=== PATIENT | female | born 1940 | race Caucasian/White ===

== ENCOUNTER 2017-09-28 17:32 | Inpatient (IN) | payer MEDICARE, OTHER ==
[2017-09-29 04:03] LABS: AADO2 Arterial 47.3 mmHg (7.0-24.0); Allen Test ACCEPTAB; Arterial Base Excess 4.8 mmol/L (-3.0-3); Arterial Blood Gas Oxygen Sat 91.7 mmHG (95.0-100.0); Arterial Fraction of Oxyhgb 90.6 % (93.0-99.0); Arterial HCO3 27.4 mmol/L (22.0-26.0); Arterial MetHb 0.2 % (0.0-1.5); Arterial Total Hemglobin 13.5 g/dl (12.0-18.0); Arterial pCO2 34.1 mmhg (35-45); MODE ROOM AIR; Site Right Radial
[2017-09-29 06:18] LABS: ADD MAN DIFF? NO
[2017-09-29 06:30] LABS: WHITE BLOOD COUNT 22.3 10^3/ul (4.8-10.8)
[2017-09-29 06:30] LABS: BASOPHILS % 0.2 % (0.0-2.0); HEMATOCRIT 37.1 % (37.0-47.0); HEMOGLOBIN 12.3 g/dl (12.0-16.0); LYMPHOCYTES # 2.2 10^3/ul (0.8-2.9); LYMPHOCYTES % 9.6 % (15.0-51.0); MEAN CORPUSCULAR HEMOGLOBIN 29.4 pg (29.0-33.0); MEAN CORPUSCULAR HGB CONC 33.2 g/dl (32.0-37.0); MEAN CORPUSCULAR VOLUME 88.5 fl (82.0-101.0); MEAN PLATELET VOLUME 10.5 fl (7.4-10.4); MONOCYTE # 1.3 10^3/ul (0.3-0.9); MONOCYTES % 5.9 % (0.0-11.0); NEUTROPHIL # 18.5 10^3/ul (1.6-7.5); NEUTROPHILS % 83.1 % (39.0-77.0); PLATELET COUNT 310 10^3/UL (140-415); RED BLOOD COUNT 4.19 10^6/ul (4.20-5.40); RED CELL DISTRIBUTION WIDTH 14.8 % (11.5-14.5)
[2017-09-29 06:52] LABS: PROTIME 16.4 Sec (11.9-14.9); PT RATIO 1.3
[2017-09-29 06:53] LABS: PARTIAL THROMBOPLASTIN TIME 37.8 Sec (25.0-35.0)
[2017-09-29 06:56] LABS: ALANINE AMINOTRANSFERASE 27 IU/L (13-69); ALBUMIN 2.9 g/dl (3.3-4.9); ALBUMIN/GLOBULIN RATIO 0.87; ALKALINE PHOSPHATASE 354 IU/L (42-121); ANION GAP 15 (8-16); ASPARTATE AMINO TRANSFERASE 26 IU/L (15-46); BILIRUBIN,INDIRECT 0.9 mg/dl (0-1.1); BILIRUBIN,TOTAL 0.9 mg/dl (0.2-1.3); BLOOD UREA NITROGEN 34 mg/dl (7-20); CALCIUM 8.7 mg/dl (8.4-10.2); CARBON DIOXIDE 28 mmol/L (21-31); CHLORIDE 88 mmol/L (97-110); CREATININE 0.82 mg/dl (0.44-1.00); GLUCOSE 399 mg/dl (70-220); POTASSIUM 4.9 mmol/L (3.5-5.1); SODIUM 126 mmol/L (135-144); TOTAL PROTEIN 6.2 g/dl (6.1-8.1)
[2017-09-29 07:03] LABS: B-TYPE NATRIURETIC PEPTIDE 13900 PG/ML (0-450)
[2017-09-29 07:05] LABS: LACTIC ACID 2.6 mmol/L (0.5-2.0)
[2017-09-29 07:06] LABS: TROPONIN-I 0.058 ng/ml (0.00-0.12)
[2017-09-29] MEDS: PIPER-TAZO 3.375 GM IV (PMX) 100 ML IVPB (07:10)
[2017-09-29] MEDS: SODIUM CHLORIDE 0.9% 1L BAG IV* (07:11)
[2017-09-29] MEDS: INSULIN REGULAR, HUMAN 100 UNIT/1 ML 3ML VIAL SC (08:45)
[2017-09-29 08:57] LABS: LACTIC ACID 2.9 mmol/L (0.5-2.0)
[2017-09-29] MEDS: VANCOMYCIN 1 GM (PMX) 250 ML IVPB (09:34)
[2017-09-29 11:00] LABS: LACTIC ACID 4.7 mmol/L (0.5-2.0)
[2017-09-29] MEDS ORDERED: ACETAMINOPHEN 325 MG TAB PO (12:00)
[2017-09-29] MEDS ORDERED: ONDANSETRON 4 MG INJ IV ×2 (12:00→16:00)
[2017-09-29] MEDS ORDERED: VANCOMYCIN IV PER PHARMACY XX (16:00)
[2017-09-29] MEDS ORDERED: GLUCAGON 1 MG INJ IM (16:30)
[2017-09-29] MEDS ORDERED: DEXTROSE 50% 50 ML SYRINGE IV ×2 (16:30)
[2017-09-29] MEDS ORDERED: GLUCOSE GEL 15 GRAM TUBE BUCCAL (16:30)
[2017-09-29] MEDS ORDERED: GLUCOSE GEL 15 GRAM TUBE PO (16:30)
[2017-09-29 17:20] LABS: ADD UMIC YES; UR ASCORBIC ACID NEGATIVE (NEGATIVE); UR BILIRUBIN (Dip) NEGATIVE (NEGATIVE); UR BLOOD (Dip) 2+ mg/dL (NEGATIVE); UR CLARITY SLIGHTLY CLOUDY (CLEAR); UR COLOR YELLOW (YELLOW); UR GLUCOSE (Dip) 3+ mg/dL (NEGATIVE); UR KETONES (Dip) NEGATIVE (NEGATIVE); UR LEUKOCYTE ESTERASE (Dip) NEGATIVE Leu/ul (NEGATIVE); UR NITRITE (Dip) NEGATIVE (NEGATIVE); UR RBC 9 /HPF (0-5); UR SPECIFIC GRAVITY (Dip) 1.018 (1.003-1.030); UR SQUAMOUS EPITHELIAL CELL FEW /HPF (FEW); UR TOTAL PROTEIN (Dip) NEGATIVE (NEGATIVE); UR UROBILINOGEN (Dip) NEGATIVE (NEGATIVE); UR WBC 2 /HPF (0-5)
[2017-09-29] MEDS: CLOPIDOGREL 75 MG TAB PO (17:32)
[2017-09-29] MEDS: LEVOFLOXACIN 500MG/D5W (PMX) 100 ML IVPB (17:32)
[2017-09-29] MEDS: INSULIN ASPART [NOVOLOG] 3 ML PEN SC ×3 (17:54→20:28)
[2017-09-29] MEDS: ISOSORBIDE MONONITRATE(SR)60 MG TAB PO (17:59)
[2017-09-29] MEDS: FUROSEMIDE 40 MG TAB PO (18:00)
[2017-09-29] MEDS: SOD CHLORIDE 0.9% 1,000 ML IV (18:36)
[2017-09-29] MEDS: VANCOMYCIN 1.25 GM in SOD CHLORIDE 0.9% 250 ML IVPB (18:37)
[2017-09-29] MEDS: DOCUSATE SODIUM 100 MG CAP PO (20:21)
[2017-09-29] MEDS: POTASSIUM CHLORIDE (SR) 20 MEQ TAB PO (20:22)
[2017-09-29] MEDS: GABAPENTIN 100 MG CAP PO (20:22)
[2017-09-29] MEDS: ATORVASTATIN 10 MG TAB PO (20:22)
[2017-09-29] MEDS: FAMOTIDINE 20 MG TAB PO (20:22)
[2017-09-29] MEDS: ASPIRIN 81 MG TAB PO (20:30)
[2017-09-29] MEDS ORDERED: INSULIN DEGLUDEC 32 UNIT SQ (21:00)
[2017-09-30] MEDS: ACCU-CHEK XX ×2 (02:00→23:31)
[2017-09-30] MEDS: FUROSEMIDE 40 MG TAB PO ×2 (06:20→18:00)
[2017-09-30] MEDS: VANCOMYCIN 1 GM in 250 ML IVPB (06:21)
[2017-09-30 07:31] LABS: ADD MAN DIFF? NO
[2017-09-30 07:36] LABS: BASOPHIL # 0.1 10^3/ul (0.0-0.1); BASOPHILS % 0.4 % (0.0-2.0); EOSINOPHILS # 0.2 10^3/ul (0.0-0.5); EOSINOPHILS % 1.7 % (0.0-7.0); HEMATOCRIT 34.8 % (37.0-47.0); LYMPHOCYTES # 2.4 10^3/ul (0.8-2.9); LYMPHOCYTES % 16.8 % (15.0-51.0); MEAN CORPUSCULAR HEMOGLOBIN 28.8 pg (29.0-33.0); MEAN CORPUSCULAR HGB CONC 31.6 g/dl (32.0-37.0); MEAN CORPUSCULAR VOLUME 91.1 fl (82.0-101.0); MEAN PLATELET VOLUME 10.5 fl (7.4-10.4); MONOCYTE # 0.8 10^3/ul (0.3-0.9); MONOCYTES % 5.7 % (0.0-11.0); NEUTROPHIL # 10.4 10^3/ul (1.6-7.5); PLATELET COUNT 271 10^3/UL (140-415); RED BLOOD COUNT 3.82 10^6/ul (4.20-5.40); RED CELL DISTRIBUTION WIDTH 15.1 % (11.5-14.5)
[2017-09-30] MEDS: INSULIN ASPART [NOVOLOG] 3 ML PEN SC ×7 (07:53→20:20)
[2017-09-30 08:08] LABS: ANION GAP 10 (8-16); BLOOD UREA NITROGEN 29 mg/dl (7-20); CALCIUM 8.4 mg/dl (8.4-10.2); CARBON DIOXIDE 30 mmol/L (21-31); CHLORIDE 94 mmol/L (97-110); CREATININE 0.88 mg/dl (0.44-1.00); GLUCOSE 262 mg/dl (70-220); PHOSPHORUS 2.9 mg/dl (2.5-4.9); POTASSIUM 4.5 mmol/L (3.5-5.1); SODIUM 129 mmol/L (135-144)
[2017-09-30] MEDS: DOCUSATE SODIUM 100 MG CAP PO ×2 (09:17→20:19)
[2017-09-30] MEDS: CLOPIDOGREL 75 MG TAB PO (09:17)
[2017-09-30] MEDS: GABAPENTIN 100 MG CAP PO ×3 (09:18→20:19)
[2017-09-30] MEDS: ISOSORBIDE MONONITRATE(SR)60 MG TAB PO (09:18)
[2017-09-30] MEDS: FAMOTIDINE 20 MG TAB PO ×2 (09:18→20:19)
[2017-09-30] MEDS: POTASSIUM CHLORIDE (SR) 20 MEQ TAB PO ×2 (09:19→20:19)
[2017-09-30] MEDS: FLUCONAZOLE 200 MG TAB PO (14:44)
[2017-09-30] MEDS: LEVOFLOXACIN 500MG/D5W (PMX) 100 ML IVPB (15:29)
[2017-09-30] MEDS: INSULIN GLARGINE [LANtus] 3 ML PEN SC (15:30)
[2017-09-30] MEDS ORDERED: VANCOMYCIN 1.25 GM in SOD CHLORIDE 0.45% 250 ML IVPB (18:00)
[2017-09-30] MEDS: ASPIRIN 81 MG TAB PO (20:19)
[2017-09-30] MEDS: ATORVASTATIN 10 MG TAB PO (20:19)
[2017-10-01] MEDS: FUROSEMIDE 40 MG TAB PO ×2 (05:53→06:00)
[2017-10-01] MEDS: VANCOMYCIN 1 GM in 250 ML IVPB (05:53)
[2017-10-01] MEDS: INSULIN ASPART [NOVOLOG] 3 ML PEN SC ×7 (07:30→20:55)
[2017-10-01 08:38] LABS: ADD MAN DIFF? NO
[2017-10-01 08:54] LABS: WHITE BLOOD COUNT 17.7 10^3/ul (4.8-10.8)
[2017-10-01 08:54] LABS: BASOPHIL # 0.1 10^3/ul (0.0-0.1); BASOPHILS % 0.6 % (0.0-2.0); EOSINOPHILS # 0.2 10^3/ul (0.0-0.5); EOSINOPHILS % 1.4 % (0.0-7.0); HEMATOCRIT 38.6 % (37.0-47.0); HEMOGLOBIN 12.3 g/dl (12.0-16.0); LYMPHOCYTES # 4.3 10^3/ul (0.8-2.9); LYMPHOCYTES % 24.1 % (15.0-51.0); MEAN CORPUSCULAR HEMOGLOBIN 28.8 pg (29.0-33.0); MEAN CORPUSCULAR HGB CONC 31.9 g/dl (32.0-37.0); MEAN CORPUSCULAR VOLUME 90.4 fl (82.0-101.0); MEAN PLATELET VOLUME 10.5 fl (7.4-10.4); MONOCYTE # 0.8 10^3/ul (0.3-0.9); MONOCYTES % 4.6 % (0.0-11.0); NEUTROPHIL # 11.8 10^3/ul (1.6-7.5); NEUTROPHILS % 66.4 % (39.0-77.0); PLATELET COUNT 479 10^3/UL (140-415); RED BLOOD COUNT 4.27 10^6/ul (4.20-5.40); RED CELL DISTRIBUTION WIDTH 14.9 % (11.5-14.5)
[2017-10-01] MEDS: FAMOTIDINE 20 MG TAB PO ×2 (09:23→20:46)
[2017-10-01] MEDS: DOCUSATE SODIUM 100 MG CAP PO ×2 (09:23→20:46)
[2017-10-01] MEDS: GABAPENTIN 100 MG CAP PO ×3 (09:23→20:46)
[2017-10-01] MEDS: POTASSIUM CHLORIDE (SR) 20 MEQ TAB PO (09:23)
[2017-10-01] MEDS: FLUCONAZOLE 200 MG TAB PO (09:23)
[2017-10-01] MEDS: CLOPIDOGREL 75 MG TAB PO (09:24)
[2017-10-01 09:27] LABS: ANION GAP 15 (8-16); BLOOD UREA NITROGEN 38 mg/dl (7-20); CALCIUM 8.7 mg/dl (8.4-10.2); CARBON DIOXIDE 27 mmol/L (21-31); CHLORIDE 95 mmol/L (97-110); CREATININE 0.94 mg/dl (0.44-1.00); GLUCOSE 76 mg/dl (70-220); POTASSIUM 5.6 mmol/L (3.5-5.1); SODIUM 131 mmol/L (135-144)
[2017-10-01 09:28] LABS: MAGNESIUM 1.9 mg/dl (1.7-2.5)
[2017-10-01] MEDS: INSULIN GLARGINE [LANtus] 3 ML PEN SC (09:30)
[2017-10-01] MEDS: ISOSORBIDE MONONITRATE(SR)60 MG TAB PO (09:33)
[2017-10-01] MEDS: ALBUMIN HUMAN 25% 100 ML IV ×2 (12:14→21:00)
[2017-10-01] MEDS: HEPARIN 5,000 UNIT/0.5 ML VIAL SC ×2 (12:40→20:55)
[2017-10-01 12:46] LABS: POTASSIUM 5.7 mmol/L (3.5-5.1)
[2017-10-01] MEDS: LEVOFLOXACIN 500MG/D5W (PMX) 100 ML IVPB (16:04)
[2017-10-01] MEDS: HYDROCODONE/APAP (5/325) TAB PO (16:18)
[2017-10-01] MEDS: FUROSEMIDE 40 MG INJ IV (18:00)
[2017-10-01] MEDS: ASPIRIN 81 MG TAB PO (20:46)
[2017-10-01] MEDS: ATORVASTATIN 10 MG TAB PO (20:46)
[2017-10-02] MEDS: ACCU-CHEK XX (02:00)
[2017-10-02 04:37] LABS: ADD MAN DIFF? NO
[2017-10-02 04:39] LABS: WHITE BLOOD COUNT 13.9 10^3/ul (4.8-10.8)
[2017-10-02 04:39] LABS: BASOPHIL # 0.1 10^3/ul (0.0-0.1); BASOPHILS % 0.6 % (0.0-2.0); EOSINOPHILS # 0.1 10^3/ul (0.0-0.5); EOSINOPHILS % 0.6 % (0.0-7.0); HEMATOCRIT 37.3 % (37.0-47.0); HEMOGLOBIN 12.2 g/dl (12.0-16.0); LYMPHOCYTES # 2.1 10^3/ul (0.8-2.9); LYMPHOCYTES % 15.1 % (15.0-51.0); MEAN CORPUSCULAR HEMOGLOBIN 29.3 pg (29.0-33.0); MEAN CORPUSCULAR HGB CONC 32.7 g/dl (32.0-37.0); MEAN CORPUSCULAR VOLUME 89.4 fl (82.0-101.0); MEAN PLATELET VOLUME 10.3 fl (7.4-10.4); MONOCYTE # 0.8 10^3/ul (0.3-0.9); MONOCYTES % 5.5 % (0.0-11.0); NEUTROPHIL # 10.6 10^3/ul (1.6-7.5); NEUTROPHILS % 76.4 % (39.0-77.0); PLATELET COUNT 389 10^3/UL (140-415); RED BLOOD COUNT 4.17 10^6/ul (4.20-5.40); RED CELL DISTRIBUTION WIDTH 15.1 % (11.5-14.5)
[2017-10-02 05:04] LABS: ALBUMIN 3.2 g/dl (3.3-4.9); ANION GAP 10 (8-16); BLOOD UREA NITROGEN 40 mg/dl (7-20); CALCIUM 8.7 mg/dl (8.4-10.2); CARBON DIOXIDE 33 mmol/L (21-31); CHLORIDE 97 mmol/L (97-110); CREATININE 1.07 mg/dl (0.44-1.00); GLUCOSE 73 mg/dl (70-220); MAGNESIUM 1.8 mg/dl (1.7-2.5); PHOSPHORUS 4.3 mg/dl (2.5-4.9); POTASSIUM 5.3 mmol/L (3.5-5.1); SODIUM 135 mmol/L (135-144)
[2017-10-02 05:07] LABS: VANCOMYCIN,TROUGH 13.5 ug/ml (10.0-20.0)
[2017-10-02] MEDS: ALBUMIN HUMAN 25% 100 ML IV (06:10)
[2017-10-02] MEDS: VANCOMYCIN 1 GM in 250 ML IVPB (06:11)
[2017-10-02] MEDS: FUROSEMIDE 40 MG INJ IV (06:14)
[2017-10-02] MEDS: INSULIN ASPART [NOVOLOG] 3 ML PEN SC ×7 (08:00→20:08)
[2017-10-02] MEDS: FAMOTIDINE 20 MG TAB PO ×2 (08:27→20:08)
[2017-10-02] MEDS: DOCUSATE SODIUM 100 MG CAP PO ×2 (08:27→20:13)
[2017-10-02] MEDS: CLOPIDOGREL 75 MG TAB PO (08:28)
[2017-10-02] MEDS: FLUCONAZOLE 200 MG TAB PO (08:28)
[2017-10-02] MEDS: ISOSORBIDE MONONITRATE(SR)60 MG TAB PO (08:28)
[2017-10-02] MEDS: HEPARIN 5,000 UNIT/0.5 ML VIAL SC ×2 (08:29→20:11)
[2017-10-02] MEDS: INSULIN GLARGINE [LANtus] 3 ML PEN SC (08:30)
[2017-10-02] MEDS: GABAPENTIN 100 MG CAP PO ×3 (08:46→20:08)
[2017-10-02] MEDS: LEVOFLOXACIN 500MG/D5W (PMX) 100 ML IVPB (15:36)
[2017-10-02] MEDS: FUROSEMIDE 20 MG INJ IV (18:03)
[2017-10-02] MEDS: ATORVASTATIN 10 MG TAB PO (20:08)
[2017-10-02] MEDS: ASPIRIN 81 MG TAB PO (20:08)
[2017-10-03] MEDS: ACCU-CHEK XX (02:00)
[2017-10-03] MEDS: VANCOMYCIN 1 GM in 250 ML IVPB (04:52)
[2017-10-03] MEDS: FUROSEMIDE 20 MG INJ IV ×2 (05:42→17:24)
[2017-10-03 07:45] LABS: ADD MAN DIFF? NO
[2017-10-03 07:48] LABS: WHITE BLOOD COUNT 12.7 10^3/ul (4.8-10.8)
[2017-10-03 07:48] LABS: BASOPHIL # 0.1 10^3/ul (0.0-0.1); BASOPHILS % 0.4 % (0.0-2.0); EOSINOPHILS # 0.2 10^3/ul (0.0-0.5); EOSINOPHILS % 1.3 % (0.0-7.0); HEMATOCRIT 34.5 % (37.0-47.0); LYMPHOCYTES # 2.3 10^3/ul (0.8-2.9); LYMPHOCYTES % 18.1 % (15.0-51.0); MEAN CORPUSCULAR HEMOGLOBIN 28.7 pg (29.0-33.0); MEAN CORPUSCULAR HGB CONC 31.9 g/dl (32.0-37.0); MEAN CORPUSCULAR VOLUME 90.1 fl (82.0-101.0); MEAN PLATELET VOLUME 10.2 fl (7.4-10.4); MONOCYTE # 0.9 10^3/ul (0.3-0.9); MONOCYTES % 7.1 % (0.0-11.0); NEUTROPHIL # 9.2 10^3/ul (1.6-7.5); NEUTROPHILS % 71.8 % (39.0-77.0); PLATELET COUNT 310 10^3/UL (140-415); RED BLOOD COUNT 3.83 10^6/ul (4.20-5.40); RED CELL DISTRIBUTION WIDTH 15.3 % (11.5-14.5)
[2017-10-03] MEDS: INSULIN ASPART [NOVOLOG] 3 ML PEN SC ×7 (08:00→20:12)
[2017-10-03 08:15] LABS: ANION GAP 13 (8-16); BLOOD UREA NITROGEN 34 mg/dl (7-20); CALCIUM 8.4 mg/dl (8.4-10.2); CARBON DIOXIDE 30 mmol/L (21-31); CHLORIDE 97 mmol/L (97-110); GLUCOSE 97 mg/dl (70-220); POTASSIUM 3.8 mmol/L (3.5-5.1); SODIUM 136 mmol/L (135-144)
[2017-10-03] MEDS: DOCUSATE SODIUM 100 MG CAP PO ×2 (08:59→20:04)
[2017-10-03] MEDS: ISOSORBIDE MONONITRATE(SR)60 MG TAB PO (08:59)
[2017-10-03] MEDS: GABAPENTIN 100 MG CAP PO ×3 (08:59→20:04)
[2017-10-03] MEDS: CLOPIDOGREL 75 MG TAB PO (09:00)
[2017-10-03] MEDS: FAMOTIDINE 20 MG TAB PO ×2 (09:00→20:04)
[2017-10-03] MEDS: FLUCONAZOLE 200 MG TAB PO (09:00)
[2017-10-03] MEDS: INSULIN GLARGINE [LANtus] 3 ML PEN SC (09:05)
[2017-10-03] MEDS: HEPARIN 5,000 UNIT/0.5 ML VIAL SC ×2 (09:05→20:11)
[2017-10-03] MEDS: LEVOFLOXACIN 500MG/D5W (PMX) 100 ML IVPB (16:18)
[2017-10-03] MEDS: ASPIRIN 81 MG TAB PO (20:04)
[2017-10-03] MEDS: HYDROCODONE/APAP (5/325) TAB PO (20:04)
[2017-10-03] MEDS: ATORVASTATIN 10 MG TAB PO (20:05)
[2017-10-04] MEDS: ACCU-CHEK XX (02:00)
[2017-10-04] MEDS: VANCOMYCIN 1 GM in 250 ML IVPB (05:31)
[2017-10-04] MEDS: FUROSEMIDE 20 MG INJ IV ×3 (05:38→20:27)
[2017-10-04 07:51] LABS: ADD MAN DIFF? NO
[2017-10-04 07:57] LABS: WHITE BLOOD COUNT 12.3 10^3/ul (4.8-10.8)
[2017-10-04 07:57] LABS: BASOPHIL # 0.1 10^3/ul (0.0-0.1); BASOPHILS % 0.4 % (0.0-2.0); EOSINOPHILS # 0.2 10^3/ul (0.0-0.5); EOSINOPHILS % 1.5 % (0.0-7.0); HEMATOCRIT 36.8 % (37.0-47.0); HEMOGLOBIN 11.7 g/dl (12.0-16.0); LYMPHOCYTES % 16.3 % (15.0-51.0); MEAN CORPUSCULAR HGB CONC 31.8 g/dl (32.0-37.0); MEAN CORPUSCULAR VOLUME 91.3 fl (82.0-101.0); MEAN PLATELET VOLUME 10.2 fl (7.4-10.4); MONOCYTE # 0.9 10^3/ul (0.3-0.9); MONOCYTES % 7.6 % (0.0-11.0); NEUTROPHIL # 8.9 10^3/ul (1.6-7.5); NEUTROPHILS % 72.1 % (39.0-77.0); PLATELET COUNT 328 10^3/UL (140-415); RED BLOOD COUNT 4.03 10^6/ul (4.20-5.40); RED CELL DISTRIBUTION WIDTH 15.3 % (11.5-14.5)
[2017-10-04 08:20] LABS: ANION GAP 14 (8-16); BLOOD UREA NITROGEN 33 mg/dl (7-20); CALCIUM 8.4 mg/dl (8.4-10.2); CARBON DIOXIDE 34 mmol/L (21-31); CHLORIDE 94 mmol/L (97-110); CREATININE 0.99 mg/dl (0.44-1.00); GLUCOSE 178 mg/dl (70-220); POTASSIUM 4.3 mmol/L (3.5-5.1); SODIUM 138 mmol/L (135-144)
[2017-10-04] MEDS: CLOPIDOGREL 75 MG TAB PO (08:55)
[2017-10-04] MEDS: FAMOTIDINE 20 MG TAB PO ×2 (08:55→20:26)
[2017-10-04] MEDS: GABAPENTIN 100 MG CAP PO ×3 (08:55→20:25)
[2017-10-04] MEDS: FLUCONAZOLE 200 MG TAB PO (08:55)
[2017-10-04] MEDS: DOCUSATE SODIUM 100 MG CAP PO ×2 (08:55→20:26)
[2017-10-04] MEDS: ISOSORBIDE MONONITRATE(SR)60 MG TAB PO (08:56)
[2017-10-04] MEDS: INSULIN ASPART [NOVOLOG] 3 ML PEN SC ×7 (08:59→20:28)
[2017-10-04] MEDS: INSULIN GLARGINE [LANtus] 3 ML PEN SC (09:00)
[2017-10-04] MEDS: HEPARIN 5,000 UNIT/0.5 ML VIAL SC ×2 (09:01→20:44)
[2017-10-04] MEDS: ACETAMINOPHEN 325 MG TAB PO (13:38)
[2017-10-04] MEDS: LEVOFLOXACIN 500MG/D5W (PMX) 100 ML IVPB (16:02)
[2017-10-04] MEDS: ATORVASTATIN 10 MG TAB PO (20:25)
[2017-10-04] MEDS: ASPIRIN 81 MG TAB PO (20:25)
[2017-10-05] MEDS: ACCU-CHEK XX (02:00)
[2017-10-05] MEDS: VANCOMYCIN 1 GM in 250 ML IVPB (05:17)
[2017-10-05] MEDS: FUROSEMIDE 20 MG INJ IV ×2 (05:17→17:53)
[2017-10-05] MEDS: ACETAMINOPHEN 325 MG TAB PO ×2 (06:58→21:26)
[2017-10-05] MEDS: FLUCONAZOLE 200 MG TAB PO (08:50)
[2017-10-05] MEDS: DOCUSATE SODIUM 100 MG CAP PO ×2 (08:50→21:26)
[2017-10-05] MEDS: GABAPENTIN 100 MG CAP PO ×3 (08:51→21:25)
[2017-10-05] MEDS: ISOSORBIDE MONONITRATE(SR)60 MG TAB PO (08:51)
[2017-10-05] MEDS: FAMOTIDINE 20 MG TAB PO ×2 (08:51→21:25)
[2017-10-05] MEDS: CLOPIDOGREL 75 MG TAB PO (08:51)
[2017-10-05] MEDS: HEPARIN 5,000 UNIT/0.5 ML VIAL SC ×2 (09:04→21:28)
[2017-10-05] MEDS: INSULIN ASPART [NOVOLOG] 3 ML PEN SC ×7 (09:04→21:00)
[2017-10-05] MEDS: INSULIN GLARGINE [LANtus] 3 ML PEN SC (09:04)
[2017-10-05 11:07] LABS: ADD MAN DIFF? NO
[2017-10-05 11:14] LABS: WHITE BLOOD COUNT 13.4 10^3/ul (4.8-10.8)
[2017-10-05 11:14] LABS: BASOPHIL # 0.1 10^3/ul (0.0-0.1); BASOPHILS % 0.7 % (0.0-2.0); EOSINOPHILS # 0.1 10^3/ul (0.0-0.5); EOSINOPHILS % 0.8 % (0.0-7.0); HEMOGLOBIN 11.9 g/dl (12.0-16.0); LYMPHOCYTES # 2.7 10^3/ul (0.8-2.9); MEAN CORPUSCULAR HEMOGLOBIN 28.4 pg (29.0-33.0); MEAN CORPUSCULAR HGB CONC 31.3 g/dl (32.0-37.0); MEAN CORPUSCULAR VOLUME 90.7 fl (82.0-101.0); MEAN PLATELET VOLUME 10.4 fl (7.4-10.4); MONOCYTE # 0.9 10^3/ul (0.3-0.9); MONOCYTES % 6.5 % (0.0-11.0); NEUTROPHIL # 9.3 10^3/ul (1.6-7.5); NEUTROPHILS % 69.6 % (39.0-77.0); PLATELET COUNT 387 10^3/UL (140-415); RED BLOOD COUNT 4.19 10^6/ul (4.20-5.40); RED CELL DISTRIBUTION WIDTH 15.4 % (11.5-14.5)
[2017-10-05 11:32] LABS: ANION GAP 14 (8-16); BLOOD UREA NITROGEN 29 mg/dl (7-20); CALCIUM 8.5 mg/dl (8.4-10.2); CARBON DIOXIDE 29 mmol/L (21-31); CHLORIDE 91 mmol/L (97-110); CREATININE 1.08 mg/dl (0.44-1.00); GLUCOSE 161 mg/dl (70-220); POTASSIUM 4.9 mmol/L (3.5-5.1); SODIUM 129 mmol/L (135-144)
[2017-10-05] MEDS: DOXYCYCLINE 100 MG TAB PO (21:25)
[2017-10-05] MEDS: ATORVASTATIN 10 MG TAB PO (21:25)
[2017-10-05] MEDS: ASPIRIN 81 MG TAB PO (21:26)
[2017-10-06] MEDS: ACCU-CHEK XX (01:00)
[2017-10-06] MEDS: FUROSEMIDE 20 MG INJ IV ×2 (06:35→17:17)
[2017-10-06] MEDS: DOXYCYCLINE 100 MG TAB PO ×2 (08:08→21:29)
[2017-10-06] MEDS: GABAPENTIN 100 MG CAP PO ×3 (08:08→21:27)
[2017-10-06] MEDS: CLOPIDOGREL 75 MG TAB PO (08:09)
[2017-10-06] MEDS: DOCUSATE SODIUM 100 MG CAP PO ×2 (08:09→21:28)
[2017-10-06] MEDS: FAMOTIDINE 20 MG TAB PO ×2 (08:09→21:28)
[2017-10-06] MEDS: ISOSORBIDE MONONITRATE(SR)60 MG TAB PO (08:09)
[2017-10-06] MEDS: INSULIN ASPART [NOVOLOG] 3 ML PEN SC ×7 (08:15→21:00)
[2017-10-06] MEDS: INSULIN GLARGINE [LANtus] 3 ML PEN SC (08:19)
[2017-10-06] MEDS: HEPARIN 5,000 UNIT/0.5 ML VIAL SC ×2 (08:20→21:32)
[2017-10-06] MEDS: ACETAMINOPHEN 325 MG TAB PO (18:49)
[2017-10-06] MEDS: ASPIRIN 81 MG TAB PO (21:28)
[2017-10-06] MEDS: ATORVASTATIN 10 MG TAB PO (21:29)
[2017-10-06] MEDS: GLUCOSE GEL 15 GRAM TUBE PO (21:39)
== END 2017-10-06 22:55 | DRG 872 ==
LOC: MS2 10-05 06:45 → E/R 17:32 → MS4 09-29 11:41
PROVIDERS: Internal Medicine
DX: A41.9 Sepsis, unspecified organism (principal); E11.40 Type 2 diabetes mellitus with diabetic neuropathy, unspecified; I50.22 Chronic systolic (congestive) heart failure; E87.1 Hypo-osmolality and hyponatremia; I11.0 Hypertensive heart disease with heart failure; B37.49 Other urogenital candidiasis; L03.115 Cellulitis of right lower limb; L03.116 Cellulitis of left lower limb; I10 Essential (primary) hypertension; M81.0 Age-related osteoporosis without current pathological fracture; E78.5 Hyperlipidemia, unspecified; E11.51 Type 2 diabetes mellitus with diabetic peripheral angiopathy without gangrene; I25.10 Atherosclerotic heart disease of native coronary artery without angina pectoris; Z95.5 Presence of coronary angioplasty implant and graft; I25.5 Ischemic cardiomyopathy
CPT/HCPCS: 36600; 71045; 80048; 80053; 80069; 80202; 81001; 82803; 82962; 83036; 83605; 83735; 83880; 84100; 84132; 84134; 84484; 85025; 85610; 85730; 87040; 87086; 87400; 93005; 93971; 96361; 96365; 96366; 96367; 96372; 96375; 96376; 97116; 97163; 97530; 99291-25; J1940

== ENCOUNTER 2017-10-06 23:08 | Inpatient (IN) | payer MEDICARE, OTHER ==
[2017-10-07] MEDS ORDERED: GLUCOSE GEL 15 GRAM TUBE PO (01:00)
[2017-10-07] MEDS ORDERED: GLUCOSE GEL 15 GRAM TUBE BUCCAL (01:00)
[2017-10-07] MEDS ORDERED: ONDANSETRON 4 MG INJ IV (01:00)
[2017-10-07] MEDS ORDERED: DEXTROSE 50% 50 ML SYRINGE IV (01:00)
[2017-10-07] MEDS ORDERED: GLUCAGON 1 MG INJ IM (01:00)
[2017-10-07] MEDS ORDERED: BISACODYL 10 MG SUPP PR (01:30)
[2017-10-07] MEDS ORDERED: LACTULOSE 30ML CUP PO (01:30)
[2017-10-07] MEDS ORDERED: PENDING SANTYL ORDER FOR WOUND CARE XX (01:30)
[2017-10-07] MEDS: ACETAMINOPHEN 325 MG TAB PO ×2 (01:37→12:41)
[2017-10-07] MEDS: ACCUCHECK AT 2AM (Patients on SS coverage) XX (02:00)
[2017-10-07] MEDS: FUROSEMIDE 20 MG INJ IV (06:38)
[2017-10-07] MEDS: Insulin NOVOLOG SS MILD Algorithm (SS with meals and bedtime) SC ×4 (07:05→20:33)
[2017-10-07] MEDS: INSULIN ASPART [NOVOLOG] 3 ML PEN SC ×3 (08:23→17:42)
[2017-10-07] MEDS: INSULIN GLARGINE [LANtus] 3 ML PEN SC (08:24)
[2017-10-07 08:29] LABS: ADD MAN DIFF? NO
[2017-10-07 08:40] LABS: WHITE BLOOD COUNT 13.2 10^3/ul (4.8-10.8)
[2017-10-07 08:40] LABS: BASOPHIL # 0.1 10^3/ul (0.0-0.1); BASOPHILS % 0.6 % (0.0-2.0); EOSINOPHILS # 0.3 10^3/ul (0.0-0.5); EOSINOPHILS % 2.4 % (0.0-7.0); HEMATOCRIT 36.4 % (37.0-47.0); HEMOGLOBIN 11.6 g/dl (12.0-16.0); LYMPHOCYTES # 3.1 10^3/ul (0.8-2.9); LYMPHOCYTES % 23.3 % (15.0-51.0); MEAN CORPUSCULAR HEMOGLOBIN 29.1 pg (29.0-33.0); MEAN CORPUSCULAR HGB CONC 31.9 g/dl (32.0-37.0); MEAN CORPUSCULAR VOLUME 91.2 fl (82.0-101.0); MEAN PLATELET VOLUME 10.3 fl (7.4-10.4); MONOCYTE # 1.1 10^3/ul (0.3-0.9); MONOCYTES % 8.6 % (0.0-11.0); NEUTROPHIL # 8.2 10^3/ul (1.6-7.5); NEUTROPHILS % 62.3 % (39.0-77.0); PLATELET COUNT 332 10^3/UL (140-415); RED BLOOD COUNT 3.99 10^6/ul (4.20-5.40); RED CELL DISTRIBUTION WIDTH 15.5 % (11.5-14.5)
[2017-10-07 09:00] LABS: ALANINE AMINOTRANSFERASE 37 IU/L (13-69); ALBUMIN 2.9 g/dl (3.3-4.9); ALBUMIN/GLOBULIN RATIO 0.93; ALKALINE PHOSPHATASE 411 IU/L (42-121); ANION GAP 11 (8-16); ASPARTATE AMINO TRANSFERASE 47 IU/L (15-46); BLOOD UREA NITROGEN 37 mg/dl (7-20); CALCIUM 8.6 mg/dl (8.4-10.2); CARBON DIOXIDE 33 mmol/L (21-31); CHLORIDE 93 mmol/L (97-110); CREATININE 1.09 mg/dl (0.44-1.00); GLUCOSE 121 mg/dl (70-220); POTASSIUM 5.2 mmol/L (3.5-5.1); SODIUM 132 mmol/L (135-144)
[2017-10-07] MEDS: ISOSORBIDE MONONITRATE(SR)60 MG TAB PO (09:00)
[2017-10-07] MEDS: CLOPIDOGREL 75 MG TAB PO (09:13)
[2017-10-07] MEDS: FAMOTIDINE 20 MG TAB PO ×2 (09:13→20:23)
[2017-10-07] MEDS: GABAPENTIN 100 MG CAP PO ×4 (09:13→20:23)
[2017-10-07] MEDS: DOXYCYCLINE 100 MG TAB PO ×2 (09:13→20:23)
[2017-10-07] MEDS: DOCUSATE SODIUM 100 MG CAP PO ×2 (09:13→20:23)
[2017-10-07] MEDS: HEPARIN 5,000 UNIT/0.5 ML VIAL SC ×2 (09:15→20:32)
[2017-10-07] MEDS: FUROSEMIDE 20 MG TAB PO (17:41)
[2017-10-07] MEDS: SENNA TAB PO (20:23)
[2017-10-07] MEDS: ATORVASTATIN 10 MG TAB PO (20:23)
[2017-10-07] MEDS: ASPIRIN 81 MG TAB PO (20:24)
[2017-10-08] MEDS: ACCUCHECK AT 2AM (Patients on SS coverage) XX (02:30)
[2017-10-08] MEDS: FUROSEMIDE 20 MG TAB PO ×2 (06:21→17:15)
[2017-10-08] MEDS: Insulin NOVOLOG SS MILD Algorithm (SS with meals and bedtime) SC ×4 (07:05→21:00)
[2017-10-08] MEDS: ISOSORBIDE MONONITRATE(SR)60 MG TAB PO (09:00)
[2017-10-08] MEDS: FAMOTIDINE 20 MG TAB PO ×2 (09:13→21:33)
[2017-10-08] MEDS: DOXYCYCLINE 100 MG TAB PO ×2 (09:13→21:33)
[2017-10-08] MEDS: CLOPIDOGREL 75 MG TAB PO (09:13)
[2017-10-08] MEDS: GABAPENTIN 100 MG CAP PO ×4 (09:15→21:35)
[2017-10-08] MEDS: DOCUSATE SODIUM 100 MG CAP PO ×2 (09:15→21:34)
[2017-10-08] MEDS: HEPARIN 5,000 UNIT/0.5 ML VIAL SC ×2 (09:22→21:34)
[2017-10-08] MEDS: INSULIN ASPART [NOVOLOG] 3 ML PEN SC ×3 (09:23→17:54)
[2017-10-08] MEDS: INSULIN GLARGINE [LANtus] 3 ML PEN SC (09:24)
[2017-10-08] MEDS: NA POLYST SULFON 15 GM/60 ML BTL PO (12:44)
[2017-10-08] MEDS: NYSTATIN 30 GM POWDER BTL TOP ×2 (12:44→21:33)
[2017-10-08] MEDS ORDERED: VANCOMYCIN IV PER PHARMACY XX (17:00)
[2017-10-08] MEDS ORDERED: VANCOMYCIN 1.75 GM in D5W 500 ML IVPB (18:00)
[2017-10-08] MEDS: ASPIRIN 81 MG TAB PO (21:33)
[2017-10-08] MEDS: SENNA TAB PO (21:35)
[2017-10-08] MEDS: ATORVASTATIN 10 MG TAB PO (21:35)
[2017-10-09] MEDS: ACCUCHECK AT 2AM (Patients on SS coverage) XX (02:06)
[2017-10-09] MEDS: FUROSEMIDE 20 MG TAB PO ×2 (06:53→17:42)
[2017-10-09 07:11] LABS: ADD MAN DIFF? NO
[2017-10-09 07:20] LABS: BASOPHIL # 0.1 10^3/ul (0.0-0.1); BASOPHILS % 0.6 % (0.0-2.0); EOSINOPHILS # 0.3 10^3/ul (0.0-0.5); EOSINOPHILS % 2.1 % (0.0-7.0); HEMATOCRIT 35.6 % (37.0-47.0); HEMOGLOBIN 11.4 g/dl (12.0-16.0); LYMPHOCYTES # 2.9 10^3/ul (0.8-2.9); LYMPHOCYTES % 23.1 % (15.0-51.0); MEAN CORPUSCULAR HEMOGLOBIN 29.1 pg (29.0-33.0); MEAN CORPUSCULAR VOLUME 90.8 fl (82.0-101.0); MEAN PLATELET VOLUME 9.8 fl (7.4-10.4); MONOCYTES % 7.6 % (0.0-11.0); NEUTROPHIL # 8.2 10^3/ul (1.6-7.5); NEUTROPHILS % 64.8 % (39.0-77.0); PLATELET COUNT 281 10^3/UL (140-415); RED BLOOD COUNT 3.92 10^6/ul (4.20-5.40); RED CELL DISTRIBUTION WIDTH 15.8 % (11.5-14.5)
[2017-10-09 07:20] LABS: WHITE BLOOD COUNT 12.7 10^3/ul (4.8-10.8)
[2017-10-09 07:34] LABS: ANION GAP 11 (8-16); BLOOD UREA NITROGEN 35 mg/dl (7-20); CALCIUM 8.2 mg/dl (8.4-10.2); CARBON DIOXIDE 36 mmol/L (21-31); CHLORIDE 94 mmol/L (97-110); CREATININE 0.92 mg/dl (0.44-1.00); GLUCOSE 77 mg/dl (70-220); POTASSIUM 3.9 mmol/L (3.5-5.1); SODIUM 137 mmol/L (135-144)
[2017-10-09] MEDS: INSULIN ASPART [NOVOLOG] 3 ML PEN SC ×3 (08:22→17:47)
[2017-10-09] MEDS: INSULIN GLARGINE [LANtus] 3 ML PEN SC (08:23)
[2017-10-09] MEDS: Insulin NOVOLOG SS MILD Algorithm (SS with meals and bedtime) SC ×4 (08:25→21:00)
[2017-10-09] MEDS: FAMOTIDINE 20 MG TAB PO ×2 (08:45→20:36)
[2017-10-09] MEDS: DOCUSATE SODIUM 100 MG CAP PO ×2 (08:45→20:36)
[2017-10-09] MEDS: DOXYCYCLINE 100 MG TAB PO ×2 (08:46→20:36)
[2017-10-09] MEDS: CLOPIDOGREL 75 MG TAB PO (08:46)
[2017-10-09] MEDS: HYDROCODONE/APAP (5/325) TAB PO ×2 (08:46→17:40)
[2017-10-09] MEDS: ISOSORBIDE MONONITRATE(SR)60 MG TAB PO (08:47)
[2017-10-09] MEDS: HEPARIN 5,000 UNIT/0.5 ML VIAL SC ×2 (08:50→22:01)
[2017-10-09] MEDS: GABAPENTIN 100 MG CAP PO ×4 (08:50→20:36)
[2017-10-09] MEDS: NYSTATIN 30 GM POWDER BTL TOP ×2 (08:52→22:04)
[2017-10-09] MEDS ORDERED: VANCOMYCIN 1 GM (PMX) 250 ML IVPB (18:00)
[2017-10-09] MEDS: ASPIRIN 81 MG TAB PO (20:36)
[2017-10-09] MEDS: ATORVASTATIN 10 MG TAB PO (20:36)
[2017-10-09] MEDS: SENNA TAB PO (21:00)
[2017-10-10] MEDS: ACCUCHECK AT 2AM (Patients on SS coverage) XX (02:00)
[2017-10-10] MEDS: FUROSEMIDE 20 MG TAB PO ×2 (06:50→17:16)
[2017-10-10] MEDS: Insulin NOVOLOG SS MILD Algorithm (SS with meals and bedtime) SC ×4 (07:05→20:42)
[2017-10-10] MEDS: INSULIN ASPART [NOVOLOG] 3 ML PEN SC ×3 (07:47→17:20)
[2017-10-10] MEDS: DOXYCYCLINE 100 MG TAB PO ×2 (08:12→20:40)
[2017-10-10] MEDS: FAMOTIDINE 20 MG TAB PO ×2 (08:13→20:41)
[2017-10-10] MEDS: CLOPIDOGREL 75 MG TAB PO (08:13)
[2017-10-10] MEDS: HYDROCODONE/APAP (5/325) TAB PO ×2 (08:13→14:06)
[2017-10-10] MEDS: DOCUSATE SODIUM 100 MG CAP PO ×2 (08:13→20:39)
[2017-10-10] MEDS: INSULIN GLARGINE [LANtus] 3 ML PEN SC (08:23)
[2017-10-10] MEDS: HEPARIN 5,000 UNIT/0.5 ML VIAL SC ×2 (08:33→20:41)
[2017-10-10] MEDS: GABAPENTIN 100 MG CAP PO ×4 (08:33→20:40)
[2017-10-10] MEDS: ISOSORBIDE MONONITRATE(SR)60 MG TAB PO (09:00)
[2017-10-10] MEDS: NYSTATIN 30 GM POWDER BTL TOP ×2 (09:43→20:42)
[2017-10-10] MEDS: ATORVASTATIN 10 MG TAB PO (20:39)
[2017-10-10] MEDS: ASPIRIN 81 MG TAB PO (20:39)
[2017-10-10] MEDS: SENNA TAB PO (20:39)
[2017-10-11] MEDS: ACCUCHECK AT 2AM (Patients on SS coverage) XX (01:24)
[2017-10-11] MEDS: FUROSEMIDE 20 MG TAB PO ×2 (06:17→17:58)
[2017-10-11] MEDS: ACETAMINOPHEN 325 MG TAB PO ×2 (06:17→18:00)
[2017-10-11] MEDS: Insulin NOVOLOG SS MILD Algorithm (SS with meals and bedtime) SC ×4 (07:05→20:32)
[2017-10-11] MEDS: ISOSORBIDE MONONITRATE(SR)60 MG TAB PO (08:47)
[2017-10-11] MEDS: FAMOTIDINE 20 MG TAB PO ×2 (08:47→20:22)
[2017-10-11] MEDS: DOCUSATE SODIUM 100 MG CAP PO ×2 (08:47→20:24)
[2017-10-11] MEDS: DOXYCYCLINE 100 MG TAB PO ×2 (08:47→20:22)
[2017-10-11] MEDS: CLOPIDOGREL 75 MG TAB PO (08:47)
[2017-10-11] MEDS: NYSTATIN 30 GM POWDER BTL TOP ×2 (08:48→20:33)
[2017-10-11] MEDS: HEPARIN 5,000 UNIT/0.5 ML VIAL SC ×2 (08:50→20:32)
[2017-10-11] MEDS: INSULIN ASPART [NOVOLOG] 3 ML PEN SC ×3 (08:51→17:30)
[2017-10-11] MEDS: INSULIN GLARGINE [LANtus] 3 ML PEN SC (08:51)
[2017-10-11] MEDS: GABAPENTIN 100 MG CAP PO ×4 (08:59→20:22)
[2017-10-11] MEDS: ASPIRIN 81 MG TAB PO (20:22)
[2017-10-11] MEDS: ATORVASTATIN 10 MG TAB PO (20:22)
[2017-10-11] MEDS: SENNA TAB PO (20:24)
[2017-10-12] MEDS: ACCUCHECK AT 2AM (Patients on SS coverage) XX (02:35)
[2017-10-12] MEDS: FUROSEMIDE 20 MG TAB PO ×2 (06:16→17:42)
[2017-10-12] MEDS: Insulin NOVOLOG SS MILD Algorithm (SS with meals and bedtime) SC ×4 (07:54→20:53)
[2017-10-12] MEDS: INSULIN ASPART [NOVOLOG] 3 ML PEN SC ×3 (07:57→17:43)
[2017-10-12] MEDS: INSULIN GLARGINE [LANtus] 3 ML PEN SC (07:59)
[2017-10-12] MEDS: DOXYCYCLINE 100 MG TAB PO (09:36)
[2017-10-12] MEDS: DOCUSATE SODIUM 100 MG CAP PO ×2 (09:37→20:53)
[2017-10-12] MEDS: CLOPIDOGREL 75 MG TAB PO (09:38)
[2017-10-12] MEDS: FAMOTIDINE 20 MG TAB PO ×2 (09:38→20:52)
[2017-10-12] MEDS: GABAPENTIN 100 MG CAP PO ×4 (09:40→20:51)
[2017-10-12] MEDS: ISOSORBIDE MONONITRATE(SR)60 MG TAB PO (09:41)
[2017-10-12] MEDS: NYSTATIN 30 GM POWDER BTL TOP ×2 (12:27→20:53)
[2017-10-12] MEDS: HEPARIN 5,000 UNIT/0.5 ML VIAL SC ×2 (12:27→21:01)
[2017-10-12] MEDS: ASPIRIN 81 MG TAB PO (20:51)
[2017-10-12] MEDS: ACETAMINOPHEN 325 MG TAB PO (20:51)
[2017-10-12] MEDS: ATORVASTATIN 10 MG TAB PO (20:52)
[2017-10-12] MEDS: SENNA TAB PO (20:52)
[2017-10-13] MEDS: ACCUCHECK AT 2AM (Patients on SS coverage) XX (02:00)
[2017-10-13] MEDS: FUROSEMIDE 20 MG TAB PO ×2 (06:25→17:42)
[2017-10-13] MEDS: Insulin NOVOLOG SS MILD Algorithm (SS with meals and bedtime) SC ×4 (07:05→20:49)
[2017-10-13] MEDS: INSULIN ASPART [NOVOLOG] 3 ML PEN SC ×3 (08:37→17:30)
[2017-10-13] MEDS: INSULIN GLARGINE [LANtus] 3 ML PEN SC (08:38)
[2017-10-13] MEDS: DOCUSATE SODIUM 100 MG CAP PO ×2 (09:00→20:50)
[2017-10-13] MEDS: FAMOTIDINE 20 MG TAB PO ×2 (09:11→20:51)
[2017-10-13] MEDS: ISOSORBIDE MONONITRATE(SR)60 MG TAB PO (09:15)
[2017-10-13] MEDS: HEPARIN 5,000 UNIT/0.5 ML VIAL SC (09:16)
[2017-10-13] MEDS: CLOPIDOGREL 75 MG TAB PO (09:16)
[2017-10-13] MEDS: GABAPENTIN 100 MG CAP PO ×4 (09:19→20:50)
[2017-10-13] MEDS: NYSTATIN 30 GM POWDER BTL TOP ×2 (09:20→20:52)
[2017-10-13] MEDS: FUROSEMIDE 20 MG INJ IV ×2 (17:41→22:17)
[2017-10-13] MEDS: GLUCOSE GEL 15 GRAM TUBE PO (17:53)
[2017-10-13] MEDS: DEXTROSE 50% 50 ML SYRINGE IV (18:08)
[2017-10-13] MEDS: LEVOFLOXACIN 500MG/D5W (PMX) 100 ML IVPB (18:25)
[2017-10-13 19:46] LABS: GLUCOSE 97 mg/dl (70-220)
[2017-10-13] MEDS: SENNA TAB PO (20:50)
[2017-10-13] MEDS: ASPIRIN 81 MG TAB PO (20:50)
[2017-10-13] MEDS: ATORVASTATIN 10 MG TAB PO (20:50)
[2017-10-13] MEDS: ALBUTEROL/IPRATROPIUM (NEB) 3 ML AMP HHN (22:04)
[2017-10-13] MEDS: POTASSIUM CHLORIDE (SR) 20 MEQ TAB PO (22:15)
[2017-10-14] MEDS: ALBUTEROL/IPRATROPIUM (NEB) 3 ML AMP HHN ×4 (01:36→20:12)
[2017-10-14] MEDS: ACCUCHECK AT 2AM (Patients on SS coverage) XX (02:00)
[2017-10-14] MEDS: FUROSEMIDE 20 MG TAB PO ×2 (05:42→17:43)
[2017-10-14] MEDS: ACETAMINOPHEN 325 MG TAB PO (06:32)
[2017-10-14] MEDS: Insulin NOVOLOG SS MILD Algorithm (SS with meals and bedtime) SC ×4 (07:05→20:55)
[2017-10-14 08:14] LABS: ANION GAP 10 (8-16); BLOOD UREA NITROGEN 28 mg/dl (7-20); CALCIUM 7.9 mg/dl (8.4-10.2); CARBON DIOXIDE 35 mmol/L (21-31); CHLORIDE 91 mmol/L (97-110); CREATININE 0.76 mg/dl (0.44-1.00); GLUCOSE 114 mg/dl (70-220); MAGNESIUM 1.6 mg/dl (1.7-2.5); POTASSIUM 4.1 mmol/L (3.5-5.1); SODIUM 132 mmol/L (135-144)
[2017-10-14] MEDS: INSULIN ASPART [NOVOLOG] 3 ML PEN SC ×3 (08:21→17:47)
[2017-10-14] MEDS: INSULIN GLARGINE [LANtus] 3 ML PEN SC (08:22)
[2017-10-14] MEDS: NYSTATIN 30 GM POWDER BTL TOP ×2 (08:54→21:11)
[2017-10-14] MEDS: DOCUSATE SODIUM 100 MG CAP PO ×2 (08:55→20:50)
[2017-10-14] MEDS: CLOPIDOGREL 75 MG TAB PO (08:55)
[2017-10-14] MEDS: FAMOTIDINE 20 MG TAB PO ×2 (08:55→20:51)
[2017-10-14] MEDS: GABAPENTIN 100 MG CAP PO ×4 (08:55→20:51)
[2017-10-14] MEDS: ISOSORBIDE MONONITRATE(SR)60 MG TAB PO (08:57)
[2017-10-14] MEDS: LEVOFLOXACIN 500MG/D5W (PMX) 100 ML IVPB (15:20)
[2017-10-14] MEDS: GUAIFENESIN/DM 5ML CUP PO (17:40)
[2017-10-14] MEDS: MAGNESIUM SULFATE 2 GM/50 ML 50 ML IVPB (19:55)
[2017-10-14] MEDS: ASPIRIN 81 MG TAB PO (20:50)
[2017-10-14] MEDS: CALCIUM/VITAMIN D (500/200) TAB NGT (20:50)
[2017-10-14] MEDS: ATORVASTATIN 10 MG TAB PO (20:51)
[2017-10-14] MEDS: SENNA TAB PO (20:51)
[2017-10-14] MEDS: DOXYCYCLINE 100 MG TAB PO (21:59)
[2017-10-15] MEDS: ALBUTEROL/IPRATROPIUM (NEB) 3 ML AMP HHN ×4 (01:41→19:58)
[2017-10-15] MEDS: ACCUCHECK AT 2AM (Patients on SS coverage) XX (02:00)
[2017-10-15] MEDS: FUROSEMIDE 20 MG TAB PO ×2 (06:09→17:45)
[2017-10-15] MEDS: Insulin NOVOLOG SS MILD Algorithm (SS with meals and bedtime) SC ×4 (08:19→20:50)
[2017-10-15] MEDS: INSULIN ASPART [NOVOLOG] 3 ML PEN SC ×3 (08:21→17:39)
[2017-10-15] MEDS: CLOPIDOGREL 75 MG TAB PO (08:47)
[2017-10-15] MEDS: INSULIN GLARGINE [LANtus] 3 ML PEN SC (08:54)
[2017-10-15] MEDS: FAMOTIDINE 20 MG TAB PO ×2 (08:56→20:43)
[2017-10-15] MEDS: DOXYCYCLINE 100 MG TAB PO (08:57)
[2017-10-15] MEDS: DOCUSATE SODIUM 100 MG CAP PO ×3 (08:57→21:00)
[2017-10-15] MEDS: CALCIUM/VITAMIN D (500/200) TAB NGT ×3 (08:58→20:43)
[2017-10-15] MEDS: ISOSORBIDE MONONITRATE(SR)60 MG TAB PO (09:02)
[2017-10-15] MEDS: GABAPENTIN 100 MG CAP PO ×4 (10:15→20:42)
[2017-10-15] MEDS: NYSTATIN 30 GM POWDER BTL TOP ×2 (10:18→21:19)
[2017-10-15] MEDS ORDERED: ZYVOX 600 MG TAB PO (15:00)
[2017-10-15] MEDS: LEVOFLOXACIN 500MG/D5W (PMX) 100 ML IVPB (16:20)
[2017-10-15] MEDS: ZYVOX 600 MG TAB PO ×2 (17:43→22:24)
[2017-10-15] MEDS: ASPIRIN 81 MG TAB PO (20:43)
[2017-10-15] MEDS: ATORVASTATIN 10 MG TAB PO (20:49)
[2017-10-15] MEDS: SENNA TAB PO (20:50)
[2017-10-15] MEDS: GLUCOSE GEL 15 GRAM TUBE PO (21:18)
[2017-10-16] MEDS: ALBUTEROL/IPRATROPIUM (NEB) 3 ML AMP HHN ×5 (02:23→19:36)
[2017-10-16] MEDS: ACCUCHECK AT 2AM (Patients on SS coverage) XX (02:37)
[2017-10-16] MEDS: FUROSEMIDE 20 MG TAB PO ×2 (06:38→17:51)
[2017-10-16] MEDS: INSULIN ASPART [NOVOLOG] 3 ML PEN SC ×3 (07:30→17:58)
[2017-10-16] MEDS: Insulin NOVOLOG SS MILD Algorithm (SS with meals and bedtime) SC ×4 (08:46→21:00)
[2017-10-16] MEDS: INSULIN GLARGINE [LANtus] 3 ML PEN SC (08:50)
[2017-10-16] MEDS: FAMOTIDINE 20 MG TAB PO ×2 (08:58→20:59)
[2017-10-16] MEDS: DOCUSATE SODIUM 100 MG CAP PO ×2 (08:58→21:00)
[2017-10-16] MEDS: CALCIUM/VITAMIN D (500/200) TAB NGT ×3 (09:00→21:05)
[2017-10-16] MEDS: ZYVOX 600 MG TAB PO ×2 (09:01→21:05)
[2017-10-16] MEDS: CLOPIDOGREL 75 MG TAB PO (09:02)
[2017-10-16] MEDS: NYSTATIN 30 GM POWDER BTL TOP ×2 (09:02→21:06)
[2017-10-16] MEDS: GABAPENTIN 100 MG CAP PO ×4 (09:34→20:59)
[2017-10-16] MEDS: ISOSORBIDE MONONITRATE(SR)60 MG TAB PO (12:16)
[2017-10-16] MEDS: GUAIFENESIN/DM 5ML CUP PO (12:20)
[2017-10-16] MEDS: LEVOFLOXACIN 500 MG TAB PO (16:03)
[2017-10-16] MEDS: ASPIRIN 81 MG TAB PO (20:59)
[2017-10-16] MEDS: ATORVASTATIN 10 MG TAB PO (20:59)
[2017-10-16] MEDS: SENNA TAB PO (21:00)
[2017-10-17] MEDS: ALBUTEROL/IPRATROPIUM (NEB) 3 ML AMP HHN ×4 (01:46→19:43)
[2017-10-17] MEDS: ACCUCHECK AT 2AM (Patients on SS coverage) XX (02:00)
[2017-10-17] MEDS: FUROSEMIDE 20 MG TAB PO ×2 (06:53→18:00)
[2017-10-17] MEDS: LEVOFLOXACIN 500 MG TAB PO (06:53)
[2017-10-17] MEDS: ISOSORBIDE MONONITRATE(SR)60 MG TAB PO (09:00)
[2017-10-17] MEDS: INSULIN GLARGINE [LANtus] 3 ML PEN SC (09:07)
[2017-10-17] MEDS: INSULIN ASPART [NOVOLOG] 3 ML PEN SC ×3 (09:19→17:53)
[2017-10-17] MEDS: Insulin NOVOLOG SS MILD Algorithm (SS with meals and bedtime) SC ×4 (09:20→20:28)
[2017-10-17] MEDS: NYSTATIN 30 GM POWDER BTL TOP ×2 (09:46→20:20)
[2017-10-17] MEDS: ZYVOX 600 MG TAB PO ×2 (09:48→20:16)
[2017-10-17] MEDS: FAMOTIDINE 20 MG TAB PO ×2 (09:49→20:17)
[2017-10-17] MEDS: DOCUSATE SODIUM 100 MG CAP PO ×2 (09:49→20:28)
[2017-10-17] MEDS: CLOPIDOGREL 75 MG TAB PO (09:49)
[2017-10-17] MEDS: CALCIUM/VITAMIN D (500/200) TAB NGT ×3 (09:50→20:16)
[2017-10-17] MEDS: GABAPENTIN 100 MG CAP PO ×4 (10:08→20:16)
[2017-10-17] MEDS: ATORVASTATIN 10 MG TAB PO (20:16)
[2017-10-17] MEDS: ASPIRIN 81 MG TAB PO (20:16)
[2017-10-17] MEDS: SENNA TAB PO (20:28)
[2017-10-18] MEDS: ACCUCHECK AT 2AM (Patients on SS coverage) XX (02:00)
[2017-10-18] MEDS: ALBUTEROL/IPRATROPIUM (NEB) 3 ML AMP HHN ×4 (02:02→20:02)
[2017-10-18] MEDS: GUAIFENESIN/DM 5ML CUP PO ×2 (05:58→20:44)
[2017-10-18] MEDS: LEVOFLOXACIN 500 MG TAB PO (05:58)
[2017-10-18] MEDS: FUROSEMIDE 20 MG TAB PO ×2 (05:59→17:59)
[2017-10-18] MEDS: Insulin NOVOLOG SS MILD Algorithm (SS with meals and bedtime) SC ×4 (07:05→20:40)
[2017-10-18] MEDS: INSULIN ASPART [NOVOLOG] 3 ML PEN SC ×3 (08:10→17:30)
[2017-10-18] MEDS: INSULIN GLARGINE [LANtus] 3 ML PEN SC (08:11)
[2017-10-18] MEDS: FAMOTIDINE 20 MG TAB PO ×2 (08:15→20:40)
[2017-10-18] MEDS: CLOPIDOGREL 75 MG TAB PO (08:15)
[2017-10-18] MEDS: CALCIUM/VITAMIN D (500/200) TAB NGT ×3 (08:15→20:39)
[2017-10-18] MEDS: DOCUSATE SODIUM 100 MG CAP PO ×2 (08:16→20:39)
[2017-10-18] MEDS: ZYVOX 600 MG TAB PO ×2 (08:16→20:39)
[2017-10-18] MEDS: GABAPENTIN 100 MG CAP PO ×4 (08:25→20:40)
[2017-10-18] MEDS: ISOSORBIDE MONONITRATE(SR)60 MG TAB PO (08:26)
[2017-10-18] MEDS: NYSTATIN 30 GM POWDER BTL TOP ×2 (08:32→20:40)
[2017-10-18 19:03] LABS: GLUCOSE 65 mg/dl (70-220)
[2017-10-18] MEDS: SENNA TAB PO (20:39)
[2017-10-18] MEDS: ATORVASTATIN 10 MG TAB PO (20:39)
[2017-10-18] MEDS: ASPIRIN 81 MG TAB PO (20:39)
[2017-10-19] MEDS: ALBUTEROL/IPRATROPIUM (NEB) 3 ML AMP HHN ×4 (01:23→21:06)
[2017-10-19] MEDS: ACCUCHECK AT 2AM (Patients on SS coverage) XX (02:00)
[2017-10-19] MEDS: LEVOFLOXACIN 500 MG TAB PO (05:54)
[2017-10-19] MEDS: FUROSEMIDE 20 MG TAB PO ×2 (05:55→18:00)
[2017-10-19 08:13] LABS: BLOOD UREA NITROGEN 30 mg/dl (7-20); CALCIUM 9.2 mg/dl (8.4-10.2); CHLORIDE 86 mmol/L (97-110); CREATININE 0.72 mg/dl (0.44-1.00); GLUCOSE 94 mg/dl (70-220); POTASSIUM 3.9 mmol/L (3.5-5.1); SODIUM 138 mmol/L (135-144)
[2017-10-19] MEDS: Insulin NOVOLOG SS MILD Algorithm (SS with meals and bedtime) SC ×4 (08:20→20:39)
[2017-10-19] MEDS: INSULIN ASPART [NOVOLOG] 3 ML PEN SC ×3 (08:21→17:56)
[2017-10-19] MEDS: INSULIN GLARGINE [LANtus] 3 ML PEN SC (08:22)
[2017-10-19 08:31] LABS: ANION GAP 13 (8-16)
[2017-10-19 08:38] LABS: CARBON DIOXIDE 43 mmol/L (21-31)
[2017-10-19] MEDS: DOCUSATE SODIUM 100 MG CAP PO ×2 (09:00→20:36)
[2017-10-19] MEDS: CALCIUM/VITAMIN D (500/200) TAB NGT ×3 (09:16→20:37)
[2017-10-19] MEDS: FAMOTIDINE 20 MG TAB PO ×2 (09:17→20:39)
[2017-10-19] MEDS: ZYVOX 600 MG TAB PO ×2 (09:17→20:37)
[2017-10-19] MEDS: ISOSORBIDE MONONITRATE(SR)60 MG TAB PO (09:18)
[2017-10-19] MEDS: CLOPIDOGREL 75 MG TAB PO (09:18)
[2017-10-19] MEDS: NYSTATIN 30 GM POWDER BTL TOP ×2 (09:19→20:39)
[2017-10-19] MEDS: GABAPENTIN 100 MG CAP PO ×4 (09:24→20:36)
[2017-10-19] MEDS: SENNA TAB PO (20:37)
[2017-10-19] MEDS: ASPIRIN 81 MG TAB PO (20:37)
[2017-10-19] MEDS: ATORVASTATIN 10 MG TAB PO (20:37)
[2017-10-20] MEDS: ALBUTEROL/IPRATROPIUM (NEB) 3 ML AMP HHN ×4 (01:42→20:35)
[2017-10-20] MEDS: ACCUCHECK AT 2AM (Patients on SS coverage) XX (01:57)
[2017-10-20] MEDS: GUAIFENESIN/DM 5ML CUP PO ×2 (06:23→09:06)
[2017-10-20] MEDS: FUROSEMIDE 20 MG TAB PO ×2 (06:25→17:52)
[2017-10-20] MEDS: Insulin NOVOLOG SS MILD Algorithm (SS with meals and bedtime) SC ×4 (07:05→21:00)
[2017-10-20] MEDS: INSULIN ASPART [NOVOLOG] 3 ML PEN SC ×3 (08:02→17:46)
[2017-10-20] MEDS: INSULIN GLARGINE [LANtus] 3 ML PEN SC (08:03)
[2017-10-20 08:48] LABS: ADD MAN DIFF? NO
[2017-10-20 08:56] LABS: WHITE BLOOD COUNT 8.2 10^3/ul (4.8-10.8)
[2017-10-20 08:56] LABS: BASOPHILS % 0.4 % (0.0-2.0); EOSINOPHILS # 0.2 10^3/ul (0.0-0.5); EOSINOPHILS % 2.7 % (0.0-7.0); HEMATOCRIT 38.9 % (37.0-47.0); HEMOGLOBIN 11.9 g/dl (12.0-16.0); LYMPHOCYTES # 1.8 10^3/ul (0.8-2.9); LYMPHOCYTES % 22.2 % (15.0-51.0); MEAN CORPUSCULAR HEMOGLOBIN 28.2 pg (29.0-33.0); MEAN CORPUSCULAR HGB CONC 30.6 g/dl (32.0-37.0); MEAN CORPUSCULAR VOLUME 92.2 fl (82.0-101.0); MEAN PLATELET VOLUME 9.9 fl (7.4-10.4); MONOCYTE # 0.4 10^3/ul (0.3-0.9); MONOCYTES % 4.8 % (0.0-11.0); NEUTROPHIL # 5.7 10^3/ul (1.6-7.5); NEUTROPHILS % 68.9 % (39.0-77.0); PLATELET COUNT 243 10^3/UL (140-415); RED BLOOD COUNT 4.22 10^6/ul (4.20-5.40); RED CELL DISTRIBUTION WIDTH 16.1 % (11.5-14.5)
[2017-10-20] MEDS: GABAPENTIN 100 MG CAP PO ×4 (09:06→20:38)
[2017-10-20] MEDS: ISOSORBIDE MONONITRATE(SR)60 MG TAB PO (09:07)
[2017-10-20] MEDS: ZYVOX 600 MG TAB PO ×2 (09:07→20:38)
[2017-10-20] MEDS: CALCIUM/VITAMIN D (500/200) TAB NGT ×3 (09:07→20:38)
[2017-10-20] MEDS: FAMOTIDINE 20 MG TAB PO ×2 (09:07→20:39)
[2017-10-20] MEDS: CLOPIDOGREL 75 MG TAB PO (09:07)
[2017-10-20] MEDS: DOCUSATE SODIUM 100 MG CAP PO ×2 (09:07→21:00)
[2017-10-20] MEDS: NYSTATIN 30 GM POWDER BTL TOP ×2 (09:08→20:40)
[2017-10-20] MEDS: ATORVASTATIN 10 MG TAB PO (20:38)
[2017-10-20] MEDS: ASPIRIN 81 MG TAB PO (20:39)
[2017-10-20] MEDS: SENNA TAB PO (21:00)
[2017-10-21] MEDS: ACCUCHECK AT 2AM (Patients on SS coverage) XX (02:00)
[2017-10-21] MEDS: ALBUTEROL/IPRATROPIUM (NEB) 3 ML AMP HHN ×3 (02:00→13:06)
[2017-10-21] MEDS: FUROSEMIDE 20 MG TAB PO (06:31)
[2017-10-21] MEDS: Insulin NOVOLOG SS MILD Algorithm (SS with meals and bedtime) SC ×2 (08:14→12:11)
[2017-10-21] MEDS: INSULIN ASPART [NOVOLOG] 3 ML PEN SC ×2 (08:15→12:10)
[2017-10-21] MEDS: INSULIN GLARGINE [LANtus] 3 ML PEN SC (08:16)
[2017-10-21] MEDS: CALCIUM/VITAMIN D (500/200) TAB NGT ×2 (09:24→12:12)
[2017-10-21] MEDS: DOCUSATE SODIUM 100 MG CAP PO (09:24)
[2017-10-21] MEDS: CLOPIDOGREL 75 MG TAB PO (09:24)
[2017-10-21] MEDS: FAMOTIDINE 20 MG TAB PO (09:24)
[2017-10-21] MEDS: GABAPENTIN 100 MG CAP PO ×2 (09:24→12:12)
[2017-10-21] MEDS: ZYVOX 600 MG TAB PO (09:24)
[2017-10-21] MEDS: NYSTATIN 30 GM POWDER BTL TOP (09:25)
[2017-10-21] MEDS: ISOSORBIDE MONONITRATE(SR)60 MG TAB PO (09:25)
[2017-10-21] MEDS: GUAIFENESIN/DM 5ML CUP PO ×2 (09:25→15:38)
== END 2017-10-21 16:53 | disposition home health service (06) | DRG 871 ==
LOC: VRC 23:08
PROC: F08Z1ZZ Dressing Techniques Treatment (ICD-10-PCS; principal; 2017-10-08)
PROC: F08Z0ZZ Bathing/Showering Techniques Treatment (ICD-10-PCS; 2017-10-08)
PROC: F08Z2ZZ Grooming/Personal Hygiene Treatment (ICD-10-PCS; 2017-10-08)
PROC: F07Z5ZZ Bed Mobility Treatment (ICD-10-PCS; 2017-10-08)
PROC: F07Z8ZZ Transfer Training Treatment (ICD-10-PCS; 2017-10-08)
PROC: F07Z9ZZ Gait Training/Functional Ambulation Treatment (ICD-10-PCS; 2017-10-08)
DX: A41.9 Sepsis, unspecified organism (principal); I50.23 Acute on chronic systolic (congestive) heart failure; N17.9 Acute kidney failure, unspecified; L03.115 Cellulitis of right lower limb; L03.116 Cellulitis of left lower limb; E11.40 Type 2 diabetes mellitus with diabetic neuropathy, unspecified; I11.0 Hypertensive heart disease with heart failure; G72.9 Myopathy, unspecified; E78.5 Hyperlipidemia, unspecified; M81.0 Age-related osteoporosis without current pathological fracture; I25.10 Atherosclerotic heart disease of native coronary artery without angina pectoris; Z95.5 Presence of coronary angioplasty implant and graft; Z95.1 Presence of aortocoronary bypass graft; E11.51 Type 2 diabetes mellitus with diabetic peripheral angiopathy without gangrene; M19.90 Unspecified osteoarthritis, unspecified site; E87.5 Hyperkalemia; I87.8 Other specified disorders of veins; I25.5 Ischemic cardiomyopathy
CPT/HCPCS: 71045; 80048; 80053; 82947; 82962; 83735; 85025; 87040; 87081; 87086; 93970; 94640; 94664; 97110; 97112; 97116; 97150; 97163; 97167; 97530; 97535; 97542; J1940

== ENCOUNTER 2017-10-30 15:47 | Inpatient (IN) | payer MEDICARE, OTHER ==
[2017-10-30 18:45] LABS: WHITE BLOOD COUNT 29.1 10^3/ul (4.8-10.8)
[2017-10-30 18:45] LABS: ABNORMAL IP MESSAGE 1; HEMATOCRIT 29.2 % (37.0-47.0); HEMOGLOBIN 9.3 g/dl (12.0-16.0); MEAN CORPUSCULAR HEMOGLOBIN 27.9 pg (29.0-33.0); MEAN CORPUSCULAR HGB CONC 31.8 g/dl (32.0-37.0); MEAN CORPUSCULAR VOLUME 87.7 fl (82.0-101.0); MEAN PLATELET VOLUME 10.2 fl (7.4-10.4); NUCLEATED RED BLOOD CELLS% 0.6 /100WBC (0.0-0.0); PLATELET COUNT 212 10^3/UL (140-415); RED BLOOD COUNT 3.33 10^6/ul (4.20-5.40); RED CELL DISTRIBUTION WIDTH 16.6 % (11.5-14.5)
[2017-10-30 18:51] LABS: ADD MAN DIFF? YES; POSITIVE DIFF @See below
[2017-10-30 19:10] LABS: ALANINE AMINOTRANSFERASE 28 IU/L (13-69); ALBUMIN 3.1 g/dl (3.3-4.9); ALBUMIN/GLOBULIN RATIO 0.91; ALKALINE PHOSPHATASE 181 IU/L (42-121); ANION GAP 16 (8-16); ASPARTATE AMINO TRANSFERASE 29 IU/L (15-46); BILIRUBIN,INDIRECT 0.4 mg/dl (0-1.1); BILIRUBIN,TOTAL 0.4 mg/dl (0.2-1.3); BLOOD UREA NITROGEN 42 mg/dl (7-20); CALCIUM 8.3 mg/dl (8.4-10.2); CARBON DIOXIDE 33 mmol/L (21-31); CHLORIDE 89 mmol/L (97-110); CREATININE 1.26 mg/dl (0.44-1.00); GLUCOSE 118 mg/dl (70-220); LIPASE 50 U/L (23-300); POTASSIUM 4.4 mmol/L (3.5-5.1); SODIUM 134 mmol/L (135-144); TOTAL PROTEIN 6.5 g/dl (6.1-8.1)
[2017-10-30 19:16] LABS: ANISOCYTOSIS 1+ (0-0); BAND NEUTROPHILS #M 0.5 10^3/ul (0.0-0.6); BAND NEUTROPHILS % (M) 2 % (0-4); EOSINOPHILS % (M) 2 % (0-7); ERYTHROBLAST% (NRBC) (M) 1 % (0-0); LYMPHOCYTES #M 6.4 10^3/ul (0.8-2.9); LYMPHOCYTES % (M) 22 % (15-51); MONOCYTE #M 0.8 10^3/ul (0.3-0.9); MONOCYTES % (M) 3 % (0-11); MYELOCYTES #M 0.8 10^3/ul (0.0-0.0); MYELOCYTES % (M) 3 % (0-0); PLATELET ESTIMATE NORMAL; POLYCHROMASIA 3+ (0-0); PROMYELOCYTES #M 0.2 10^3/ul (0-0); PROMYELOCYTES % (M) 1 % (0-0); REACTIVE LYMPHOCYTES #M 1.1 10^3/ul (0.0-0.0); REACTIVE LYMPHOCYTES% (M) 4 % (0-0); SEG NEUT #M 18.5 10^3/ul (1.6-7.5); SEGMENTED NEUTROPHILS (M) % 63 % (39-77); SMUDGE%M 12 % (0-0)
[2017-10-30 22:37] LABS: ADD UMIC YES; UR ASCORBIC ACID NEGATIVE (NEGATIVE); UR BACTERIA MANY /HPF (NONE SEEN); UR BILIRUBIN (Dip) NEGATIVE (NEGATIVE); UR BLOOD (Dip) 2+ mg/dL (NEGATIVE); UR CLARITY CLOUDY (CLEAR); UR COLOR YELLOW (YELLOW); UR GLUCOSE (Dip) NEGATIVE (NEGATIVE); UR KETONES (Dip) NEGATIVE (NEGATIVE); UR LEUKOCYTE ESTERASE (Dip) 3+ Leu/ul (NEGATIVE); UR MUCUS FEW /HPF (NONE SEEN); UR NITRITE (Dip) NEGATIVE (NEGATIVE); UR RBC 3 /HPF (0-5); UR SPECIFIC GRAVITY (Dip) 1.012 (1.003-1.030); UR SQUAMOUS EPITHELIAL CELL MODERATE /HPF (FEW); UR TOTAL PROTEIN (Dip) NEGATIVE (NEGATIVE); UR UROBILINOGEN (Dip) NEGATIVE (NEGATIVE); UR WBC 10 /HPF (0-5)
[2017-10-30] MEDS ORDERED: ONDANSETRON 4 MG INJ IV (23:30)
[2017-10-30] MEDS ORDERED: ACETAMINOPHEN 325 MG TAB PO (23:30)
[2017-10-31] MEDS: SOD CHLORIDE 0.9% 1,000 ML IV (00:27)
[2017-10-31] MEDS: CEFTRIAXONE 1 GM/50 ML (PMX) 50 ML IVPB (00:27)
[2017-10-31] MEDS ORDERED: HYDROCODONE/APAP (5/325) TAB PO (03:00)
[2017-10-31] MEDS ORDERED: VANCOMYCIN IV PER PHARMACY XX (03:00)
[2017-10-31] MEDS: VANCOMYCIN 1.5 GM in SOD CHLORIDE 0.9% 250 ML IVPB (04:38)
[2017-10-31 06:06] LABS: ADD MAN DIFF? NO
[2017-10-31 06:11] LABS: WHITE BLOOD COUNT 21.4 10^3/ul (4.8-10.8)
[2017-10-31 06:11] LABS: ABNORMAL IP MESSAGE 1; BASOPHIL # 0.1 10^3/ul (0.0-0.1); BASOPHILS % 0.3 % (0.0-2.0); EOSINOPHILS # 0.1 10^3/ul (0.0-0.5); EOSINOPHILS % 0.5 % (0.0-7.0); HEMATOCRIT 25.7 % (37.0-47.0); HEMOGLOBIN 8.3 g/dl (12.0-16.0); LYMPHOCYTES % 18.8 % (15.0-51.0); MEAN CORPUSCULAR HEMOGLOBIN 27.9 pg (29.0-33.0); MEAN CORPUSCULAR HGB CONC 32.3 g/dl (32.0-37.0); MEAN CORPUSCULAR VOLUME 86.2 fl (82.0-101.0); MEAN PLATELET VOLUME 10.1 fl (7.4-10.4); MONOCYTE # 1.6 10^3/ul (0.3-0.9); MONOCYTES % 7.3 % (0.0-11.0); NEUTROPHIL # 14.8 10^3/ul (1.6-7.5); NEUTROPHILS % 69.3 % (39.0-77.0); NUCLEATED RED BLOOD CELLS # 0.1 10^3/ul (0.0-0.0); NUCLEATED RED BLOOD CELLS% 0.2 /100WBC (0.0-0.0); PLATELET COUNT 178 10^3/UL (140-415); RED BLOOD COUNT 2.98 10^6/ul (4.20-5.40); RED CELL DISTRIBUTION WIDTH 16.4 % (11.5-14.5)
[2017-10-31 06:23] LABS: POSITIVE DIFF @See below
[2017-10-31 06:38] LABS: ANION GAP 11 (8-16); BLOOD UREA NITROGEN 37 mg/dl (7-20); CARBON DIOXIDE 37 mmol/L (21-31); CHLORIDE 92 mmol/L (97-110); CREATININE 0.99 mg/dl (0.44-1.00); GLUCOSE 71 mg/dl (70-220); POTASSIUM 3.8 mmol/L (3.5-5.1); SODIUM 136 mmol/L (135-144)
[2017-10-31] MEDS: INSULIN ASPART [NOVOLOG] 3 ML PEN SC ×7 (08:15→20:33)
[2017-10-31] MEDS: CEFEPIME 1GM/50 ML (PMX) 50 ML IVPB ×2 (08:38→20:21)
[2017-10-31] MEDS: CYANOCOBALAMIN 500 MCG TAB PO ×2 (08:39→21:00)
[2017-10-31] MEDS: CLOPIDOGREL 75 MG TAB PO (08:40)
[2017-10-31] MEDS: FERROUS SULFATE (EC) 325 MG TAB PO ×2 (08:40→20:20)
[2017-10-31] MEDS: ISOSORBIDE MONONITRATE(SR)60 MG TAB PO (08:40)
[2017-10-31] MEDS: ASPIRIN (EC) 81 MG TAB PO (08:40)
[2017-10-31] MEDS: FOLIC ACID 1 MG TAB PO ×2 (08:40→20:21)
[2017-10-31] MEDS: THIAMINE 100 MG TAB PO ×2 (08:40→20:21)
[2017-10-31] MEDS: FUROSEMIDE 40 MG INJ IV (08:41)
[2017-10-31] MEDS: LOSARTAN 25 MG TAB PO (08:41)
[2017-10-31] MEDS: SPIRONOLACTONE 25 MG TAB PO ×2 (08:41→21:59)
[2017-10-31] MEDS: ACETAMINOPHEN 325 MG TAB PO ×3 (08:56→20:20)
[2017-10-31] MEDS: INSULIN GLARGINE [LANtus] 3 ML PEN SC (09:15)
[2017-10-31] MEDS: ATORVASTATIN 10 MG TAB PO (20:20)
[2017-10-31] MEDS: GABAPENTIN 100 MG CAP PO (20:21)
[2017-11-01] MEDS: VANCOMYCIN 1 GM 250 ML IVPB (04:30)
[2017-11-01 05:37] LABS: ADD MAN DIFF? NO
[2017-11-01 05:40] LABS: WHITE BLOOD COUNT 17.4 10^3/ul (4.8-10.8)
[2017-11-01 05:40] LABS: BASOPHIL # 0.1 10^3/ul (0.0-0.1); BASOPHILS % 0.3 % (0.0-2.0); EOSINOPHILS # 0.3 10^3/ul (0.0-0.5); EOSINOPHILS % 1.7 % (0.0-7.0); HEMATOCRIT 28.3 % (37.0-47.0); LYMPHOCYTES # 3.4 10^3/ul (0.8-2.9); LYMPHOCYTES % 19.8 % (15.0-51.0); MEAN CORPUSCULAR HGB CONC 31.8 g/dl (32.0-37.0); MEAN CORPUSCULAR VOLUME 87.9 fl (82.0-101.0); MEAN PLATELET VOLUME 10.3 fl (7.4-10.4); MONOCYTE # 1.3 10^3/ul (0.3-0.9); MONOCYTES % 7.5 % (0.0-11.0); NEUTROPHILS % 68.6 % (39.0-77.0); NUCLEATED RED BLOOD CELLS% 0.2 /100WBC (0.0-0.0); PLATELET COUNT 205 10^3/UL (140-415); RED BLOOD COUNT 3.22 10^6/ul (4.20-5.40); RED CELL DISTRIBUTION WIDTH 16.3 % (11.5-14.5)
[2017-11-01 05:51] LABS: HEMOGLOBIN A1C 8.2 % (0-5.9)
[2017-11-01 06:03] LABS: ANION GAP 13 (8-16); BLOOD UREA NITROGEN 41 mg/dl (7-20); CALCIUM 8.6 mg/dl (8.4-10.2); CARBON DIOXIDE 37 mmol/L (21-31); CHLORIDE 90 mmol/L (97-110); CREATININE 1.07 mg/dl (0.44-1.00); GLUCOSE 88 mg/dl (70-220); POTASSIUM 4.7 mmol/L (3.5-5.1); SODIUM 135 mmol/L (135-144)
[2017-11-01] MEDS: ALENDRONATE 70 MG TAB PO (06:58)
[2017-11-01] MEDS: INSULIN ASPART [NOVOLOG] 3 ML PEN SC ×7 (07:57→20:33)
[2017-11-01] MEDS: LOSARTAN 25 MG TAB PO (08:20)
[2017-11-01] MEDS: CYANOCOBALAMIN 500 MCG TAB PO ×2 (08:24→20:31)
[2017-11-01] MEDS: THIAMINE 100 MG TAB PO ×2 (08:25→20:32)
[2017-11-01] MEDS: FERROUS SULFATE (EC) 325 MG TAB PO ×2 (08:25→20:32)
[2017-11-01] MEDS: CLOPIDOGREL 75 MG TAB PO (08:25)
[2017-11-01] MEDS: SPIRONOLACTONE 25 MG TAB PO ×2 (08:25→20:32)
[2017-11-01] MEDS: ACETAMINOPHEN 325 MG TAB PO ×3 (08:25→18:06)
[2017-11-01] MEDS: FOLIC ACID 1 MG TAB PO ×2 (08:25→20:32)
[2017-11-01] MEDS: FUROSEMIDE 40 MG INJ IV (08:26)
[2017-11-01] MEDS: CEFEPIME 1GM/50 ML (PMX) 50 ML IVPB ×2 (08:26→20:31)
[2017-11-01] MEDS: ISOSORBIDE MONONITRATE(SR)60 MG TAB PO (08:26)
[2017-11-01] MEDS: INSULIN GLARGINE [LANtus] 3 ML PEN SC (08:29)
[2017-11-01] MEDS: ASPIRIN (EC) 81 MG TAB PO (08:30)
[2017-11-01] MEDS: DOCUSATE SODIUM 100 MG CAP PO ×2 (11:44→20:32)
[2017-11-01] MEDS ORDERED: BISACODYL (EC) 5 MG TAB PO (12:00)
[2017-11-01 16:14] LABS: AADO2 Arterial 30.9 mmHg (7.0-24.0); Allen Test ACCEPTAB; Arterial Base Excess 4.8 mmol/L (-3.0-3); Arterial Blood Gas Oxygen Sat 94.2 mmHG (95.0-100.0); Arterial COHb 0.5 % (0.0-3.0); Arterial Fraction of Oxyhgb 93.5 % (93.0-99.0); Arterial HCO3 28.8 mmol/L (22.0-26.0); Arterial MetHb 0.2 % (0.0-1.5); Arterial Total Hemglobin 10.9 g/dl (12.0-18.0); Arterial pCO2 40.1 mmhg (35-45); MODE ROOM AIR; Site Left Radial
[2017-11-01] MEDS: ATORVASTATIN 10 MG TAB PO (20:32)
[2017-11-01] MEDS: GABAPENTIN 100 MG CAP PO (20:32)
[2017-11-01 22:03] LABS: FREE T4 (FREE THYROXINE) 1.46 ng/dl (0.78-2.44)
[2017-11-02] MEDS: ACETAMINOPHEN 325 MG TAB PO ×4 (01:35→23:20)
[2017-11-02] MEDS: VANCOMYCIN 1 GM 250 ML IVPB (04:14)
[2017-11-02 06:00] LABS: ADD MAN DIFF? NO
[2017-11-02 06:05] LABS: BASOPHIL # 0.1 10^3/ul (0.0-0.1); BASOPHILS % 0.3 % (0.0-2.0); EOSINOPHILS # 0.2 10^3/ul (0.0-0.5); HEMATOCRIT 28.5 % (37.0-47.0); HEMOGLOBIN 9.1 g/dl (12.0-16.0); LYMPHOCYTES # 3.9 10^3/ul (0.8-2.9); LYMPHOCYTES % 19.8 % (15.0-51.0); MEAN CORPUSCULAR HEMOGLOBIN 27.8 pg (29.0-33.0); MEAN CORPUSCULAR HGB CONC 31.9 g/dl (32.0-37.0); MEAN CORPUSCULAR VOLUME 87.2 fl (82.0-101.0); MEAN PLATELET VOLUME 10.3 fl (7.4-10.4); MONOCYTE # 1.3 10^3/ul (0.3-0.9); MONOCYTES % 6.5 % (0.0-11.0); NEUTROPHIL # 14.2 10^3/ul (1.6-7.5); NEUTROPHILS % 71.5 % (39.0-77.0); NUCLEATED RED BLOOD CELLS% 0.1 /100WBC (0.0-0.0); PLATELET COUNT 280 10^3/UL (140-415); RED BLOOD COUNT 3.27 10^6/ul (4.20-5.40); RED CELL DISTRIBUTION WIDTH 16.9 % (11.5-14.5)
[2017-11-02 06:05] LABS: WHITE BLOOD COUNT 19.9 10^3/ul (4.8-10.8)
[2017-11-02 06:40] LABS: ANION GAP 11 (8-16); BLOOD UREA NITROGEN 37 mg/dl (7-20); CALCIUM 8.2 mg/dl (8.4-10.2); CARBON DIOXIDE 33 mmol/L (21-31); CHLORIDE 94 mmol/L (97-110); CREATININE 0.89 mg/dl (0.44-1.00); POTASSIUM 4.8 mmol/L (3.5-5.1); SODIUM 133 mmol/L (135-144)
[2017-11-02 06:45] LABS: GLUCOSE 49 mg/dl (70-220)
[2017-11-02] MEDS: INSULIN ASPART [NOVOLOG] 3 ML PEN SC ×7 (08:00→20:28)
[2017-11-02] MEDS: CYANOCOBALAMIN 500 MCG TAB PO ×2 (08:46→20:25)
[2017-11-02] MEDS: FOLIC ACID 1 MG TAB PO ×2 (08:46→20:26)
[2017-11-02] MEDS: FERROUS SULFATE (EC) 325 MG TAB PO ×2 (08:46→20:26)
[2017-11-02] MEDS: DOCUSATE SODIUM 100 MG CAP PO ×3 (08:46→20:26)
[2017-11-02] MEDS: ASPIRIN (EC) 81 MG TAB PO (08:46)
[2017-11-02] MEDS: THIAMINE 100 MG TAB PO ×2 (08:46→20:26)
[2017-11-02] MEDS: CEFEPIME 1GM/50 ML (PMX) 50 ML IVPB (08:47)
[2017-11-02] MEDS: CLOPIDOGREL 75 MG TAB PO (08:47)
[2017-11-02] MEDS: FUROSEMIDE 40 MG INJ IV (08:47)
[2017-11-02] MEDS: ISOSORBIDE MONONITRATE(SR)60 MG TAB PO (08:47)
[2017-11-02] MEDS: SPIRONOLACTONE 25 MG TAB PO ×2 (08:47→20:25)
[2017-11-02 09:41] LABS: AADO2 Arterial 13.7 mmHg (7.0-24.0); Allen Test ACCEPTAB; Arterial Base Excess 3.5 mmol/L (-3.0-3); Arterial Blood Gas Oxygen Sat 98.7 mmHG (95.0-100.0); Arterial COHb 0.2 % (0.0-3.0); Arterial Fraction of Oxyhgb 98.3 % (93.0-99.0); Arterial HCO3 27.4 mmol/L (22.0-26.0); Arterial MetHb 0.2 % (0.0-1.5); Arterial Total Hemglobin 10.7 g/dl (12.0-18.0); Arterial pCO2 39.3 mmhg (35-45); MODE NASAL CANNULA; Site Right Radial
[2017-11-02] MEDS: ERTAPENEM SODIUM 1 GM in SOD CHLORIDE 0.9% 100 ML IVPB (11:48)
[2017-11-02] MEDS: INSULIN GLARGINE [LANtus] 3 ML PEN SC (12:28)
[2017-11-02] MEDS: LOSARTAN 25 MG TAB PO (12:52)
[2017-11-02] MEDS: GABAPENTIN 100 MG CAP PO (20:19)
[2017-11-02] MEDS: ATORVASTATIN 10 MG TAB PO (20:20)
[2017-11-02] MEDS: DOXYCYCLINE 100 MG TAB PO (20:20)
[2017-11-03 05:39] LABS: ADD MAN DIFF? NO
[2017-11-03 05:45] LABS: BASOPHIL # 0.1 10^3/ul (0.0-0.1); BASOPHILS % 0.3 % (0.0-2.0); EOSINOPHILS # 0.3 10^3/ul (0.0-0.5); EOSINOPHILS % 1.5 % (0.0-7.0); HEMATOCRIT 28.3 % (37.0-47.0); LYMPHOCYTES # 2.8 10^3/ul (0.8-2.9); LYMPHOCYTES % 17.6 % (15.0-51.0); MEAN CORPUSCULAR HEMOGLOBIN 28.1 pg (29.0-33.0); MEAN CORPUSCULAR HGB CONC 31.8 g/dl (32.0-37.0); MEAN CORPUSCULAR VOLUME 88.4 fl (82.0-101.0); MEAN PLATELET VOLUME 10.7 fl (7.4-10.4); MONOCYTE # 1.3 10^3/ul (0.3-0.9); MONOCYTES % 8.2 % (0.0-11.0); NEUTROPHIL # 11.6 10^3/ul (1.6-7.5); NEUTROPHILS % 71.4 % (39.0-77.0); PLATELET COUNT 262 10^3/UL (140-415); RED CELL DISTRIBUTION WIDTH 16.7 % (11.5-14.5)
[2017-11-03 05:45] LABS: WHITE BLOOD COUNT 16.2 10^3/ul (4.8-10.8)
[2017-11-03 06:42] LABS: ANION GAP 12 (8-16); BLOOD UREA NITROGEN 32 mg/dl (7-20); CALCIUM 8.4 mg/dl (8.4-10.2); CARBON DIOXIDE 32 mmol/L (21-31); CHLORIDE 96 mmol/L (97-110); CREATININE 0.84 mg/dl (0.44-1.00); GLUCOSE 73 mg/dl (70-220); POTASSIUM 4.5 mmol/L (3.5-5.1); SODIUM 135 mmol/L (135-144)
[2017-11-03] MEDS: INSULIN ASPART [NOVOLOG] 3 ML PEN SC ×7 (07:58→20:41)
[2017-11-03] MEDS: ACETAMINOPHEN 325 MG TAB PO ×3 (08:46→20:35)
[2017-11-03] MEDS: DOXYCYCLINE 100 MG TAB PO ×2 (08:46→20:34)
[2017-11-03] MEDS: CYANOCOBALAMIN 500 MCG TAB PO ×2 (08:47→20:35)
[2017-11-03] MEDS: FERROUS SULFATE (EC) 325 MG TAB PO ×2 (08:47→20:35)
[2017-11-03] MEDS: SPIRONOLACTONE 25 MG TAB PO ×2 (08:47→20:35)
[2017-11-03] MEDS: ASPIRIN (EC) 81 MG TAB PO (08:48)
[2017-11-03] MEDS: CLOPIDOGREL 75 MG TAB PO (08:48)
[2017-11-03] MEDS: THIAMINE 100 MG TAB PO ×2 (08:48→20:35)
[2017-11-03] MEDS: FOLIC ACID 1 MG TAB PO ×2 (08:49→20:35)
[2017-11-03] MEDS: DOCUSATE SODIUM 100 MG CAP PO ×2 (08:49→20:34)
[2017-11-03] MEDS: ISOSORBIDE MONONITRATE(SR)60 MG TAB PO (08:52)
[2017-11-03] MEDS: LOSARTAN 25 MG TAB PO (08:52)
[2017-11-03] MEDS: FUROSEMIDE 40 MG INJ IV (08:53)
[2017-11-03] MEDS: INSULIN GLARGINE [LANtus] 3 ML PEN SC (08:59)
[2017-11-03] MEDS: ERTAPENEM SODIUM 1 GM in SOD CHLORIDE 0.9% 100 ML IVPB (11:31)
[2017-11-03] MEDS: ATORVASTATIN 10 MG TAB PO (20:35)
[2017-11-03] MEDS: GABAPENTIN 100 MG CAP PO (20:35)
[2017-11-04] MEDS: ACETAMINOPHEN 325 MG TAB PO ×3 (05:47→22:59)
[2017-11-04] MEDS: INSULIN ASPART [NOVOLOG] 3 ML PEN SC ×7 (08:09→21:00)
[2017-11-04] MEDS: DOCUSATE SODIUM 100 MG CAP PO ×2 (08:15→21:00)
[2017-11-04] MEDS: CYANOCOBALAMIN 500 MCG TAB PO ×2 (08:15→21:04)
[2017-11-04] MEDS: FERROUS SULFATE (EC) 325 MG TAB PO ×2 (08:15→21:05)
[2017-11-04] MEDS: FOLIC ACID 1 MG TAB PO ×2 (08:16→21:05)
[2017-11-04] MEDS: SPIRONOLACTONE 25 MG TAB PO ×2 (08:16→21:05)
[2017-11-04] MEDS: DOXYCYCLINE 100 MG TAB PO ×2 (08:16→21:04)
[2017-11-04] MEDS: THIAMINE 100 MG TAB PO ×2 (08:16→21:04)
[2017-11-04] MEDS: CLOPIDOGREL 75 MG TAB PO (08:16)
[2017-11-04] MEDS: ASPIRIN (EC) 81 MG TAB PO (08:16)
[2017-11-04] MEDS: FUROSEMIDE 40 MG INJ IV (08:25)
[2017-11-04] MEDS: LOSARTAN 25 MG TAB PO (08:25)
[2017-11-04] MEDS: ISOSORBIDE MONONITRATE(SR)60 MG TAB PO (08:26)
[2017-11-04] MEDS: INSULIN GLARGINE [LANtus] 3 ML PEN SC (08:34)
[2017-11-04] MEDS: ERTAPENEM SODIUM 1 GM in SOD CHLORIDE 0.9% 100 ML IVPB (12:09)
[2017-11-04] MEDS: GABAPENTIN 100 MG CAP PO (21:03)
[2017-11-04] MEDS: ATORVASTATIN 10 MG TAB PO (21:05)
[2017-11-05 05:36] LABS: ADD MAN DIFF? NO
[2017-11-05 05:44] LABS: WHITE BLOOD COUNT 15.1 10^3/ul (4.8-10.8)
[2017-11-05 05:44] LABS: BASOPHIL # 0.1 10^3/ul (0.0-0.1); BASOPHILS % 0.4 % (0.0-2.0); EOSINOPHILS # 0.2 10^3/ul (0.0-0.5); EOSINOPHILS % 1.4 % (0.0-7.0); HEMATOCRIT 27.8 % (37.0-47.0); HEMOGLOBIN 8.9 g/dl (12.0-16.0); LYMPHOCYTES % 19.9 % (15.0-51.0); MEAN CORPUSCULAR HEMOGLOBIN 28.1 pg (29.0-33.0); MEAN CORPUSCULAR VOLUME 87.7 fl (82.0-101.0); MONOCYTE # 1.1 10^3/ul (0.3-0.9); MONOCYTES % 7.2 % (0.0-11.0); NEUTROPHIL # 10.6 10^3/ul (1.6-7.5); NEUTROPHILS % 70.1 % (39.0-77.0); PLATELET COUNT 389 10^3/UL (140-415); RED BLOOD COUNT 3.17 10^6/ul (4.20-5.40); RED CELL DISTRIBUTION WIDTH 17.5 % (11.5-14.5)
[2017-11-05 06:59] LABS: ANION GAP 12 (8-16); BLOOD UREA NITROGEN 36 mg/dl (7-20); CALCIUM 8.2 mg/dl (8.4-10.2); CARBON DIOXIDE 33 mmol/L (21-31); CHLORIDE 95 mmol/L (97-110); GLUCOSE 69 mg/dl (70-220); SODIUM 135 mmol/L (135-144)
[2017-11-05] MEDS: INSULIN ASPART [NOVOLOG] 3 ML PEN SC ×7 (08:00→20:25)
[2017-11-05] MEDS: SPIRONOLACTONE 25 MG TAB PO ×2 (08:24→20:24)
[2017-11-05] MEDS: DOXYCYCLINE 100 MG TAB PO ×2 (08:24→20:24)
[2017-11-05] MEDS: CYANOCOBALAMIN 500 MCG TAB PO ×2 (08:24→20:24)
[2017-11-05] MEDS: CLOPIDOGREL 75 MG TAB PO (08:25)
[2017-11-05] MEDS: FOLIC ACID 1 MG TAB PO ×2 (08:26→20:23)
[2017-11-05] MEDS: ASPIRIN (EC) 81 MG TAB PO (08:26)
[2017-11-05] MEDS: DOCUSATE SODIUM 100 MG CAP PO ×2 (08:27→20:25)
[2017-11-05] MEDS: FUROSEMIDE 40 MG INJ IV (08:27)
[2017-11-05] MEDS: LOSARTAN 25 MG TAB PO (08:28)
[2017-11-05] MEDS: ISOSORBIDE MONONITRATE(SR)60 MG TAB PO (08:28)
[2017-11-05] MEDS: FERROUS SULFATE (EC) 325 MG TAB PO ×2 (08:43→20:23)
[2017-11-05] MEDS: THIAMINE 100 MG TAB PO ×2 (08:43→20:24)
[2017-11-05] MEDS: INSULIN GLARGINE [LANtus] 3 ML PEN SC (08:59)
[2017-11-05] MEDS ORDERED: GLUCOSE GEL 15 GRAM TUBE BUCCAL (09:00)
[2017-11-05] MEDS ORDERED: DEXTROSE 50% 50 ML SYRINGE IV ×2 (09:00)
[2017-11-05] MEDS ORDERED: GLUCOSE GEL 15 GRAM TUBE PO ×2 (09:00)
[2017-11-05] MEDS ORDERED: GLUCAGON 1 MG INJ IM (09:00)
[2017-11-05] MEDS: ERTAPENEM SODIUM 1 GM in SOD CHLORIDE 0.9% 100 ML IVPB (12:16)
[2017-11-05] MEDS: ACETAMINOPHEN 325 MG TAB PO ×2 (13:54→21:08)
[2017-11-05] MEDS: GABAPENTIN 100 MG CAP PO (20:24)
[2017-11-05] MEDS: ATORVASTATIN 10 MG TAB PO (20:24)
[2017-11-06] MEDS: ACETAMINOPHEN 325 MG TAB PO ×4 (02:09→20:07)
[2017-11-06 06:15] LABS: ADD MAN DIFF? NO
[2017-11-06 06:21] LABS: BASOPHIL # 0.1 10^3/ul (0.0-0.1); BASOPHILS % 0.5 % (0.0-2.0); EOSINOPHILS # 0.3 10^3/ul (0.0-0.5); EOSINOPHILS % 2.9 % (0.0-7.0); HEMATOCRIT 31.7 % (37.0-47.0); HEMOGLOBIN 9.6 g/dl (12.0-16.0); LYMPHOCYTES # 2.9 10^3/ul (0.8-2.9); LYMPHOCYTES % 24.7 % (15.0-51.0); MEAN CORPUSCULAR HGB CONC 30.3 g/dl (32.0-37.0); MEAN CORPUSCULAR VOLUME 89.3 fl (82.0-101.0); MEAN PLATELET VOLUME 9.8 fl (7.4-10.4); MONOCYTE # 0.9 10^3/ul (0.3-0.9); MONOCYTES % 7.8 % (0.0-11.0); NEUTROPHIL # 7.3 10^3/ul (1.6-7.5); NEUTROPHILS % 62.9 % (39.0-77.0); PLATELET COUNT 473 10^3/UL (140-415); RED BLOOD COUNT 3.55 10^6/ul (4.20-5.40); RED CELL DISTRIBUTION WIDTH 17.9 % (11.5-14.5)
[2017-11-06 06:21] LABS: WHITE BLOOD COUNT 11.6 10^3/ul (4.8-10.8)
[2017-11-06 06:36] LABS: ANION GAP 12 (8-16); BLOOD UREA NITROGEN 36 mg/dl (7-20); CALCIUM 8.5 mg/dl (8.4-10.2); CARBON DIOXIDE 34 mmol/L (21-31); CHLORIDE 96 mmol/L (97-110); CREATININE 0.84 mg/dl (0.44-1.00); GLUCOSE 101 mg/dl (70-220); POTASSIUM 5.2 mmol/L (3.5-5.1); SODIUM 137 mmol/L (135-144)
[2017-11-06] MEDS ORDERED: INSULIN GLARGINE [LANtus] 3 ML PEN SC (08:00)
[2017-11-06] MEDS: INSULIN ASPART [NOVOLOG] 3 ML PEN SC ×7 (08:15→20:16)
[2017-11-06] MEDS: LOSARTAN 25 MG TAB PO (08:51)
[2017-11-06] MEDS: CLOPIDOGREL 75 MG TAB PO (08:51)
[2017-11-06] MEDS: ISOSORBIDE MONONITRATE(SR)60 MG TAB PO (08:51)
[2017-11-06] MEDS: DOCUSATE SODIUM 100 MG CAP PO ×2 (08:51→20:09)
[2017-11-06] MEDS: FOLIC ACID 1 MG TAB PO ×2 (08:52→20:07)
[2017-11-06] MEDS: CYANOCOBALAMIN 500 MCG TAB PO ×2 (08:52→20:07)
[2017-11-06] MEDS: DOXYCYCLINE 100 MG TAB PO ×2 (08:52→20:07)
[2017-11-06] MEDS: THIAMINE 100 MG TAB PO ×2 (08:52→20:09)
[2017-11-06] MEDS: SPIRONOLACTONE 25 MG TAB PO (08:52)
[2017-11-06] MEDS: FUROSEMIDE 40 MG INJ IV (08:52)
[2017-11-06] MEDS: FERROUS SULFATE (EC) 325 MG TAB PO ×2 (08:52→20:09)
[2017-11-06] MEDS: ASPIRIN (EC) 81 MG TAB PO (08:52)
[2017-11-06] MEDS: INSULIN GLARGINE [LANtus] 3 ML PEN SC (09:05)
[2017-11-06] MEDS: ERTAPENEM SODIUM 1 GM in SOD CHLORIDE 0.9% 100 ML IVPB (10:39)
[2017-11-06] MEDS: ATORVASTATIN 10 MG TAB PO (20:09)
[2017-11-06] MEDS: GABAPENTIN 100 MG CAP PO (20:10)
[2017-11-07 06:00] LABS: ADD MAN DIFF? NO
[2017-11-07 06:06] LABS: BASOPHIL # 0.1 10^3/ul (0.0-0.1); BASOPHILS % 0.7 % (0.0-2.0); EOSINOPHILS # 0.3 10^3/ul (0.0-0.5); EOSINOPHILS % 2.9 % (0.0-7.0); HEMATOCRIT 30.5 % (37.0-47.0); HEMOGLOBIN 9.5 g/dl (12.0-16.0); LYMPHOCYTES # 2.3 10^3/ul (0.8-2.9); LYMPHOCYTES % 26.1 % (15.0-51.0); MEAN CORPUSCULAR HEMOGLOBIN 27.9 pg (29.0-33.0); MEAN CORPUSCULAR HGB CONC 31.1 g/dl (32.0-37.0); MEAN CORPUSCULAR VOLUME 89.7 fl (82.0-101.0); MEAN PLATELET VOLUME 9.6 fl (7.4-10.4); MONOCYTE # 0.7 10^3/ul (0.3-0.9); MONOCYTES % 7.4 % (0.0-11.0); NEUTROPHIL # 5.5 10^3/ul (1.6-7.5); NEUTROPHILS % 61.9 % (39.0-77.0); PLATELET COUNT 433 10^3/UL (140-415); RED CELL DISTRIBUTION WIDTH 18.2 % (11.5-14.5)
[2017-11-07 06:06] LABS: WHITE BLOOD COUNT 8.9 10^3/ul (4.8-10.8)
[2017-11-07 06:21] LABS: ANION GAP 12 (8-16); BLOOD UREA NITROGEN 29 mg/dl (7-20); CALCIUM 8.7 mg/dl (8.4-10.2); CARBON DIOXIDE 38 mmol/L (21-31); CHLORIDE 97 mmol/L (97-110); CREATININE 0.88 mg/dl (0.44-1.00); GLUCOSE 134 mg/dl (70-220); POTASSIUM 5.6 mmol/L (3.5-5.1); SODIUM 141 mmol/L (135-144)
[2017-11-07] MEDS: ACETAMINOPHEN 325 MG TAB PO ×3 (07:58→20:37)
[2017-11-07] MEDS: NA POLYST SULFON 15 GM/60 ML BTL PO (07:58)
[2017-11-07] MEDS: INSULIN ASPART [NOVOLOG] 3 ML PEN SC ×7 (08:01→20:43)
[2017-11-07] MEDS: INSULIN GLARGINE [LANtus] 3 ML PEN SC (08:02)
[2017-11-07] MEDS: LOSARTAN 25 MG TAB PO (09:00)
[2017-11-07] MEDS: ISOSORBIDE MONONITRATE(SR)60 MG TAB PO (09:00)
[2017-11-07] MEDS: CLOPIDOGREL 75 MG TAB PO (09:19)
[2017-11-07] MEDS: FERROUS SULFATE (EC) 325 MG TAB PO ×2 (09:20→20:38)
[2017-11-07] MEDS: DOCUSATE SODIUM 100 MG CAP PO ×2 (09:20→20:37)
[2017-11-07] MEDS: CYANOCOBALAMIN 500 MCG TAB PO ×2 (09:20→20:36)
[2017-11-07] MEDS: ASPIRIN (EC) 81 MG TAB PO (09:21)
[2017-11-07] MEDS: FOLIC ACID 1 MG TAB PO ×2 (09:21→20:38)
[2017-11-07] MEDS: THIAMINE 100 MG TAB PO ×2 (09:21→20:38)
[2017-11-07] MEDS: ERTAPENEM SODIUM 1 GM in SOD CHLORIDE 0.9% 100 ML IVPB (11:07)
[2017-11-07] MEDS: DOXYCYCLINE 100 MG TAB PO ×2 (11:08→20:37)
[2017-11-07] MEDS: FUROSEMIDE 40 MG INJ IV (11:09)
[2017-11-07] MEDS: ATORVASTATIN 10 MG TAB PO (20:36)
[2017-11-07] MEDS: GABAPENTIN 100 MG CAP PO (20:37)
[2017-11-08] MEDS: ALENDRONATE 70 MG TAB PO (05:36)
[2017-11-08] MEDS: DOCUSATE SODIUM 100 MG CAP PO ×2 (08:00→21:08)
[2017-11-08] MEDS: ASPIRIN (EC) 81 MG TAB PO (08:00)
[2017-11-08] MEDS: FUROSEMIDE 40 MG INJ IV (08:00)
[2017-11-08] MEDS: FOLIC ACID 1 MG TAB PO ×2 (08:00→21:09)
[2017-11-08] MEDS: DOXYCYCLINE 100 MG TAB PO ×2 (08:00→21:08)
[2017-11-08] MEDS: LOSARTAN 25 MG TAB PO (08:01)
[2017-11-08] MEDS: CLOPIDOGREL 75 MG TAB PO (08:01)
[2017-11-08] MEDS: ISOSORBIDE MONONITRATE(SR)60 MG TAB PO (08:01)
[2017-11-08] MEDS: FERROUS SULFATE (EC) 325 MG TAB PO ×2 (08:01→21:08)
[2017-11-08] MEDS: INSULIN ASPART [NOVOLOG] 3 ML PEN SC ×7 (08:02→21:19)
[2017-11-08] MEDS: INSULIN GLARGINE [LANtus] 3 ML PEN SC (08:05)
[2017-11-08] MEDS: ACETAMINOPHEN 325 MG TAB PO ×3 (08:18→22:16)
[2017-11-08] MEDS: CYANOCOBALAMIN 500 MCG TAB PO ×2 (08:18→21:09)
[2017-11-08] MEDS: THIAMINE 100 MG TAB PO ×2 (08:19→21:10)
[2017-11-08] MEDS: ERTAPENEM SODIUM 1 GM in SOD CHLORIDE 0.9% 100 ML IVPB (11:14)
[2017-11-08] MEDS: GABAPENTIN 100 MG CAP PO (21:08)
[2017-11-08] MEDS: ATORVASTATIN 10 MG TAB PO (21:08)
[2017-11-09 06:14] LABS: ADD MAN DIFF? NO
[2017-11-09 06:25] LABS: WHITE BLOOD COUNT 8.8 10^3/ul (4.8-10.8)
[2017-11-09 06:25] LABS: BASOPHIL # 0.1 10^3/ul (0.0-0.1); BASOPHILS % 0.6 % (0.0-2.0); EOSINOPHILS # 0.3 10^3/ul (0.0-0.5); EOSINOPHILS % 3.3 % (0.0-7.0); HEMATOCRIT 31.7 % (37.0-47.0); HEMOGLOBIN 9.8 g/dl (12.0-16.0); LYMPHOCYTES # 2.6 10^3/ul (0.8-2.9); LYMPHOCYTES % 29.3 % (15.0-51.0); MEAN CORPUSCULAR HEMOGLOBIN 28.2 pg (29.0-33.0); MEAN CORPUSCULAR HGB CONC 30.9 g/dl (32.0-37.0); MEAN CORPUSCULAR VOLUME 91.4 fl (82.0-101.0); MEAN PLATELET VOLUME 9.5 fl (7.4-10.4); MONOCYTE # 0.6 10^3/ul (0.3-0.9); MONOCYTES % 7.3 % (0.0-11.0); NEUTROPHILS % 57.6 % (39.0-77.0); PLATELET COUNT 415 10^3/UL (140-415); RED BLOOD COUNT 3.47 10^6/ul (4.20-5.40); RED CELL DISTRIBUTION WIDTH 18.7 % (11.5-14.5)
[2017-11-09 07:05] LABS: ANION GAP 11 (8-16); BLOOD UREA NITROGEN 29 mg/dl (7-20); CALCIUM 8.5 mg/dl (8.4-10.2); CARBON DIOXIDE 38 mmol/L (21-31); CHLORIDE 97 mmol/L (97-110); GLUCOSE 185 mg/dl (70-220); POTASSIUM 5.3 mmol/L (3.5-5.1); SODIUM 141 mmol/L (135-144)
[2017-11-09] MEDS: INSULIN ASPART [NOVOLOG] 3 ML PEN SC ×7 (08:06→21:00)
[2017-11-09] MEDS: INSULIN GLARGINE [LANtus] 3 ML PEN SC (08:06)
[2017-11-09] MEDS: FUROSEMIDE 40 MG INJ IV (09:04)
[2017-11-09] MEDS: DOCUSATE SODIUM 100 MG CAP PO ×2 (09:06→22:11)
[2017-11-09] MEDS: ISOSORBIDE MONONITRATE(SR)60 MG TAB PO (09:06)
[2017-11-09] MEDS: LOSARTAN 25 MG TAB PO (09:07)
[2017-11-09] MEDS: DOXYCYCLINE 100 MG TAB PO ×2 (09:07→22:11)
[2017-11-09] MEDS: CYANOCOBALAMIN 500 MCG TAB PO ×2 (09:08→22:12)
[2017-11-09] MEDS: CLOPIDOGREL 75 MG TAB PO (09:08)
[2017-11-09] MEDS: FERROUS SULFATE (EC) 325 MG TAB PO ×2 (09:08→22:13)
[2017-11-09] MEDS: FOLIC ACID 1 MG TAB PO ×2 (09:09→22:12)
[2017-11-09] MEDS: ASPIRIN (EC) 81 MG TAB PO (09:09)
[2017-11-09] MEDS: THIAMINE 100 MG TAB PO ×2 (09:09→22:14)
[2017-11-09] MEDS: ACETAMINOPHEN 325 MG TAB PO ×2 (11:24→22:23)
[2017-11-09] MEDS: NA POLYST SULFON 15 GM/60 ML BTL PO (13:01)
[2017-11-09] MEDS: GABAPENTIN 100 MG CAP PO (22:12)
[2017-11-09] MEDS: ATORVASTATIN 10 MG TAB PO (22:13)
[2017-11-10 06:13] LABS: ADD MAN DIFF? NO
[2017-11-10 06:20] LABS: BASOPHIL # 0.1 10^3/ul (0.0-0.1); BASOPHILS % 0.8 % (0.0-2.0); EOSINOPHILS # 0.3 10^3/ul (0.0-0.5); EOSINOPHILS % 3.4 % (0.0-7.0); HEMATOCRIT 33.7 % (37.0-47.0); HEMOGLOBIN 10.3 g/dl (12.0-16.0); LYMPHOCYTES # 2.7 10^3/ul (0.8-2.9); LYMPHOCYTES % 30.8 % (15.0-51.0); MEAN CORPUSCULAR HGB CONC 30.6 g/dl (32.0-37.0); MEAN CORPUSCULAR VOLUME 91.6 fl (82.0-101.0); MEAN PLATELET VOLUME 9.2 fl (7.4-10.4); MONOCYTE # 0.5 10^3/ul (0.3-0.9); MONOCYTES % 5.8 % (0.0-11.0); NEUTROPHIL # 5.1 10^3/ul (1.6-7.5); NEUTROPHILS % 57.4 % (39.0-77.0); PLATELET COUNT 419 10^3/UL (140-415); RED BLOOD COUNT 3.68 10^6/ul (4.20-5.40); RED CELL DISTRIBUTION WIDTH 18.8 % (11.5-14.5)
[2017-11-10 06:20] LABS: WHITE BLOOD COUNT 8.8 10^3/ul (4.8-10.8)
[2017-11-10 06:40] LABS: ANION GAP 12 (8-16); BLOOD UREA NITROGEN 24 mg/dl (7-20); CALCIUM 8.9 mg/dl (8.4-10.2); CARBON DIOXIDE 39 mmol/L (21-31); CHLORIDE 98 mmol/L (97-110); CREATININE 0.82 mg/dl (0.44-1.00); GLUCOSE 78 mg/dl (70-220); POTASSIUM 4.8 mmol/L (3.5-5.1); SODIUM 144 mmol/L (135-144)
[2017-11-10] MEDS: INSULIN ASPART [NOVOLOG] 3 ML PEN SC ×7 (08:08→21:00)
[2017-11-10] MEDS: INSULIN GLARGINE [LANtus] 3 ML PEN SC (08:11)
[2017-11-10] MEDS: LOSARTAN 25 MG TAB PO (09:33)
[2017-11-10] MEDS: DOCUSATE SODIUM 100 MG CAP PO ×2 (09:35→21:21)
[2017-11-10] MEDS: FUROSEMIDE 40 MG INJ IV (09:36)
[2017-11-10] MEDS: DOXYCYCLINE 100 MG TAB PO ×2 (09:36→21:22)
[2017-11-10] MEDS: THIAMINE 100 MG TAB PO ×2 (09:37→21:21)
[2017-11-10] MEDS: ASPIRIN (EC) 81 MG TAB PO (09:38)
[2017-11-10] MEDS: ACETAMINOPHEN 325 MG TAB PO ×3 (09:39→22:47)
[2017-11-10] MEDS: CLOPIDOGREL 75 MG TAB PO (09:39)
[2017-11-10] MEDS: FERROUS SULFATE (EC) 325 MG TAB PO ×2 (09:40→21:22)
[2017-11-10] MEDS: CYANOCOBALAMIN 500 MCG TAB PO ×2 (09:41→21:21)
[2017-11-10] MEDS: FOLIC ACID 1 MG TAB PO ×2 (09:42→21:21)
[2017-11-10] MEDS: ISOSORBIDE MONONITRATE(SR)60 MG TAB PO (09:43)
[2017-11-10] MEDS: GABAPENTIN 100 MG CAP PO (21:21)
[2017-11-10] MEDS: ATORVASTATIN 10 MG TAB PO (21:24)
[2017-11-11] MEDS: INSULIN ASPART [NOVOLOG] 3 ML PEN SC ×7 (08:15→20:23)
[2017-11-11] MEDS: ISOSORBIDE MONONITRATE(SR)60 MG TAB PO (08:44)
[2017-11-11] MEDS: DOXYCYCLINE 100 MG TAB PO ×2 (08:44→20:22)
[2017-11-11] MEDS: CLOPIDOGREL 75 MG TAB PO (08:44)
[2017-11-11] MEDS: DOCUSATE SODIUM 100 MG CAP PO ×2 (08:44→20:22)
[2017-11-11] MEDS: FERROUS SULFATE (EC) 325 MG TAB PO ×2 (08:45→20:22)
[2017-11-11] MEDS: CYANOCOBALAMIN 500 MCG TAB PO ×2 (08:45→20:22)
[2017-11-11] MEDS: ASPIRIN (EC) 81 MG TAB PO (08:45)
[2017-11-11] MEDS: LOSARTAN 25 MG TAB PO (08:46)
[2017-11-11] MEDS: FOLIC ACID 1 MG TAB PO ×2 (08:46→20:22)
[2017-11-11] MEDS: FUROSEMIDE 40 MG INJ IV (08:47)
[2017-11-11] MEDS: THIAMINE 100 MG TAB PO ×2 (08:47→20:22)
[2017-11-11] MEDS: INSULIN GLARGINE [LANtus] 3 ML PEN SC (08:51)
[2017-11-11] MEDS: ACETAMINOPHEN 325 MG TAB PO ×3 (09:26→23:11)
[2017-11-11] MEDS: GABAPENTIN 100 MG CAP PO (20:22)
[2017-11-11] MEDS: ATORVASTATIN 10 MG TAB PO (20:22)
[2017-11-12 06:01] LABS: ADD MAN DIFF? NO
[2017-11-12 06:08] LABS: WHITE BLOOD COUNT 8.3 10^3/ul (4.8-10.8)
[2017-11-12 06:08] LABS: BASOPHIL # 0.1 10^3/ul (0.0-0.1); BASOPHILS % 0.8 % (0.0-2.0); EOSINOPHILS # 0.3 10^3/ul (0.0-0.5); EOSINOPHILS % 3.8 % (0.0-7.0); HEMATOCRIT 32.9 % (37.0-47.0); HEMOGLOBIN 10.2 g/dl (12.0-16.0); LYMPHOCYTES # 2.7 10^3/ul (0.8-2.9); LYMPHOCYTES % 32.1 % (15.0-51.0); MEAN CORPUSCULAR HEMOGLOBIN 28.1 pg (29.0-33.0); MEAN CORPUSCULAR VOLUME 90.6 fl (82.0-101.0); MEAN PLATELET VOLUME 9.4 fl (7.4-10.4); MONOCYTE # 0.6 10^3/ul (0.3-0.9); MONOCYTES % 7.7 % (0.0-11.0); NEUTROPHIL # 4.4 10^3/ul (1.6-7.5); NEUTROPHILS % 53.2 % (39.0-77.0); PLATELET COUNT 351 10^3/UL (140-415); RED BLOOD COUNT 3.63 10^6/ul (4.20-5.40); RED CELL DISTRIBUTION WIDTH 18.8 % (11.5-14.5)
[2017-11-12 06:30] LABS: ANION GAP 14 (8-16); BLOOD UREA NITROGEN 26 mg/dl (7-20); CALCIUM 8.8 mg/dl (8.4-10.2); CARBON DIOXIDE 34 mmol/L (21-31); CHLORIDE 97 mmol/L (97-110); CREATININE 0.77 mg/dl (0.44-1.00); GLUCOSE 176 mg/dl (70-220); POTASSIUM 4.5 mmol/L (3.5-5.1); SODIUM 140 mmol/L (135-144)
[2017-11-12] MEDS: ACETAMINOPHEN 325 MG TAB PO ×2 (07:17→13:59)
[2017-11-12] MEDS: ASPIRIN (EC) 81 MG TAB PO (08:03)
[2017-11-12] MEDS: CLOPIDOGREL 75 MG TAB PO (08:03)
[2017-11-12] MEDS: FOLIC ACID 1 MG TAB PO ×2 (08:03→21:04)
[2017-11-12] MEDS: CYANOCOBALAMIN 500 MCG TAB PO ×2 (08:03→21:05)
[2017-11-12] MEDS: FERROUS SULFATE (EC) 325 MG TAB PO ×2 (08:03→21:04)
[2017-11-12] MEDS: DOCUSATE SODIUM 100 MG CAP PO ×2 (08:03→21:00)
[2017-11-12] MEDS: ISOSORBIDE MONONITRATE(SR)60 MG TAB PO (08:06)
[2017-11-12] MEDS: THIAMINE 100 MG TAB PO ×2 (08:06→21:05)
[2017-11-12] MEDS: LOSARTAN 25 MG TAB PO (08:07)
[2017-11-12] MEDS: DOXYCYCLINE 100 MG TAB PO ×2 (08:08→21:04)
[2017-11-12] MEDS: FUROSEMIDE 40 MG INJ IV (08:09)
[2017-11-12] MEDS: INSULIN ASPART [NOVOLOG] 3 ML PEN SC ×7 (08:11→21:00)
[2017-11-12] MEDS: INSULIN GLARGINE [LANtus] 3 ML PEN SC (08:14)
[2017-11-12] MEDS: ATORVASTATIN 10 MG TAB PO (21:04)
[2017-11-12] MEDS: GABAPENTIN 100 MG CAP PO (21:04)
[2017-11-13] MEDS: ACETAMINOPHEN 325 MG TAB PO ×3 (00:07→18:19)
[2017-11-13 06:07] LABS: ADD MAN DIFF? NO
[2017-11-13 06:13] LABS: BASOPHIL # 0.1 10^3/ul (0.0-0.1); BASOPHILS % 0.6 % (0.0-2.0); EOSINOPHILS # 0.6 10^3/ul (0.0-0.5); EOSINOPHILS % 6.2 % (0.0-7.0); HEMATOCRIT 34.8 % (37.0-47.0); HEMOGLOBIN 10.8 g/dl (12.0-16.0); LYMPHOCYTES # 3.3 10^3/ul (0.8-2.9); LYMPHOCYTES % 33.4 % (15.0-51.0); MEAN CORPUSCULAR HEMOGLOBIN 28.1 pg (29.0-33.0); MEAN CORPUSCULAR VOLUME 90.6 fl (82.0-101.0); MEAN PLATELET VOLUME 9.2 fl (7.4-10.4); MONOCYTE # 0.7 10^3/ul (0.3-0.9); MONOCYTES % 6.8 % (0.0-11.0); NEUTROPHILS % 51.2 % (39.0-77.0); PLATELET COUNT 326 10^3/UL (140-415); RED BLOOD COUNT 3.84 10^6/ul (4.20-5.40); RED CELL DISTRIBUTION WIDTH 19.2 % (11.5-14.5)
[2017-11-13 06:13] LABS: WHITE BLOOD COUNT 9.8 10^3/ul (4.8-10.8)
[2017-11-13 06:45] LABS: ANION GAP 15 (8-16); BLOOD UREA NITROGEN 25 mg/dl (7-20); CARBON DIOXIDE 36 mmol/L (21-31); CHLORIDE 98 mmol/L (97-110); CREATININE 0.79 mg/dl (0.44-1.00); GLUCOSE 95 mg/dl (70-220); POTASSIUM 4.7 mmol/L (3.5-5.1); SODIUM 144 mmol/L (135-144)
[2017-11-13] MEDS: INSULIN ASPART [NOVOLOG] 3 ML PEN SC ×7 (08:11→21:31)
[2017-11-13] MEDS: FERROUS SULFATE (EC) 325 MG TAB PO ×2 (09:09→21:27)
[2017-11-13] MEDS: INSULIN GLARGINE [LANtus] 3 ML PEN SC (09:12)
[2017-11-13] MEDS: DOXYCYCLINE 100 MG TAB PO ×2 (09:19→21:26)
[2017-11-13] MEDS: FOLIC ACID 1 MG TAB PO ×2 (09:19→21:26)
[2017-11-13] MEDS: ASPIRIN (EC) 81 MG TAB PO (09:19)
[2017-11-13] MEDS: CLOPIDOGREL 75 MG TAB PO (09:19)
[2017-11-13] MEDS: ISOSORBIDE MONONITRATE(SR)60 MG TAB PO (09:19)
[2017-11-13] MEDS: CYANOCOBALAMIN 500 MCG TAB PO ×2 (09:19→21:27)
[2017-11-13] MEDS: DOCUSATE SODIUM 100 MG CAP PO ×2 (09:19→21:26)
[2017-11-13] MEDS: THIAMINE 100 MG TAB PO ×2 (09:20→21:26)
[2017-11-13] MEDS: LOSARTAN 25 MG TAB PO (09:20)
[2017-11-13] MEDS: FUROSEMIDE 40 MG INJ IV (09:21)
[2017-11-13] MEDS: ATORVASTATIN 10 MG TAB PO (21:26)
[2017-11-13] MEDS: GABAPENTIN 100 MG CAP PO (21:26)
[2017-11-14] MEDS: ACETAMINOPHEN 325 MG TAB PO ×4 (00:21→21:11)
[2017-11-14 05:52] LABS: ADD MAN DIFF? NO
[2017-11-14 06:00] LABS: BASOPHIL # 0.1 10^3/ul (0.0-0.1); EOSINOPHILS # 0.6 10^3/ul (0.0-0.5); EOSINOPHILS % 6.6 % (0.0-7.0); HEMATOCRIT 34.6 % (37.0-47.0); HEMOGLOBIN 10.6 g/dl (12.0-16.0); LYMPHOCYTES # 3.4 10^3/ul (0.8-2.9); LYMPHOCYTES % 36.6 % (15.0-51.0); MEAN CORPUSCULAR HEMOGLOBIN 27.8 pg (29.0-33.0); MEAN CORPUSCULAR HGB CONC 30.6 g/dl (32.0-37.0); MEAN CORPUSCULAR VOLUME 90.8 fl (82.0-101.0); MEAN PLATELET VOLUME 9.7 fl (7.4-10.4); MONOCYTE # 0.6 10^3/ul (0.3-0.9); MONOCYTES % 6.9 % (0.0-11.0); NEUTROPHIL # 4.4 10^3/ul (1.6-7.5); NEUTROPHILS % 47.5 % (39.0-77.0); PLATELET COUNT 303 10^3/UL (140-415); RED BLOOD COUNT 3.81 10^6/ul (4.20-5.40)
[2017-11-14 06:00] LABS: WHITE BLOOD COUNT 9.2 10^3/ul (4.8-10.8)
[2017-11-14 06:19] LABS: ANION GAP 12 (8-16); BLOOD UREA NITROGEN 22 mg/dl (7-20); CALCIUM 8.9 mg/dl (8.4-10.2); CARBON DIOXIDE 34 mmol/L (21-31); CHLORIDE 100 mmol/L (97-110); CREATININE 0.86 mg/dl (0.44-1.00); GLUCOSE 131 mg/dl (70-220); POTASSIUM 4.8 mmol/L (3.5-5.1); SODIUM 141 mmol/L (135-144)
[2017-11-14] MEDS: INSULIN GLARGINE [LANtus] 3 ML PEN SC (07:58)
[2017-11-14] MEDS: INSULIN ASPART [NOVOLOG] 3 ML PEN SC ×7 (07:58→21:00)
[2017-11-14] MEDS: FERROUS SULFATE (EC) 325 MG TAB PO ×2 (08:22→21:05)
[2017-11-14] MEDS: CYANOCOBALAMIN 500 MCG TAB PO ×2 (08:22→21:05)
[2017-11-14] MEDS: FOLIC ACID 1 MG TAB PO ×2 (08:22→21:05)
[2017-11-14] MEDS: FUROSEMIDE 40 MG INJ IV (08:23)
[2017-11-14] MEDS: DOXYCYCLINE 100 MG TAB PO ×2 (08:23→21:05)
[2017-11-14] MEDS: ASPIRIN (EC) 81 MG TAB PO (08:23)
[2017-11-14] MEDS: DOCUSATE SODIUM 100 MG CAP PO ×2 (08:23→21:05)
[2017-11-14] MEDS: THIAMINE 100 MG TAB PO ×2 (08:23→21:05)
[2017-11-14] MEDS: ISOSORBIDE MONONITRATE(SR)60 MG TAB PO (08:23)
[2017-11-14] MEDS: CLOPIDOGREL 75 MG TAB PO (08:23)
[2017-11-14] MEDS: LOSARTAN 25 MG TAB PO (09:00)
[2017-11-14] MEDS: ATORVASTATIN 10 MG TAB PO (21:05)
[2017-11-14] MEDS: GABAPENTIN 100 MG CAP PO (21:05)
[2017-11-15] MEDS: ALENDRONATE 70 MG TAB PO (05:31)
[2017-11-15 05:55] LABS: ADD MAN DIFF? NO
[2017-11-15 05:59] LABS: BASOPHIL # 0.1 10^3/ul (0.0-0.1); BASOPHILS % 0.9 % (0.0-2.0); EOSINOPHILS # 0.4 10^3/ul (0.0-0.5); EOSINOPHILS % 4.8 % (0.0-7.0); HEMATOCRIT 37.2 % (37.0-47.0); HEMOGLOBIN 11.3 g/dl (12.0-16.0); LYMPHOCYTES # 3.2 10^3/ul (0.8-2.9); MEAN CORPUSCULAR HEMOGLOBIN 27.8 pg (29.0-33.0); MEAN CORPUSCULAR HGB CONC 30.4 g/dl (32.0-37.0); MEAN CORPUSCULAR VOLUME 91.4 fl (82.0-101.0); MONOCYTE # 0.5 10^3/ul (0.3-0.9); MONOCYTES % 5.9 % (0.0-11.0); NEUTROPHIL # 4.8 10^3/ul (1.6-7.5); NEUTROPHILS % 52.2 % (39.0-77.0); PLATELET COUNT 311 10^3/UL (140-415); RED BLOOD COUNT 4.07 10^6/ul (4.20-5.40); RED CELL DISTRIBUTION WIDTH 18.9 % (11.5-14.5)
[2017-11-15 05:59] LABS: WHITE BLOOD COUNT 9.2 10^3/ul (4.8-10.8)
[2017-11-15 06:23] LABS: ANION GAP 13 (8-16); BLOOD UREA NITROGEN 28 mg/dl (7-20); CALCIUM 8.9 mg/dl (8.4-10.2); CARBON DIOXIDE 36 mmol/L (21-31); CHLORIDE 99 mmol/L (97-110); CREATININE 0.83 mg/dl (0.44-1.00); GLUCOSE 146 mg/dl (70-220); POTASSIUM 5.6 mmol/L (3.5-5.1); SODIUM 142 mmol/L (135-144)
[2017-11-15] MEDS: CYANOCOBALAMIN 500 MCG TAB PO ×2 (08:01→21:04)
[2017-11-15] MEDS: DOXYCYCLINE 100 MG TAB PO ×2 (08:01→21:04)
[2017-11-15] MEDS: ISOSORBIDE MONONITRATE(SR)60 MG TAB PO (08:02)
[2017-11-15] MEDS: FERROUS SULFATE (EC) 325 MG TAB PO ×2 (08:03→21:04)
[2017-11-15] MEDS: FOLIC ACID 1 MG TAB PO ×2 (08:03→21:04)
[2017-11-15] MEDS: ASPIRIN (EC) 81 MG TAB PO (08:03)
[2017-11-15] MEDS: LOSARTAN 25 MG TAB PO (08:04)
[2017-11-15] MEDS: DOCUSATE SODIUM 100 MG CAP PO ×2 (08:04→21:04)
[2017-11-15] MEDS: THIAMINE 100 MG TAB PO ×2 (08:04→21:05)
[2017-11-15] MEDS: FUROSEMIDE 40 MG INJ IV (08:05)
[2017-11-15] MEDS: CLOPIDOGREL 75 MG TAB PO (08:05)
[2017-11-15] MEDS: INSULIN GLARGINE [LANtus] 3 ML PEN SC (08:08)
[2017-11-15] MEDS: INSULIN ASPART [NOVOLOG] 3 ML PEN SC ×7 (08:10→21:00)
[2017-11-15] MEDS: ACETAMINOPHEN 325 MG TAB PO ×3 (10:01→21:07)
[2017-11-15] MEDS: NA POLYST SULFON 15 GM/60 ML BTL PO (17:10)
[2017-11-15] MEDS: ATORVASTATIN 10 MG TAB PO (21:04)
[2017-11-15] MEDS: GABAPENTIN 100 MG CAP PO (21:04)
[2017-11-16 05:37] LABS: ADD MAN DIFF? NO
[2017-11-16 05:41] LABS: BASOPHILS % 0.5 % (0.0-2.0); EOSINOPHILS # 0.3 10^3/ul (0.0-0.5); HEMATOCRIT 34.9 % (37.0-47.0); HEMOGLOBIN 10.8 g/dl (12.0-16.0); LYMPHOCYTES # 2.6 10^3/ul (0.8-2.9); LYMPHOCYTES % 32.2 % (15.0-51.0); MEAN CORPUSCULAR HEMOGLOBIN 28.2 pg (29.0-33.0); MEAN CORPUSCULAR HGB CONC 30.9 g/dl (32.0-37.0); MEAN CORPUSCULAR VOLUME 91.1 fl (82.0-101.0); MEAN PLATELET VOLUME 9.7 fl (7.4-10.4); MONOCYTE # 0.5 10^3/ul (0.3-0.9); MONOCYTES % 5.6 % (0.0-11.0); NEUTROPHIL # 4.6 10^3/ul (1.6-7.5); PLATELET COUNT 230 10^3/UL (140-415); RED BLOOD COUNT 3.83 10^6/ul (4.20-5.40); RED CELL DISTRIBUTION WIDTH 19.3 % (11.5-14.5)
[2017-11-16 06:22] LABS: ANION GAP 15 (8-16); BLOOD UREA NITROGEN 25 mg/dl (7-20); CALCIUM 8.6 mg/dl (8.4-10.2); CARBON DIOXIDE 35 mmol/L (21-31); CHLORIDE 98 mmol/L (97-110); CREATININE 0.84 mg/dl (0.44-1.00); GLUCOSE 249 mg/dl (70-220); POTASSIUM 4.4 mmol/L (3.5-5.1); SODIUM 144 mmol/L (135-144)
[2017-11-16] MEDS: INSULIN GLARGINE [LANtus] 3 ML PEN SC (08:02)
[2017-11-16] MEDS: INSULIN ASPART [NOVOLOG] 3 ML PEN SC ×7 (08:03→22:02)
[2017-11-16] MEDS: DOXYCYCLINE 100 MG TAB PO ×2 (08:17→21:58)
[2017-11-16] MEDS: ACETAMINOPHEN 325 MG TAB PO ×4 (08:17→22:07)
[2017-11-16] MEDS: CLOPIDOGREL 75 MG TAB PO (08:18)
[2017-11-16] MEDS: FERROUS SULFATE (EC) 325 MG TAB PO ×2 (08:19→21:58)
[2017-11-16] MEDS: CYANOCOBALAMIN 500 MCG TAB PO ×2 (08:20→21:58)
[2017-11-16] MEDS: FOLIC ACID 1 MG TAB PO ×2 (08:21→21:58)
[2017-11-16] MEDS: LOSARTAN 25 MG TAB PO (08:21)
[2017-11-16] MEDS: ASPIRIN (EC) 81 MG TAB PO (08:21)
[2017-11-16] MEDS: THIAMINE 100 MG TAB PO ×2 (08:21→21:58)
[2017-11-16] MEDS: ISOSORBIDE MONONITRATE(SR)60 MG TAB PO (08:22)
[2017-11-16] MEDS: DOCUSATE SODIUM 100 MG CAP PO ×2 (08:23→21:00)
[2017-11-16] MEDS: FUROSEMIDE 40 MG INJ IV (08:24)
[2017-11-16] MEDS: GABAPENTIN 100 MG CAP PO (21:58)
[2017-11-16] MEDS: ATORVASTATIN 10 MG TAB PO (21:58)
[2017-11-17] MEDS: INSULIN ASPART [NOVOLOG] 3 ML PEN SC ×6 (08:15→17:29)
[2017-11-17] MEDS: ACETAMINOPHEN 325 MG TAB PO ×2 (08:45→14:19)
[2017-11-17] MEDS: DOXYCYCLINE 100 MG TAB PO (08:46)
[2017-11-17] MEDS: LOSARTAN 25 MG TAB PO (08:47)
[2017-11-17] MEDS: CLOPIDOGREL 75 MG TAB PO (08:47)
[2017-11-17] MEDS: CYANOCOBALAMIN 500 MCG TAB PO (08:47)
[2017-11-17] MEDS: DOCUSATE SODIUM 100 MG CAP PO (08:48)
[2017-11-17] MEDS: ISOSORBIDE MONONITRATE(SR)60 MG TAB PO (08:48)
[2017-11-17] MEDS: FERROUS SULFATE (EC) 325 MG TAB PO (08:48)
[2017-11-17] MEDS: FOLIC ACID 1 MG TAB PO (08:48)
[2017-11-17] MEDS: THIAMINE 100 MG TAB PO (08:48)
[2017-11-17] MEDS: ASPIRIN (EC) 81 MG TAB PO (08:48)
[2017-11-17] MEDS: INSULIN GLARGINE [LANtus] 3 ML PEN SC (08:51)
[2017-11-17] MEDS: FUROSEMIDE 40 MG INJ IV (08:52)
== END 2017-11-17 19:00 | DRG 871 ==
LOC: MS2 23:26 → E/R 15:47 → MS2 10-31 01:15
PROC: 4A133R1 Monitoring of Arterial Saturation, Peripheral, Percutaneous Approach (ICD-10-PCS; principal; 2017-11-01)
DX: A41.9 Sepsis, unspecified organism (principal); J18.9 Pneumonia, unspecified organism; E87.3 Alkalosis; I42.9 Cardiomyopathy, unspecified; I50.22 Chronic systolic (congestive) heart failure; N39.0 Urinary tract infection, site not specified; L03.116 Cellulitis of left lower limb; L03.115 Cellulitis of right lower limb; E87.1 Hypo-osmolality and hyponatremia; I11.0 Hypertensive heart disease with heart failure; M81.0 Age-related osteoporosis without current pathological fracture; E11.40 Type 2 diabetes mellitus with diabetic neuropathy, unspecified; I25.10 Atherosclerotic heart disease of native coronary artery without angina pectoris; R10.84 Generalized abdominal pain; E11.51 Type 2 diabetes mellitus with diabetic peripheral angiopathy without gangrene; I87.8 Other specified disorders of veins; I25.2 Old myocardial infarction; B96.1 Klebsiella pneumoniae [K. pneumoniae] as the cause of diseases classified elsewhere; Z16.12 Extended spectrum beta lactamase (ESBL) resistance; E88.09 Other disorders of plasma-protein metabolism, not elsewhere classified; M19.90 Unspecified osteoarthritis, unspecified site; E78.5 Hyperlipidemia, unspecified; E87.5 Hyperkalemia; Z95.5 Presence of coronary angioplasty implant and graft; Z79.82 Long term (current) use of aspirin; Z79.4 Long term (current) use of insulin
CPT/HCPCS: 36600; 71045; 73590; 80048; 80053; 81001; 82803; 82962; 83036; 83690; 84439; 84443; 85025; 87040; 87081; 87086; 93970; 96365; 97110; 97116; 97163; 97530; 99285-25

== ENCOUNTER 2017-12-01 14:59 | Inpatient (IN) | payer MEDICARE, OTHER ==
[2017-12-01 15:43] LABS: ADD MAN DIFF? NO
[2017-12-01 15:45] LABS: WHITE BLOOD COUNT 12.8 10^3/ul (4.8-10.8)
[2017-12-01 15:45] LABS: BASOPHIL # 0.1 10^3/ul (0.0-0.1); BASOPHILS % 0.5 % (0.0-2.0); EOSINOPHILS # 0.3 10^3/ul (0.0-0.5); EOSINOPHILS % 2.4 % (0.0-7.0); HEMATOCRIT 35.7 % (37.0-47.0); HEMOGLOBIN 11.2 g/dl (12.0-16.0); LYMPHOCYTES # 2.5 10^3/ul (0.8-2.9); LYMPHOCYTES % 19.8 % (15.0-51.0); MEAN CORPUSCULAR HGB CONC 31.4 g/dl (32.0-37.0); MEAN CORPUSCULAR VOLUME 92.5 fl (82.0-101.0); MEAN PLATELET VOLUME 9.7 fl (7.4-10.4); MONOCYTE # 0.7 10^3/ul (0.3-0.9); MONOCYTES % 5.1 % (0.0-11.0); NEUTROPHIL # 9.1 10^3/ul (1.6-7.5); NEUTROPHILS % 71.4 % (39.0-77.0); PLATELET COUNT 363 10^3/UL (140-415); RED BLOOD COUNT 3.86 10^6/ul (4.20-5.40); RED CELL DISTRIBUTION WIDTH 19.2 % (11.5-14.5)
[2017-12-01 16:04] LABS: ANION GAP 17 (8-16); BLOOD UREA NITROGEN 46 mg/dl (7-20); CALCIUM 8.2 mg/dl (8.4-10.2); CARBON DIOXIDE 23 mmol/L (21-31); CHLORIDE 96 mmol/L (97-110); CREATININE 0.87 mg/dl (0.44-1.00); GLUCOSE 230 mg/dl (70-220); POTASSIUM 5.7 mmol/L (3.5-5.1); SODIUM 130 mmol/L (135-144)
[2017-12-01] MEDS: SOD CHLORIDE 0.9% 500 ML IV (16:21)
[2017-12-01] MEDS ORDERED: ZOLPIDEM 5 MG TAB PO (19:00)
[2017-12-01] MEDS ORDERED: HYDROCODONE/APAP (5/325) TAB PO (19:00)
[2017-12-01] MEDS: ONDANSETRON 4 MG INJ IV (20:29)
[2017-12-01] MEDS: morphine 2 MG INJ IV (20:29)
[2017-12-01] MEDS ORDERED: DEXTROSE 50% 50 ML SYRINGE IV (20:30)
[2017-12-01] MEDS ORDERED: GLUCOSE GEL 15 GRAM TUBE PO ×2 (20:30)
[2017-12-01] MEDS ORDERED: GLUCAGON 1 MG INJ IM (20:30)
[2017-12-01] MEDS: ACETAMINOPHEN 325 MG TAB PO (20:36)
[2017-12-01] MEDS: INSULIN ASPART [NOVOLOG] 3 ML PEN SC (21:00)
[2017-12-01] MEDS: BISACODYL (EC) 5 MG TAB PO (22:49)
[2017-12-01] MEDS: FERROUS SULFATE (EC) 325 MG TAB PO (22:49)
[2017-12-01] MEDS: DOCUSATE SODIUM 100 MG CAP PO (22:49)
[2017-12-01] MEDS: ATORVASTATIN 10 MG TAB PO (22:49)
[2017-12-01] MEDS: GABAPENTIN 100 MG CAP PO (22:49)
[2017-12-01] MEDS: FAMOTIDINE 20 MG TAB PO (22:49)
[2017-12-01] MEDS: SOD CHLORIDE 0.9% 1,000 ML IV (22:49)
[2017-12-01] MEDS: INSULIN GLARGINE [LANtus] 3 ML PEN SC (23:42)
[2017-12-02] MEDS: ACCU-CHEK XX (02:00)
[2017-12-02] MEDS ORDERED: PENDING SANTYL ORDER FOR WOUND CARE XX (02:00)
[2017-12-02] MEDS: ACETAMINOPHEN 325 MG TAB PO ×3 (02:42→17:43)
[2017-12-02 06:33] LABS: ADD MAN DIFF? NO
[2017-12-02 06:41] LABS: WHITE BLOOD COUNT 10.5 10^3/ul (4.8-10.8)
[2017-12-02 06:41] LABS: BASOPHIL # 0.1 10^3/ul (0.0-0.1); BASOPHILS % 0.5 % (0.0-2.0); EOSINOPHILS # 0.3 10^3/ul (0.0-0.5); EOSINOPHILS % 3.1 % (0.0-7.0); HEMATOCRIT 35.8 % (37.0-47.0); HEMOGLOBIN 11.1 g/dl (12.0-16.0); LYMPHOCYTES # 2.8 10^3/ul (0.8-2.9); LYMPHOCYTES % 26.5 % (15.0-51.0); MEAN CORPUSCULAR HEMOGLOBIN 28.4 pg (29.0-33.0); MEAN CORPUSCULAR VOLUME 91.6 fl (82.0-101.0); MEAN PLATELET VOLUME 9.5 fl (7.4-10.4); MONOCYTE # 0.7 10^3/ul (0.3-0.9); MONOCYTES % 6.6 % (0.0-11.0); NEUTROPHIL # 6.6 10^3/ul (1.6-7.5); NEUTROPHILS % 62.6 % (39.0-77.0); PLATELET COUNT 370 10^3/UL (140-415); RED BLOOD COUNT 3.91 10^6/ul (4.20-5.40); RED CELL DISTRIBUTION WIDTH 19.4 % (11.5-14.5)
[2017-12-02 07:03] LABS: ANION GAP 13 (8-16); BLOOD UREA NITROGEN 47 mg/dl (7-20); CALCIUM 8.1 mg/dl (8.4-10.2); CARBON DIOXIDE 25 mmol/L (21-31); CHLORIDE 99 mmol/L (97-110); CREATININE 0.81 mg/dl (0.44-1.00); GLUCOSE 122 mg/dl (70-220); MAGNESIUM 2.5 mg/dl (1.7-2.5); POTASSIUM 5.4 mmol/L (3.5-5.1); SODIUM 132 mmol/L (135-144)
[2017-12-02] MEDS: INSULIN ASPART [NOVOLOG] 3 ML PEN SC ×7 (07:55→21:00)
[2017-12-02] MEDS: FOLIC ACID 1 MG TAB PO (08:39)
[2017-12-02] MEDS: ASPIRIN (EC) 81 MG TAB PO (08:40)
[2017-12-02] MEDS: GABAPENTIN 100 MG CAP PO ×2 (08:40→22:26)
[2017-12-02] MEDS: FAMOTIDINE 20 MG TAB PO ×2 (08:41→22:26)
[2017-12-02] MEDS: CLOPIDOGREL 75 MG TAB PO (08:41)
[2017-12-02] MEDS: FERROUS SULFATE (EC) 325 MG TAB PO ×2 (08:41→22:26)
[2017-12-02] MEDS: ENOXAPARIN 30 MG/0.3 ML SYG SC (08:45)
[2017-12-02] MEDS: DOCUSATE SODIUM 100 MG CAP PO (08:59)
[2017-12-02] MEDS: NA POLYST SULFON 15 GM/60 ML BTL PO (10:51)
[2017-12-02] MEDS: LOSARTAN 25 MG TAB PO (10:52)
[2017-12-02] MEDS ORDERED: DOCUSATE SODIUM 100 MG CAP PO (14:30)
[2017-12-02] MEDS: SOD CHLORIDE 0.9% 1,000 ML IV ×2 (14:40→22:37)
[2017-12-02] MEDS: COLLAGENASE 30 GM TUBE TOP (15:24)
[2017-12-02] MEDS: BISACODYL (EC) 5 MG TAB PO (18:53)
[2017-12-02] MEDS: INSULIN GLARGINE [LANtus] 3 ML PEN SC ×2 (20:00→22:37)
[2017-12-02] MEDS: ATORVASTATIN 10 MG TAB PO (22:26)
[2017-12-03] MEDS: ACETAMINOPHEN 325 MG TAB PO ×2 (00:19→21:34)
[2017-12-03] MEDS: ACCU-CHEK XX (01:31)
[2017-12-03] MEDS: DEXTROSE 50% 50 ML SYRINGE IV ×3 (03:45→18:31)
[2017-12-03 06:54] LABS: ADD MAN DIFF? NO
[2017-12-03 06:57] LABS: WHITE BLOOD COUNT 10.3 10^3/ul (4.8-10.8)
[2017-12-03 06:57] LABS: BASOPHIL # 0.1 10^3/ul (0.0-0.1); BASOPHILS % 0.6 % (0.0-2.0); EOSINOPHILS # 0.3 10^3/ul (0.0-0.5); EOSINOPHILS % 2.9 % (0.0-7.0); HEMATOCRIT 34.2 % (37.0-47.0); HEMOGLOBIN 10.5 g/dl (12.0-16.0); LYMPHOCYTES % 19.5 % (15.0-51.0); MEAN CORPUSCULAR HEMOGLOBIN 28.8 pg (29.0-33.0); MEAN CORPUSCULAR HGB CONC 30.7 g/dl (32.0-37.0); MEAN CORPUSCULAR VOLUME 93.7 fl (82.0-101.0); MEAN PLATELET VOLUME 9.5 fl (7.4-10.4); MONOCYTE # 0.8 10^3/ul (0.3-0.9); MONOCYTES % 7.3 % (0.0-11.0); NEUTROPHILS % 68.6 % (39.0-77.0); PLATELET COUNT 344 10^3/UL (140-415); RED BLOOD COUNT 3.65 10^6/ul (4.20-5.40); RED CELL DISTRIBUTION WIDTH 18.9 % (11.5-14.5)
[2017-12-03 07:18] LABS: ANION GAP 16 (8-16); BLOOD UREA NITROGEN 40 mg/dl (7-20); CALCIUM 7.8 mg/dl (8.4-10.2); CARBON DIOXIDE 24 mmol/L (21-31); CHLORIDE 98 mmol/L (97-110); CREATININE 0.73 mg/dl (0.44-1.00); GLUCOSE 123 mg/dl (70-220); POTASSIUM 5.2 mmol/L (3.5-5.1); SODIUM 133 mmol/L (135-144)
[2017-12-03] MEDS: INSULIN ASPART [NOVOLOG] 3 ML PEN SC ×7 (08:00→21:00)
[2017-12-03] MEDS: FAMOTIDINE 20 MG TAB PO ×2 (08:15→21:24)
[2017-12-03] MEDS: FOLIC ACID 1 MG TAB PO (08:15)
[2017-12-03] MEDS: FERROUS SULFATE (EC) 325 MG TAB PO ×2 (08:15→21:23)
[2017-12-03] MEDS: ASPIRIN (EC) 81 MG TAB PO (08:15)
[2017-12-03] MEDS: CLOPIDOGREL 75 MG TAB PO (08:16)
[2017-12-03] MEDS: GABAPENTIN 100 MG CAP PO ×2 (08:16→21:24)
[2017-12-03] MEDS: ENOXAPARIN 30 MG/0.3 ML SYG SC (08:18)
[2017-12-03] MEDS: COLLAGENASE 30 GM TUBE TOP (08:20)
[2017-12-03] MEDS: LOSARTAN 25 MG TAB PO (10:34)
[2017-12-03] MEDS: LEVALBUTEROL (NEB) 0.63 MG/3 ML AMP HHN ×2 (10:45→19:23)
[2017-12-03] MEDS: GLUCOSE GEL 15 GRAM TUBE BUCCAL (12:36)
[2017-12-03 16:49] LABS: B-TYPE NATRIURETIC PEPTIDE 11700 PG/ML (0-450)
[2017-12-03] MEDS: NA POLYST SULFON 15 GM/60 ML BTL PO (17:15)
[2017-12-03] MEDS: DEXTROSE 5%-0.225% NACL 1,000 ML IV (17:15)
[2017-12-03] MEDS: BISACODYL (EC) 5 MG TAB PO (18:36)
[2017-12-03] MEDS: INSULIN GLARGINE [LANtus] 3 ML PEN SC (21:23)
[2017-12-03] MEDS: ATORVASTATIN 10 MG TAB PO (21:24)
[2017-12-04] MEDS: LEVALBUTEROL (NEB) 0.63 MG/3 ML AMP HHN ×2 (00:22→10:15)
[2017-12-04] MEDS: ACCU-CHEK XX (02:00)
[2017-12-04 06:53] LABS: ADD MAN DIFF? NO
[2017-12-04 06:55] LABS: BASOPHIL # 0.1 10^3/ul (0.0-0.1); BASOPHILS % 0.2 % (0.0-2.0); EOSINOPHILS # 0.1 10^3/ul (0.0-0.5); EOSINOPHILS % 0.3 % (0.0-7.0); HEMATOCRIT 37.7 % (37.0-47.0); HEMOGLOBIN 11.5 g/dl (12.0-16.0); MEAN CORPUSCULAR HEMOGLOBIN 28.4 pg (29.0-33.0); MEAN CORPUSCULAR HGB CONC 30.5 g/dl (32.0-37.0); MEAN CORPUSCULAR VOLUME 93.1 fl (82.0-101.0); MEAN PLATELET VOLUME 9.1 fl (7.4-10.4); MONOCYTE # 1.5 10^3/ul (0.3-0.9); MONOCYTES % 6.5 % (0.0-11.0); NEUTROPHIL # 18.1 10^3/ul (1.6-7.5); NEUTROPHILS % 79.3 % (39.0-77.0); PLATELET COUNT 307 10^3/UL (140-415); RED BLOOD COUNT 4.05 10^6/ul (4.20-5.40); RED CELL DISTRIBUTION WIDTH 18.9 % (11.5-14.5)
[2017-12-04 06:55] LABS: WHITE BLOOD COUNT 22.9 10^3/ul (4.8-10.8)
[2017-12-04 07:20] LABS: ANION GAP 13 (8-16); BLOOD UREA NITROGEN 35 mg/dl (7-20); CALCIUM 8.1 mg/dl (8.4-10.2); CARBON DIOXIDE 26 mmol/L (21-31); CHLORIDE 97 mmol/L (97-110); CREATININE 0.83 mg/dl (0.44-1.00); GLUCOSE 82 mg/dl (70-220); POTASSIUM 5.1 mmol/L (3.5-5.1); SODIUM 131 mmol/L (135-144)
[2017-12-04 07:35] LABS: CHOLESTEROL 86 mg/dl (100-200)
[2017-12-04 07:35] LABS: CHOL/HDL RATIO 2.7 RATIO; HDL CHOLESTEROL 31 mg/dl (33-92); LDL CHOLESTEROL,CALCULATED 35 mg/dl; TRIGLYCERIDES 102 mg/dl (0-149)
[2017-12-04 07:44] LABS: B-TYPE NATRIURETIC PEPTIDE 11500 PG/ML (0-450)
[2017-12-04 07:52] LABS: FREE T4 (FREE THYROXINE) 1.05 ng/dl (0.78-2.44)
[2017-12-04] MEDS: INSULIN ASPART [NOVOLOG] 3 ML PEN SC ×7 (08:00→20:34)
[2017-12-04] MEDS: GABAPENTIN 100 MG CAP PO ×2 (08:59→20:31)
[2017-12-04] MEDS: ENOXAPARIN 30 MG/0.3 ML SYG SC (08:59)
[2017-12-04] MEDS: FERROUS SULFATE (EC) 325 MG TAB PO ×2 (08:59→20:31)
[2017-12-04] MEDS: FOLIC ACID 1 MG TAB PO (09:00)
[2017-12-04] MEDS: COLLAGENASE 30 GM TUBE TOP (09:00)
[2017-12-04] MEDS: LOSARTAN 25 MG TAB PO (09:00)
[2017-12-04] MEDS: FAMOTIDINE 20 MG TAB PO ×2 (09:00→20:31)
[2017-12-04] MEDS: CLOPIDOGREL 75 MG TAB PO (09:00)
[2017-12-04] MEDS: ASPIRIN (EC) 81 MG TAB PO (09:00)
[2017-12-04] MEDS: ACETAMINOPHEN 325 MG TAB PO ×2 (10:56→17:45)
[2017-12-04] MEDS: DEXTROSE 5%-0.225% NACL 1,000 ML IV (12:47)
[2017-12-04] MEDS: BALSAM PERU/CASTOR OIL 60 GM TUBE TOP (17:46)
[2017-12-04] MEDS: BISACODYL (EC) 5 MG TAB PO (17:59)
[2017-12-04] MEDS: ATORVASTATIN 10 MG TAB PO (20:31)
[2017-12-04] MEDS: INSULIN GLARGINE [LANtus] 3 ML PEN SC (20:34)
[2017-12-05 00:42] LABS: ADD UMIC NO; UR ASCORBIC ACID 40 mg/dL (NEGATIVE); UR BILIRUBIN (Dip) NEGATIVE (NEGATIVE); UR BLOOD (Dip) NEGATIVE (NEGATIVE); UR CLARITY CLEAR (CLEAR); UR COLOR YELLOW (YELLOW); UR GLUCOSE (Dip) NEGATIVE (NEGATIVE); UR KETONES (Dip) NEGATIVE (NEGATIVE); UR LEUKOCYTE ESTERASE (Dip) NEGATIVE Leu/ul (NEGATIVE); UR NITRITE (Dip) NEGATIVE (NEGATIVE); UR SPECIFIC GRAVITY (Dip) 1.014 (1.003-1.030); UR TOTAL PROTEIN (Dip) NEGATIVE (NEGATIVE); UR UROBILINOGEN (Dip) NEGATIVE (NEGATIVE)
[2017-12-05] MEDS: ACCU-CHEK XX (02:00)
[2017-12-05] MEDS: ACETAMINOPHEN 325 MG TAB PO ×4 (02:49→22:04)
[2017-12-05] MEDS: DEXTROSE 50% 50 ML SYRINGE IV (03:14)
[2017-12-05 06:17] LABS: ADD MAN DIFF? NO
[2017-12-05 06:24] LABS: WHITE BLOOD COUNT 18.6 10^3/ul (4.8-10.8)
[2017-12-05 06:24] LABS: BASOPHIL # 0.1 10^3/ul (0.0-0.1); BASOPHILS % 0.3 % (0.0-2.0); EOSINOPHILS # 0.4 10^3/ul (0.0-0.5); EOSINOPHILS % 1.9 % (0.0-7.0); HEMATOCRIT 35.8 % (37.0-47.0); HEMOGLOBIN 10.8 g/dl (12.0-16.0); LYMPHOCYTES # 2.5 10^3/ul (0.8-2.9); LYMPHOCYTES % 13.3 % (15.0-51.0); MEAN CORPUSCULAR HEMOGLOBIN 28.3 pg (29.0-33.0); MEAN CORPUSCULAR HGB CONC 30.2 g/dl (32.0-37.0); MEAN PLATELET VOLUME 9.8 fl (7.4-10.4); MONOCYTE # 1.1 10^3/ul (0.3-0.9); MONOCYTES % 5.7 % (0.0-11.0); NEUTROPHIL # 14.5 10^3/ul (1.6-7.5); NEUTROPHILS % 77.7 % (39.0-77.0); PLATELET COUNT 308 10^3/UL (140-415); RED BLOOD COUNT 3.81 10^6/ul (4.20-5.40); RED CELL DISTRIBUTION WIDTH 18.5 % (11.5-14.5)
[2017-12-05 07:06] LABS: ANION GAP 13 (8-16); BLOOD UREA NITROGEN 34 mg/dl (7-20); CALCIUM 7.8 mg/dl (8.4-10.2); CARBON DIOXIDE 27 mmol/L (21-31); CHLORIDE 94 mmol/L (97-110); CREATININE 0.77 mg/dl (0.44-1.00); GLUCOSE 65 mg/dl (70-220); POTASSIUM 4.5 mmol/L (3.5-5.1); SODIUM 129 mmol/L (135-144)
[2017-12-05] MEDS: INSULIN ASPART [NOVOLOG] 3 ML PEN SC ×7 (07:35→21:00)
[2017-12-05] MEDS: DEXTROSE 5%-0.225% NACL 1,000 ML IV (08:00)
[2017-12-05] MEDS: FOLIC ACID 1 MG TAB PO (08:56)
[2017-12-05] MEDS: FAMOTIDINE 20 MG TAB PO ×2 (08:56→20:20)
[2017-12-05] MEDS: GABAPENTIN 100 MG CAP PO ×2 (08:56→20:20)
[2017-12-05] MEDS: FERROUS SULFATE (EC) 325 MG TAB PO ×2 (08:56→20:20)
[2017-12-05] MEDS: ASPIRIN (EC) 81 MG TAB PO (08:56)
[2017-12-05] MEDS: CLOPIDOGREL 75 MG TAB PO (08:56)
[2017-12-05] MEDS: LOSARTAN 25 MG TAB PO (08:58)
[2017-12-05] MEDS: COLLAGENASE 30 GM TUBE TOP (08:58)
[2017-12-05] MEDS: ENOXAPARIN 30 MG/0.3 ML SYG SC (09:00)
[2017-12-05] MEDS: BALSAM PERU/CASTOR OIL 60 GM TUBE TOP (09:02)
[2017-12-05 09:44] LABS: GLUCOSE 79 mg/dl (70-220)
[2017-12-05] MEDS: FUROSEMIDE 40 MG INJ IV ×2 (09:53→17:35)
[2017-12-05] MEDS: BISACODYL (EC) 5 MG TAB PO (19:00)
[2017-12-05] MEDS: INSULIN GLARGINE [LANtus] 3 ML PEN SC (20:17)
[2017-12-05] MEDS: ATORVASTATIN 10 MG TAB PO (20:20)
[2017-12-05] MEDS: MEROPENEM 500MG/50 ML (PMX) 50 ML IVPB (20:21)
[2017-12-05] MEDS: FOSFOMYCIN 3 GM PACKET PO (21:49)
[2017-12-06] MEDS: ACCU-CHEK XX (02:00)
[2017-12-06] MEDS: FUROSEMIDE 40 MG INJ IV ×2 (06:00→17:33)
[2017-12-06 06:14] LABS: ADD MAN DIFF? NO
[2017-12-06] MEDS: ACETAMINOPHEN 325 MG TAB PO ×3 (06:19→21:34)
[2017-12-06 06:28] LABS: WHITE BLOOD COUNT 18.4 10^3/ul (4.8-10.8)
[2017-12-06 06:28] LABS: BASOPHIL # 0.1 10^3/ul (0.0-0.1); BASOPHILS % 0.3 % (0.0-2.0); EOSINOPHILS # 0.2 10^3/ul (0.0-0.5); EOSINOPHILS % 1.1 % (0.0-7.0); LYMPHOCYTES # 2.6 10^3/ul (0.8-2.9); LYMPHOCYTES % 14.2 % (15.0-51.0); MEAN CORPUSCULAR HEMOGLOBIN 28.6 pg (29.0-33.0); MEAN CORPUSCULAR HGB CONC 31.4 g/dl (32.0-37.0); MEAN CORPUSCULAR VOLUME 91.1 fl (82.0-101.0); MEAN PLATELET VOLUME 9.6 fl (7.4-10.4); MONOCYTE # 0.9 10^3/ul (0.3-0.9); MONOCYTES % 4.6 % (0.0-11.0); NEUTROPHIL # 14.5 10^3/ul (1.6-7.5); NEUTROPHILS % 78.8 % (39.0-77.0); PLATELET COUNT 306 10^3/UL (140-415); RED BLOOD COUNT 3.84 10^6/ul (4.20-5.40); RED CELL DISTRIBUTION WIDTH 18.4 % (11.5-14.5)
[2017-12-06 06:48] LABS: ANION GAP 12 (8-16); BLOOD UREA NITROGEN 36 mg/dl (7-20); CALCIUM 7.8 mg/dl (8.4-10.2); CARBON DIOXIDE 25 mmol/L (21-31); CHLORIDE 96 mmol/L (97-110); CREATININE 0.74 mg/dl (0.44-1.00); GLUCOSE 61 mg/dl (70-220); POTASSIUM 5.5 mmol/L (3.5-5.1); SODIUM 127 mmol/L (135-144)
[2017-12-06] MEDS: INSULIN ASPART [NOVOLOG] 3 ML PEN SC ×7 (07:35→20:59)
[2017-12-06] MEDS: ASPIRIN (EC) 81 MG TAB PO (08:44)
[2017-12-06] MEDS: CLOPIDOGREL 75 MG TAB PO (08:44)
[2017-12-06] MEDS: FAMOTIDINE 20 MG TAB PO ×2 (08:44→20:41)
[2017-12-06] MEDS: GABAPENTIN 100 MG CAP PO ×2 (08:44→20:42)
[2017-12-06] MEDS: FOLIC ACID 1 MG TAB PO (08:44)
[2017-12-06] MEDS: FERROUS SULFATE (EC) 325 MG TAB PO ×2 (08:44→20:41)
[2017-12-06] MEDS: LOSARTAN 25 MG TAB PO (08:46)
[2017-12-06] MEDS: COLLAGENASE 30 GM TUBE TOP (08:46)
[2017-12-06] MEDS: BALSAM PERU/CASTOR OIL 60 GM TUBE TOP (08:46)
[2017-12-06] MEDS: ENOXAPARIN 30 MG/0.3 ML SYG SC (08:47)
[2017-12-06] MEDS: MEROPENEM 500MG/50 ML (PMX) 50 ML IVPB ×2 (08:50→20:41)
[2017-12-06] MEDS: NA POLYST SULFON 15 GM/60 ML BTL PO (09:44)
[2017-12-06] MEDS: SODIUM CHLORIDE 1 GM TAB PO ×2 (10:55→20:41)
[2017-12-06] MEDS: BISACODYL (EC) 5 MG TAB PO (18:05)
[2017-12-06] MEDS: ATORVASTATIN 10 MG TAB PO (20:41)
[2017-12-06] MEDS: INSULIN GLARGINE [LANtus] 3 ML PEN SC (20:41)
[2017-12-07] MEDS: ACCU-CHEK XX (02:00)
[2017-12-07] MEDS: FUROSEMIDE 40 MG INJ IV ×2 (05:28→17:46)
[2017-12-07 06:22] LABS: ADD MAN DIFF? NO
[2017-12-07 06:25] LABS: BASOPHILS % 0.2 % (0.0-2.0); EOSINOPHILS # 0.1 10^3/ul (0.0-0.5); HEMATOCRIT 37.5 % (37.0-47.0); HEMOGLOBIN 11.4 g/dl (12.0-16.0); LYMPHOCYTES # 2.5 10^3/ul (0.8-2.9); LYMPHOCYTES % 17.4 % (15.0-51.0); MEAN CORPUSCULAR HEMOGLOBIN 27.9 pg (29.0-33.0); MEAN CORPUSCULAR HGB CONC 30.4 g/dl (32.0-37.0); MEAN CORPUSCULAR VOLUME 91.7 fl (82.0-101.0); MONOCYTE # 0.8 10^3/ul (0.3-0.9); MONOCYTES % 5.9 % (0.0-11.0); NEUTROPHIL # 10.6 10^3/ul (1.6-7.5); NEUTROPHILS % 74.7 % (39.0-77.0); PLATELET COUNT 304 10^3/UL (140-415); RED BLOOD COUNT 4.09 10^6/ul (4.20-5.40); RED CELL DISTRIBUTION WIDTH 18.6 % (11.5-14.5)
[2017-12-07 06:25] LABS: WHITE BLOOD COUNT 14.2 10^3/ul (4.8-10.8)
[2017-12-07 06:49] LABS: BLOOD UREA NITROGEN 32 mg/dl (7-20); CARBON DIOXIDE 33 mmol/L (21-31); CREATININE 0.69 mg/dl (0.44-1.00); GLUCOSE 79 mg/dl (70-220)
[2017-12-07 07:01] LABS: ANION GAP 11 (8-16); CHLORIDE 97 mmol/L (97-110); POTASSIUM 4.4 mmol/L (3.5-5.1); SODIUM 137 mmol/L (135-144)
[2017-12-07] MEDS: INSULIN ASPART [NOVOLOG] 3 ML PEN SC ×7 (07:35→21:00)
[2017-12-07] MEDS: ENOXAPARIN 30 MG/0.3 ML SYG SC (09:57)
[2017-12-07] MEDS: MEROPENEM 500MG/50 ML (PMX) 50 ML IVPB ×2 (09:58→23:00)
[2017-12-07] MEDS: ASPIRIN (EC) 81 MG TAB PO (09:59)
[2017-12-07] MEDS: GABAPENTIN 100 MG CAP PO ×2 (09:59→23:00)
[2017-12-07] MEDS: FOLIC ACID 1 MG TAB PO (09:59)
[2017-12-07] MEDS: FAMOTIDINE 20 MG TAB PO ×2 (09:59→23:03)
[2017-12-07] MEDS: CLOPIDOGREL 75 MG TAB PO (09:59)
[2017-12-07] MEDS: FERROUS SULFATE (EC) 325 MG TAB PO ×2 (09:59→23:04)
[2017-12-07] MEDS: SODIUM CHLORIDE 1 GM TAB PO ×2 (10:00→23:02)
[2017-12-07] MEDS: BALSAM PERU/CASTOR OIL 60 GM TUBE TOP (10:03)
[2017-12-07] MEDS: COLLAGENASE 30 GM TUBE TOP (10:03)
[2017-12-07] MEDS: LOSARTAN 25 MG TAB PO (10:22)
[2017-12-07] MEDS: ACETAMINOPHEN 325 MG TAB PO (15:14)
[2017-12-07] MEDS: INSULIN GLARGINE [LANtus] 3 ML PEN SC (22:59)
[2017-12-07] MEDS: ATORVASTATIN 10 MG TAB PO (23:01)
[2017-12-07] MEDS: BISACODYL (EC) 5 MG TAB PO (23:03)
[2017-12-08] MEDS: ACCU-CHEK XX (01:48)
[2017-12-08] MEDS: FUROSEMIDE 40 MG INJ IV ×3 (06:10→18:14)
[2017-12-08 06:29] LABS: ADD MAN DIFF? NO
[2017-12-08 06:32] LABS: BASOPHIL # 0.1 10^3/ul (0.0-0.1); BASOPHILS % 0.5 % (0.0-2.0); EOSINOPHILS # 0.2 10^3/ul (0.0-0.5); EOSINOPHILS % 1.5 % (0.0-7.0); HEMATOCRIT 39.9 % (37.0-47.0); LYMPHOCYTES # 2.8 10^3/ul (0.8-2.9); LYMPHOCYTES % 25.5 % (15.0-51.0); MEAN CORPUSCULAR HEMOGLOBIN 28.2 pg (29.0-33.0); MEAN CORPUSCULAR HGB CONC 30.1 g/dl (32.0-37.0); MEAN CORPUSCULAR VOLUME 93.7 fl (82.0-101.0); MEAN PLATELET VOLUME 8.7 fl (7.4-10.4); MONOCYTE # 0.8 10^3/ul (0.3-0.9); MONOCYTES % 7.5 % (0.0-11.0); NEUTROPHILS % 63.9 % (39.0-77.0); PLATELET COUNT 296 10^3/UL (140-415); RED BLOOD COUNT 4.26 10^6/ul (4.20-5.40); RED CELL DISTRIBUTION WIDTH 18.3 % (11.5-14.5)
[2017-12-08 06:55] LABS: ANION GAP 15 (8-16); BLOOD UREA NITROGEN 26 mg/dl (7-20); CALCIUM 8.2 mg/dl (8.4-10.2); CARBON DIOXIDE 37 mmol/L (21-31); CHLORIDE 94 mmol/L (97-110); CREATININE 0.66 mg/dl (0.44-1.00); GLUCOSE 149 mg/dl (70-220); POTASSIUM 4.7 mmol/L (3.5-5.1); SODIUM 141 mmol/L (135-144)
[2017-12-08] MEDS: INSULIN ASPART [NOVOLOG] 3 ML PEN SC ×7 (08:13→21:17)
[2017-12-08] MEDS: SODIUM CHLORIDE 1 GM TAB PO ×2 (08:15→21:10)
[2017-12-08] MEDS: CLOPIDOGREL 75 MG TAB PO (08:15)
[2017-12-08] MEDS: FAMOTIDINE 20 MG TAB PO ×2 (08:16→21:10)
[2017-12-08] MEDS: FERROUS SULFATE (EC) 325 MG TAB PO ×2 (08:16→21:15)
[2017-12-08] MEDS: FOLIC ACID 1 MG TAB PO (08:16)
[2017-12-08] MEDS: LOSARTAN 25 MG TAB PO (08:17)
[2017-12-08] MEDS: COLLAGENASE 30 GM TUBE TOP (08:18)
[2017-12-08] MEDS: ACETAMINOPHEN 325 MG TAB PO ×2 (08:18→16:51)
[2017-12-08] MEDS: BALSAM PERU/CASTOR OIL 60 GM TUBE TOP (08:18)
[2017-12-08] MEDS: MEROPENEM 500MG/50 ML (PMX) 50 ML IVPB (08:21)
[2017-12-08] MEDS: GABAPENTIN 100 MG CAP PO ×2 (08:21→21:10)
[2017-12-08] MEDS: ENOXAPARIN 30 MG/0.3 ML SYG SC (08:22)
[2017-12-08] MEDS: ASPIRIN (EC) 81 MG TAB PO (08:25)
[2017-12-08] MEDS: ERTAPENEM SODIUM 1 GM in SOD CHLORIDE 0.9% 100 ML IVPB (16:53)
[2017-12-08] MEDS: BISACODYL (EC) 5 MG TAB PO (18:20)
[2017-12-08] MEDS: ATORVASTATIN 10 MG TAB PO (21:15)
[2017-12-08] MEDS: INSULIN GLARGINE [LANtus] 3 ML PEN SC (21:16)
[2017-12-09] MEDS: ACCU-CHEK XX (02:00)
[2017-12-09 05:57] LABS: ADD MAN DIFF? NO
[2017-12-09] MEDS: FUROSEMIDE 40 MG INJ IV ×2 (06:00→17:53)
[2017-12-09 06:01] LABS: BASOPHIL # 0.1 10^3/ul (0.0-0.1); BASOPHILS % 0.5 % (0.0-2.0); EOSINOPHILS # 0.2 10^3/ul (0.0-0.5); HEMOGLOBIN 11.7 g/dl (12.0-16.0); LYMPHOCYTES % 29.5 % (15.0-51.0); MEAN CORPUSCULAR VOLUME 93.3 fl (82.0-101.0); MEAN PLATELET VOLUME 8.9 fl (7.4-10.4); MONOCYTE # 0.8 10^3/ul (0.3-0.9); MONOCYTES % 7.6 % (0.0-11.0); NEUTROPHILS % 58.7 % (39.0-77.0); PLATELET COUNT 268 10^3/UL (140-415); RED BLOOD COUNT 4.18 10^6/ul (4.20-5.40); RED CELL DISTRIBUTION WIDTH 18.5 % (11.5-14.5)
[2017-12-09 06:01] LABS: WHITE BLOOD COUNT 10.2 10^3/ul (4.8-10.8)
[2017-12-09 06:22] LABS: ANION GAP 11 (8-16); BLOOD UREA NITROGEN 24 mg/dl (7-20); CALCIUM 8.4 mg/dl (8.4-10.2); CARBON DIOXIDE 37 mmol/L (21-31); CHLORIDE 96 mmol/L (97-110); CREATININE 0.63 mg/dl (0.44-1.00); GLUCOSE 130 mg/dl (70-220); POTASSIUM 4.9 mmol/L (3.5-5.1); SODIUM 139 mmol/L (135-144)
[2017-12-09] MEDS: INSULIN ASPART [NOVOLOG] 3 ML PEN SC ×7 (08:06→21:00)
[2017-12-09] MEDS: GABAPENTIN 100 MG CAP PO ×2 (08:08→20:48)
[2017-12-09] MEDS: FAMOTIDINE 20 MG TAB PO ×2 (08:08→20:48)
[2017-12-09] MEDS: SODIUM CHLORIDE 1 GM TAB PO ×2 (08:08→20:48)
[2017-12-09] MEDS: FERROUS SULFATE (EC) 325 MG TAB PO ×2 (08:08→20:47)
[2017-12-09] MEDS: ASPIRIN (EC) 81 MG TAB PO (08:08)
[2017-12-09] MEDS: CLOPIDOGREL 75 MG TAB PO (08:08)
[2017-12-09] MEDS: FOLIC ACID 1 MG TAB PO (08:08)
[2017-12-09] MEDS: ACETAMINOPHEN 325 MG TAB PO ×3 (08:09→21:54)
[2017-12-09] MEDS: ENOXAPARIN 30 MG/0.3 ML SYG SC (08:10)
[2017-12-09] MEDS: BALSAM PERU/CASTOR OIL 60 GM TUBE TOP (08:10)
[2017-12-09] MEDS: COLLAGENASE 30 GM TUBE TOP (08:10)
[2017-12-09] MEDS: LOSARTAN 25 MG TAB PO (08:50)
[2017-12-09] MEDS: ERTAPENEM SODIUM 1 GM in SOD CHLORIDE 0.9% 100 ML IVPB (15:35)
[2017-12-09] MEDS: BISACODYL (EC) 5 MG TAB PO (18:44)
[2017-12-09] MEDS: INSULIN GLARGINE [LANtus] 3 ML PEN SC (20:36)
[2017-12-09] MEDS: ATORVASTATIN 10 MG TAB PO (20:48)
[2017-12-10] MEDS: ACCU-CHEK XX (02:00)
[2017-12-10 06:07] LABS: ADD MAN DIFF? NO
[2017-12-10 06:11] LABS: BASOPHIL # 0.1 10^3/ul (0.0-0.1); BASOPHILS % 0.8 % (0.0-2.0); EOSINOPHILS # 0.3 10^3/ul (0.0-0.5); EOSINOPHILS % 2.9 % (0.0-7.0); HEMATOCRIT 38.9 % (37.0-47.0); HEMOGLOBIN 11.6 g/dl (12.0-16.0); LYMPHOCYTES # 2.5 10^3/ul (0.8-2.9); LYMPHOCYTES % 28.4 % (15.0-51.0); MEAN CORPUSCULAR HEMOGLOBIN 28.2 pg (29.0-33.0); MEAN CORPUSCULAR HGB CONC 29.8 g/dl (32.0-37.0); MEAN CORPUSCULAR VOLUME 94.4 fl (82.0-101.0); MEAN PLATELET VOLUME 9.1 fl (7.4-10.4); MONOCYTE # 0.7 10^3/ul (0.3-0.9); MONOCYTES % 7.8 % (0.0-11.0); NEUTROPHIL # 5.2 10^3/ul (1.6-7.5); NEUTROPHILS % 58.5 % (39.0-77.0); PLATELET COUNT 231 10^3/UL (140-415); RED BLOOD COUNT 4.12 10^6/ul (4.20-5.40); RED CELL DISTRIBUTION WIDTH 18.1 % (11.5-14.5)
[2017-12-10 06:11] LABS: WHITE BLOOD COUNT 8.9 10^3/ul (4.8-10.8)
[2017-12-10] MEDS: FUROSEMIDE 40 MG INJ IV ×2 (06:25→17:25)
[2017-12-10 06:39] LABS: ANION GAP 12 (8-16); BLOOD UREA NITROGEN 26 mg/dl (7-20); CALCIUM 8.3 mg/dl (8.4-10.2); CARBON DIOXIDE 34 mmol/L (21-31); CHLORIDE 98 mmol/L (97-110); CREATININE 0.64 mg/dl (0.44-1.00); GLUCOSE 132 mg/dl (70-220); POTASSIUM 4.9 mmol/L (3.5-5.1); SODIUM 139 mmol/L (135-144)
[2017-12-10] MEDS: INSULIN ASPART [NOVOLOG] 3 ML PEN SC ×7 (08:00→21:10)
[2017-12-10] MEDS: FERROUS SULFATE (EC) 325 MG TAB PO ×2 (08:12→21:01)
[2017-12-10] MEDS: SODIUM CHLORIDE 1 GM TAB PO ×2 (08:12→21:01)
[2017-12-10] MEDS: CLOPIDOGREL 75 MG TAB PO (08:12)
[2017-12-10] MEDS: FAMOTIDINE 20 MG TAB PO ×2 (08:12→21:01)
[2017-12-10] MEDS: ASPIRIN (EC) 81 MG TAB PO (08:12)
[2017-12-10] MEDS: FOLIC ACID 1 MG TAB PO (08:12)
[2017-12-10] MEDS: GABAPENTIN 100 MG CAP PO ×2 (08:12→21:02)
[2017-12-10] MEDS: LOSARTAN 25 MG TAB PO (08:13)
[2017-12-10] MEDS: ENOXAPARIN 30 MG/0.3 ML SYG SC (08:13)
[2017-12-10] MEDS: COLLAGENASE 30 GM TUBE TOP (08:15)
[2017-12-10] MEDS: BALSAM PERU/CASTOR OIL 60 GM TUBE TOP (08:15)
[2017-12-10] MEDS: LIDOCAINE 2% (SDV) 5 ML INJ (11:44)
[2017-12-10] MEDS: PROPOFOL 40 ML (11:44)
[2017-12-10] MEDS: ACETAMINOPHEN 325 MG TAB PO (13:00)
[2017-12-10] MEDS ORDERED: VANCOMYCIN IV PER PHARMACY XX (13:30)
[2017-12-10] MEDS: ERTAPENEM SODIUM 1 GM in SOD CHLORIDE 0.9% 100 ML IVPB (16:05)
[2017-12-10] MEDS: VANCOMYCIN 1.75 GM in SOD CHLORIDE 0.9% 500 ML IVPB (16:39)
[2017-12-10] MEDS: INSULIN GLARGINE [LANtus] 3 ML PEN SC (20:23)
[2017-12-10] MEDS: ATORVASTATIN 10 MG TAB PO (21:01)
[2017-12-10] MEDS: BISACODYL (EC) 5 MG TAB PO (21:01)
[2017-12-11] MEDS: ACCU-CHEK XX (02:00)
[2017-12-11 06:14] LABS: ADD MAN DIFF? NO
[2017-12-11 06:18] LABS: WHITE BLOOD COUNT 9.6 10^3/ul (4.8-10.8)
[2017-12-11 06:18] LABS: BASOPHIL # 0.1 10^3/ul (0.0-0.1); BASOPHILS % 0.7 % (0.0-2.0); EOSINOPHILS # 0.2 10^3/ul (0.0-0.5); EOSINOPHILS % 2.1 % (0.0-7.0); HEMATOCRIT 40.8 % (37.0-47.0); LYMPHOCYTES # 2.8 10^3/ul (0.8-2.9); LYMPHOCYTES % 28.9 % (15.0-51.0); MEAN CORPUSCULAR HEMOGLOBIN 27.6 pg (29.0-33.0); MEAN CORPUSCULAR HGB CONC 29.4 g/dl (32.0-37.0); MEAN PLATELET VOLUME 9.3 fl (7.4-10.4); MONOCYTE # 0.7 10^3/ul (0.3-0.9); MONOCYTES % 7.2 % (0.0-11.0); NEUTROPHIL # 5.7 10^3/ul (1.6-7.5); NEUTROPHILS % 59.4 % (39.0-77.0); NUCLEATED RED BLOOD CELLS% 0.2 /100WBC (0.0-0.0); PLATELET COUNT 171 10^3/UL (140-415); RED BLOOD COUNT 4.34 10^6/ul (4.20-5.40); RED CELL DISTRIBUTION WIDTH 18.1 % (11.5-14.5)
[2017-12-11] MEDS: FUROSEMIDE 40 MG INJ IV ×2 (07:00→17:04)
[2017-12-11] MEDS: INSULIN ASPART [NOVOLOG] 3 ML PEN SC ×7 (07:57→21:39)
[2017-12-11] MEDS: SODIUM CHLORIDE 1 GM TAB PO ×2 (08:08→21:30)
[2017-12-11] MEDS: ASPIRIN (EC) 81 MG TAB PO (08:08)
[2017-12-11] MEDS: CLOPIDOGREL 75 MG TAB PO (08:08)
[2017-12-11] MEDS: FAMOTIDINE 20 MG TAB PO ×2 (08:08→21:25)
[2017-12-11] MEDS: ENOXAPARIN 30 MG/0.3 ML SYG SC (08:08)
[2017-12-11] MEDS: FOLIC ACID 1 MG TAB PO (08:08)
[2017-12-11] MEDS: FERROUS SULFATE (EC) 325 MG TAB PO ×2 (08:08→21:25)
[2017-12-11] MEDS: GABAPENTIN 100 MG CAP PO ×2 (08:08→21:25)
[2017-12-11] MEDS: LOSARTAN 25 MG TAB PO (08:09)
[2017-12-11] MEDS: BALSAM PERU/CASTOR OIL 60 GM TUBE TOP (08:10)
[2017-12-11] MEDS: COLLAGENASE 30 GM TUBE TOP (08:10)
[2017-12-11 09:54] LABS: BLOOD UREA NITROGEN 27 mg/dl (7-20); CALCIUM 8.6 mg/dl (8.4-10.2); CHLORIDE 93 mmol/L (97-110); CREATININE 0.68 mg/dl (0.44-1.00); GLUCOSE 131 mg/dl (70-220); POTASSIUM 4.4 mmol/L (3.5-5.1); SODIUM 141 mmol/L (135-144)
[2017-12-11 10:00] LABS: ANION GAP 11 (8-16)
[2017-12-11 10:02] LABS: CARBON DIOXIDE 41 mmol/L (21-31)
[2017-12-11] MEDS: ACETAMINOPHEN 325 MG TAB PO ×2 (11:18→21:29)
[2017-12-11] MEDS: ACETAZOLAMIDE 500 MG INJ IV (14:38)
[2017-12-11] MEDS: VANCOMYCIN 1 GM 250 ML IVPB (14:40)
[2017-12-11] MEDS: ERTAPENEM SODIUM 1 GM in SOD CHLORIDE 0.9% 100 ML IVPB (17:01)
[2017-12-11] MEDS: ATORVASTATIN 10 MG TAB PO (21:25)
[2017-12-11] MEDS: BISACODYL (EC) 5 MG TAB PO (21:25)
[2017-12-11] MEDS: INSULIN GLARGINE [LANtus] 3 ML PEN SC (21:37)
[2017-12-12] MEDS: ACCU-CHEK XX (02:00)
[2017-12-12] MEDS: FUROSEMIDE 20 MG INJ IV ×2 (06:15→17:36)
[2017-12-12 06:21] LABS: BLOOD UREA NITROGEN 26 mg/dl (7-20); CALCIUM 8.5 mg/dl (8.4-10.2); CHLORIDE 95 mmol/L (97-110); CREATININE 0.88 mg/dl (0.44-1.00); GLUCOSE 108 mg/dl (70-220); POTASSIUM 4.5 mmol/L (3.5-5.1); SODIUM 141 mmol/L (135-144)
[2017-12-12 06:37] LABS: CARBON DIOXIDE 38 mmol/L (21-31)
[2017-12-12 06:38] LABS: ANION GAP 13 (8-16)
[2017-12-12 06:42] LABS: ADD MAN DIFF? NO
[2017-12-12] MEDS: INSULIN ASPART [NOVOLOG] 3 ML PEN SC ×7 (07:50→21:00)
[2017-12-12] MEDS: ASPIRIN (EC) 81 MG TAB PO (08:52)
[2017-12-12] MEDS: LOSARTAN 25 MG TAB PO ×2 (08:52→10:14)
[2017-12-12] MEDS: CLOPIDOGREL 75 MG TAB PO (08:52)
[2017-12-12] MEDS: FOLIC ACID 1 MG TAB PO (08:54)
[2017-12-12] MEDS: FERROUS SULFATE (EC) 325 MG TAB PO ×2 (08:54→21:17)
[2017-12-12] MEDS: GABAPENTIN 100 MG CAP PO ×2 (08:54→21:16)
[2017-12-12] MEDS: SODIUM CHLORIDE 1 GM TAB PO ×2 (08:54→21:17)
[2017-12-12] MEDS: FAMOTIDINE 20 MG TAB PO ×2 (08:54→21:17)
[2017-12-12] MEDS: ACETAMINOPHEN 325 MG TAB PO ×2 (08:54→18:32)
[2017-12-12] MEDS: ENOXAPARIN 30 MG/0.3 ML SYG SC (08:56)
[2017-12-12] MEDS: COLLAGENASE 30 GM TUBE TOP (09:05)
[2017-12-12] MEDS: BALSAM PERU/CASTOR OIL 60 GM TUBE TOP (09:05)
[2017-12-12] MEDS: ACETAZOLAMIDE 500 MG INJ IV (10:15)
[2017-12-12 10:44] LABS: WHITE BLOOD COUNT 8.6 10^3/ul (4.8-10.8)
[2017-12-12 10:44] LABS: ABNORMAL IP MESSAGE 1; BASOPHIL # 0.1 10^3/ul (0.0-0.1); BASOPHILS % 0.6 % (0.0-2.0); EOSINOPHILS # 0.2 10^3/ul (0.0-0.5); EOSINOPHILS % 2.6 % (0.0-7.0); HEMATOCRIT 37.7 % (37.0-47.0); HEMOGLOBIN 10.8 g/dl (12.0-16.0); LYMPHOCYTES # 2.7 10^3/ul (0.8-2.9); LYMPHOCYTES % 31.8 % (15.0-51.0); MEAN CORPUSCULAR HEMOGLOBIN 27.8 pg (29.0-33.0); MEAN CORPUSCULAR HGB CONC 28.6 g/dl (32.0-37.0); MEAN CORPUSCULAR VOLUME 97.2 fl (82.0-101.0); MEAN PLATELET VOLUME 9.5 fl (7.4-10.4); MONOCYTE # 0.7 10^3/ul (0.3-0.9); MONOCYTES % 8.3 % (0.0-11.0); NEUTROPHIL # 4.8 10^3/ul (1.6-7.5); NEUTROPHILS % 55.7 % (39.0-77.0); NUCLEATED RED BLOOD CELLS% 0.2 /100WBC (0.0-0.0); PLATELET COUNT 203 10^3/UL (140-415); RED BLOOD COUNT 3.88 10^6/ul (4.20-5.40); RED CELL DISTRIBUTION WIDTH 18.5 % (11.5-14.5)
[2017-12-12 10:48] LABS: POSITIVE DIFF @See below
[2017-12-12] MEDS ORDERED: morphine LIQ (10 MG/5 ML) CUP PO (14:00)
[2017-12-12] MEDS: VANCOMYCIN 1 GM 250 ML IVPB (15:10)
[2017-12-12] MEDS: ERTAPENEM SODIUM 1 GM in SOD CHLORIDE 0.9% 100 ML IVPB (16:58)
[2017-12-12] MEDS: BISACODYL (EC) 5 MG TAB PO (18:28)
[2017-12-12 19:32] LABS: INR 1.19; PROTIME 15.3 Sec (11.9-14.9); PT RATIO 1.2
[2017-12-12] MEDS: INSULIN GLARGINE [LANtus] 3 ML PEN SC (21:15)
[2017-12-12] MEDS: ATORVASTATIN 10 MG TAB PO (21:17)
[2017-12-13] MEDS: ACCU-CHEK XX (02:00)
[2017-12-13 04:40] LABS: ADD MAN DIFF? NO
[2017-12-13 04:44] LABS: BASOPHIL # 0.1 10^3/ul (0.0-0.1); BASOPHILS % 0.6 % (0.0-2.0); EOSINOPHILS # 0.2 10^3/ul (0.0-0.5); EOSINOPHILS % 2.8 % (0.0-7.0); HEMATOCRIT 35.8 % (37.0-47.0); HEMOGLOBIN 10.5 g/dl (12.0-16.0); LYMPHOCYTES # 2.4 10^3/ul (0.8-2.9); LYMPHOCYTES % 27.8 % (15.0-51.0); MEAN CORPUSCULAR HGB CONC 29.3 g/dl (32.0-37.0); MEAN CORPUSCULAR VOLUME 95.5 fl (82.0-101.0); MEAN PLATELET VOLUME 8.9 fl (7.4-10.4); MONOCYTE # 0.5 10^3/ul (0.3-0.9); MONOCYTES % 6.3 % (0.0-11.0); NEUTROPHIL # 5.3 10^3/ul (1.6-7.5); NEUTROPHILS % 61.5 % (39.0-77.0); PLATELET COUNT 188 10^3/UL (140-415); RED BLOOD COUNT 3.75 10^6/ul (4.20-5.40); RED CELL DISTRIBUTION WIDTH 18.1 % (11.5-14.5)
[2017-12-13 04:44] LABS: WHITE BLOOD COUNT 8.6 10^3/ul (4.8-10.8)
[2017-12-13 05:06] LABS: ANION GAP 10 (8-16); BLOOD UREA NITROGEN 24 mg/dl (7-20); CALCIUM 8.5 mg/dl (8.4-10.2); CARBON DIOXIDE 40 mmol/L (21-31); CHLORIDE 96 mmol/L (97-110); CREATININE 0.79 mg/dl (0.44-1.00); GLUCOSE 132 mg/dl (70-220); POTASSIUM 4.3 mmol/L (3.5-5.1); SODIUM 142 mmol/L (135-144)
[2017-12-13 05:10] LABS: Allen Test ACCEPTAB; Arterial COHb 0.8 % (0.0-3.0); Arterial Fraction of Oxyhgb 97.9 % (93.0-99.0); Arterial HCO3 37.2 mmol/L (22.0-26.0); Arterial MetHb 0.3 % (0.0-1.5); Arterial Total Hemglobin 11.9 g/dl (12.0-18.0); Arterial pCO2 64.4 mmhg (35-45); MODE NASAL CANNULA; Site LB
[2017-12-13] MEDS: FUROSEMIDE 20 MG INJ IV ×2 (06:35→17:41)
[2017-12-13] MEDS: INSULIN ASPART [NOVOLOG] 3 ML PEN SC ×7 (07:49→20:55)
[2017-12-13] MEDS: ASPIRIN (EC) 81 MG TAB PO (09:00)
[2017-12-13] MEDS: ENOXAPARIN 30 MG/0.3 ML SYG SC (09:00)
[2017-12-13] MEDS: CLOPIDOGREL 75 MG TAB PO (09:00)
[2017-12-13] MEDS: FAMOTIDINE 20 MG TAB PO ×2 (09:39→20:55)
[2017-12-13] MEDS: FOLIC ACID 1 MG TAB PO (09:39)
[2017-12-13] MEDS: SODIUM CHLORIDE 1 GM TAB PO ×2 (09:39→20:55)
[2017-12-13] MEDS: FERROUS SULFATE (EC) 325 MG TAB PO ×2 (09:39→20:55)
[2017-12-13] MEDS: GABAPENTIN 100 MG CAP PO ×2 (09:40→20:55)
[2017-12-13] MEDS: ACETAMINOPHEN 325 MG TAB PO ×2 (09:55→20:55)
[2017-12-13] MEDS: ACETAZOLAMIDE 500 MG INJ IV (10:16)
[2017-12-13] MEDS: BALSAM PERU/CASTOR OIL 60 GM TUBE TOP (10:22)
[2017-12-13] MEDS: COLLAGENASE 30 GM TUBE TOP (10:22)
[2017-12-13 14:51] LABS: VANCOMYCIN,TROUGH 10.7 ug/ml (10.0-20.0)
[2017-12-13] MEDS: VANCOMYCIN 1 GM 250 ML IVPB (15:34)
[2017-12-13] MEDS ORDERED: LIDOCAINE 1% (MDV) 10 ML INJ (15:40)
[2017-12-13 17:31] LABS: FLD RBC 1000 /uL; FLD WBC 94 /cmm
[2017-12-13] MEDS: ERTAPENEM SODIUM 1 GM in SOD CHLORIDE 0.9% 100 ML IVPB (17:36)
[2017-12-13] MEDS: BISACODYL (EC) 5 MG TAB PO (17:41)
[2017-12-13 17:49] LABS: FLD CLARITY HAZY; FLD COLOR YELLOW
[2017-12-13 17:49] LABS: FLD TYPE PLEURAL
[2017-12-13] MEDS: INSULIN GLARGINE [LANtus] 3 ML PEN SC (20:54)
[2017-12-13] MEDS: ATORVASTATIN 10 MG TAB PO (20:55)
[2017-12-13 22:45] LABS: FLUID GLUCOSE 149 mg/dl; FLUID TYPE PLEURAL FLUID
[2017-12-13 22:46] LABS: FLUID LD 177 U/L; FLUID TOTAL PROTEIN < 2.0 g/dl; FLUID TYPE PLEURAL FLUID
[2017-12-14] MEDS: ACCU-CHEK XX (01:46)
[2017-12-14] MEDS: FUROSEMIDE 20 MG INJ IV ×2 (05:56→17:43)
[2017-12-14 06:21] LABS: ADD MAN DIFF? NO
[2017-12-14 06:39] LABS: ANION GAP 12 (8-16); BLOOD UREA NITROGEN 21 mg/dl (7-20); CALCIUM 8.7 mg/dl (8.4-10.2); CARBON DIOXIDE 36 mmol/L (21-31); CHLORIDE 98 mmol/L (97-110); CREATININE 0.77 mg/dl (0.44-1.00); GLUCOSE 154 mg/dl (70-220); SODIUM 142 mmol/L (135-144)
[2017-12-14 06:44] LABS: BASOPHIL # 0.1 10^3/ul (0.0-0.1); BASOPHILS % 0.6 % (0.0-2.0); EOSINOPHILS # 0.3 10^3/ul (0.0-0.5); EOSINOPHILS % 2.8 % (0.0-7.0); HEMATOCRIT 38.2 % (37.0-47.0); HEMOGLOBIN 11.3 g/dl (12.0-16.0); LYMPHOCYTES # 2.8 10^3/ul (0.8-2.9); LYMPHOCYTES % 27.3 % (15.0-51.0); MEAN CORPUSCULAR HEMOGLOBIN 28.3 pg (29.0-33.0); MEAN CORPUSCULAR HGB CONC 29.6 g/dl (32.0-37.0); MEAN CORPUSCULAR VOLUME 95.7 fl (82.0-101.0); MEAN PLATELET VOLUME 9.6 fl (7.4-10.4); MONOCYTE # 0.6 10^3/ul (0.3-0.9); MONOCYTES % 5.8 % (0.0-11.0); NEUTROPHIL # 6.4 10^3/ul (1.6-7.5); NEUTROPHILS % 62.3 % (39.0-77.0); PLATELET COUNT 206 10^3/UL (140-415); RED BLOOD COUNT 3.99 10^6/ul (4.20-5.40); RED CELL DISTRIBUTION WIDTH 18.2 % (11.5-14.5)
[2017-12-14 06:44] LABS: WHITE BLOOD COUNT 10.3 10^3/ul (4.8-10.8)
[2017-12-14] MEDS: INSULIN ASPART [NOVOLOG] 3 ML PEN SC ×7 (08:00→20:38)
[2017-12-14] MEDS: ASPIRIN (EC) 81 MG TAB PO (09:51)
[2017-12-14] MEDS: CLOPIDOGREL 75 MG TAB PO (09:51)
[2017-12-14] MEDS: FAMOTIDINE 20 MG TAB PO ×2 (09:51→20:40)
[2017-12-14] MEDS: SODIUM CHLORIDE 1 GM TAB PO ×2 (09:51→20:40)
[2017-12-14] MEDS: ACETAZOLAMIDE 500 MG INJ IV (09:51)
[2017-12-14] MEDS: FERROUS SULFATE (EC) 325 MG TAB PO ×2 (09:51→20:38)
[2017-12-14] MEDS: FOLIC ACID 1 MG TAB PO (09:51)
[2017-12-14] MEDS: GABAPENTIN 100 MG CAP PO ×2 (09:51→20:38)
[2017-12-14] MEDS: LOSARTAN 25 MG TAB PO (09:52)
[2017-12-14] MEDS: BALSAM PERU/CASTOR OIL 60 GM TUBE TOP (09:53)
[2017-12-14] MEDS: ENOXAPARIN 30 MG/0.3 ML SYG SC (09:53)
[2017-12-14] MEDS: COLLAGENASE 30 GM TUBE TOP (09:53)
[2017-12-14] MEDS: ACETAMINOPHEN 325 MG TAB PO ×2 (10:48→20:38)
[2017-12-14] MEDS ORDERED: VANCOMYCIN 1.25 GM in SOD CHLORIDE 0.9% 250 ML IVPB (14:00)
[2017-12-14] MEDS: BISACODYL (EC) 5 MG TAB PO (18:16)
[2017-12-14] MEDS: INSULIN GLARGINE [LANtus] 3 ML PEN SC (20:37)
[2017-12-14] MEDS: ATORVASTATIN 10 MG TAB PO (20:38)
[2017-12-15] MEDS: ACCU-CHEK XX (02:00)
[2017-12-15] MEDS: FUROSEMIDE 20 MG INJ IV ×2 (06:30→17:55)
[2017-12-15 07:03] LABS: ADD MAN DIFF? NO
[2017-12-15 07:15] LABS: WHITE BLOOD COUNT 8.7 10^3/ul (4.8-10.8)
[2017-12-15 07:15] LABS: BASOPHILS % 0.5 % (0.0-2.0); EOSINOPHILS # 0.3 10^3/ul (0.0-0.5); HEMATOCRIT 38.6 % (37.0-47.0); HEMOGLOBIN 11.4 g/dl (12.0-16.0); LYMPHOCYTES # 2.8 10^3/ul (0.8-2.9); LYMPHOCYTES % 32.6 % (15.0-51.0); MEAN CORPUSCULAR HEMOGLOBIN 28.2 pg (29.0-33.0); MEAN CORPUSCULAR HGB CONC 29.5 g/dl (32.0-37.0); MEAN CORPUSCULAR VOLUME 95.5 fl (82.0-101.0); MEAN PLATELET VOLUME 9.8 fl (7.4-10.4); MONOCYTE # 0.5 10^3/ul (0.3-0.9); MONOCYTES % 5.9 % (0.0-11.0); PLATELET COUNT 198 10^3/UL (140-415); RED BLOOD COUNT 4.04 10^6/ul (4.20-5.40); RED CELL DISTRIBUTION WIDTH 18.2 % (11.5-14.5)
[2017-12-15 07:38] LABS: ANION GAP 13 (8-16); BLOOD UREA NITROGEN 23 mg/dl (7-20); CALCIUM 8.7 mg/dl (8.4-10.2); CARBON DIOXIDE 36 mmol/L (21-31); CHLORIDE 96 mmol/L (97-110); CREATININE 0.76 mg/dl (0.44-1.00); GLUCOSE 162 mg/dl (70-220); POTASSIUM 3.9 mmol/L (3.5-5.1); SODIUM 141 mmol/L (135-144)
[2017-12-15] MEDS: INSULIN ASPART [NOVOLOG] 3 ML PEN SC ×7 (08:25→20:19)
[2017-12-15] MEDS: ENOXAPARIN 30 MG/0.3 ML SYG SC (08:27)
[2017-12-15] MEDS: SODIUM CHLORIDE 1 GM TAB PO ×2 (08:28→20:15)
[2017-12-15] MEDS: FOLIC ACID 1 MG TAB PO (08:28)
[2017-12-15] MEDS: FERROUS SULFATE (EC) 325 MG TAB PO ×2 (08:28→20:15)
[2017-12-15] MEDS: ASPIRIN (EC) 81 MG TAB PO (08:28)
[2017-12-15] MEDS: CLOPIDOGREL 75 MG TAB PO (08:28)
[2017-12-15] MEDS: LOSARTAN 25 MG TAB PO (08:28)
[2017-12-15] MEDS: GABAPENTIN 100 MG CAP PO ×2 (08:28→20:20)
[2017-12-15] MEDS: FAMOTIDINE 20 MG TAB PO ×2 (08:28→20:15)
[2017-12-15] MEDS: BALSAM PERU/CASTOR OIL 60 GM TUBE TOP (08:29)
[2017-12-15] MEDS: COLLAGENASE 30 GM TUBE TOP (08:29)
[2017-12-15 10:47] LABS: AADO2 Arterial 22.8 mmHg (7.0-24.0); Arterial Base Excess 9.1 mmol/L (-3.0-3); Arterial Blood Gas Oxygen Sat 97.7 mmHG (95.0-100.0); Arterial COHb 0.8 % (0.0-3.0); Arterial Fraction of Oxyhgb 96.6 % (93.0-99.0); Arterial HCO3 36.6 mmol/L (22.0-26.0); Arterial MetHb 0.3 % (0.0-1.5); Arterial Total Hemglobin 12.3 g/dl (12.0-18.0); Arterial pCO2 65.3 mmhg (35-45); MODE NASAL CANNULA; Site LB
[2017-12-15] MEDS: ACETAMINOPHEN 325 MG TAB PO (15:57)
[2017-12-15] MEDS: BISACODYL (EC) 5 MG TAB PO (18:08)
[2017-12-15] MEDS: ATORVASTATIN 10 MG TAB PO (20:15)
[2017-12-15] MEDS: INSULIN GLARGINE [LANtus] 3 ML PEN SC (20:18)
[2017-12-15] MEDS: NYSTATIN 30 GM POWDER BTL TOP (20:20)
[2017-12-16] MEDS: ACCU-CHEK XX (01:33)
[2017-12-16] MEDS: FUROSEMIDE 20 MG INJ IV ×2 (05:22→17:43)
[2017-12-16 08:08] LABS: ADD MAN DIFF? NO
[2017-12-16] MEDS: INSULIN ASPART [NOVOLOG] 3 ML PEN SC ×7 (08:11→21:06)
[2017-12-16 08:12] LABS: BASOPHIL # 0.1 10^3/ul (0.0-0.1); BASOPHILS % 0.6 % (0.0-2.0); EOSINOPHILS # 0.3 10^3/ul (0.0-0.5); EOSINOPHILS % 2.8 % (0.0-7.0); HEMATOCRIT 37.8 % (37.0-47.0); HEMOGLOBIN 11.3 g/dl (12.0-16.0); LYMPHOCYTES # 2.6 10^3/ul (0.8-2.9); LYMPHOCYTES % 26.4 % (15.0-51.0); MEAN CORPUSCULAR HEMOGLOBIN 28.3 pg (29.0-33.0); MEAN CORPUSCULAR HGB CONC 29.9 g/dl (32.0-37.0); MEAN CORPUSCULAR VOLUME 94.5 fl (82.0-101.0); MEAN PLATELET VOLUME 10.3 fl (7.4-10.4); MONOCYTE # 0.6 10^3/ul (0.3-0.9); MONOCYTES % 6.4 % (0.0-11.0); NEUTROPHIL # 6.2 10^3/ul (1.6-7.5); NEUTROPHILS % 62.9 % (39.0-77.0); PLATELET COUNT 193 10^3/UL (140-415); RED CELL DISTRIBUTION WIDTH 18.4 % (11.5-14.5)
[2017-12-16 08:12] LABS: WHITE BLOOD COUNT 9.9 10^3/ul (4.8-10.8)
[2017-12-16] MEDS: ENOXAPARIN 30 MG/0.3 ML SYG SC (08:13)
[2017-12-16] MEDS: ASPIRIN (EC) 81 MG TAB PO (08:14)
[2017-12-16] MEDS: FERROUS SULFATE (EC) 325 MG TAB PO ×2 (08:14→20:59)
[2017-12-16] MEDS: FAMOTIDINE 20 MG TAB PO ×2 (08:15→20:59)
[2017-12-16] MEDS: CLOPIDOGREL 75 MG TAB PO (08:15)
[2017-12-16] MEDS: FOLIC ACID 1 MG TAB PO (08:16)
[2017-12-16] MEDS: GABAPENTIN 100 MG CAP PO ×2 (08:16→20:59)
[2017-12-16] MEDS: LOSARTAN 25 MG TAB PO (08:23)
[2017-12-16] MEDS: COLLAGENASE 30 GM TUBE TOP (08:26)
[2017-12-16] MEDS: NYSTATIN 30 GM POWDER BTL TOP ×2 (08:26→20:58)
[2017-12-16] MEDS: SODIUM CHLORIDE 1 GM TAB PO ×2 (08:28→20:58)
[2017-12-16] MEDS: ACETAMINOPHEN 325 MG TAB PO (08:29)
[2017-12-16] MEDS: BALSAM PERU/CASTOR OIL 60 GM TUBE TOP (08:29)
[2017-12-16 08:47] LABS: ANION GAP 12 (8-16); BLOOD UREA NITROGEN 21 mg/dl (7-20); CALCIUM 8.8 mg/dl (8.4-10.2); CARBON DIOXIDE 39 mmol/L (21-31); CHLORIDE 94 mmol/L (97-110); CREATININE 0.79 mg/dl (0.44-1.00); GLUCOSE 136 mg/dl (70-220); POTASSIUM 4.1 mmol/L (3.5-5.1); SODIUM 141 mmol/L (135-144)
[2017-12-16] MEDS: BISACODYL (EC) 5 MG TAB PO (18:12)
[2017-12-16] MEDS: ATORVASTATIN 10 MG TAB PO (20:59)
[2017-12-16] MEDS: INSULIN GLARGINE [LANtus] 3 ML PEN SC (21:06)
[2017-12-17] MEDS: ACCU-CHEK XX (02:31)
[2017-12-17 05:52] LABS: WHITE BLOOD COUNT 10.4 10^3/ul (4.8-10.8)
[2017-12-17 05:52] LABS: ADD MAN DIFF? NO; BASOPHILS % 0.4 % (0.0-2.0); EOSINOPHILS # 0.3 10^3/ul (0.0-0.5); EOSINOPHILS % 2.5 % (0.0-7.0); HEMATOCRIT 36.3 % (37.0-47.0); HEMOGLOBIN 11.1 g/dl (12.0-16.0); LYMPHOCYTES # 2.8 10^3/ul (0.8-2.9); LYMPHOCYTES % 26.8 % (15.0-51.0); MEAN CORPUSCULAR HEMOGLOBIN 28.5 pg (29.0-33.0); MEAN CORPUSCULAR HGB CONC 30.6 g/dl (32.0-37.0); MEAN CORPUSCULAR VOLUME 93.3 fl (82.0-101.0); MEAN PLATELET VOLUME 10.1 fl (7.4-10.4); MONOCYTE # 0.7 10^3/ul (0.3-0.9); MONOCYTES % 6.4 % (0.0-11.0); NEUTROPHIL # 6.6 10^3/ul (1.6-7.5); NEUTROPHILS % 63.3 % (39.0-77.0); PLATELET COUNT 174 10^3/UL (140-415); RED BLOOD COUNT 3.89 10^6/ul (4.20-5.40); RED CELL DISTRIBUTION WIDTH 18.3 % (11.5-14.5)
[2017-12-17] MEDS: FUROSEMIDE 40 MG TAB PO ×2 (05:53→18:04)
[2017-12-17 06:32] LABS: ANION GAP 10 (8-16); BLOOD UREA NITROGEN 21 mg/dl (7-20); CALCIUM 8.9 mg/dl (8.4-10.2); CARBON DIOXIDE 39 mmol/L (21-31); CHLORIDE 98 mmol/L (97-110); CREATININE 0.69 mg/dl (0.44-1.00); GLUCOSE 198 mg/dl (70-220); POTASSIUM 4.1 mmol/L (3.5-5.1); SODIUM 143 mmol/L (135-144)
[2017-12-17] MEDS: INSULIN ASPART [NOVOLOG] 3 ML PEN SC ×7 (08:07→21:06)
[2017-12-17] MEDS: GABAPENTIN 100 MG CAP PO ×2 (08:08→20:52)
[2017-12-17] MEDS: SODIUM CHLORIDE 1 GM TAB PO ×2 (08:08→20:55)
[2017-12-17] MEDS: FAMOTIDINE 20 MG TAB PO ×2 (08:08→20:52)
[2017-12-17] MEDS: ENOXAPARIN 30 MG/0.3 ML SYG SC (08:08)
[2017-12-17] MEDS: FERROUS SULFATE (EC) 325 MG TAB PO ×2 (08:09→20:52)
[2017-12-17] MEDS: LOSARTAN 25 MG TAB PO (08:09)
[2017-12-17] MEDS: ASPIRIN (EC) 81 MG TAB PO (08:09)
[2017-12-17] MEDS: CLOPIDOGREL 75 MG TAB PO (08:09)
[2017-12-17] MEDS: FOLIC ACID 1 MG TAB PO (08:09)
[2017-12-17] MEDS: COLLAGENASE 30 GM TUBE TOP (08:10)
[2017-12-17] MEDS: NYSTATIN 30 GM POWDER BTL TOP ×2 (08:10→20:51)
[2017-12-17] MEDS: BALSAM PERU/CASTOR OIL 60 GM TUBE TOP (08:10)
[2017-12-17] MEDS: ACETAMINOPHEN 325 MG TAB PO ×2 (08:22→20:52)
[2017-12-17] MEDS: BISACODYL (EC) 5 MG TAB PO ×2 (18:04→18:06)
[2017-12-17] MEDS: ATORVASTATIN 10 MG TAB PO (20:52)
[2017-12-17] MEDS: INSULIN GLARGINE [LANtus] 3 ML PEN SC (21:05)
[2017-12-18] MEDS: ACCU-CHEK XX (02:33)
[2017-12-18] MEDS: FUROSEMIDE 40 MG TAB PO (06:00)
[2017-12-18 07:48] LABS: ANION GAP 11 (8-16); BLOOD UREA NITROGEN 22 mg/dl (7-20); CALCIUM 8.6 mg/dl (8.4-10.2); CARBON DIOXIDE 39 mmol/L (21-31); CHLORIDE 94 mmol/L (97-110); CREATININE 0.79 mg/dl (0.44-1.00); GLUCOSE 190 mg/dl (70-220); SODIUM 140 mmol/L (135-144)
[2017-12-18] MEDS: FAMOTIDINE 20 MG TAB PO ×2 (08:44→20:44)
[2017-12-18] MEDS: SODIUM CHLORIDE 1 GM TAB PO (08:44)
[2017-12-18] MEDS: GABAPENTIN 100 MG CAP PO ×2 (08:45→20:44)
[2017-12-18] MEDS: FERROUS SULFATE (EC) 325 MG TAB PO ×2 (08:45→20:44)
[2017-12-18] MEDS: FOLIC ACID 1 MG TAB PO (08:45)
[2017-12-18] MEDS: CLOPIDOGREL 75 MG TAB PO (08:45)
[2017-12-18] MEDS: ASPIRIN (EC) 81 MG TAB PO (08:46)
[2017-12-18] MEDS: LOSARTAN 25 MG TAB PO (08:46)
[2017-12-18] MEDS: ENOXAPARIN 30 MG/0.3 ML SYG SC (08:47)
[2017-12-18] MEDS: INSULIN ASPART [NOVOLOG] 3 ML PEN SC ×7 (08:48→20:49)
[2017-12-18] MEDS: NYSTATIN 30 GM POWDER BTL TOP ×2 (08:49→20:49)
[2017-12-18] MEDS: BALSAM PERU/CASTOR OIL 60 GM TUBE TOP (08:49)
[2017-12-18] MEDS: COLLAGENASE 30 GM TUBE TOP (08:49)
[2017-12-18] MEDS: ACETAMINOPHEN 325 MG TAB PO ×2 (10:29→21:29)
[2017-12-18] MEDS: FUROSEMIDE 20 MG TAB PO (17:42)
[2017-12-18] MEDS: BISACODYL (EC) 5 MG TAB PO (18:35)
[2017-12-18] MEDS: ATORVASTATIN 10 MG TAB PO (20:44)
[2017-12-18] MEDS: INSULIN GLARGINE [LANtus] 3 ML PEN SC (20:49)
[2017-12-19] MEDS: ACCU-CHEK XX (01:04)
[2017-12-19] MEDS: FUROSEMIDE 20 MG TAB PO ×2 (05:45→18:05)
[2017-12-19] MEDS: INSULIN ASPART [NOVOLOG] 3 ML PEN SC ×7 (07:48→20:33)
[2017-12-19] MEDS: FAMOTIDINE 20 MG TAB PO ×2 (08:28→20:28)
[2017-12-19] MEDS: ENOXAPARIN 30 MG/0.3 ML SYG SC (08:28)
[2017-12-19] MEDS: FOLIC ACID 1 MG TAB PO (08:28)
[2017-12-19] MEDS: ASPIRIN (EC) 81 MG TAB PO (08:28)
[2017-12-19] MEDS: CLOPIDOGREL 75 MG TAB PO (08:28)
[2017-12-19] MEDS: FERROUS SULFATE (EC) 325 MG TAB PO ×2 (08:28→20:27)
[2017-12-19] MEDS: GABAPENTIN 100 MG CAP PO ×2 (08:28→20:28)
[2017-12-19] MEDS: LOSARTAN 25 MG TAB PO (08:29)
[2017-12-19] MEDS: SODIUM CHLORIDE 1 GM TAB PO (08:34)
[2017-12-19] MEDS: BALSAM PERU/CASTOR OIL 60 GM TUBE TOP (08:34)
[2017-12-19] MEDS: NYSTATIN 30 GM POWDER BTL TOP ×2 (08:34→20:34)
[2017-12-19] MEDS: COLLAGENASE 30 GM TUBE TOP (08:35)
[2017-12-19 12:19] LABS: ADD MAN DIFF? NO
[2017-12-19 12:38] LABS: BASOPHIL # 0.1 10^3/ul (0.0-0.1); BASOPHILS % 0.6 % (0.0-2.0); EOSINOPHILS # 0.2 10^3/ul (0.0-0.5); EOSINOPHILS % 2.5 % (0.0-7.0); HEMATOCRIT 36.5 % (37.0-47.0); HEMOGLOBIN 11.2 g/dl (12.0-16.0); LYMPHOCYTES # 2.7 10^3/ul (0.8-2.9); LYMPHOCYTES % 27.8 % (15.0-51.0); MEAN CORPUSCULAR HEMOGLOBIN 28.6 pg (29.0-33.0); MEAN CORPUSCULAR HGB CONC 30.7 g/dl (32.0-37.0); MEAN CORPUSCULAR VOLUME 93.4 fl (82.0-101.0); MONOCYTE # 0.6 10^3/ul (0.3-0.9); MONOCYTES % 5.9 % (0.0-11.0); NEUTROPHIL # 6.1 10^3/ul (1.6-7.5); NEUTROPHILS % 62.7 % (39.0-77.0); PLATELET COUNT 160 10^3/UL (140-415); RED BLOOD COUNT 3.91 10^6/ul (4.20-5.40); RED CELL DISTRIBUTION WIDTH 18.6 % (11.5-14.5)
[2017-12-19 12:38] LABS: WHITE BLOOD COUNT 9.7 10^3/ul (4.8-10.8)
[2017-12-19 12:44] LABS: ALANINE AMINOTRANSFERASE 16 IU/L (13-69); ALBUMIN 2.9 g/dl (3.3-4.9); ALBUMIN/GLOBULIN RATIO 0.87; ALKALINE PHOSPHATASE 233 IU/L (42-121); ANION GAP 12 (8-16); ASPARTATE AMINO TRANSFERASE 37 IU/L (15-46); BILIRUBIN,INDIRECT 0.4 mg/dl (0-1.1); BILIRUBIN,TOTAL 0.4 mg/dl (0.2-1.3); BLOOD UREA NITROGEN 20 mg/dl (7-20); CALCIUM 8.4 mg/dl (8.4-10.2); CARBON DIOXIDE 40 mmol/L (21-31); CHLORIDE 90 mmol/L (97-110); CREATININE 0.67 mg/dl (0.44-1.00); GLUCOSE 175 mg/dl (70-220); POTASSIUM 4.9 mmol/L (3.5-5.1); SODIUM 137 mmol/L (135-144); TOTAL PROTEIN 6.2 g/dl (6.1-8.1)
[2017-12-19] MEDS: ACETAMINOPHEN 325 MG TAB PO ×2 (15:33→23:50)
[2017-12-19] MEDS: BISACODYL (EC) 5 MG TAB PO (18:04)
[2017-12-19] MEDS: ATORVASTATIN 10 MG TAB PO (20:28)
[2017-12-19] MEDS: INSULIN GLARGINE [LANtus] 3 ML PEN SC (20:32)
[2017-12-20] MEDS: ACCU-CHEK XX (01:24)
[2017-12-20] MEDS: FUROSEMIDE 20 MG TAB PO ×2 (05:32→17:37)
[2017-12-20 06:03] LABS: ADD MAN DIFF? NO
[2017-12-20 06:09] LABS: BASOPHILS % 0.5 % (0.0-2.0); EOSINOPHILS # 0.3 10^3/ul (0.0-0.5); EOSINOPHILS % 3.7 % (0.0-7.0); HEMATOCRIT 35.2 % (37.0-47.0); HEMOGLOBIN 10.7 g/dl (12.0-16.0); LYMPHOCYTES # 2.7 10^3/ul (0.8-2.9); LYMPHOCYTES % 33.5 % (15.0-51.0); MEAN CORPUSCULAR HEMOGLOBIN 28.7 pg (29.0-33.0); MEAN CORPUSCULAR HGB CONC 30.4 g/dl (32.0-37.0); MEAN CORPUSCULAR VOLUME 94.4 fl (82.0-101.0); MEAN PLATELET VOLUME 10.3 fl (7.4-10.4); MONOCYTE # 0.6 10^3/ul (0.3-0.9); MONOCYTES % 7.4 % (0.0-11.0); NEUTROPHIL # 4.5 10^3/ul (1.6-7.5); NEUTROPHILS % 54.4 % (39.0-77.0); PLATELET COUNT 169 10^3/UL (140-415); RED BLOOD COUNT 3.73 10^6/ul (4.20-5.40); RED CELL DISTRIBUTION WIDTH 18.7 % (11.5-14.5)
[2017-12-20 06:09] LABS: WHITE BLOOD COUNT 8.2 10^3/ul (4.8-10.8)
[2017-12-20 06:30] LABS: ALANINE AMINOTRANSFERASE 24 IU/L (13-69); ALBUMIN 2.6 g/dl (3.3-4.9); ALBUMIN/GLOBULIN RATIO 0.81; ALKALINE PHOSPHATASE 228 IU/L (42-121); ASPARTATE AMINO TRANSFERASE 30 IU/L (15-46); BILIRUBIN,INDIRECT 0.4 mg/dl (0-1.1); BILIRUBIN,TOTAL 0.4 mg/dl (0.2-1.3); BLOOD UREA NITROGEN 23 mg/dl (7-20); CALCIUM 8.3 mg/dl (8.4-10.2); CHLORIDE 92 mmol/L (97-110); CREATININE 0.72 mg/dl (0.44-1.00); GLUCOSE 162 mg/dl (70-220); POTASSIUM 4.4 mmol/L (3.5-5.1); SODIUM 139 mmol/L (135-144); TOTAL PROTEIN 5.8 g/dl (6.1-8.1)
[2017-12-20 06:45] LABS: ANION GAP 7 (8-16)
[2017-12-20 06:46] LABS: CARBON DIOXIDE 44 mmol/L (21-31)
[2017-12-20] MEDS: INSULIN ASPART [NOVOLOG] 3 ML PEN SC ×6 (08:26→17:36)
[2017-12-20] MEDS: FAMOTIDINE 20 MG TAB PO (08:27)
[2017-12-20] MEDS: ENOXAPARIN 30 MG/0.3 ML SYG SC (08:27)
[2017-12-20] MEDS: CLOPIDOGREL 75 MG TAB PO (08:27)
[2017-12-20] MEDS: ASPIRIN (EC) 81 MG TAB PO (08:27)
[2017-12-20] MEDS: SODIUM CHLORIDE 1 GM TAB PO (08:27)
[2017-12-20] MEDS: FERROUS SULFATE (EC) 325 MG TAB PO (08:27)
[2017-12-20] MEDS: FOLIC ACID 1 MG TAB PO (08:27)
[2017-12-20] MEDS: GABAPENTIN 100 MG CAP PO (08:28)
[2017-12-20] MEDS: LOSARTAN 25 MG TAB PO (08:28)
[2017-12-20] MEDS: COLLAGENASE 30 GM TUBE TOP (08:29)
[2017-12-20] MEDS: BALSAM PERU/CASTOR OIL 60 GM TUBE TOP (08:29)
[2017-12-20] MEDS: NYSTATIN 30 GM POWDER BTL TOP (08:29)
[2017-12-20] MEDS: ACETAMINOPHEN 325 MG TAB PO (16:12)
[2017-12-20] MEDS: BISACODYL (EC) 5 MG TAB PO (18:11)
== END 2017-12-20 21:35 | DRG 562 ==
LOC: PP2 12-03 01:04 → E/R 14:59 → PP2 16:32
PROC: 0W9B3ZX Drainage of Left Pleural Cavity, Percutaneous Approach, Diagnostic (ICD-10-PCS; principal; 2017-12-13)
DX: S82.491A Other fracture of shaft of right fibula, initial encounter for closed fracture (principal); J18.9 Pneumonia, unspecified organism; I50.23 Acute on chronic systolic (congestive) heart failure; L03.116 Cellulitis of left lower limb; L03.115 Cellulitis of right lower limb; E87.1 Hypo-osmolality and hyponatremia; J90 Pleural effusion, not elsewhere classified; J96.12 Chronic respiratory failure with hypercapnia; I42.9 Cardiomyopathy, unspecified; R65.10 Systemic inflammatory response syndrome (SIRS) of non-infectious origin without acute organ dysfunction; N39.0 Urinary tract infection, site not specified; E86.0 Dehydration; E87.5 Hyperkalemia; E11.51 Type 2 diabetes mellitus with diabetic peripheral angiopathy without gangrene; I11.0 Hypertensive heart disease with heart failure; I25.10 Atherosclerotic heart disease of native coronary artery without angina pectoris; M81.0 Age-related osteoporosis without current pathological fracture; E78.2 Mixed hyperlipidemia; N39.9 Disorder of urinary system, unspecified; E78.5 Hyperlipidemia, unspecified; E66.9 Obesity, unspecified; I27.20 Pulmonary hypertension, unspecified; I25.5 Ischemic cardiomyopathy; I87.8 Other specified disorders of veins; R60.0 Localized edema; M19.91 Primary osteoarthritis, unspecified site; B96.1 Klebsiella pneumoniae [K. pneumoniae] as the cause of diseases classified elsewhere; Y95 Nosocomial condition; W18.30XA Fall on same level, unspecified, initial encounter; X58.XXXD Exposure to other specified factors, subsequent encounter; Z68.36 Body mass index [BMI] 36.0-36.9, adult; Z87.440 Personal history of urinary (tract) infections; Z95.5 Presence of coronary angioplasty implant and graft
CPT/HCPCS: 32555; 36415; 36600; 71045; 73020; 73070-52; 73590; 73600; 80048; 80053; 80061; 80202; 81003; 82803; 82945; 82947; 82962; 83615; 83735; 83880; 84157; 84439; 84443; 85025; 85610; 87070; 87081; 87086; 89051; 93306; 94640; 94664; 96372; 97110; 97116; 97163; 97530; 97542; 99285-25; J1120

== ENCOUNTER 2018-03-26 12:52 | Inpatient (IN) | payer MEDICARE, OTHER ==
[2018-03-26 13:20] LABS: ADD MAN DIFF? NO
[2018-03-26 13:28] LABS: BASOPHIL # 0.1 10^3/ul (0.0-0.1); BASOPHILS % 0.4 % (0.0-2.0); EOSINOPHILS # 0.2 10^3/ul (0.0-0.5); EOSINOPHILS % 1.3 % (0.0-7.0); HEMATOCRIT 35.6 % (37.0-47.0); HEMOGLOBIN 11.3 g/dl (12.0-16.0); LYMPHOCYTES # 3.3 10^3/ul (0.8-2.9); LYMPHOCYTES % 18.5 % (15.0-51.0); MEAN CORPUSCULAR HEMOGLOBIN 28.8 pg (29.0-33.0); MEAN CORPUSCULAR HGB CONC 31.7 g/dl (32.0-37.0); MEAN CORPUSCULAR VOLUME 90.6 fl (82.0-101.0); MONOCYTE # 0.9 10^3/ul (0.3-0.9); MONOCYTES % 5.2 % (0.0-11.0); NEUTROPHIL # 13.1 10^3/ul (1.6-7.5); NEUTROPHILS % 72.7 % (39.0-77.0); PLATELET COUNT 382 10^3/UL (140-415); RED BLOOD COUNT 3.93 10^6/ul (4.20-5.40); RED CELL DISTRIBUTION WIDTH 15.5 % (11.5-14.5)
[2018-03-26] MEDS: ACETAMINOPHEN 500 MG TAB PO (13:46)
[2018-03-26] MEDS: CEFEPIME 2GM/50 ML (PMX) 50 ML IVPB (13:47)
[2018-03-26] MEDS: VANCOMYCIN 1 GM (PMX) 250 ML IVPB (13:47)
[2018-03-26 13:48] LABS: INR 1.26; PARTIAL THROMBOPLASTIN TIME 34.8 Sec (25.0-35.0); PT RATIO 1.3
[2018-03-26 13:51] LABS: ALANINE AMINOTRANSFERASE 27 IU/L (13-69); ALBUMIN 3.2 g/dl (3.3-4.9); ALBUMIN/GLOBULIN RATIO 0.84; ALKALINE PHOSPHATASE 494 IU/L (42-121); ANION GAP 13 (8-16); ASPARTATE AMINO TRANSFERASE 45 IU/L (15-46); BILIRUBIN,INDIRECT 0.8 mg/dl (0-1.1); BILIRUBIN,TOTAL 0.8 mg/dl (0.2-1.3); BLOOD UREA NITROGEN 33 mg/dl (7-20); CALCIUM 8.8 mg/dl (8.4-10.2); CARBON DIOXIDE 30 mmol/L (21-31); CHLORIDE 89 mmol/L (97-110); CREATININE 0.82 mg/dl (0.44-1.00); GLUCOSE 304 mg/dl (70-220); POTASSIUM 5.2 mmol/L (3.5-5.1); SODIUM 127 mmol/L (135-144)
[2018-03-26] MEDS: SODIUM CHLORIDE 0.9% 1L BAG IV* (13:51)
[2018-03-26 13:55] LABS: LACTIC ACID 2.9 mmol/L (0.5-2.0)
[2018-03-26 14:04] LABS: TROPONIN-I 0.026 ng/ml (0.000-0.120)
[2018-03-26 14:29] LABS: UR BACTERIA MANY /HPF (NONE SEEN); UR HYALINE CAST FEW /HPF (NONE SEEN); UR MUCUS MANY /HPF (NONE SEEN); UR RBC 1 /HPF (0-5); UR SQUAMOUS EPITHELIAL CELL FEW /HPF (FEW); UR WBC 35 /HPF (0-5)
[2018-03-26 15:01] LABS: ADD UMIC YES; UR ASCORBIC ACID NEGATIVE (NEGATIVE); UR BILIRUBIN (Dip) NEGATIVE (NEGATIVE); UR BLOOD (Dip) 1+ mg/dL (NEGATIVE); UR CLARITY CLOUDY (CLEAR); UR COLOR AMBER (YELLOW); UR GLUCOSE (Dip) 1+ mg/dL (NEGATIVE); UR KETONES (Dip) NEGATIVE (NEGATIVE); UR LEUKOCYTE ESTERASE (Dip) 3+ Leu/ul (NEGATIVE); UR NITRITE (Dip) NEGATIVE (NEGATIVE); UR SPECIFIC GRAVITY (Dip) 1.018 (1.003-1.030); UR TOTAL PROTEIN (Dip) NEGATIVE (NEGATIVE); UR UROBILINOGEN (Dip) 1+ mg/dL (NEGATIVE)
[2018-03-26 17:55] LABS: CHOL/HDL RATIO 5.8 RATIO; HDL CHOLESTEROL 17 mg/dl (33-92); LDL CHOLESTEROL,CALCULATED 46 mg/dl; TRIGLYCERIDES 181 mg/dl (0-149)
[2018-03-26 17:55] LABS: CHOLESTEROL 99 mg/dl (100-200)
[2018-03-26] MEDS ORDERED: ONDANSETRON 4 MG INJ IV (18:00)
[2018-03-26] MEDS ORDERED: ACETAMINOPHEN 325 MG TAB PO (18:00)
[2018-03-26 18:34] LABS: LACTIC ACID 3.1 mmol/L (0.5-2.0)
[2018-03-26] MEDS ORDERED: DEXTROSE 50% 50 ML SYRINGE IV (21:00)
[2018-03-26] MEDS ORDERED: GLUCOSE GEL 15 GRAM TUBE BUCCAL (21:00)
[2018-03-26] MEDS ORDERED: GLUCAGON 1 MG INJ IM (21:00)
[2018-03-26] MEDS ORDERED: GLUCOSE GEL 15 GRAM TUBE PO (21:00)
[2018-03-26] MEDS: INSULIN GLARGINE [LANTus] (100 UNITS/ML) SYG SC (21:45)
[2018-03-26 21:58] LABS: LACTIC ACID 2.7 mmol/L (0.5-2.0)
[2018-03-26] MEDS: INSULIN ASPART [NOVOLOG] 3 ML PEN SC (22:20)
[2018-03-26] MEDS: FERROUS SULFATE (EC) 325 MG TAB PO (22:46)
[2018-03-26] MEDS: ATORVASTATIN 10 MG TAB PO (22:46)
[2018-03-26] MEDS: THIAMINE 100 MG TAB PO (22:46)
[2018-03-26] MEDS: GABAPENTIN 100 MG CAP PO (22:46)
[2018-03-26] MEDS: BISACODYL (EC) 5 MG TAB PO (22:46)
[2018-03-26] MEDS: DOCUSATE SODIUM 100 MG CAP PO (22:47)
[2018-03-27] MEDS: CEFEPIME 1GM/50 ML (PMX) 50 ML IVPB ×3 (01:19→20:30)
[2018-03-27 06:40] LABS: ADD MAN DIFF? NO
[2018-03-27 06:51] LABS: BASOPHIL # 0.1 10^3/ul (0.0-0.1); BASOPHILS % 0.3 % (0.0-2.0); EOSINOPHILS # 0.4 10^3/ul (0.0-0.5); EOSINOPHILS % 2.2 % (0.0-7.0); HEMATOCRIT 31.7 % (37.0-47.0); HEMOGLOBIN 10.1 g/dl (12.0-16.0); LYMPHOCYTES # 2.8 10^3/ul (0.8-2.9); LYMPHOCYTES % 16.4 % (15.0-51.0); MEAN CORPUSCULAR HEMOGLOBIN 29.1 pg (29.0-33.0); MEAN CORPUSCULAR HGB CONC 31.9 g/dl (32.0-37.0); MEAN CORPUSCULAR VOLUME 91.4 fl (82.0-101.0); MEAN PLATELET VOLUME 9.9 fl (7.4-10.4); MONOCYTE # 0.8 10^3/ul (0.3-0.9); MONOCYTES % 4.9 % (0.0-11.0); NEUTROPHIL # 12.5 10^3/ul (1.6-7.5); NEUTROPHILS % 73.9 % (39.0-77.0); PLATELET COUNT 317 10^3/UL (140-415); RED BLOOD COUNT 3.47 10^6/ul (4.20-5.40); RED CELL DISTRIBUTION WIDTH 15.6 % (11.5-14.5)
[2018-03-27 06:51] LABS: WHITE BLOOD COUNT 16.9 10^3/ul (4.8-10.8)
[2018-03-27 07:21] LABS: HEMOGLOBIN A1C 9.7 % (0-5.9)
[2018-03-27 07:28] LABS: B-TYPE NATRIURETIC PEPTIDE 7430 PG/ML (0-450)
[2018-03-27 07:35] LABS: ANION GAP 11 (8-16); BLOOD UREA NITROGEN 30 mg/dl (7-20); CALCIUM 8.5 mg/dl (8.4-10.2); CARBON DIOXIDE 30 mmol/L (21-31); CHLORIDE 93 mmol/L (97-110); CREATININE 0.71 mg/dl (0.44-1.00); GLUCOSE 224 mg/dl (70-220); POTASSIUM 4.9 mmol/L (3.5-5.1); SODIUM 129 mmol/L (135-144)
[2018-03-27] MEDS: ACETAMINOPHEN 325 MG TAB PO ×2 (07:54→20:29)
[2018-03-27 08:08] LABS: URIC ACID 6.7 mg/dl (3.1-7.9)
[2018-03-27 08:08] LABS: CREATINE KINASE 125 IU/L (23-200)
[2018-03-27] MEDS: DOCUSATE SODIUM 100 MG CAP PO ×2 (08:24→20:28)
[2018-03-27] MEDS: ASCORBIC ACID 500 MG TAB PO (08:25)
[2018-03-27] MEDS: CLOPIDOGREL 75 MG TAB PO (08:25)
[2018-03-27] MEDS: ASPIRIN (EC) 81 MG TAB PO (08:25)
[2018-03-27] MEDS: FERROUS SULFATE (EC) 325 MG TAB PO ×2 (08:25→20:29)
[2018-03-27] MEDS: GABAPENTIN 100 MG CAP PO ×2 (08:25→20:29)
[2018-03-27] MEDS: MULTIVITAMINS/MINERALS TAB PO (08:25)
[2018-03-27] MEDS: THIAMINE 100 MG TAB PO ×2 (08:25→20:29)
[2018-03-27] MEDS: FOLIC ACID 1 MG TAB PO (08:25)
[2018-03-27] MEDS: INSULIN GLARGINE [LANTus] (100 UNITS/ML) SYG SC ×2 (08:27→21:27)
[2018-03-27] MEDS: INSULIN ASPART [NOVOLOG] 3 ML PEN SC ×4 (08:42→21:26)
[2018-03-27] MEDS ORDERED: LOSARTAN 25 MG TAB PO (09:00)
[2018-03-27 09:18] LABS: CREATININE,URINE RANDOM 62.22 mg/dl (20-320); PROTEIN/CREAT RATIO 0.22 RATIO
[2018-03-27 09:22] LABS: SODIUM,URINE RANDOM < 13 mmol/L (30-90)
[2018-03-27] MEDS: BUMETANIDE 1 MG TAB PO (13:33)
[2018-03-27] MEDS: SOD CHLORIDE 0.9% 1,000 ML IV (13:33)
[2018-03-27] MEDS: ATORVASTATIN 10 MG TAB PO (20:28)
[2018-03-27] MEDS: BISACODYL (EC) 5 MG TAB PO (20:28)
[2018-03-28] MEDS: BUMETANIDE 1 MG TAB PO (06:37)
[2018-03-28 07:24] LABS: ADD MAN DIFF? NO
[2018-03-28 07:27] LABS: BASOPHIL # 0.1 10^3/ul (0.0-0.1); BASOPHILS % 0.3 % (0.0-2.0); EOSINOPHILS # 0.5 10^3/ul (0.0-0.5); HEMATOCRIT 35.3 % (37.0-47.0); LYMPHOCYTES # 2.8 10^3/ul (0.8-2.9); LYMPHOCYTES % 18.2 % (15.0-51.0); MEAN CORPUSCULAR HEMOGLOBIN 29.4 pg (29.0-33.0); MEAN CORPUSCULAR HGB CONC 31.2 g/dl (32.0-37.0); MEAN CORPUSCULAR VOLUME 94.4 fl (82.0-101.0); MEAN PLATELET VOLUME 9.8 fl (7.4-10.4); MONOCYTE # 0.9 10^3/ul (0.3-0.9); MONOCYTES % 5.5 % (0.0-11.0); NEUTROPHILS % 70.6 % (39.0-77.0); PLATELET COUNT 391 10^3/UL (140-415); RED BLOOD COUNT 3.74 10^6/ul (4.20-5.40); RED CELL DISTRIBUTION WIDTH 15.4 % (11.5-14.5)
[2018-03-28 07:27] LABS: WHITE BLOOD COUNT 15.6 10^3/ul (4.8-10.8)
[2018-03-28] MEDS: INSULIN ASPART [NOVOLOG] 3 ML PEN SC ×4 (07:55→20:20)
[2018-03-28 07:59] LABS: ALANINE AMINOTRANSFERASE 26 IU/L (13-69); ALBUMIN 2.8 g/dl (3.3-4.9); ALKALINE PHOSPHATASE 553 IU/L (42-121); ASPARTATE AMINO TRANSFERASE 52 IU/L (15-46); BILIRUBIN,INDIRECT 0.5 mg/dl (0-1.1); BILIRUBIN,TOTAL 0.5 mg/dl (0.2-1.3); TOTAL PROTEIN 6.4 g/dl (6.1-8.1)
[2018-03-28 08:02] LABS: PHOSPHORUS 3.7 mg/dl (2.5-4.9)
[2018-03-28 08:05] LABS: B-TYPE NATRIURETIC PEPTIDE 7860 PG/ML (0-450)
[2018-03-28 08:08] LABS: ANION GAP 9 (8-16); BLOOD UREA NITROGEN 28 mg/dl (7-20); CALCIUM 8.3 mg/dl (8.4-10.2); CARBON DIOXIDE 34 mmol/L (21-31); CHLORIDE 96 mmol/L (97-110); CREATININE 0.77 mg/dl (0.44-1.00); GLUCOSE 74 mg/dl (70-220); POTASSIUM 4.2 mmol/L (3.5-5.1); SODIUM 135 mmol/L (135-144)
[2018-03-28] MEDS: CLOPIDOGREL 75 MG TAB PO (08:20)
[2018-03-28] MEDS: ASCORBIC ACID 500 MG TAB PO (08:21)
[2018-03-28] MEDS: MULTIVITAMINS/MINERALS TAB PO (08:22)
[2018-03-28] MEDS: CEFEPIME 1GM/50 ML (PMX) 50 ML IVPB ×2 (08:22→20:19)
[2018-03-28] MEDS: FERROUS SULFATE (EC) 325 MG TAB PO ×2 (08:22→20:20)
[2018-03-28] MEDS: FOLIC ACID 1 MG TAB PO (08:22)
[2018-03-28] MEDS: DOCUSATE SODIUM 100 MG CAP PO ×2 (08:22→20:20)
[2018-03-28] MEDS: THIAMINE 100 MG TAB PO ×2 (08:22→20:20)
[2018-03-28] MEDS: GABAPENTIN 100 MG CAP PO ×2 (08:22→20:19)
[2018-03-28] MEDS: ASPIRIN (EC) 81 MG TAB PO (08:22)
[2018-03-28] MEDS: INSULIN GLARGINE [LANTus] (100 UNITS/ML) SYG SC ×2 (08:33→20:28)
[2018-03-28] MEDS: ENOXAPARIN 30 MG/0.3 ML SYG SC (12:21)
[2018-03-28] MEDS: LOSARTAN 25 MG TAB PO (17:06)
[2018-03-28] MEDS: ACETAMINOPHEN 325 MG TAB PO (20:19)
[2018-03-28] MEDS: ATORVASTATIN 10 MG TAB PO (20:20)
[2018-03-28] MEDS: BISACODYL (EC) 5 MG TAB PO (20:20)
[2018-03-29] MEDS: BUMETANIDE 1 MG TAB PO (05:33)
[2018-03-29 07:50] LABS: ADD MAN DIFF? NO
[2018-03-29] MEDS: INSULIN ASPART [NOVOLOG] 3 ML PEN SC ×4 (07:55→21:00)
[2018-03-29 08:03] LABS: BASOPHIL # 0.1 10^3/ul (0.0-0.1); BASOPHILS % 0.6 % (0.0-2.0); EOSINOPHILS # 0.4 10^3/ul (0.0-0.5); EOSINOPHILS % 3.2 % (0.0-7.0); HEMATOCRIT 35.2 % (37.0-47.0); LYMPHOCYTES # 2.4 10^3/ul (0.8-2.9); LYMPHOCYTES % 19.5 % (15.0-51.0); MEAN CORPUSCULAR HEMOGLOBIN 29.2 pg (29.0-33.0); MEAN CORPUSCULAR HGB CONC 31.3 g/dl (32.0-37.0); MEAN CORPUSCULAR VOLUME 93.4 fl (82.0-101.0); MONOCYTE # 0.7 10^3/ul (0.3-0.9); MONOCYTES % 5.5 % (0.0-11.0); NEUTROPHIL # 8.3 10^3/ul (1.6-7.5); PLATELET COUNT 360 10^3/UL (140-415); RED BLOOD COUNT 3.77 10^6/ul (4.20-5.40); RED CELL DISTRIBUTION WIDTH 15.6 % (11.5-14.5)
[2018-03-29 08:03] LABS: WHITE BLOOD COUNT 12.1 10^3/ul (4.8-10.8)
[2018-03-29] MEDS: FERROUS SULFATE (EC) 325 MG TAB PO ×2 (08:21→20:39)
[2018-03-29] MEDS: CEFEPIME 1GM/50 ML (PMX) 50 ML IVPB ×2 (08:21→21:44)
[2018-03-29] MEDS: GABAPENTIN 100 MG CAP PO ×2 (08:21→20:38)
[2018-03-29] MEDS: ASCORBIC ACID 500 MG TAB PO (08:22)
[2018-03-29] MEDS: DOCUSATE SODIUM 100 MG CAP PO ×2 (08:22→21:00)
[2018-03-29] MEDS: ASPIRIN (EC) 81 MG TAB PO (08:22)
[2018-03-29] MEDS: CLOPIDOGREL 75 MG TAB PO (08:22)
[2018-03-29] MEDS: THIAMINE 100 MG TAB PO ×2 (08:22→20:40)
[2018-03-29] MEDS: MULTIVITAMINS/MINERALS TAB PO (08:22)
[2018-03-29] MEDS: FOLIC ACID 1 MG TAB PO (08:23)
[2018-03-29] MEDS: LOSARTAN 25 MG TAB PO (08:23)
[2018-03-29 08:27] LABS: ANION GAP 9 (8-16); BLOOD UREA NITROGEN 24 mg/dl (7-20); CARBON DIOXIDE 34 mmol/L (21-31); CHLORIDE 96 mmol/L (97-110); CREATININE 0.61 mg/dl (0.44-1.00); GLUCOSE 60 mg/dl (70-220); POTASSIUM 4.1 mmol/L (3.5-5.1); SODIUM 135 mmol/L (135-144)
[2018-03-29 08:29] LABS: B-TYPE NATRIURETIC PEPTIDE 6980 PG/ML (0-450)
[2018-03-29] MEDS: ENOXAPARIN 30 MG/0.3 ML SYG SC (08:38)
[2018-03-29] MEDS: INSULIN GLARGINE [LANTus] (100 UNITS/ML) SYG SC ×2 (09:00→21:37)
[2018-03-29] MEDS: BISACODYL (EC) 5 MG TAB PO (20:30)
[2018-03-29] MEDS: ATORVASTATIN 10 MG TAB PO (20:39)
[2018-03-30] MEDS: BUMETANIDE 1 MG TAB PO (05:42)
[2018-03-30] MEDS: INSULIN ASPART [NOVOLOG] 3 ML PEN SC ×4 (07:55→21:00)
[2018-03-30] MEDS: CEFEPIME 1GM/50 ML (PMX) 50 ML IVPB ×2 (08:19→21:07)
[2018-03-30] MEDS: INSULIN GLARGINE [LANTus] (100 UNITS/ML) SYG SC ×2 (08:20→22:00)
[2018-03-30] MEDS: ENOXAPARIN 30 MG/0.3 ML SYG SC (08:20)
[2018-03-30] MEDS: ASPIRIN (EC) 81 MG TAB PO (08:20)
[2018-03-30] MEDS: CLOPIDOGREL 75 MG TAB PO (08:22)
[2018-03-30] MEDS: GABAPENTIN 100 MG CAP PO ×2 (08:22→21:05)
[2018-03-30] MEDS: LOSARTAN 25 MG TAB PO (08:22)
[2018-03-30] MEDS: THIAMINE 100 MG TAB PO ×2 (08:22→21:05)
[2018-03-30] MEDS: DOCUSATE SODIUM 100 MG CAP PO ×3 (08:23→21:23)
[2018-03-30] MEDS: FOLIC ACID 1 MG TAB PO (08:23)
[2018-03-30] MEDS: FERROUS SULFATE (EC) 325 MG TAB PO ×2 (08:23→21:05)
[2018-03-30] MEDS: ASCORBIC ACID 500 MG TAB PO (08:23)
[2018-03-30] MEDS: MULTIVITAMINS/MINERALS TAB PO (08:24)
[2018-03-30 10:06] LABS: ADD MAN DIFF? NO
[2018-03-30 10:17] LABS: WHITE BLOOD COUNT 13.8 10^3/ul (4.8-10.8)
[2018-03-30 10:17] LABS: BASOPHIL # 0.1 10^3/ul (0.0-0.1); BASOPHILS % 0.6 % (0.0-2.0); EOSINOPHILS # 0.4 10^3/ul (0.0-0.5); EOSINOPHILS % 2.8 % (0.0-7.0); HEMATOCRIT 37.1 % (37.0-47.0); HEMOGLOBIN 11.5 g/dl (12.0-16.0); LYMPHOCYTES # 3.4 10^3/ul (0.8-2.9); LYMPHOCYTES % 24.7 % (15.0-51.0); MEAN CORPUSCULAR HEMOGLOBIN 28.7 pg (29.0-33.0); MEAN CORPUSCULAR VOLUME 92.5 fl (82.0-101.0); MEAN PLATELET VOLUME 9.8 fl (7.4-10.4); MONOCYTE # 0.7 10^3/ul (0.3-0.9); MONOCYTES % 5.3 % (0.0-11.0); NEUTROPHIL # 8.9 10^3/ul (1.6-7.5); NEUTROPHILS % 64.2 % (39.0-77.0); PLATELET COUNT 432 10^3/UL (140-415); RED BLOOD COUNT 4.01 10^6/ul (4.20-5.40); RED CELL DISTRIBUTION WIDTH 15.4 % (11.5-14.5)
[2018-03-30 10:56] LABS: ANION GAP 11 (8-16); BLOOD UREA NITROGEN 22 mg/dl (7-20); CALCIUM 8.1 mg/dl (8.4-10.2); CARBON DIOXIDE 33 mmol/L (21-31); CHLORIDE 92 mmol/L (97-110); CREATININE 0.67 mg/dl (0.44-1.00); GLUCOSE 130 mg/dl (70-220); POTASSIUM 4.1 mmol/L (3.5-5.1); SODIUM 132 mmol/L (135-144)
[2018-03-30] MEDS: BISACODYL (EC) 5 MG TAB PO (20:30)
[2018-03-30] MEDS: ATORVASTATIN 10 MG TAB PO (21:05)
[2018-03-30] MEDS: NYSTATIN 30 GM POWDER BTL TOP (21:12)
[2018-03-31 06:54] LABS: ADD MAN DIFF? NO
[2018-03-31] MEDS: ACETAMINOPHEN 325 MG TAB PO (06:54)
[2018-03-31 07:01] LABS: BASOPHIL # 0.1 10^3/ul (0.0-0.1); BASOPHILS % 0.5 % (0.0-2.0); EOSINOPHILS # 0.2 10^3/ul (0.0-0.5); EOSINOPHILS % 1.4 % (0.0-7.0); HEMATOCRIT 34.8 % (37.0-47.0); HEMOGLOBIN 10.9 g/dl (12.0-16.0); LYMPHOCYTES # 4.2 10^3/ul (0.8-2.9); LYMPHOCYTES % 25.2 % (15.0-51.0); MEAN CORPUSCULAR HEMOGLOBIN 28.7 pg (29.0-33.0); MEAN CORPUSCULAR HGB CONC 31.3 g/dl (32.0-37.0); MEAN CORPUSCULAR VOLUME 91.6 fl (82.0-101.0); MEAN PLATELET VOLUME 9.7 fl (7.4-10.4); MONOCYTE # 0.9 10^3/ul (0.3-0.9); MONOCYTES % 5.6 % (0.0-11.0); NEUTROPHIL # 10.8 10^3/ul (1.6-7.5); NEUTROPHILS % 65.7 % (39.0-77.0); PLATELET COUNT 387 10^3/UL (140-415); RED CELL DISTRIBUTION WIDTH 15.6 % (11.5-14.5)
[2018-03-31 07:01] LABS: WHITE BLOOD COUNT 16.5 10^3/ul (4.8-10.8)
[2018-03-31 07:26] LABS: ANION GAP 9 (8-16); BLOOD UREA NITROGEN 21 mg/dl (7-20); CARBON DIOXIDE 33 mmol/L (21-31); CHLORIDE 93 mmol/L (97-110); CREATININE 0.62 mg/dl (0.44-1.00); GLUCOSE 70 mg/dl (70-220); POTASSIUM 4.1 mmol/L (3.5-5.1); SODIUM 131 mmol/L (135-144)
[2018-03-31] MEDS: INSULIN ASPART [NOVOLOG] 3 ML PEN SC ×4 (07:55→20:23)
[2018-03-31] MEDS: CEFEPIME 1GM/50 ML (PMX) 50 ML IVPB ×2 (08:42→20:21)
[2018-03-31] MEDS: GABAPENTIN 100 MG CAP PO ×2 (08:43→20:22)
[2018-03-31] MEDS: MULTIVITAMINS/MINERALS TAB PO (08:43)
[2018-03-31] MEDS: DOCUSATE SODIUM 100 MG CAP PO ×2 (08:43→20:22)
[2018-03-31] MEDS: LOSARTAN 25 MG TAB PO (08:44)
[2018-03-31] MEDS: ASCORBIC ACID 500 MG TAB PO (08:44)
[2018-03-31] MEDS: THIAMINE 100 MG TAB PO ×2 (08:44→20:23)
[2018-03-31] MEDS: ASPIRIN (EC) 81 MG TAB PO (08:44)
[2018-03-31] MEDS: FERROUS SULFATE (EC) 325 MG TAB PO ×2 (08:44→20:23)
[2018-03-31] MEDS: CLOPIDOGREL 75 MG TAB PO (08:44)
[2018-03-31] MEDS: FOLIC ACID 1 MG TAB PO (08:44)
[2018-03-31] MEDS: INSULIN GLARGINE [LANTus] (100 UNITS/ML) SYG SC ×2 (09:02→20:28)
[2018-03-31] MEDS: NYSTATIN 30 GM POWDER BTL TOP ×2 (09:03→20:24)
[2018-03-31] MEDS: ENOXAPARIN 30 MG/0.3 ML SYG SC (09:03)
[2018-03-31] MEDS: BUMETANIDE 1 MG TAB PO (10:26)
[2018-03-31] MEDS: ATORVASTATIN 10 MG TAB PO (20:22)
[2018-03-31] MEDS: BISACODYL (EC) 5 MG TAB PO (20:22)
[2018-04-01] MEDS: BUMETANIDE 1 MG TAB PO (05:13)
[2018-04-01] MEDS: INSULIN ASPART [NOVOLOG] 3 ML PEN SC ×4 (07:51→21:00)
[2018-04-01] MEDS: DOCUSATE SODIUM 100 MG CAP PO ×2 (08:28→21:00)
[2018-04-01] MEDS: LOSARTAN 25 MG TAB PO (08:30)
[2018-04-01] MEDS: THIAMINE 100 MG TAB PO ×2 (08:31→21:33)
[2018-04-01] MEDS: FOLIC ACID 1 MG TAB PO (08:31)
[2018-04-01] MEDS: MULTIVITAMINS/MINERALS TAB PO (08:31)
[2018-04-01] MEDS: FERROUS SULFATE (EC) 325 MG TAB PO ×2 (08:31→21:32)
[2018-04-01] MEDS: ASCORBIC ACID 500 MG TAB PO (08:32)
[2018-04-01] MEDS: CEFEPIME 1GM/50 ML (PMX) 50 ML IVPB ×2 (08:32→21:32)
[2018-04-01] MEDS: GABAPENTIN 100 MG CAP PO ×2 (08:32→21:32)
[2018-04-01] MEDS: ASPIRIN (EC) 81 MG TAB PO (08:32)
[2018-04-01] MEDS: CLOPIDOGREL 75 MG TAB PO (08:32)
[2018-04-01] MEDS: ENOXAPARIN 30 MG/0.3 ML SYG SC (08:41)
[2018-04-01] MEDS: INSULIN GLARGINE [LANTus] (100 UNITS/ML) SYG SC ×2 (08:41→21:31)
[2018-04-01 08:44] LABS: ADD MAN DIFF? NO
[2018-04-01 08:50] LABS: WHITE BLOOD COUNT 15.5 10^3/ul (4.8-10.8)
[2018-04-01 08:50] LABS: BASOPHIL # 0.1 10^3/ul (0.0-0.1); BASOPHILS % 0.7 % (0.0-2.0); EOSINOPHILS # 0.4 10^3/ul (0.0-0.5); EOSINOPHILS % 2.7 % (0.0-7.0); HEMATOCRIT 38.9 % (37.0-47.0); HEMOGLOBIN 12.2 g/dl (12.0-16.0); LYMPHOCYTES # 4.5 10^3/ul (0.8-2.9); LYMPHOCYTES % 29.2 % (15.0-51.0); MEAN CORPUSCULAR HEMOGLOBIN 29.6 pg (29.0-33.0); MEAN CORPUSCULAR HGB CONC 31.4 g/dl (32.0-37.0); MEAN CORPUSCULAR VOLUME 94.4 fl (82.0-101.0); MEAN PLATELET VOLUME 9.6 fl (7.4-10.4); MONOCYTE # 0.7 10^3/ul (0.3-0.9); MONOCYTES % 4.4 % (0.0-11.0); NEUTROPHIL # 9.4 10^3/ul (1.6-7.5); NEUTROPHILS % 60.5 % (39.0-77.0); PLATELET COUNT 452 10^3/UL (140-415); RED BLOOD COUNT 4.12 10^6/ul (4.20-5.40); RED CELL DISTRIBUTION WIDTH 15.3 % (11.5-14.5)
[2018-04-01 09:16] LABS: ANION GAP 10 (8-16); BLOOD UREA NITROGEN 18 mg/dl (7-20); CALCIUM 8.6 mg/dl (8.4-10.2); CARBON DIOXIDE 35 mmol/L (21-31); CHLORIDE 93 mmol/L (97-110); CREATININE 0.62 mg/dl (0.44-1.00); GLUCOSE 79 mg/dl (70-220); SODIUM 134 mmol/L (135-144)
[2018-04-01] MEDS: NYSTATIN 30 GM POWDER BTL TOP ×2 (09:23→21:35)
[2018-04-01] MEDS: BISACODYL (EC) 5 MG TAB PO (20:30)
[2018-04-01] MEDS: ATORVASTATIN 10 MG TAB PO (21:32)
[2018-04-02] MEDS: BUMETANIDE 1 MG TAB PO (06:00)
[2018-04-02] MEDS: INSULIN ASPART [NOVOLOG] 3 ML PEN SC ×4 (07:32→21:00)
[2018-04-02] MEDS: GABAPENTIN 100 MG CAP PO ×2 (08:24→21:23)
[2018-04-02] MEDS: ASPIRIN (EC) 81 MG TAB PO (08:24)
[2018-04-02] MEDS: ASCORBIC ACID 500 MG TAB PO (08:25)
[2018-04-02] MEDS: THIAMINE 100 MG TAB PO ×2 (08:25→21:23)
[2018-04-02] MEDS: MULTIVITAMINS/MINERALS TAB PO (08:25)
[2018-04-02] MEDS: FOLIC ACID 1 MG TAB PO (08:25)
[2018-04-02] MEDS: CLOPIDOGREL 75 MG TAB PO (08:25)
[2018-04-02] MEDS: FERROUS SULFATE (EC) 325 MG TAB PO ×2 (08:25→21:23)
[2018-04-02] MEDS: LOSARTAN 25 MG TAB PO (08:27)
[2018-04-02] MEDS: CEFEPIME 1GM/50 ML (PMX) 50 ML IVPB ×2 (08:28→21:22)
[2018-04-02] MEDS: DOCUSATE SODIUM 100 MG CAP PO ×2 (08:28→21:00)
[2018-04-02] MEDS: INSULIN GLARGINE [LANTus] (100 UNITS/ML) SYG SC ×2 (08:35→21:48)
[2018-04-02] MEDS: ENOXAPARIN 30 MG/0.3 ML SYG SC (08:35)
[2018-04-02] MEDS: NYSTATIN 30 GM POWDER BTL TOP ×2 (08:37→21:23)
[2018-04-02] MEDS: ACETAMINOPHEN 325 MG TAB PO (12:47)
[2018-04-02 18:29] LABS: ADD UMIC NO; UR ASCORBIC ACID 40 mg/dL (NEGATIVE); UR BILIRUBIN (Dip) NEGATIVE (NEGATIVE); UR BLOOD (Dip) NEGATIVE (NEGATIVE); UR CLARITY CLEAR (CLEAR); UR COLOR YELLOW (YELLOW); UR GLUCOSE (Dip) NEGATIVE (NEGATIVE); UR KETONES (Dip) NEGATIVE (NEGATIVE); UR LEUKOCYTE ESTERASE (Dip) NEGATIVE Leu/ul (NEGATIVE); UR NITRITE (Dip) NEGATIVE (NEGATIVE); UR SPECIFIC GRAVITY (Dip) 1.009 (1.003-1.030); UR TOTAL PROTEIN (Dip) NEGATIVE (NEGATIVE); UR UROBILINOGEN (Dip) NEGATIVE (NEGATIVE)
[2018-04-02] MEDS: BISACODYL (EC) 5 MG TAB PO (20:30)
[2018-04-02] MEDS: ATORVASTATIN 10 MG TAB PO (21:23)
[2018-04-03] MEDS: BUMETANIDE 1 MG TAB PO (06:40)
[2018-04-03] MEDS: INSULIN ASPART [NOVOLOG] 3 ML PEN SC ×4 (07:55→21:00)
[2018-04-03] MEDS: CEFEPIME 1GM/50 ML (PMX) 50 ML IVPB (08:55)
[2018-04-03] MEDS: GABAPENTIN 100 MG CAP PO ×2 (08:55→21:52)
[2018-04-03] MEDS: FERROUS SULFATE (EC) 325 MG TAB PO ×2 (08:56→21:51)
[2018-04-03] MEDS: FOLIC ACID 1 MG TAB PO (08:56)
[2018-04-03] MEDS: LOSARTAN 25 MG TAB PO (08:56)
[2018-04-03] MEDS: ASPIRIN (EC) 81 MG TAB PO (08:56)
[2018-04-03] MEDS: CLOPIDOGREL 75 MG TAB PO (08:56)
[2018-04-03] MEDS: ASCORBIC ACID 500 MG TAB PO (08:57)
[2018-04-03] MEDS: MULTIVITAMINS/MINERALS TAB PO (08:57)
[2018-04-03] MEDS: THIAMINE 100 MG TAB PO ×2 (08:57→21:51)
[2018-04-03] MEDS: DOCUSATE SODIUM 100 MG CAP PO ×2 (08:57→21:00)
[2018-04-03] MEDS: INSULIN GLARGINE [LANTus] (100 UNITS/ML) SYG SC ×2 (09:04→22:03)
[2018-04-03] MEDS: ENOXAPARIN 30 MG/0.3 ML SYG SC (09:04)
[2018-04-03 09:19] LABS: ADD MAN DIFF? NO
[2018-04-03 09:27] LABS: WHITE BLOOD COUNT 18.3 10^3/ul (4.8-10.8)
[2018-04-03 09:27] LABS: ABNORMAL IP MESSAGE 1; BASOPHIL # 0.1 10^3/ul (0.0-0.1); BASOPHILS % 0.6 % (0.0-2.0); EOSINOPHILS # 0.5 10^3/ul (0.0-0.5); HEMATOCRIT 40.6 % (37.0-47.0); HEMOGLOBIN 12.4 g/dl (12.0-16.0); IMMATURE GRANS % (M) 1.6 %; LYMPHOCYTES # 6.1 10^3/ul (0.8-2.9); LYMPHOCYTES % 33.2 % (15.0-51.0); MEAN CORPUSCULAR HEMOGLOBIN 28.8 pg (29.0-33.0); MEAN CORPUSCULAR HGB CONC 30.5 g/dl (32.0-37.0); MEAN CORPUSCULAR VOLUME 94.4 fl (82.0-101.0); MEAN PLATELET VOLUME 9.6 fl (7.4-10.4); MONOCYTE # 0.8 10^3/ul (0.3-0.9); MONOCYTES % 4.4 % (0.0-11.0); NEUTROPHIL # 10.4 10^3/ul (1.6-7.5); NEUTROPHILS % 57.2 % (39.0-77.0); PLATELET COUNT 504 10^3/UL (140-415); RED CELL DISTRIBUTION WIDTH 16.1 % (11.5-14.5)
[2018-04-03 09:39] LABS: POSITIVE DIFF @See below
[2018-04-03 10:02] LABS: ANION GAP 13 (8-16); BLOOD UREA NITROGEN 16 mg/dl (7-20); CALCIUM 8.8 mg/dl (8.4-10.2); CARBON DIOXIDE 33 mmol/L (21-31); CHLORIDE 96 mmol/L (97-110); CREATININE 0.63 mg/dl (0.44-1.00); GLUCOSE 51 mg/dl (70-220); SODIUM 138 mmol/L (135-144)
[2018-04-03] MEDS: NYSTATIN 30 GM POWDER BTL TOP ×2 (12:27→21:55)
[2018-04-03] MEDS: BISACODYL (EC) 5 MG TAB PO (20:30)
[2018-04-03] MEDS: RIFAXIMIN 200 MG TAB PO (21:51)
[2018-04-03] MEDS: metroNIDAZOLE 500 MG/NS (PMX) 100 ML IVPB (21:52)
[2018-04-03] MEDS: ATORVASTATIN 10 MG TAB PO (21:52)
[2018-04-03] MEDS: MICONAZOLE 2% 45 GM VAG CR VAG (21:56)
[2018-04-04] MEDS: metroNIDAZOLE 500 MG/NS (PMX) 100 ML IVPB ×4 (01:23→17:04)
[2018-04-04] MEDS: BUMETANIDE 1 MG TAB PO (05:16)
[2018-04-04 07:11] LABS: ADD MAN DIFF? NO
[2018-04-04 07:13] LABS: BASOPHIL # 0.1 10^3/ul (0.0-0.1); BASOPHILS % 0.4 % (0.0-2.0); EOSINOPHILS # 0.2 10^3/ul (0.0-0.5); EOSINOPHILS % 1.4 % (0.0-7.0); HEMATOCRIT 37.9 % (37.0-47.0); HEMOGLOBIN 11.7 g/dl (12.0-16.0); IMMATURE GRANS #M 0.19 10^3/ul; IMMATURE GRANS % (M) 1.2 %; LYMPHOCYTES # 3.4 10^3/ul (0.8-2.9); LYMPHOCYTES % 21.3 % (15.0-51.0); MEAN CORPUSCULAR HEMOGLOBIN 28.8 pg (29.0-33.0); MEAN CORPUSCULAR HGB CONC 30.9 g/dl (32.0-37.0); MEAN CORPUSCULAR VOLUME 93.3 fl (82.0-101.0); MEAN PLATELET VOLUME 9.3 fl (7.4-10.4); MONOCYTE # 0.8 10^3/ul (0.3-0.9); MONOCYTES % 5.2 % (0.0-11.0); NEUTROPHIL # 11.2 10^3/ul (1.6-7.5); NEUTROPHILS % 70.5 % (39.0-77.0); PLATELET COUNT 341 10^3/UL (140-415); RED BLOOD COUNT 4.06 10^6/ul (4.20-5.40); RED CELL DISTRIBUTION WIDTH 16.1 % (11.5-14.5)
[2018-04-04 07:13] LABS: WHITE BLOOD COUNT 15.9 10^3/ul (4.8-10.8)
[2018-04-04 07:32] LABS: ALANINE AMINOTRANSFERASE 20 IU/L (13-69); ALBUMIN/GLOBULIN RATIO 0.78; ALKALINE PHOSPHATASE 450 IU/L (42-121); ANION GAP 11 (8-16); ASPARTATE AMINO TRANSFERASE 33 IU/L (15-46); BILIRUBIN,INDIRECT 0.3 mg/dl (0-1.1); BILIRUBIN,TOTAL 0.3 mg/dl (0.2-1.3); BLOOD UREA NITROGEN 16 mg/dl (7-20); CALCIUM 8.7 mg/dl (8.4-10.2); CARBON DIOXIDE 35 mmol/L (21-31); CHLORIDE 95 mmol/L (97-110); CREATININE 0.63 mg/dl (0.44-1.00); GLUCOSE 70 mg/dl (70-220); POTASSIUM 4.3 mmol/L (3.5-5.1); SODIUM 137 mmol/L (135-144); TOTAL PROTEIN 6.8 g/dl (6.1-8.1)
[2018-04-04] MEDS: INSULIN ASPART [NOVOLOG] 3 ML PEN SC ×4 (07:55→21:00)
[2018-04-04] MEDS: CLOPIDOGREL 75 MG TAB PO (08:30)
[2018-04-04] MEDS: RIFAXIMIN 200 MG TAB PO ×3 (08:30→21:43)
[2018-04-04] MEDS: FERROUS SULFATE (EC) 325 MG TAB PO ×2 (08:30→21:43)
[2018-04-04] MEDS: FOLIC ACID 1 MG TAB PO (08:30)
[2018-04-04] MEDS: ASPIRIN (EC) 81 MG TAB PO (08:30)
[2018-04-04] MEDS: THIAMINE 100 MG TAB PO ×2 (08:30→21:43)
[2018-04-04] MEDS: ASCORBIC ACID 500 MG TAB PO (08:30)
[2018-04-04] MEDS: GABAPENTIN 100 MG CAP PO ×2 (08:30→21:43)
[2018-04-04] MEDS: MULTIVITAMINS/MINERALS TAB PO (08:30)
[2018-04-04] MEDS: LOSARTAN 25 MG TAB PO (08:31)
[2018-04-04] MEDS: ENOXAPARIN 30 MG/0.3 ML SYG SC (08:47)
[2018-04-04] MEDS: INSULIN GLARGINE [LANTus] (100 UNITS/ML) SYG SC ×2 (08:47→21:51)
[2018-04-04] MEDS: DOCUSATE SODIUM 100 MG CAP PO ×2 (09:00→21:00)
[2018-04-04] MEDS: NYSTATIN 30 GM POWDER BTL TOP ×2 (12:14→21:52)
[2018-04-04] MEDS: GLUCOSE GEL 15 GRAM TUBE PO (12:33)
[2018-04-04] MEDS: DEXTROSE 50% 50 ML SYRINGE IV (16:36)
[2018-04-04 18:23] LABS: GLUCOSE 127 mg/dl (70-220)
[2018-04-04] MEDS: BISACODYL (EC) 5 MG TAB PO (20:30)
[2018-04-04] MEDS: ATORVASTATIN 10 MG TAB PO (21:43)
[2018-04-04] MEDS: MICONAZOLE 2% 45 GM VAG CR VAG (21:52)
[2018-04-05] MEDS: BUMETANIDE 1 MG TAB PO (06:04)
[2018-04-05] MEDS: metroNIDAZOLE 500 MG/NS (PMX) 100 ML IVPB ×4 (06:05→17:19)
[2018-04-05 06:13] LABS: ADD MAN DIFF? NO
[2018-04-05 06:19] LABS: WHITE BLOOD COUNT 12.6 10^3/ul (4.8-10.8)
[2018-04-05 06:19] LABS: BASOPHIL # 0.1 10^3/ul (0.0-0.1); BASOPHILS % 0.5 % (0.0-2.0); EOSINOPHILS # 0.3 10^3/ul (0.0-0.5); EOSINOPHILS % 2.1 % (0.0-7.0); HEMATOCRIT 35.3 % (37.0-47.0); HEMOGLOBIN 11.3 g/dl (12.0-16.0); IMMATURE GRANS #M 0.12 10^3/ul; LYMPHOCYTES % 23.9 % (15.0-51.0); MEAN CORPUSCULAR HEMOGLOBIN 30.5 pg (29.0-33.0); MEAN CORPUSCULAR VOLUME 95.1 fl (82.0-101.0); MEAN PLATELET VOLUME 9.2 fl (7.4-10.4); MONOCYTE # 0.6 10^3/ul (0.3-0.9); MONOCYTES % 4.7 % (0.0-11.0); NEUTROPHIL # 8.5 10^3/ul (1.6-7.5); NEUTROPHILS % 67.8 % (39.0-77.0); PLATELET COUNT 294 10^3/UL (140-415); RED BLOOD COUNT 3.71 10^6/ul (4.20-5.40); RED CELL DISTRIBUTION WIDTH 15.9 % (11.5-14.5)
[2018-04-05 06:46] LABS: ANION GAP 11 (8-16); BLOOD UREA NITROGEN 14 mg/dl (7-20); CALCIUM 8.4 mg/dl (8.4-10.2); CARBON DIOXIDE 33 mmol/L (21-31); CHLORIDE 97 mmol/L (97-110); CREATININE 0.59 mg/dl (0.44-1.00); GLUCOSE 127 mg/dl (70-220); SODIUM 137 mmol/L (135-144)
[2018-04-05] MEDS: INSULIN ASPART [NOVOLOG] 3 ML PEN SC ×4 (07:47→21:54)
[2018-04-05] MEDS: ENOXAPARIN 30 MG/0.3 ML SYG SC (07:51)
[2018-04-05] MEDS: INSULIN GLARGINE [LANTus] (100 UNITS/ML) SYG SC ×2 (07:52→21:55)
[2018-04-05] MEDS: FOLIC ACID 1 MG TAB PO (08:37)
[2018-04-05] MEDS: GABAPENTIN 100 MG CAP PO ×2 (08:37→21:46)
[2018-04-05] MEDS: THIAMINE 100 MG TAB PO ×2 (08:37→21:48)
[2018-04-05] MEDS: DOCUSATE SODIUM 100 MG CAP PO ×2 (08:37→21:00)
[2018-04-05] MEDS: ASPIRIN (EC) 81 MG TAB PO (08:37)
[2018-04-05] MEDS: MULTIVITAMINS/MINERALS TAB PO (08:37)
[2018-04-05] MEDS: CLOPIDOGREL 75 MG TAB PO (08:37)
[2018-04-05] MEDS: RIFAXIMIN 200 MG TAB PO ×3 (08:37→21:45)
[2018-04-05] MEDS: ASCORBIC ACID 500 MG TAB PO (08:37)
[2018-04-05] MEDS: FERROUS SULFATE (EC) 325 MG TAB PO ×2 (08:37→21:45)
[2018-04-05] MEDS: NYSTATIN 30 GM POWDER BTL TOP ×2 (08:38→21:49)
[2018-04-05] MEDS: LOSARTAN 25 MG TAB PO (08:38)
[2018-04-05] MEDS: BISACODYL (EC) 5 MG TAB PO (20:30)
[2018-04-05] MEDS: ATORVASTATIN 10 MG TAB PO (21:45)
[2018-04-05] MEDS: MICONAZOLE 2% 45 GM VAG CR VAG (21:50)
[2018-04-06] MEDS: metroNIDAZOLE 500 MG/NS (PMX) 100 ML IVPB ×4 (00:23→17:19)
[2018-04-06] MEDS: BUMETANIDE 1 MG TAB PO (06:20)
[2018-04-06] MEDS: INSULIN ASPART [NOVOLOG] 3 ML PEN SC ×5 (07:55→21:00)
[2018-04-06 08:03] LABS: ADD MAN DIFF? NO
[2018-04-06 08:05] LABS: WHITE BLOOD COUNT 10.8 10^3/ul (4.8-10.8)
[2018-04-06 08:05] LABS: BASOPHIL # 0.1 10^3/ul (0.0-0.1); BASOPHILS % 0.6 % (0.0-2.0); EOSINOPHILS # 0.4 10^3/ul (0.0-0.5); EOSINOPHILS % 3.3 % (0.0-7.0); HEMATOCRIT 36.8 % (37.0-47.0); HEMOGLOBIN 11.3 g/dl (12.0-16.0); IMMATURE GRANS #M 0.09 10^3/ul; IMMATURE GRANS % (M) 0.8 %; LYMPHOCYTES % 28.2 % (15.0-51.0); MEAN CORPUSCULAR HEMOGLOBIN 29.2 pg (29.0-33.0); MEAN CORPUSCULAR HGB CONC 30.7 g/dl (32.0-37.0); MEAN CORPUSCULAR VOLUME 95.1 fl (82.0-101.0); MEAN PLATELET VOLUME 9.8 fl (7.4-10.4); MONOCYTE # 0.6 10^3/ul (0.3-0.9); MONOCYTES % 5.5 % (0.0-11.0); NEUTROPHIL # 6.6 10^3/ul (1.6-7.5); NEUTROPHILS % 61.6 % (39.0-77.0); PLATELET COUNT 285 10^3/UL (140-415); RED BLOOD COUNT 3.87 10^6/ul (4.20-5.40)
[2018-04-06] MEDS: INSULIN GLARGINE [LANTus] (100 UNITS/ML) SYG SC ×2 (08:07→21:22)
[2018-04-06 08:26] LABS: ANION GAP 9 (8-16); BLOOD UREA NITROGEN 12 mg/dl (7-20); CALCIUM 8.2 mg/dl (8.4-10.2); CARBON DIOXIDE 33 mmol/L (21-31); CHLORIDE 98 mmol/L (97-110); CREATININE 0.51 mg/dl (0.44-1.00); GLUCOSE 66 mg/dl (70-220); POTASSIUM 3.9 mmol/L (3.5-5.1); SODIUM 136 mmol/L (135-144)
[2018-04-06] MEDS: MULTIVITAMINS/MINERALS TAB PO (08:48)
[2018-04-06] MEDS: FOLIC ACID 1 MG TAB PO (08:48)
[2018-04-06] MEDS: ASCORBIC ACID 500 MG TAB PO (08:48)
[2018-04-06] MEDS: ASPIRIN (EC) 81 MG TAB PO (08:49)
[2018-04-06] MEDS: GABAPENTIN 100 MG CAP PO ×2 (08:49→20:39)
[2018-04-06] MEDS: FERROUS SULFATE (EC) 325 MG TAB PO ×2 (08:49→20:39)
[2018-04-06] MEDS: CLOPIDOGREL 75 MG TAB PO (08:49)
[2018-04-06] MEDS: THIAMINE 100 MG TAB PO ×2 (08:49→20:39)
[2018-04-06] MEDS: RIFAXIMIN 200 MG TAB PO ×3 (08:49→20:39)
[2018-04-06] MEDS: DOCUSATE SODIUM 100 MG CAP PO ×2 (08:50→20:39)
[2018-04-06] MEDS: LOSARTAN 25 MG TAB PO (08:50)
[2018-04-06] MEDS: ENOXAPARIN 30 MG/0.3 ML SYG SC (08:56)
[2018-04-06] MEDS: NYSTATIN 30 GM POWDER BTL TOP ×2 (08:56→20:40)
[2018-04-06] MEDS: ATORVASTATIN 10 MG TAB PO (20:39)
[2018-04-06] MEDS: BISACODYL (EC) 5 MG TAB PO (20:39)
[2018-04-06] MEDS: ACETAMINOPHEN 325 MG TAB PO (20:43)
[2018-04-07] MEDS: metroNIDAZOLE 500 MG/NS (PMX) 100 ML IVPB ×5 (00:54→23:30)
[2018-04-07] MEDS: ACCU-CHEK XX (02:00)
[2018-04-07] MEDS: BUMETANIDE 1 MG TAB PO (06:02)
[2018-04-07] MEDS: ACETAMINOPHEN 325 MG TAB PO ×2 (06:02→20:45)
[2018-04-07 07:24] LABS: ADD MAN DIFF? NO
[2018-04-07 07:26] LABS: WHITE BLOOD COUNT 9.6 10^3/ul (4.8-10.8)
[2018-04-07 07:26] LABS: BASOPHILS % 0.4 % (0.0-2.0); EOSINOPHILS # 0.3 10^3/ul (0.0-0.5); EOSINOPHILS % 3.3 % (0.0-7.0); HEMOGLOBIN 11.4 g/dl (12.0-16.0); LYMPHOCYTES # 2.8 10^3/ul (0.8-2.9); LYMPHOCYTES % 29.3 % (15.0-51.0); MEAN CORPUSCULAR HEMOGLOBIN 30.2 pg (29.0-33.0); MEAN CORPUSCULAR HGB CONC 31.7 g/dl (32.0-37.0); MEAN CORPUSCULAR VOLUME 95.5 fl (82.0-101.0); MEAN PLATELET VOLUME 9.5 fl (7.4-10.4); MONOCYTE # 0.5 10^3/ul (0.3-0.9); MONOCYTES % 5.3 % (0.0-11.0); NEUTROPHIL # 5.8 10^3/ul (1.6-7.5); NEUTROPHILS % 60.9 % (39.0-77.0); PLATELET COUNT 255 10^3/UL (140-415); RED BLOOD COUNT 3.77 10^6/ul (4.20-5.40); RED CELL DISTRIBUTION WIDTH 16.2 % (11.5-14.5)
[2018-04-07 07:45] LABS: ANION GAP 10 (8-16); BLOOD UREA NITROGEN 13 mg/dl (7-20); CALCIUM 8.2 mg/dl (8.4-10.2); CARBON DIOXIDE 32 mmol/L (21-31); CHLORIDE 97 mmol/L (97-110); CREATININE 0.57 mg/dl (0.44-1.00); GLUCOSE 91 mg/dl (70-220); POTASSIUM 3.8 mmol/L (3.5-5.1); SODIUM 135 mmol/L (135-144)
[2018-04-07] MEDS: INSULIN ASPART [NOVOLOG] 3 ML PEN SC ×7 (07:55→20:45)
[2018-04-07] MEDS: DOCUSATE SODIUM 100 MG CAP PO ×2 (09:00→20:13)
[2018-04-07] MEDS: LOSARTAN 25 MG TAB PO (09:34)
[2018-04-07] MEDS: GABAPENTIN 100 MG CAP PO ×2 (09:35→20:44)
[2018-04-07] MEDS: CLOPIDOGREL 75 MG TAB PO (09:35)
[2018-04-07] MEDS: THIAMINE 100 MG TAB PO (09:35)
[2018-04-07] MEDS: MULTIVITAMINS/MINERALS TAB PO (09:35)
[2018-04-07] MEDS: ASPIRIN (EC) 81 MG TAB PO (09:36)
[2018-04-07] MEDS: FERROUS SULFATE (EC) 325 MG TAB PO ×2 (09:36→20:45)
[2018-04-07] MEDS: NYSTATIN 30 GM POWDER BTL TOP ×2 (09:36→20:46)
[2018-04-07] MEDS: FOLIC ACID 1 MG TAB PO (09:36)
[2018-04-07] MEDS: ASCORBIC ACID 500 MG TAB PO (09:36)
[2018-04-07] MEDS: RIFAXIMIN 200 MG TAB PO ×3 (09:36→20:45)
[2018-04-07] MEDS: ENOXAPARIN 30 MG/0.3 ML SYG SC (09:46)
[2018-04-07] MEDS: BISACODYL (EC) 5 MG TAB PO (20:13)
[2018-04-07] MEDS: ATORVASTATIN 10 MG TAB PO (20:45)
[2018-04-07] MEDS: INSULIN GLARGINE [LANTus] (100 UNITS/ML) SYG SC ×2 (21:11→21:57)
[2018-04-08] MEDS: ACCU-CHEK XX (02:00)
[2018-04-08] MEDS: metroNIDAZOLE 500 MG/NS (PMX) 100 ML IVPB ×3 (05:55→17:56)
[2018-04-08] MEDS: BUMETANIDE 1 MG TAB PO (05:57)
[2018-04-08] MEDS: ACETAMINOPHEN 325 MG TAB PO (05:57)
[2018-04-08 06:52] LABS: ADD MAN DIFF? NO
[2018-04-08 07:04] LABS: BASOPHIL # 0.1 10^3/ul (0.0-0.1); BASOPHILS % 0.5 % (0.0-2.0); EOSINOPHILS # 0.3 10^3/ul (0.0-0.5); EOSINOPHILS % 2.7 % (0.0-7.0); HEMATOCRIT 39.2 % (37.0-47.0); LYMPHOCYTES # 2.8 10^3/ul (0.8-2.9); LYMPHOCYTES % 26.1 % (15.0-51.0); MEAN CORPUSCULAR HEMOGLOBIN 29.3 pg (29.0-33.0); MEAN CORPUSCULAR HGB CONC 30.6 g/dl (32.0-37.0); MEAN CORPUSCULAR VOLUME 95.8 fl (82.0-101.0); MEAN PLATELET VOLUME 9.7 fl (7.4-10.4); MONOCYTE # 0.5 10^3/ul (0.3-0.9); MONOCYTES % 4.7 % (0.0-11.0); NEUTROPHILS % 65.3 % (39.0-77.0); PLATELET COUNT 278 10^3/UL (140-415); RED BLOOD COUNT 4.09 10^6/ul (4.20-5.40); RED CELL DISTRIBUTION WIDTH 16.1 % (11.5-14.5)
[2018-04-08 07:04] LABS: WHITE BLOOD COUNT 10.7 10^3/ul (4.8-10.8)
[2018-04-08 07:31] LABS: ANION GAP 10 (8-16); BLOOD UREA NITROGEN 12 mg/dl (7-20); CALCIUM 8.6 mg/dl (8.4-10.2); CARBON DIOXIDE 33 mmol/L (21-31); CHLORIDE 98 mmol/L (97-110); CREATININE 0.57 mg/dl (0.44-1.00); GLUCOSE 153 mg/dl (70-220); SODIUM 137 mmol/L (135-144)
[2018-04-08] MEDS: INSULIN ASPART [NOVOLOG] 3 ML PEN SC ×7 (07:55→21:19)
[2018-04-08] MEDS: THIAMINE 100 MG TAB PO (08:17)
[2018-04-08] MEDS: CLOPIDOGREL 75 MG TAB PO (08:17)
[2018-04-08] MEDS: ASCORBIC ACID 500 MG TAB PO (08:17)
[2018-04-08] MEDS: RIFAXIMIN 200 MG TAB PO ×3 (08:18→20:39)
[2018-04-08] MEDS: FERROUS SULFATE (EC) 325 MG TAB PO ×2 (08:18→20:39)
[2018-04-08] MEDS: FOLIC ACID 1 MG TAB PO (08:18)
[2018-04-08] MEDS: MULTIVITAMINS/MINERALS TAB PO (08:18)
[2018-04-08] MEDS: ASPIRIN (EC) 81 MG TAB PO (08:18)
[2018-04-08] MEDS: GABAPENTIN 100 MG CAP PO ×2 (08:18→20:38)
[2018-04-08] MEDS: LOSARTAN 25 MG TAB PO (08:19)
[2018-04-08] MEDS: DOCUSATE SODIUM 100 MG CAP PO ×2 (08:20→20:38)
[2018-04-08] MEDS: NYSTATIN 30 GM POWDER BTL TOP ×2 (08:20→20:40)
[2018-04-08] MEDS: ENOXAPARIN 30 MG/0.3 ML SYG SC (08:27)
[2018-04-08] MEDS: BISACODYL (EC) 5 MG TAB PO (20:38)
[2018-04-08] MEDS: ATORVASTATIN 10 MG TAB PO (20:39)
[2018-04-08] MEDS: INSULIN GLARGINE [LANTus] (100 UNITS/ML) SYG SC (21:20)
[2018-04-09] MEDS: metroNIDAZOLE 500 MG/NS (PMX) 100 ML IVPB ×3 (00:17→11:47)
[2018-04-09] MEDS: ACCU-CHEK XX (02:00)
[2018-04-09] MEDS: BUMETANIDE 1 MG TAB PO (06:21)
[2018-04-09] MEDS: THIAMINE 100 MG TAB PO (08:22)
[2018-04-09] MEDS: FOLIC ACID 1 MG TAB PO (08:22)
[2018-04-09] MEDS: ASPIRIN (EC) 81 MG TAB PO (08:22)
[2018-04-09] MEDS: MULTIVITAMINS/MINERALS TAB PO (08:22)
[2018-04-09] MEDS: FERROUS SULFATE (EC) 325 MG TAB PO ×2 (08:22→21:05)
[2018-04-09] MEDS: ASCORBIC ACID 500 MG TAB PO (08:22)
[2018-04-09] MEDS: GABAPENTIN 100 MG CAP PO ×2 (08:22→21:07)
[2018-04-09] MEDS: CLOPIDOGREL 75 MG TAB PO (08:22)
[2018-04-09] MEDS: RIFAXIMIN 200 MG TAB PO ×2 (08:22→13:55)
[2018-04-09] MEDS: DOCUSATE SODIUM 100 MG CAP PO ×2 (08:23→21:07)
[2018-04-09] MEDS: LOSARTAN 25 MG TAB PO (08:23)
[2018-04-09] MEDS: ENOXAPARIN 30 MG/0.3 ML SYG SC (08:32)
[2018-04-09] MEDS: INSULIN ASPART [NOVOLOG] 3 ML PEN SC ×7 (08:32→21:47)
[2018-04-09] MEDS: NYSTATIN 30 GM POWDER BTL TOP ×2 (09:26→21:09)
[2018-04-09] MEDS: ACETAMINOPHEN 325 MG TAB PO (10:11)
[2018-04-09] MEDS: ATORVASTATIN 10 MG TAB PO (21:05)
[2018-04-09] MEDS: BISACODYL (EC) 5 MG TAB PO (21:07)
[2018-04-09] MEDS: INSULIN GLARGINE [LANTus] (100 UNITS/ML) SYG SC (21:46)
[2018-04-10] MEDS: ACCU-CHEK XX (02:00)
[2018-04-10 06:37] LABS: ADD MAN DIFF? NO
[2018-04-10 06:47] LABS: BASOPHIL # 0.1 10^3/ul (0.0-0.1); BASOPHILS % 0.6 % (0.0-2.0); EOSINOPHILS # 0.3 10^3/ul (0.0-0.5); HEMATOCRIT 38.2 % (37.0-47.0); HEMOGLOBIN 11.9 g/dl (12.0-16.0); LYMPHOCYTES # 2.8 10^3/ul (0.8-2.9); LYMPHOCYTES % 25.9 % (15.0-51.0); MEAN CORPUSCULAR HEMOGLOBIN 30.1 pg (29.0-33.0); MEAN CORPUSCULAR HGB CONC 31.2 g/dl (32.0-37.0); MEAN CORPUSCULAR VOLUME 96.5 fl (82.0-101.0); MEAN PLATELET VOLUME 9.5 fl (7.4-10.4); MONOCYTE # 0.7 10^3/ul (0.3-0.9); NEUTROPHIL # 6.9 10^3/ul (1.6-7.5); NEUTROPHILS % 63.4 % (39.0-77.0); PLATELET COUNT 286 10^3/UL (140-415); RED BLOOD COUNT 3.96 10^6/ul (4.20-5.40); RED CELL DISTRIBUTION WIDTH 16.7 % (11.5-14.5)
[2018-04-10 06:47] LABS: WHITE BLOOD COUNT 10.8 10^3/ul (4.8-10.8)
[2018-04-10] MEDS: BUMETANIDE 1 MG TAB PO (07:06)
[2018-04-10 07:10] LABS: ANION GAP 10 (8-16); BLOOD UREA NITROGEN 15 mg/dl (7-20); CALCIUM 8.5 mg/dl (8.4-10.2); CARBON DIOXIDE 32 mmol/L (21-31); CHLORIDE 98 mmol/L (97-110); CREATININE 0.54 mg/dl (0.44-1.00); GLUCOSE 159 mg/dl (70-220); POTASSIUM 4.7 mmol/L (3.5-5.1); SODIUM 135 mmol/L (135-144)
[2018-04-10] MEDS: INSULIN ASPART [NOVOLOG] 3 ML PEN SC ×7 (07:46→21:32)
[2018-04-10] MEDS: DOCUSATE SODIUM 100 MG CAP PO ×2 (08:08→21:20)
[2018-04-10] MEDS: ENOXAPARIN 30 MG/0.3 ML SYG SC (08:11)
[2018-04-10] MEDS: NYSTATIN 30 GM POWDER BTL TOP ×2 (08:12→21:33)
[2018-04-10] MEDS: LOSARTAN 25 MG TAB PO (08:13)
[2018-04-10] MEDS: GABAPENTIN 100 MG CAP PO ×2 (08:13→21:20)
[2018-04-10] MEDS: ASPIRIN (EC) 81 MG TAB PO (08:14)
[2018-04-10] MEDS: MULTIVITAMINS/MINERALS TAB PO (08:14)
[2018-04-10] MEDS: ASCORBIC ACID 500 MG TAB PO (08:14)
[2018-04-10] MEDS: THIAMINE 100 MG TAB PO (08:15)
[2018-04-10] MEDS: FOLIC ACID 1 MG TAB PO (08:15)
[2018-04-10] MEDS: CLOPIDOGREL 75 MG TAB PO (08:15)
[2018-04-10] MEDS: FERROUS SULFATE (EC) 325 MG TAB PO ×2 (08:15→21:18)
[2018-04-10] MEDS: BISACODYL (EC) 5 MG TAB PO (21:18)
[2018-04-10] MEDS: ATORVASTATIN 10 MG TAB PO (21:20)
[2018-04-10] MEDS: INSULIN GLARGINE [LANTus] (100 UNITS/ML) SYG SC (21:31)
[2018-04-11] MEDS: ACCU-CHEK XX (02:57)
[2018-04-11 07:13] LABS: ADD MAN DIFF? NO
[2018-04-11 07:17] LABS: WHITE BLOOD COUNT 11.3 10^3/ul (4.8-10.8)
[2018-04-11 07:17] LABS: BASOPHIL # 0.1 10^3/ul (0.0-0.1); BASOPHILS % 0.5 % (0.0-2.0); EOSINOPHILS # 0.3 10^3/ul (0.0-0.5); EOSINOPHILS % 2.2 % (0.0-7.0); HEMOGLOBIN 12.1 g/dl (12.0-16.0); LYMPHOCYTES # 2.8 10^3/ul (0.8-2.9); LYMPHOCYTES % 24.9 % (15.0-51.0); MEAN CORPUSCULAR HEMOGLOBIN 30.1 pg (29.0-33.0); MEAN PLATELET VOLUME 9.5 fl (7.4-10.4); MONOCYTE # 0.7 10^3/ul (0.3-0.9); MONOCYTES % 6.3 % (0.0-11.0); NEUTROPHIL # 7.4 10^3/ul (1.6-7.5); NEUTROPHILS % 65.1 % (39.0-77.0); PLATELET COUNT 280 10^3/UL (140-415); RED BLOOD COUNT 4.02 10^6/ul (4.20-5.40); RED CELL DISTRIBUTION WIDTH 17.1 % (11.5-14.5)
[2018-04-11 07:43] LABS: ANION GAP 12 (8-16); BLOOD UREA NITROGEN 17 mg/dl (7-20); CALCIUM 8.8 mg/dl (8.4-10.2); CARBON DIOXIDE 30 mmol/L (21-31); CHLORIDE 99 mmol/L (97-110); CREATININE 0.68 mg/dl (0.44-1.00); GLUCOSE 162 mg/dl (70-220); POTASSIUM 4.9 mmol/L (3.5-5.1); SODIUM 136 mmol/L (135-144)
[2018-04-11] MEDS: INSULIN ASPART [NOVOLOG] 3 ML PEN SC ×7 (08:16→20:22)
[2018-04-11] MEDS: MULTIVITAMINS/MINERALS TAB PO (08:48)
[2018-04-11] MEDS: GABAPENTIN 100 MG CAP PO ×2 (08:48→20:19)
[2018-04-11] MEDS: CLOPIDOGREL 75 MG TAB PO (08:48)
[2018-04-11] MEDS: ASPIRIN (EC) 81 MG TAB PO (08:48)
[2018-04-11] MEDS: THIAMINE 100 MG TAB PO (08:48)
[2018-04-11] MEDS: ASCORBIC ACID 500 MG TAB PO (08:48)
[2018-04-11] MEDS: FOLIC ACID 1 MG TAB PO (08:48)
[2018-04-11] MEDS: FERROUS SULFATE (EC) 325 MG TAB PO ×2 (08:48→20:19)
[2018-04-11] MEDS: LOSARTAN 25 MG TAB PO (08:49)
[2018-04-11] MEDS: NYSTATIN 30 GM POWDER BTL TOP ×2 (08:51→20:23)
[2018-04-11] MEDS: DOCUSATE SODIUM 100 MG CAP PO ×2 (08:53→20:19)
[2018-04-11] MEDS: ENOXAPARIN 30 MG/0.3 ML SYG SC (09:09)
[2018-04-11] MEDS: ATORVASTATIN 10 MG TAB PO (20:19)
[2018-04-11] MEDS: INSULIN GLARGINE [LANTus] (100 UNITS/ML) SYG SC (20:22)
[2018-04-11] MEDS: BISACODYL (EC) 5 MG TAB PO (20:22)
[2018-04-12] MEDS: ACCU-CHEK XX (02:00)
[2018-04-12] MEDS: BUMETANIDE 1 MG TAB PO (06:43)
[2018-04-12 07:17] LABS: ADD MAN DIFF? NO
[2018-04-12 07:24] LABS: BASOPHIL # 0.1 10^3/ul (0.0-0.1); BASOPHILS % 0.6 % (0.0-2.0); EOSINOPHILS # 0.3 10^3/ul (0.0-0.5); LYMPHOCYTES # 3.1 10^3/ul (0.8-2.9); LYMPHOCYTES % 30.9 % (15.0-51.0); MEAN CORPUSCULAR HEMOGLOBIN 29.4 pg (29.0-33.0); MEAN CORPUSCULAR HGB CONC 30.8 g/dl (32.0-37.0); MEAN CORPUSCULAR VOLUME 95.6 fl (82.0-101.0); MEAN PLATELET VOLUME 9.6 fl (7.4-10.4); MONOCYTE # 0.7 10^3/ul (0.3-0.9); MONOCYTES % 6.5 % (0.0-11.0); NEUTROPHIL # 5.9 10^3/ul (1.6-7.5); NEUTROPHILS % 58.1 % (39.0-77.0); PLATELET COUNT 292 10^3/UL (140-415); RED BLOOD COUNT 4.08 10^6/ul (4.20-5.40); RED CELL DISTRIBUTION WIDTH 17.6 % (11.5-14.5)
[2018-04-12 07:24] LABS: WHITE BLOOD COUNT 10.1 10^3/ul (4.8-10.8)
[2018-04-12] MEDS: INSULIN ASPART [NOVOLOG] 3 ML PEN SC ×7 (07:27→20:19)
[2018-04-12 07:42] LABS: ANION GAP 13 (8-16); BLOOD UREA NITROGEN 18 mg/dl (7-20); CALCIUM 8.7 mg/dl (8.4-10.2); CARBON DIOXIDE 29 mmol/L (21-31); CHLORIDE 100 mmol/L (97-110); CREATININE 0.61 mg/dl (0.44-1.00); GLUCOSE 79 mg/dl (70-220); POTASSIUM 4.7 mmol/L (3.5-5.1); SODIUM 137 mmol/L (135-144)
[2018-04-12] MEDS: DOCUSATE SODIUM 100 MG CAP PO ×2 (09:00→20:18)
[2018-04-12] MEDS: MULTIVITAMINS/MINERALS TAB PO (09:18)
[2018-04-12] MEDS: ASCORBIC ACID 500 MG TAB PO (09:18)
[2018-04-12] MEDS: GABAPENTIN 100 MG CAP PO ×2 (09:18→20:18)
[2018-04-12] MEDS: FERROUS SULFATE (EC) 325 MG TAB PO ×2 (09:19→20:19)
[2018-04-12] MEDS: LOSARTAN 25 MG TAB PO (09:19)
[2018-04-12] MEDS: FOLIC ACID 1 MG TAB PO (09:19)
[2018-04-12] MEDS: CLOPIDOGREL 75 MG TAB PO (09:19)
[2018-04-12] MEDS: THIAMINE 100 MG TAB PO (09:19)
[2018-04-12] MEDS: NYSTATIN 30 GM POWDER BTL TOP ×2 (09:20→20:19)
[2018-04-12] MEDS: ASPIRIN (EC) 81 MG TAB PO (09:20)
[2018-04-12] MEDS: ENOXAPARIN 30 MG/0.3 ML SYG SC (09:33)
[2018-04-12] MEDS: ATORVASTATIN 10 MG TAB PO (20:18)
[2018-04-12] MEDS: BISACODYL (EC) 5 MG TAB PO (20:19)
[2018-04-12] MEDS: INSULIN GLARGINE [LANTus] (100 UNITS/ML) SYG SC (20:34)
[2018-04-13] MEDS: ACCU-CHEK XX (02:00)
[2018-04-13] MEDS: INSULIN ASPART [NOVOLOG] 3 ML PEN SC ×7 (07:50→20:48)
[2018-04-13] MEDS: DOCUSATE SODIUM 100 MG CAP PO ×2 (09:00→20:42)
[2018-04-13] MEDS: ASCORBIC ACID 500 MG TAB PO (09:32)
[2018-04-13] MEDS: FOLIC ACID 1 MG TAB PO (09:32)
[2018-04-13] MEDS: FERROUS SULFATE (EC) 325 MG TAB PO ×2 (09:32→20:42)
[2018-04-13] MEDS: ASPIRIN (EC) 81 MG TAB PO (09:32)
[2018-04-13] MEDS: THIAMINE 100 MG TAB PO (09:32)
[2018-04-13] MEDS: LOSARTAN 25 MG TAB PO (09:32)
[2018-04-13] MEDS: GABAPENTIN 100 MG CAP PO ×2 (09:32→20:42)
[2018-04-13] MEDS: MULTIVITAMINS/MINERALS TAB PO (09:32)
[2018-04-13] MEDS: CLOPIDOGREL 75 MG TAB PO (09:32)
[2018-04-13] MEDS: NYSTATIN 30 GM POWDER BTL TOP ×2 (09:46→20:48)
[2018-04-13] MEDS: ENOXAPARIN 30 MG/0.3 ML SYG SC (09:47)
[2018-04-13 09:49] LABS: ADD MAN DIFF? NO
[2018-04-13 09:54] LABS: WHITE BLOOD COUNT 10.6 10^3/ul (4.8-10.8)
[2018-04-13 09:54] LABS: BASOPHIL # 0.1 10^3/ul (0.0-0.1); BASOPHILS % 0.6 % (0.0-2.0); EOSINOPHILS # 0.2 10^3/ul (0.0-0.5); EOSINOPHILS % 1.7 % (0.0-7.0); HEMATOCRIT 38.6 % (37.0-47.0); HEMOGLOBIN 11.8 g/dl (12.0-16.0); LYMPHOCYTES # 3.1 10^3/ul (0.8-2.9); LYMPHOCYTES % 28.9 % (15.0-51.0); MEAN CORPUSCULAR HEMOGLOBIN 29.6 pg (29.0-33.0); MEAN CORPUSCULAR HGB CONC 30.6 g/dl (32.0-37.0); MEAN CORPUSCULAR VOLUME 96.7 fl (82.0-101.0); MEAN PLATELET VOLUME 9.9 fl (7.4-10.4); MONOCYTE # 0.7 10^3/ul (0.3-0.9); MONOCYTES % 6.7 % (0.0-11.0); NEUTROPHIL # 6.5 10^3/ul (1.6-7.5); NEUTROPHILS % 61.4 % (39.0-77.0); PLATELET COUNT 290 10^3/UL (140-415); RED BLOOD COUNT 3.99 10^6/ul (4.20-5.40); RED CELL DISTRIBUTION WIDTH 17.9 % (11.5-14.5)
[2018-04-13 10:19] LABS: ANION GAP 10 (8-16); BLOOD UREA NITROGEN 18 mg/dl (7-20); CALCIUM 8.7 mg/dl (8.4-10.2); CARBON DIOXIDE 34 mmol/L (21-31); CHLORIDE 96 mmol/L (97-110); CREATININE 0.89 mg/dl (0.44-1.00); GLUCOSE 179 mg/dl (70-220); POTASSIUM 4.8 mmol/L (3.5-5.1); SODIUM 135 mmol/L (135-144)
[2018-04-13] MEDS: BUMETANIDE 1 MG TAB PO (12:02)
[2018-04-13] MEDS: BISACODYL (EC) 5 MG TAB PO (20:42)
[2018-04-13] MEDS: ATORVASTATIN 10 MG TAB PO (20:42)
[2018-04-13] MEDS: INSULIN GLARGINE [LANTus] (100 UNITS/ML) SYG SC (20:46)
[2018-04-14] MEDS: ACETAMINOPHEN 325 MG TAB PO (00:57)
[2018-04-14] MEDS: ACCU-CHEK XX (02:00)
[2018-04-14] MEDS: BUMETANIDE 1 MG TAB PO (05:47)
[2018-04-14 07:24] LABS: ADD MAN DIFF? NO
[2018-04-14 07:28] LABS: WHITE BLOOD COUNT 9.2 10^3/ul (4.8-10.8)
[2018-04-14 07:28] LABS: BASOPHIL # 0.1 10^3/ul (0.0-0.1); BASOPHILS % 0.7 % (0.0-2.0); EOSINOPHILS # 0.3 10^3/ul (0.0-0.5); EOSINOPHILS % 3.3 % (0.0-7.0); HEMATOCRIT 38.7 % (37.0-47.0); HEMOGLOBIN 12.1 g/dl (12.0-16.0); LYMPHOCYTES # 2.5 10^3/ul (0.8-2.9); LYMPHOCYTES % 26.7 % (15.0-51.0); MEAN CORPUSCULAR HEMOGLOBIN 30.3 pg (29.0-33.0); MEAN CORPUSCULAR HGB CONC 31.3 g/dl (32.0-37.0); MEAN PLATELET VOLUME 9.7 fl (7.4-10.4); MONOCYTE # 0.6 10^3/ul (0.3-0.9); MONOCYTES % 6.6 % (0.0-11.0); NEUTROPHIL # 5.7 10^3/ul (1.6-7.5); NEUTROPHILS % 61.9 % (39.0-77.0); PLATELET COUNT 269 10^3/UL (140-415); RED BLOOD COUNT 3.99 10^6/ul (4.20-5.40); RED CELL DISTRIBUTION WIDTH 17.4 % (11.5-14.5)
[2018-04-14] MEDS: INSULIN ASPART [NOVOLOG] 3 ML PEN SC ×7 (07:55→21:00)
[2018-04-14 08:25] LABS: ANION GAP 12 (8-16); BLOOD UREA NITROGEN 20 mg/dl (7-20); CALCIUM 8.6 mg/dl (8.4-10.2); CARBON DIOXIDE 29 mmol/L (21-31); CHLORIDE 99 mmol/L (97-110); CREATININE 0.71 mg/dl (0.44-1.00); GLUCOSE 139 mg/dl (70-220); POTASSIUM 4.6 mmol/L (3.5-5.1); SODIUM 135 mmol/L (135-144)
[2018-04-14] MEDS: CLOPIDOGREL 75 MG TAB PO (08:32)
[2018-04-14] MEDS: ASPIRIN (EC) 81 MG TAB PO (08:33)
[2018-04-14] MEDS: FOLIC ACID 1 MG TAB PO (08:33)
[2018-04-14] MEDS: ASCORBIC ACID 500 MG TAB PO (08:33)
[2018-04-14] MEDS: FERROUS SULFATE (EC) 325 MG TAB PO ×2 (08:33→20:56)
[2018-04-14] MEDS: GABAPENTIN 100 MG CAP PO ×2 (08:33→20:55)
[2018-04-14] MEDS: MULTIVITAMINS/MINERALS TAB PO (08:33)
[2018-04-14] MEDS: THIAMINE 100 MG TAB PO (08:34)
[2018-04-14] MEDS: LOSARTAN 25 MG TAB PO (08:34)
[2018-04-14] MEDS: NYSTATIN 30 GM POWDER BTL TOP ×2 (08:35→21:00)
[2018-04-14] MEDS: DOCUSATE SODIUM 100 MG CAP PO ×2 (08:42→20:56)
[2018-04-14] MEDS: ENOXAPARIN 30 MG/0.3 ML SYG SC (08:42)
[2018-04-14] MEDS: BISACODYL (EC) 5 MG TAB PO (20:30)
[2018-04-14] MEDS: ATORVASTATIN 10 MG TAB PO (20:55)
[2018-04-14] MEDS: INSULIN GLARGINE [LANTus] (100 UNITS/ML) SYG SC (20:57)
[2018-04-15] MEDS ORDERED: ACETAMINOPHEN 650 MG PO
[2018-04-15] MEDS ORDERED: LIDOCAINE TP
[2018-04-15] MEDS: ACCU-CHEK XX (02:00)
[2018-04-15] MEDS: BUMETANIDE 1 MG TAB PO (06:15)
[2018-04-15] MEDS: INSULIN ASPART [NOVOLOG] 3 ML PEN SC ×7 (07:54→20:55)
[2018-04-15] MEDS: ENOXAPARIN 30 MG/0.3 ML SYG SC (08:13)
[2018-04-15] MEDS: DOCUSATE SODIUM 100 MG CAP PO ×2 (08:15→21:00)
[2018-04-15] MEDS: ASCORBIC ACID 500 MG TAB PO (08:15)
[2018-04-15] MEDS: ASPIRIN (EC) 81 MG TAB PO (08:15)
[2018-04-15] MEDS: MULTIVITAMINS/MINERALS TAB PO (08:15)
[2018-04-15] MEDS: FOLIC ACID 1 MG TAB PO (08:15)
[2018-04-15] MEDS: CLOPIDOGREL 75 MG TAB PO (08:15)
[2018-04-15] MEDS: GABAPENTIN 100 MG CAP PO ×2 (08:15→20:57)
[2018-04-15] MEDS: FERROUS SULFATE (EC) 325 MG TAB PO ×2 (08:16→20:57)
[2018-04-15] MEDS: LOSARTAN 25 MG TAB PO (08:17)
[2018-04-15] MEDS: THIAMINE 100 MG TAB PO (08:17)
[2018-04-15] MEDS: LIDOCAINE 5% PATCH TD (08:19)
[2018-04-15] MEDS: NYSTATIN 30 GM POWDER BTL TOP ×2 (08:19→20:58)
[2018-04-15] MEDS ORDERED: NON-FORMULARY/PATIENT OWN MED (Protein Supplement (Promod) 30 ML) PO (09:00)
[2018-04-15] MEDS ORDERED: IRON FUM PO (09:00)
[2018-04-15] MEDS ORDERED: FOLIC AC PO (09:00)
[2018-04-15] MEDS ORDERED: [UNRECOGNIZED DRUG - OTHER] PO (09:00)
[2018-04-15] MEDS ORDERED: MULTIVIT MIN PO (09:00)
[2018-04-15] MEDS: BISACODYL (EC) 5 MG TAB PO (20:30)
[2018-04-15] MEDS: INSULIN GLARGINE [LANTus] (100 UNITS/ML) SYG SC (20:54)
[2018-04-15] MEDS: ATORVASTATIN 10 MG TAB PO (20:57)
[2018-04-16] MEDS: ACCU-CHEK XX (02:00)
[2018-04-16 05:51] LABS: ADD MAN DIFF? NO
[2018-04-16 05:55] LABS: BASOPHIL # 0.1 10^3/ul (0.0-0.1); BASOPHILS % 0.6 % (0.0-2.0); EOSINOPHILS # 0.3 10^3/ul (0.0-0.5); EOSINOPHILS % 2.2 % (0.0-7.0); HEMOGLOBIN 12.6 g/dl (12.0-16.0); LYMPHOCYTES # 3.5 10^3/ul (0.8-2.9); LYMPHOCYTES % 30.1 % (15.0-51.0); MEAN CORPUSCULAR HEMOGLOBIN 29.5 pg (29.0-33.0); MEAN CORPUSCULAR HGB CONC 30.7 g/dl (32.0-37.0); MEAN PLATELET VOLUME 9.6 fl (7.4-10.4); MONOCYTE # 0.6 10^3/ul (0.3-0.9); MONOCYTES % 5.3 % (0.0-11.0); NEUTROPHIL # 7.1 10^3/ul (1.6-7.5); NEUTROPHILS % 61.5 % (39.0-77.0); PLATELET COUNT 332 10^3/UL (140-415); RED BLOOD COUNT 4.27 10^6/ul (4.20-5.40)
[2018-04-16 05:55] LABS: WHITE BLOOD COUNT 11.5 10^3/ul (4.8-10.8)
[2018-04-16] MEDS: BUMETANIDE 1 MG TAB PO (06:00)
[2018-04-16 06:11] LABS: ANION GAP 10 (8-16); BLOOD UREA NITROGEN 21 mg/dl (7-20); CALCIUM 8.7 mg/dl (8.4-10.2); CARBON DIOXIDE 34 mmol/L (21-31); CHLORIDE 96 mmol/L (97-110); CREATININE 0.64 mg/dl (0.44-1.00); GLUCOSE 116 mg/dl (70-220); POTASSIUM 4.2 mmol/L (3.5-5.1); SODIUM 136 mmol/L (135-144)
[2018-04-16] MEDS: INSULIN ASPART [NOVOLOG] 3 ML PEN SC ×7 (08:00→20:24)
[2018-04-16] MEDS: ENOXAPARIN 30 MG/0.3 ML SYG SC (08:04)
[2018-04-16] MEDS: LIDOCAINE 5% PATCH TD (08:06)
[2018-04-16] MEDS: ASCORBIC ACID 500 MG TAB PO (08:06)
[2018-04-16] MEDS: FOLIC ACID 1 MG TAB PO (08:07)
[2018-04-16] MEDS: FERROUS SULFATE (EC) 325 MG TAB PO ×2 (08:07→20:27)
[2018-04-16] MEDS: CLOPIDOGREL 75 MG TAB PO (08:07)
[2018-04-16] MEDS: GABAPENTIN 100 MG CAP PO ×2 (08:07→20:27)
[2018-04-16] MEDS: MULTIVITAMINS/MINERALS TAB PO (08:07)
[2018-04-16] MEDS: ASPIRIN (EC) 81 MG TAB PO (08:07)
[2018-04-16] MEDS: LOSARTAN 25 MG TAB PO (08:09)
[2018-04-16] MEDS: DOCUSATE SODIUM 100 MG CAP PO ×2 (08:10→20:26)
[2018-04-16] MEDS: THIAMINE 100 MG TAB PO (08:11)
[2018-04-16] MEDS: NYSTATIN 30 GM POWDER BTL TOP ×2 (08:13→20:43)
[2018-04-16] MEDS: ACETAMINOPHEN 325 MG TAB PO (19:41)
[2018-04-16] MEDS: INSULIN GLARGINE [LANTus] (100 UNITS/ML) SYG SC (20:25)
[2018-04-16] MEDS: BISACODYL (EC) 5 MG TAB PO (20:26)
[2018-04-16] MEDS: ATORVASTATIN 10 MG TAB PO (20:29)
[2018-04-17] MEDS: ACCU-CHEK XX (02:00)
[2018-04-17 05:07] LABS: ADD MAN DIFF? NO
[2018-04-17 05:11] LABS: WHITE BLOOD COUNT 10.9 10^3/ul (4.8-10.8)
[2018-04-17 05:11] LABS: BASOPHIL # 0.1 10^3/ul (0.0-0.1); BASOPHILS % 0.5 % (0.0-2.0); EOSINOPHILS # 0.2 10^3/ul (0.0-0.5); EOSINOPHILS % 1.6 % (0.0-7.0); HEMATOCRIT 41.5 % (37.0-47.0); HEMOGLOBIN 12.7 g/dl (12.0-16.0); LYMPHOCYTES # 2.7 10^3/ul (0.8-2.9); LYMPHOCYTES % 25.2 % (15.0-51.0); MEAN CORPUSCULAR HEMOGLOBIN 29.5 pg (29.0-33.0); MEAN CORPUSCULAR HGB CONC 30.6 g/dl (32.0-37.0); MEAN CORPUSCULAR VOLUME 96.3 fl (82.0-101.0); MEAN PLATELET VOLUME 9.5 fl (7.4-10.4); MONOCYTE # 0.7 10^3/ul (0.3-0.9); MONOCYTES % 6.5 % (0.0-11.0); NEUTROPHIL # 7.2 10^3/ul (1.6-7.5); NEUTROPHILS % 65.8 % (39.0-77.0); PLATELET COUNT 305 10^3/UL (140-415); RED BLOOD COUNT 4.31 10^6/ul (4.20-5.40); RED CELL DISTRIBUTION WIDTH 17.8 % (11.5-14.5)
[2018-04-17 05:30] LABS: ANION GAP 13 (8-16); BLOOD UREA NITROGEN 21 mg/dl (7-20); CALCIUM 9.1 mg/dl (8.4-10.2); CARBON DIOXIDE 33 mmol/L (21-31); CHLORIDE 96 mmol/L (97-110); CREATININE 0.64 mg/dl (0.44-1.00); GLUCOSE 114 mg/dl (70-220); POTASSIUM 4.6 mmol/L (3.5-5.1); SODIUM 137 mmol/L (135-144)
[2018-04-17] MEDS: BUMETANIDE 1 MG TAB PO (06:10)
[2018-04-17] MEDS: INSULIN ASPART [NOVOLOG] 3 ML PEN SC ×7 (07:53→21:00)
[2018-04-17] MEDS: ENOXAPARIN 30 MG/0.3 ML SYG SC (07:54)
[2018-04-17] MEDS: MULTIVITAMINS/MINERALS TAB PO (08:00)
[2018-04-17] MEDS: THIAMINE 100 MG TAB PO (08:00)
[2018-04-17] MEDS: CLOPIDOGREL 75 MG TAB PO (08:00)
[2018-04-17] MEDS: DOCUSATE SODIUM 100 MG CAP PO ×3 (08:00→21:04)
[2018-04-17] MEDS: GABAPENTIN 100 MG CAP PO ×2 (08:00→21:03)
[2018-04-17] MEDS: ASPIRIN (EC) 81 MG TAB PO (08:00)
[2018-04-17] MEDS: ASCORBIC ACID 500 MG TAB PO (08:00)
[2018-04-17] MEDS: FERROUS SULFATE (EC) 325 MG TAB PO ×2 (08:00→21:04)
[2018-04-17] MEDS: FOLIC ACID 1 MG TAB PO (08:00)
[2018-04-17] MEDS: NYSTATIN 30 GM POWDER BTL TOP ×2 (08:01→21:17)
[2018-04-17] MEDS: LOSARTAN 25 MG TAB PO (08:01)
[2018-04-17] MEDS: LIDOCAINE 5% PATCH TD (09:00)
[2018-04-17] MEDS: ACETAMINOPHEN 325 MG TAB PO (14:48)
[2018-04-17] MEDS: BISACODYL (EC) 5 MG TAB PO ×2 (20:30→21:04)
[2018-04-17] MEDS: ATORVASTATIN 10 MG TAB PO (21:04)
[2018-04-17] MEDS: INSULIN GLARGINE [LANTus] (100 UNITS/ML) SYG SC (21:06)
[2018-04-18] MEDS: ACCU-CHEK XX (02:00)
[2018-04-18] MEDS: BUMETANIDE 1 MG TAB PO (06:00)
[2018-04-18] MEDS: INSULIN ASPART [NOVOLOG] 3 ML PEN SC ×7 (07:35→21:34)
[2018-04-18] MEDS: ENOXAPARIN 30 MG/0.3 ML SYG SC ×2 (09:00→09:47)
[2018-04-18] MEDS: LIDOCAINE 5% PATCH TD ×2 (09:00→20:34)
[2018-04-18] MEDS: DOCUSATE SODIUM 100 MG CAP PO ×2 (09:00→20:26)
[2018-04-18] MEDS: LOSARTAN 25 MG TAB PO (09:00)
[2018-04-18] MEDS: CLOPIDOGREL 75 MG TAB PO (09:45)
[2018-04-18] MEDS: MULTIVITAMINS/MINERALS TAB PO (09:45)
[2018-04-18] MEDS: FOLIC ACID 1 MG TAB PO (09:45)
[2018-04-18] MEDS: ASCORBIC ACID 500 MG TAB PO (09:45)
[2018-04-18] MEDS: FERROUS SULFATE (EC) 325 MG TAB PO ×2 (09:45→20:25)
[2018-04-18] MEDS: GABAPENTIN 100 MG CAP PO ×2 (09:45→20:25)
[2018-04-18] MEDS: ASPIRIN (EC) 81 MG TAB PO (09:45)
[2018-04-18] MEDS: NYSTATIN 30 GM POWDER BTL TOP ×2 (09:58→20:27)
[2018-04-18] MEDS: THIAMINE 100 MG TAB PO (10:14)
[2018-04-18] MEDS: ACETAMINOPHEN 325 MG TAB PO (12:52)
[2018-04-18] MEDS: INSULIN GLARGINE [LANTus] (100 UNITS/ML) SYG SC ×2 (20:00→21:34)
[2018-04-18] MEDS: ATORVASTATIN 10 MG TAB PO (20:25)
[2018-04-18] MEDS: BISACODYL (EC) 5 MG TAB PO (20:26)
[2018-04-19] MEDS: ACETAMINOPHEN 325 MG TAB PO ×2 (01:07→21:57)
[2018-04-19] MEDS: ACCU-CHEK XX (02:24)
[2018-04-19] MEDS: BUMETANIDE 1 MG TAB PO (05:55)
[2018-04-19] MEDS: INSULIN ASPART [NOVOLOG] 3 ML PEN SC ×7 (07:58→20:09)
[2018-04-19] MEDS: ENOXAPARIN 30 MG/0.3 ML SYG SC (08:44)
[2018-04-19] MEDS: LOSARTAN 25 MG TAB PO (08:46)
[2018-04-19] MEDS: CLOPIDOGREL 75 MG TAB PO (08:46)
[2018-04-19] MEDS: FOLIC ACID 1 MG TAB PO (08:46)
[2018-04-19] MEDS: FERROUS SULFATE (EC) 325 MG TAB PO ×2 (08:46→20:09)
[2018-04-19] MEDS: MULTIVITAMINS/MINERALS TAB PO (08:46)
[2018-04-19] MEDS: ASPIRIN (EC) 81 MG TAB PO (08:46)
[2018-04-19] MEDS: GABAPENTIN 100 MG CAP PO ×2 (08:46→20:09)
[2018-04-19] MEDS: THIAMINE 100 MG TAB PO (08:47)
[2018-04-19] MEDS: ASCORBIC ACID 500 MG TAB PO (08:47)
[2018-04-19] MEDS: NYSTATIN 30 GM POWDER BTL TOP ×2 (08:48→21:56)
[2018-04-19] MEDS: LIDOCAINE 5% PATCH TD (08:48)
[2018-04-19] MEDS: DOCUSATE SODIUM 100 MG CAP PO ×2 (08:53→20:21)
[2018-04-19] MEDS: INSULIN GLARGINE [LANTus] (100 UNITS/ML) SYG SC ×3 (20:00→22:07)
[2018-04-19] MEDS: BISACODYL (EC) 5 MG TAB PO (20:08)
[2018-04-19] MEDS: ATORVASTATIN 10 MG TAB PO (21:46)
[2018-04-20] MEDS: ACCU-CHEK XX (02:00)
[2018-04-20] MEDS: BUMETANIDE 1 MG TAB PO (06:30)
[2018-04-20] MEDS: INSULIN ASPART [NOVOLOG] 3 ML PEN SC ×7 (08:00→20:54)
[2018-04-20] MEDS: FOLIC ACID 1 MG TAB PO (08:31)
[2018-04-20] MEDS: ASPIRIN (EC) 81 MG TAB PO (08:33)
[2018-04-20] MEDS: CLOPIDOGREL 75 MG TAB PO (08:33)
[2018-04-20] MEDS: GABAPENTIN 100 MG CAP PO ×2 (08:33→20:51)
[2018-04-20] MEDS: FERROUS SULFATE (EC) 325 MG TAB PO ×2 (08:34→20:53)
[2018-04-20] MEDS: MULTIVITAMINS/MINERALS TAB PO (08:34)
[2018-04-20] MEDS: ASCORBIC ACID 500 MG TAB PO (08:34)
[2018-04-20] MEDS: LOSARTAN 25 MG TAB PO (08:34)
[2018-04-20] MEDS: THIAMINE 100 MG TAB PO (08:35)
[2018-04-20] MEDS: LIDOCAINE 5% PATCH TD (08:37)
[2018-04-20] MEDS: ENOXAPARIN 30 MG/0.3 ML SYG SC (08:40)
[2018-04-20] MEDS: DOCUSATE SODIUM 100 MG CAP PO ×2 (08:41→20:55)
[2018-04-20] MEDS: NYSTATIN 30 GM POWDER BTL TOP ×2 (08:42→20:58)
[2018-04-20] MEDS: BISACODYL (EC) 5 MG TAB PO (20:30)
[2018-04-20] MEDS: INSULIN GLARGINE [LANTus] (100 UNITS/ML) SYG SC (20:50)
[2018-04-20] MEDS: ATORVASTATIN 10 MG TAB PO (20:53)
[2018-04-20] MEDS: ACETAMINOPHEN 325 MG TAB PO (22:51)
[2018-04-21] MEDS: ACCU-CHEK XX (02:00)
[2018-04-21] MEDS: BUMETANIDE 1 MG TAB PO (06:39)
[2018-04-21] MEDS: INSULIN ASPART [NOVOLOG] 3 ML PEN SC ×7 (08:00→20:59)
[2018-04-21] MEDS: ENOXAPARIN 30 MG/0.3 ML SYG SC (08:23)
[2018-04-21] MEDS: MULTIVITAMINS/MINERALS TAB PO (08:24)
[2018-04-21] MEDS: FOLIC ACID 1 MG TAB PO (08:24)
[2018-04-21] MEDS: ASCORBIC ACID 500 MG TAB PO (08:24)
[2018-04-21] MEDS: CLOPIDOGREL 75 MG TAB PO (08:24)
[2018-04-21] MEDS: GABAPENTIN 100 MG CAP PO ×2 (08:24→20:57)
[2018-04-21] MEDS: ASPIRIN (EC) 81 MG TAB PO (08:24)
[2018-04-21] MEDS: FERROUS SULFATE (EC) 325 MG TAB PO ×2 (08:24→20:58)
[2018-04-21] MEDS: DOCUSATE SODIUM 100 MG CAP PO ×2 (08:25→20:57)
[2018-04-21] MEDS: LOSARTAN 25 MG TAB PO (08:25)
[2018-04-21] MEDS: THIAMINE 100 MG TAB PO (08:25)
[2018-04-21] MEDS: NYSTATIN 30 GM POWDER BTL TOP ×2 (08:26→21:02)
[2018-04-21] MEDS: LIDOCAINE 5% PATCH TD (08:26)
[2018-04-21] MEDS: BISACODYL (EC) 5 MG TAB PO (20:30)
[2018-04-21] MEDS: INSULIN GLARGINE [LANTus] (100 UNITS/ML) SYG SC (20:53)
[2018-04-21] MEDS: ATORVASTATIN 10 MG TAB PO (20:57)
[2018-04-22] MEDS: ACCU-CHEK XX (02:00)
[2018-04-22] MEDS: BUMETANIDE 1 MG TAB PO (05:50)
[2018-04-22 05:51] LABS: ADD MAN DIFF? NO
[2018-04-22 05:57] LABS: WHITE BLOOD COUNT 11.8 10^3/ul (4.8-10.8)
[2018-04-22 05:57] LABS: BASOPHIL # 0.1 10^3/ul (0.0-0.1); BASOPHILS % 0.4 % (0.0-2.0); EOSINOPHILS # 0.3 10^3/ul (0.0-0.5); EOSINOPHILS % 2.8 % (0.0-7.0); HEMATOCRIT 43.7 % (37.0-47.0); HEMOGLOBIN 13.6 g/dl (12.0-16.0); LYMPHOCYTES # 3.4 10^3/ul (0.8-2.9); LYMPHOCYTES % 29.1 % (15.0-51.0); MEAN CORPUSCULAR HGB CONC 31.1 g/dl (32.0-37.0); MEAN CORPUSCULAR VOLUME 96.3 fl (82.0-101.0); MEAN PLATELET VOLUME 9.6 fl (7.4-10.4); MONOCYTE # 0.7 10^3/ul (0.3-0.9); MONOCYTES % 6.2 % (0.0-11.0); NEUTROPHIL # 7.2 10^3/ul (1.6-7.5); NEUTROPHILS % 61.1 % (39.0-77.0); PLATELET COUNT 345 10^3/UL (140-415); RED BLOOD COUNT 4.54 10^6/ul (4.20-5.40); RED CELL DISTRIBUTION WIDTH 18.2 % (11.5-14.5)
[2018-04-22 06:25] LABS: ANION GAP 11 (8-16); BLOOD UREA NITROGEN 28 mg/dl (7-20); CALCIUM 8.7 mg/dl (8.4-10.2); CARBON DIOXIDE 38 mmol/L (21-31); CHLORIDE 92 mmol/L (97-110); CREATININE 0.67 mg/dl (0.44-1.00); GLUCOSE 94 mg/dl (70-220); POTASSIUM 4.7 mmol/L (3.5-5.1); SODIUM 136 mmol/L (135-144)
[2018-04-22] MEDS: INSULIN ASPART [NOVOLOG] 3 ML PEN SC ×7 (09:00→21:00)
[2018-04-22] MEDS: DOCUSATE SODIUM 100 MG CAP PO ×2 (09:00→21:00)
[2018-04-22] MEDS: ENOXAPARIN 30 MG/0.3 ML SYG SC (09:03)
[2018-04-22] MEDS: ASPIRIN (EC) 81 MG TAB PO (09:04)
[2018-04-22] MEDS: LOSARTAN 25 MG TAB PO (09:04)
[2018-04-22] MEDS: FOLIC ACID 1 MG TAB PO (09:04)
[2018-04-22] MEDS: FERROUS SULFATE (EC) 325 MG TAB PO ×2 (09:04→21:44)
[2018-04-22] MEDS: MULTIVITAMINS/MINERALS TAB PO (09:05)
[2018-04-22] MEDS: CLOPIDOGREL 75 MG TAB PO (09:05)
[2018-04-22] MEDS: THIAMINE 100 MG TAB PO (09:05)
[2018-04-22] MEDS: LIDOCAINE 5% PATCH TD (09:05)
[2018-04-22] MEDS: ASCORBIC ACID 500 MG TAB PO (09:05)
[2018-04-22] MEDS: GABAPENTIN 100 MG CAP PO ×2 (09:05→21:42)
[2018-04-22] MEDS: NYSTATIN 30 GM POWDER BTL TOP ×2 (09:06→22:11)
[2018-04-22] MEDS: INSULIN GLARGINE [LANTus] (100 UNITS/ML) SYG SC ×3 (20:00→22:09)
[2018-04-22] MEDS: BISACODYL (EC) 5 MG TAB PO (20:30)
[2018-04-22] MEDS: ATORVASTATIN 10 MG TAB PO (21:42)
[2018-04-22] MEDS: ACETAMINOPHEN 325 MG TAB PO (21:42)
[2018-04-23] MEDS: ACCU-CHEK XX (02:00)
[2018-04-23 06:00] LABS: ADD MAN DIFF? NO
[2018-04-23 06:08] LABS: BASOPHILS % 0.3 % (0.0-2.0); EOSINOPHILS # 0.2 10^3/ul (0.0-0.5); EOSINOPHILS % 2.3 % (0.0-7.0); HEMATOCRIT 39.6 % (37.0-47.0); HEMOGLOBIN 12.2 g/dl (12.0-16.0); LYMPHOCYTES # 2.7 10^3/ul (0.8-2.9); LYMPHOCYTES % 28.7 % (15.0-51.0); MEAN CORPUSCULAR HEMOGLOBIN 29.9 pg (29.0-33.0); MEAN CORPUSCULAR HGB CONC 30.8 g/dl (32.0-37.0); MEAN CORPUSCULAR VOLUME 97.1 fl (82.0-101.0); MEAN PLATELET VOLUME 9.4 fl (7.4-10.4); MONOCYTE # 0.8 10^3/ul (0.3-0.9); MONOCYTES % 8.1 % (0.0-11.0); NEUTROPHIL # 5.6 10^3/ul (1.6-7.5); NEUTROPHILS % 60.3 % (39.0-77.0); PLATELET COUNT 265 10^3/UL (140-415); RED BLOOD COUNT 4.08 10^6/ul (4.20-5.40); RED CELL DISTRIBUTION WIDTH 17.8 % (11.5-14.5)
[2018-04-23 06:08] LABS: WHITE BLOOD COUNT 9.2 10^3/ul (4.8-10.8)
[2018-04-23 07:00] LABS: ANION GAP 10 (8-16); BLOOD UREA NITROGEN 25 mg/dl (7-20); CALCIUM 8.4 mg/dl (8.4-10.2); CARBON DIOXIDE 37 mmol/L (21-31); CHLORIDE 94 mmol/L (97-110); CREATININE 0.63 mg/dl (0.44-1.00); GLUCOSE 106 mg/dl (70-220); POTASSIUM 4.2 mmol/L (3.5-5.1); SODIUM 137 mmol/L (135-144)
[2018-04-23] MEDS: BUMETANIDE 1 MG TAB PO (07:01)
[2018-04-23] MEDS: INSULIN ASPART [NOVOLOG] 3 ML PEN SC ×7 (07:57→20:44)
[2018-04-23] MEDS: ASPIRIN (EC) 81 MG TAB PO (08:31)
[2018-04-23] MEDS: THIAMINE 100 MG TAB PO (08:32)
[2018-04-23] MEDS: LOSARTAN 25 MG TAB PO (08:32)
[2018-04-23] MEDS: ASCORBIC ACID 500 MG TAB PO (08:32)
[2018-04-23] MEDS: FERROUS SULFATE (EC) 325 MG TAB PO ×2 (08:32→20:42)
[2018-04-23] MEDS: CLOPIDOGREL 75 MG TAB PO (08:32)
[2018-04-23] MEDS: MULTIVITAMINS/MINERALS TAB PO (08:32)
[2018-04-23] MEDS: GABAPENTIN 100 MG CAP PO ×2 (08:33→20:41)
[2018-04-23] MEDS: FOLIC ACID 1 MG TAB PO (08:33)
[2018-04-23] MEDS: DOCUSATE SODIUM 100 MG CAP PO ×2 (08:38→20:56)
[2018-04-23] MEDS: ENOXAPARIN 30 MG/0.3 ML SYG SC (08:39)
[2018-04-23] MEDS: LIDOCAINE 5% PATCH TD (08:39)
[2018-04-23] MEDS: NYSTATIN 30 GM POWDER BTL TOP ×2 (08:40→20:55)
[2018-04-23] MEDS: BISACODYL (EC) 5 MG TAB PO (20:30)
[2018-04-23] MEDS: ATORVASTATIN 10 MG TAB PO (20:40)
[2018-04-23] MEDS: ACETAMINOPHEN 325 MG TAB PO (20:42)
[2018-04-23] MEDS: INSULIN GLARGINE [LANTus] (100 UNITS/ML) SYG SC (20:45)
[2018-04-24] MEDS: ACCU-CHEK XX (02:00)
[2018-04-24 06:14] LABS: ADD MAN DIFF? NO
[2018-04-24 06:31] LABS: BASOPHIL # 0.1 10^3/ul (0.0-0.1); BASOPHILS % 0.5 % (0.0-2.0); EOSINOPHILS # 0.2 10^3/ul (0.0-0.5); EOSINOPHILS % 1.9 % (0.0-7.0); HEMATOCRIT 39.8 % (37.0-47.0); HEMOGLOBIN 12.2 g/dl (12.0-16.0); LYMPHOCYTES # 2.5 10^3/ul (0.8-2.9); LYMPHOCYTES % 26.6 % (15.0-51.0); MEAN CORPUSCULAR HEMOGLOBIN 29.8 pg (29.0-33.0); MEAN CORPUSCULAR HGB CONC 30.7 g/dl (32.0-37.0); MEAN CORPUSCULAR VOLUME 97.1 fl (82.0-101.0); MEAN PLATELET VOLUME 9.4 fl (7.4-10.4); MONOCYTE # 0.6 10^3/ul (0.3-0.9); MONOCYTES % 6.5 % (0.0-11.0); PLATELET COUNT 251 10^3/UL (140-415); RED CELL DISTRIBUTION WIDTH 17.7 % (11.5-14.5)
[2018-04-24 06:31] LABS: WHITE BLOOD COUNT 9.4 10^3/ul (4.8-10.8)
[2018-04-24] MEDS: BUMETANIDE 1 MG TAB PO (06:36)
[2018-04-24 07:00] LABS: ANION GAP 12 (8-16); BLOOD UREA NITROGEN 27 mg/dl (7-20); CALCIUM 8.6 mg/dl (8.4-10.2); CARBON DIOXIDE 39 mmol/L (21-31); CHLORIDE 91 mmol/L (97-110); CREATININE 0.63 mg/dl (0.44-1.00); GLUCOSE 94 mg/dl (70-220); POTASSIUM 4.5 mmol/L (3.5-5.1); SODIUM 137 mmol/L (135-144)
[2018-04-24] MEDS: INSULIN ASPART [NOVOLOG] 3 ML PEN SC ×7 (07:35→20:45)
[2018-04-24] MEDS: ASCORBIC ACID 500 MG TAB PO (08:11)
[2018-04-24] MEDS: ENOXAPARIN 30 MG/0.3 ML SYG SC (08:11)
[2018-04-24] MEDS: GABAPENTIN 100 MG CAP PO ×2 (08:11→20:44)
[2018-04-24] MEDS: THIAMINE 100 MG TAB PO (08:12)
[2018-04-24] MEDS: CLOPIDOGREL 75 MG TAB PO (08:12)
[2018-04-24] MEDS: LOSARTAN 25 MG TAB PO (08:12)
[2018-04-24] MEDS: DOCUSATE SODIUM 100 MG CAP PO ×2 (08:12→20:35)
[2018-04-24] MEDS: FOLIC ACID 1 MG TAB PO (08:12)
[2018-04-24] MEDS: ASPIRIN (EC) 81 MG TAB PO (08:12)
[2018-04-24] MEDS: MULTIVITAMINS/MINERALS TAB PO (08:12)
[2018-04-24] MEDS: FERROUS SULFATE (EC) 325 MG TAB PO ×2 (08:12→20:44)
[2018-04-24] MEDS: LIDOCAINE 5% PATCH TD ×2 (08:13→09:00)
[2018-04-24] MEDS: NYSTATIN 30 GM POWDER BTL TOP ×2 (08:19→20:45)
[2018-04-24] MEDS: BISACODYL (EC) 5 MG TAB PO (20:30)
[2018-04-24] MEDS: INSULIN GLARGINE [LANTus] (100 UNITS/ML) SYG SC (20:43)
[2018-04-24] MEDS: ATORVASTATIN 10 MG TAB PO (20:44)
[2018-04-25] MEDS: ACCU-CHEK XX (01:36)
[2018-04-25] MEDS: ACETAMINOPHEN 325 MG TAB PO ×2 (01:50→01:51)
[2018-04-25] MEDS: BUMETANIDE 1 MG TAB PO (06:00)
[2018-04-25] MEDS: INSULIN ASPART [NOVOLOG] 3 ML PEN SC ×7 (08:07→20:57)
[2018-04-25] MEDS: ENOXAPARIN 30 MG/0.3 ML SYG SC (09:00)
[2018-04-25] MEDS: LIDOCAINE 5% PATCH TD ×3 (09:00→09:35)
[2018-04-25] MEDS: MULTIVITAMINS/MINERALS TAB PO (09:19)
[2018-04-25] MEDS: FOLIC ACID 1 MG TAB PO (09:19)
[2018-04-25] MEDS: ASPIRIN (EC) 81 MG TAB PO (09:19)
[2018-04-25] MEDS: DOCUSATE SODIUM 100 MG CAP PO ×2 (09:19→20:55)
[2018-04-25] MEDS: FERROUS SULFATE (EC) 325 MG TAB PO ×2 (09:19→21:00)
[2018-04-25] MEDS: ASCORBIC ACID 500 MG TAB PO (09:20)
[2018-04-25] MEDS: GABAPENTIN 100 MG CAP PO ×2 (09:20→20:59)
[2018-04-25] MEDS: LOSARTAN 25 MG TAB PO (09:20)
[2018-04-25] MEDS: CLOPIDOGREL 75 MG TAB PO (09:20)
[2018-04-25] MEDS: NYSTATIN 30 GM POWDER BTL TOP ×2 (09:22→22:09)
[2018-04-25] MEDS: THIAMINE 100 MG TAB PO (09:22)
[2018-04-25] MEDS: INSULIN GLARGINE [LANTus] (100 UNITS/ML) SYG SC ×2 (20:00→22:05)
[2018-04-25] MEDS: BISACODYL (EC) 5 MG TAB PO (20:30)
[2018-04-25] MEDS: ATORVASTATIN 10 MG TAB PO (21:00)
[2018-04-26] MEDS: ACCU-CHEK XX (02:00)
[2018-04-26] MEDS: INSULIN ASPART [NOVOLOG] 3 ML PEN SC ×7 (08:00→20:57)
[2018-04-26] MEDS: ENOXAPARIN 30 MG/0.3 ML SYG SC (08:03)
[2018-04-26] MEDS: CLOPIDOGREL 75 MG TAB PO (08:05)
[2018-04-26] MEDS: ASCORBIC ACID 500 MG TAB PO (08:05)
[2018-04-26] MEDS: GABAPENTIN 100 MG CAP PO ×2 (08:05→20:44)
[2018-04-26] MEDS: THIAMINE 100 MG TAB PO (08:05)
[2018-04-26] MEDS: FOLIC ACID 1 MG TAB PO (08:05)
[2018-04-26] MEDS: FERROUS SULFATE (EC) 325 MG TAB PO ×2 (08:05→20:44)
[2018-04-26] MEDS: MULTIVITAMINS/MINERALS TAB PO (08:05)
[2018-04-26] MEDS: DOCUSATE SODIUM 100 MG CAP PO ×2 (08:05→20:50)
[2018-04-26] MEDS: ASPIRIN (EC) 81 MG TAB PO (08:05)
[2018-04-26] MEDS: BUMETANIDE 1 MG TAB PO (08:06)
[2018-04-26] MEDS: LOSARTAN 25 MG TAB PO (08:06)
[2018-04-26] MEDS: NYSTATIN 30 GM POWDER BTL TOP ×2 (08:07→20:46)
[2018-04-26] MEDS: INSULIN GLARGINE [LANTus] (100 UNITS/ML) SYG SC ×2 (20:00→20:55)
[2018-04-26] MEDS: BISACODYL (EC) 5 MG TAB PO (20:30)
[2018-04-26] MEDS: ATORVASTATIN 10 MG TAB PO (20:44)
[2018-04-27] MEDS: ACCU-CHEK XX (02:00)
[2018-04-27 05:26] LABS: ADD MAN DIFF? NO
[2018-04-27 05:29] LABS: BASOPHIL # 0.1 10^3/ul (0.0-0.1); BASOPHILS % 0.5 % (0.0-2.0); EOSINOPHILS # 0.2 10^3/ul (0.0-0.5); EOSINOPHILS % 1.7 % (0.0-7.0); HEMOGLOBIN 12.8 g/dl (12.0-16.0); LYMPHOCYTES # 3.4 10^3/ul (0.8-2.9); LYMPHOCYTES % 26.6 % (15.0-51.0); MEAN CORPUSCULAR HGB CONC 30.5 g/dl (32.0-37.0); MEAN CORPUSCULAR VOLUME 98.6 fl (82.0-101.0); MEAN PLATELET VOLUME 9.2 fl (7.4-10.4); MONOCYTE # 0.8 10^3/ul (0.3-0.9); MONOCYTES % 6.2 % (0.0-11.0); NEUTROPHIL # 8.2 10^3/ul (1.6-7.5); NEUTROPHILS % 64.4 % (39.0-77.0); PLATELET COUNT 239 10^3/UL (140-415); RED BLOOD COUNT 4.26 10^6/ul (4.20-5.40); RED CELL DISTRIBUTION WIDTH 17.3 % (11.5-14.5)
[2018-04-27 05:29] LABS: WHITE BLOOD COUNT 12.7 10^3/ul (4.8-10.8)
[2018-04-27] MEDS: BUMETANIDE 1 MG TAB PO (05:34)
[2018-04-27 06:25] LABS: ANION GAP 7 (8-16); BLOOD UREA NITROGEN 26 mg/dl (7-20); CALCIUM 8.7 mg/dl (8.4-10.2); CARBON DIOXIDE 39 mmol/L (21-31); CHLORIDE 92 mmol/L (97-110); CREATININE 0.73 mg/dl (0.44-1.00); GLUCOSE 100 mg/dl (70-220); POTASSIUM 4.5 mmol/L (3.5-5.1); SODIUM 133 mmol/L (135-144)
[2018-04-27] MEDS: INSULIN ASPART [NOVOLOG] 3 ML PEN SC ×7 (07:55→20:47)
[2018-04-27] MEDS: GABAPENTIN 100 MG CAP PO ×2 (08:13→20:47)
[2018-04-27] MEDS: FERROUS SULFATE (EC) 325 MG TAB PO ×2 (08:13→20:47)
[2018-04-27] MEDS: ASPIRIN (EC) 81 MG TAB PO (08:13)
[2018-04-27] MEDS: THIAMINE 100 MG TAB PO (08:13)
[2018-04-27] MEDS: MULTIVITAMINS/MINERALS TAB PO (08:13)
[2018-04-27] MEDS: ASCORBIC ACID 500 MG TAB PO (08:13)
[2018-04-27] MEDS: CLOPIDOGREL 75 MG TAB PO (08:13)
[2018-04-27] MEDS: LIDOCAINE 5% PATCH TD (08:13)
[2018-04-27] MEDS: FOLIC ACID 1 MG TAB PO (08:14)
[2018-04-27] MEDS: NYSTATIN 30 GM POWDER BTL TOP ×2 (08:16→20:52)
[2018-04-27] MEDS: DOCUSATE SODIUM 100 MG CAP PO ×2 (08:17→20:47)
[2018-04-27] MEDS: ENOXAPARIN 30 MG/0.3 ML SYG SC (08:19)
[2018-04-27] MEDS: LOSARTAN 25 MG TAB PO (08:21)
[2018-04-27] MEDS: CEFEPIME 1GM/50 ML (PMX) 50 ML IVPB (16:12)
[2018-04-27] MEDS: INSULIN GLARGINE [LANTus] (100 UNITS/ML) SYG SC ×2 (20:00→21:11)
[2018-04-27] MEDS: ATORVASTATIN 10 MG TAB PO (20:47)
[2018-04-27] MEDS: BISACODYL (EC) 5 MG TAB PO (20:47)
[2018-04-27] MEDS: ACETAMINOPHEN 325 MG TAB PO (21:00)
[2018-04-28] MEDS: CEFEPIME 1GM/50 ML (PMX) 50 ML IVPB ×3 (00:28→20:57)
[2018-04-28] MEDS: ACCU-CHEK XX (01:10)
[2018-04-28] MEDS: BUMETANIDE 1 MG TAB PO (05:51)
[2018-04-28 07:05] LABS: ADD MAN DIFF? NO
[2018-04-28 07:12] LABS: WHITE BLOOD COUNT 12.8 10^3/ul (4.8-10.8)
[2018-04-28 07:12] LABS: BASOPHIL # 0.1 10^3/ul (0.0-0.1); BASOPHILS % 0.5 % (0.0-2.0); EOSINOPHILS # 0.2 10^3/ul (0.0-0.5); EOSINOPHILS % 1.6 % (0.0-7.0); HEMATOCRIT 40.6 % (37.0-47.0); HEMOGLOBIN 12.4 g/dl (12.0-16.0); LYMPHOCYTES # 2.8 10^3/ul (0.8-2.9); LYMPHOCYTES % 21.5 % (15.0-51.0); MEAN CORPUSCULAR HEMOGLOBIN 29.8 pg (29.0-33.0); MEAN CORPUSCULAR HGB CONC 30.5 g/dl (32.0-37.0); MEAN CORPUSCULAR VOLUME 97.6 fl (82.0-101.0); MEAN PLATELET VOLUME 9.3 fl (7.4-10.4); MONOCYTE # 0.8 10^3/ul (0.3-0.9); MONOCYTES % 6.2 % (0.0-11.0); NEUTROPHILS % 69.7 % (39.0-77.0); PLATELET COUNT 241 10^3/UL (140-415); RED BLOOD COUNT 4.16 10^6/ul (4.20-5.40); RED CELL DISTRIBUTION WIDTH 17.2 % (11.5-14.5)
[2018-04-28 07:51] LABS: ANION GAP 8 (8-16); BLOOD UREA NITROGEN 27 mg/dl (7-20); CALCIUM 8.5 mg/dl (8.4-10.2); CARBON DIOXIDE 38 mmol/L (21-31); CHLORIDE 94 mmol/L (97-110); CREATININE 0.67 mg/dl (0.44-1.00); GLUCOSE 111 mg/dl (70-220); POTASSIUM 4.3 mmol/L (3.5-5.1); SODIUM 136 mmol/L (135-144)
[2018-04-28] MEDS: INSULIN ASPART [NOVOLOG] 3 ML PEN SC ×7 (08:33→21:00)
[2018-04-28] MEDS: LIDOCAINE 5% PATCH TD (08:34)
[2018-04-28] MEDS: ENOXAPARIN 30 MG/0.3 ML SYG SC (08:34)
[2018-04-28] MEDS: CLOPIDOGREL 75 MG TAB PO (08:35)
[2018-04-28] MEDS: THIAMINE 100 MG TAB PO (08:35)
[2018-04-28] MEDS: ASCORBIC ACID 500 MG TAB PO (08:35)
[2018-04-28] MEDS: FERROUS SULFATE (EC) 325 MG TAB PO ×2 (08:35→20:58)
[2018-04-28] MEDS: GABAPENTIN 100 MG CAP PO ×2 (08:35→20:58)
[2018-04-28] MEDS: LOSARTAN 25 MG TAB PO (08:35)
[2018-04-28] MEDS: ASPIRIN (EC) 81 MG TAB PO (08:35)
[2018-04-28] MEDS: MULTIVITAMINS/MINERALS TAB PO (08:35)
[2018-04-28] MEDS: FOLIC ACID 1 MG TAB PO (08:35)
[2018-04-28] MEDS: NYSTATIN 30 GM POWDER BTL TOP ×2 (08:36→20:58)
[2018-04-28] MEDS: DOCUSATE SODIUM 100 MG CAP PO ×2 (08:36→20:57)
[2018-04-28] MEDS: BISACODYL (EC) 5 MG TAB PO (20:16)
[2018-04-28] MEDS: ATORVASTATIN 10 MG TAB PO (20:57)
[2018-04-29] MEDS: ACCU-CHEK XX (01:54)
[2018-04-29 05:49] LABS: ADD MAN DIFF? NO
[2018-04-29 06:04] LABS: BASOPHIL # 0.1 10^3/ul (0.0-0.1); BASOPHILS % 0.5 % (0.0-2.0); EOSINOPHILS # 0.2 10^3/ul (0.0-0.5); EOSINOPHILS % 1.5 % (0.0-7.0); HEMATOCRIT 42.7 % (37.0-47.0); HEMOGLOBIN 12.8 g/dl (12.0-16.0); LYMPHOCYTES % 30.7 % (15.0-51.0); MEAN CORPUSCULAR VOLUME 100.2 fl (82.0-101.0); MEAN PLATELET VOLUME 9.4 fl (7.4-10.4); MONOCYTE # 0.8 10^3/ul (0.3-0.9); MONOCYTES % 6.4 % (0.0-11.0); NEUTROPHIL # 7.8 10^3/ul (1.6-7.5); NEUTROPHILS % 60.3 % (39.0-77.0); PLATELET COUNT 248 10^3/UL (140-415); RED BLOOD COUNT 4.26 10^6/ul (4.20-5.40); RED CELL DISTRIBUTION WIDTH 17.1 % (11.5-14.5)
[2018-04-29] MEDS: BUMETANIDE 1 MG TAB PO (06:15)
[2018-04-29 06:26] LABS: ANION GAP 10 (8-16); BLOOD UREA NITROGEN 26 mg/dl (7-20); CALCIUM 8.3 mg/dl (8.4-10.2); CARBON DIOXIDE 36 mmol/L (21-31); CHLORIDE 93 mmol/L (97-110); CREATININE 0.66 mg/dl (0.44-1.00); GLUCOSE 117 mg/dl (70-220); POTASSIUM 4.1 mmol/L (3.5-5.1); SODIUM 135 mmol/L (135-144)
[2018-04-29] MEDS: INSULIN ASPART [NOVOLOG] 3 ML PEN SC ×7 (08:00→21:00)
[2018-04-29] MEDS: GABAPENTIN 100 MG CAP PO ×2 (08:18→21:02)
[2018-04-29] MEDS: MULTIVITAMINS/MINERALS TAB PO (08:18)
[2018-04-29] MEDS: ASCORBIC ACID 500 MG TAB PO (08:18)
[2018-04-29] MEDS: ASPIRIN (EC) 81 MG TAB PO (08:18)
[2018-04-29] MEDS: CEFEPIME 1GM/50 ML (PMX) 50 ML IVPB (08:18)
[2018-04-29] MEDS: FERROUS SULFATE (EC) 325 MG TAB PO ×2 (08:18→21:04)
[2018-04-29] MEDS: NYSTATIN 30 GM POWDER BTL TOP ×2 (08:19→21:11)
[2018-04-29] MEDS: CLOPIDOGREL 75 MG TAB PO (08:19)
[2018-04-29] MEDS: FOLIC ACID 1 MG TAB PO (08:19)
[2018-04-29] MEDS: THIAMINE 100 MG TAB PO (08:19)
[2018-04-29] MEDS: DOCUSATE SODIUM 100 MG CAP PO ×2 (08:19→21:00)
[2018-04-29] MEDS: ENOXAPARIN 30 MG/0.3 ML SYG SC (08:26)
[2018-04-29] MEDS: LIDOCAINE 5% PATCH TD (08:28)
[2018-04-29] MEDS: LOSARTAN 25 MG TAB PO (09:00)
[2018-04-29] MEDS: INSULIN GLARGINE [LANTus] (100 UNITS/ML) SYG SC (20:11)
[2018-04-29] MEDS: BISACODYL (EC) 5 MG TAB PO (20:13)
[2018-04-29] MEDS: ATORVASTATIN 10 MG TAB PO (21:04)
[2018-04-30] MEDS: ACCU-CHEK XX (02:00)
[2018-04-30] MEDS: BUMETANIDE 1 MG TAB PO (06:19)
[2018-04-30] MEDS: INSULIN ASPART [NOVOLOG] 3 ML PEN SC ×7 (08:00→20:19)
[2018-04-30] MEDS: ENOXAPARIN 30 MG/0.3 ML SYG SC (08:34)
[2018-04-30] MEDS: ASPIRIN (EC) 81 MG TAB PO (08:35)
[2018-04-30] MEDS: FOLIC ACID 1 MG TAB PO (08:35)
[2018-04-30] MEDS: GABAPENTIN 100 MG CAP PO ×2 (08:35→20:20)
[2018-04-30] MEDS: MULTIVITAMINS/MINERALS TAB PO (08:35)
[2018-04-30] MEDS: ASCORBIC ACID 500 MG TAB PO (08:35)
[2018-04-30] MEDS: FERROUS SULFATE (EC) 325 MG TAB PO ×2 (08:35→20:21)
[2018-04-30] MEDS: CLOPIDOGREL 75 MG TAB PO (08:35)
[2018-04-30] MEDS: LIDOCAINE 5% PATCH TD ×2 (08:38→08:49)
[2018-04-30] MEDS: NYSTATIN 30 GM POWDER BTL TOP ×2 (08:39→20:20)
[2018-04-30] MEDS: THIAMINE 100 MG TAB PO (08:42)
[2018-04-30] MEDS: DOCUSATE SODIUM 100 MG CAP PO ×2 (09:00→20:22)
[2018-04-30] MEDS: LOSARTAN 25 MG TAB PO (09:00)
[2018-04-30] MEDS: FOSFOMYCIN 3 GM PACKET PO (17:08)
[2018-04-30] MEDS: INSULIN GLARGINE [LANTus] (100 UNITS/ML) SYG SC (20:19)
[2018-04-30] MEDS: ZYVOX 600 MG TAB PO (20:20)
[2018-04-30] MEDS: ATORVASTATIN 10 MG TAB PO (20:21)
[2018-04-30] MEDS: BISACODYL (EC) 5 MG TAB PO (20:22)
[2018-05-01] MEDS: ACCU-CHEK XX (02:00)
[2018-05-01] MEDS: BUMETANIDE 1 MG TAB PO (05:58)
[2018-05-01 06:50] LABS: ALANINE AMINOTRANSFERASE 21 IU/L (13-69); ALBUMIN 2.6 g/dl (3.3-4.9); ALBUMIN/GLOBULIN RATIO 0.81; ALKALINE PHOSPHATASE 178 IU/L (42-121); ANION GAP 7 (8-16); ASPARTATE AMINO TRANSFERASE 30 IU/L (15-46); BILIRUBIN,INDIRECT 0.5 mg/dl (0-1.1); BILIRUBIN,TOTAL 0.5 mg/dl (0.2-1.3); BLOOD UREA NITROGEN 23 mg/dl (7-20); CALCIUM 8.2 mg/dl (8.4-10.2); CARBON DIOXIDE 39 mmol/L (21-31); CHLORIDE 95 mmol/L (97-110); CREATININE 0.61 mg/dl (0.44-1.00); GLUCOSE 114 mg/dl (70-220); POTASSIUM 3.8 mmol/L (3.5-5.1); SODIUM 137 mmol/L (135-144); TOTAL PROTEIN 5.8 g/dl (6.1-8.1)
[2018-05-01] MEDS: INSULIN ASPART [NOVOLOG] 3 ML PEN SC ×7 (08:00→20:11)
[2018-05-01] MEDS: ZYVOX 600 MG TAB PO ×2 (08:10→20:11)
[2018-05-01] MEDS: FERROUS SULFATE (EC) 325 MG TAB PO ×2 (08:10→20:10)
[2018-05-01] MEDS: CLOPIDOGREL 75 MG TAB PO (08:10)
[2018-05-01] MEDS: ASCORBIC ACID 500 MG TAB PO (08:10)
[2018-05-01] MEDS: MULTIVITAMINS/MINERALS TAB PO (08:10)
[2018-05-01] MEDS: GABAPENTIN 100 MG CAP PO ×2 (08:10→20:10)
[2018-05-01] MEDS: ENOXAPARIN 30 MG/0.3 ML SYG SC (08:10)
[2018-05-01] MEDS: THIAMINE 100 MG TAB PO (08:11)
[2018-05-01] MEDS: ASPIRIN (EC) 81 MG TAB PO (08:11)
[2018-05-01] MEDS: LIDOCAINE 5% PATCH TD (08:11)
[2018-05-01] MEDS: DOCUSATE SODIUM 100 MG CAP PO ×2 (08:11→20:07)
[2018-05-01] MEDS: FOLIC ACID 1 MG TAB PO (08:11)
[2018-05-01] MEDS: NYSTATIN 30 GM POWDER BTL TOP ×2 (08:11→20:12)
[2018-05-01] MEDS: LOSARTAN 25 MG TAB PO (08:20)
[2018-05-01] MEDS: BISACODYL (EC) 5 MG TAB PO (20:07)
[2018-05-01] MEDS: ATORVASTATIN 10 MG TAB PO (20:11)
[2018-05-01] MEDS: INSULIN GLARGINE [LANTus] (100 UNITS/ML) SYG SC (20:15)
[2018-05-02] MEDS: ACCU-CHEK XX (02:00)
[2018-05-02 05:52] LABS: ALANINE AMINOTRANSFERASE 19 IU/L (13-69); ALBUMIN 2.5 g/dl (3.3-4.9); ALBUMIN/GLOBULIN RATIO 0.78; ALKALINE PHOSPHATASE 165 IU/L (42-121); ASPARTATE AMINO TRANSFERASE 29 IU/L (15-46); BILIRUBIN,INDIRECT 0.5 mg/dl (0-1.1); BILIRUBIN,TOTAL 0.5 mg/dl (0.2-1.3); BLOOD UREA NITROGEN 17 mg/dl (7-20); CALCIUM 8.2 mg/dl (8.4-10.2); CHLORIDE 95 mmol/L (97-110); CREATININE 0.53 mg/dl (0.44-1.00); GLUCOSE 121 mg/dl (70-220); POTASSIUM 3.7 mmol/L (3.5-5.1); SODIUM 137 mmol/L (135-144); TOTAL PROTEIN 5.7 g/dl (6.1-8.1)
[2018-05-02 06:02] LABS: ANION GAP 6 (8-16)
[2018-05-02] MEDS: BUMETANIDE 1 MG TAB PO (06:05)
[2018-05-02 06:06] LABS: CARBON DIOXIDE 40 mmol/L (21-31)
[2018-05-02] MEDS: INSULIN ASPART [NOVOLOG] 3 ML PEN SC ×7 (08:03→20:23)
[2018-05-02] MEDS: ENOXAPARIN 30 MG/0.3 ML SYG SC (08:04)
[2018-05-02] MEDS: THIAMINE 100 MG TAB PO (08:06)
[2018-05-02] MEDS: MULTIVITAMINS/MINERALS TAB PO (08:06)
[2018-05-02] MEDS: FOLIC ACID 1 MG TAB PO (08:06)
[2018-05-02] MEDS: ASCORBIC ACID 500 MG TAB PO (08:06)
[2018-05-02] MEDS: ASPIRIN (EC) 81 MG TAB PO (08:06)
[2018-05-02] MEDS: FERROUS SULFATE (EC) 325 MG TAB PO ×2 (08:06→21:17)
[2018-05-02] MEDS: CLOPIDOGREL 75 MG TAB PO (08:06)
[2018-05-02] MEDS: ZYVOX 600 MG TAB PO ×2 (08:06→21:18)
[2018-05-02] MEDS: GABAPENTIN 100 MG CAP PO ×2 (08:06→21:18)
[2018-05-02] MEDS: LOSARTAN 25 MG TAB PO (08:10)
[2018-05-02] MEDS: LIDOCAINE 5% PATCH TD (08:11)
[2018-05-02] MEDS: DOCUSATE SODIUM 100 MG CAP PO ×2 (08:11→21:00)
[2018-05-02] MEDS: NYSTATIN 30 GM POWDER BTL TOP ×2 (08:11→21:19)
[2018-05-02] MEDS: INSULIN GLARGINE [LANTus] (100 UNITS/ML) SYG SC (20:25)
[2018-05-02] MEDS: BISACODYL (EC) 5 MG TAB PO (20:30)
[2018-05-02] MEDS: ATORVASTATIN 10 MG TAB PO (21:18)
[2018-05-03] MEDS: ACCU-CHEK XX (02:00)
[2018-05-03] MEDS: BUMETANIDE 1 MG TAB PO (06:01)
[2018-05-03 06:40] LABS: ALANINE AMINOTRANSFERASE 27 IU/L (13-69); ALBUMIN 2.5 g/dl (3.3-4.9); ALBUMIN/GLOBULIN RATIO 0.71; ALKALINE PHOSPHATASE 162 IU/L (42-121); ANION GAP 9 (8-16); ASPARTATE AMINO TRANSFERASE 32 IU/L (15-46); BILIRUBIN,INDIRECT 0.4 mg/dl (0-1.1); BILIRUBIN,TOTAL 0.4 mg/dl (0.2-1.3); BLOOD UREA NITROGEN 14 mg/dl (7-20); CALCIUM 8.2 mg/dl (8.4-10.2); CARBON DIOXIDE 39 mmol/L (21-31); CHLORIDE 93 mmol/L (97-110); CREATININE 0.52 mg/dl (0.44-1.00); GLUCOSE 105 mg/dl (70-220); POTASSIUM 3.6 mmol/L (3.5-5.1); SODIUM 137 mmol/L (135-144)
[2018-05-03] MEDS: INSULIN ASPART [NOVOLOG] 3 ML PEN SC ×7 (08:00→20:55)
[2018-05-03] MEDS: CLOPIDOGREL 75 MG TAB PO (08:06)
[2018-05-03] MEDS: ASCORBIC ACID 500 MG TAB PO (08:06)
[2018-05-03] MEDS: FOLIC ACID 1 MG TAB PO (08:06)
[2018-05-03] MEDS: ZYVOX 600 MG TAB PO ×2 (08:06→20:55)
[2018-05-03] MEDS: MULTIVITAMINS/MINERALS TAB PO (08:06)
[2018-05-03] MEDS: GABAPENTIN 100 MG CAP PO ×2 (08:06→20:55)
[2018-05-03] MEDS: FERROUS SULFATE (EC) 325 MG TAB PO ×2 (08:06→20:55)
[2018-05-03] MEDS: THIAMINE 100 MG TAB PO (08:06)
[2018-05-03] MEDS: ASPIRIN (EC) 81 MG TAB PO (08:06)
[2018-05-03] MEDS: ENOXAPARIN 30 MG/0.3 ML SYG SC (08:06)
[2018-05-03] MEDS: DOCUSATE SODIUM 100 MG CAP PO ×2 (08:07→20:40)
[2018-05-03] MEDS: LOSARTAN 25 MG TAB PO (08:07)
[2018-05-03] MEDS: LIDOCAINE 5% PATCH TD (08:08)
[2018-05-03] MEDS: NYSTATIN 30 GM POWDER BTL TOP ×2 (08:08→20:57)
[2018-05-03 11:29] LABS: ADD MAN DIFF? NO
[2018-05-03 11:32] LABS: WHITE BLOOD COUNT 8.4 10^3/ul (4.8-10.8)
[2018-05-03 11:32] LABS: BASOPHILS % 0.5 % (0.0-2.0); EOSINOPHILS # 0.1 10^3/ul (0.0-0.5); EOSINOPHILS % 1.6 % (0.0-7.0); HEMATOCRIT 39.8 % (37.0-47.0); LYMPHOCYTES % 23.7 % (15.0-51.0); MEAN CORPUSCULAR HEMOGLOBIN 29.6 pg (29.0-33.0); MEAN CORPUSCULAR HGB CONC 30.2 g/dl (32.0-37.0); MEAN CORPUSCULAR VOLUME 98.3 fl (82.0-101.0); MEAN PLATELET VOLUME 9.2 fl (7.4-10.4); MONOCYTE # 0.5 10^3/ul (0.3-0.9); MONOCYTES % 5.6 % (0.0-11.0); NEUTROPHIL # 5.7 10^3/ul (1.6-7.5); PLATELET COUNT 190 10^3/UL (140-415); RED BLOOD COUNT 4.05 10^6/ul (4.20-5.40); RED CELL DISTRIBUTION WIDTH 16.9 % (11.5-14.5)
[2018-05-03 11:56] LABS: ANION GAP 7 (8-16); BLOOD UREA NITROGEN 14 mg/dl (7-20); CARBON DIOXIDE 38 mmol/L (21-31); CHLORIDE 94 mmol/L (97-110); CREATININE 0.54 mg/dl (0.44-1.00); GLUCOSE 145 mg/dl (70-220); POTASSIUM 3.6 mmol/L (3.5-5.1); SODIUM 135 mmol/L (135-144)
[2018-05-03] MEDS: BISACODYL (EC) 5 MG TAB PO (20:30)
[2018-05-03] MEDS: INSULIN GLARGINE [LANTus] (100 UNITS/ML) SYG SC (20:54)
[2018-05-03] MEDS: ATORVASTATIN 10 MG TAB PO (20:55)
[2018-05-04] MEDS: ACCU-CHEK XX (02:00)
[2018-05-04] MEDS: BUMETANIDE 1 MG TAB PO (06:20)
[2018-05-04 06:57] LABS: ADD MAN DIFF? NO
[2018-05-04 07:05] LABS: BASOPHILS % 0.4 % (0.0-2.0); EOSINOPHILS # 0.2 10^3/ul (0.0-0.5); EOSINOPHILS % 1.5 % (0.0-7.0); HEMATOCRIT 45.5 % (37.0-47.0); HEMOGLOBIN 13.8 g/dl (12.0-16.0); LYMPHOCYTES % 29.7 % (15.0-51.0); MEAN CORPUSCULAR HEMOGLOBIN 29.8 pg (29.0-33.0); MEAN CORPUSCULAR HGB CONC 30.3 g/dl (32.0-37.0); MEAN CORPUSCULAR VOLUME 98.3 fl (82.0-101.0); MEAN PLATELET VOLUME 9.2 fl (7.4-10.4); MONOCYTE # 0.6 10^3/ul (0.3-0.9); MONOCYTES % 5.5 % (0.0-11.0); NEUTROPHIL # 6.2 10^3/ul (1.6-7.5); NEUTROPHILS % 62.3 % (39.0-77.0); PLATELET COUNT 236 10^3/UL (140-415); RED BLOOD COUNT 4.63 10^6/ul (4.20-5.40); RED CELL DISTRIBUTION WIDTH 17.2 % (11.5-14.5)
[2018-05-04 07:22] LABS: AMMONIA 43 umol/l (9-30)
[2018-05-04] MEDS: INSULIN ASPART [NOVOLOG] 3 ML PEN SC ×6 (07:52→17:35)
[2018-05-04 07:55] LABS: ALANINE AMINOTRANSFERASE 28 IU/L (13-69); ALBUMIN 2.7 g/dl (3.3-4.9); ALBUMIN/GLOBULIN RATIO 0.77; ALKALINE PHOSPHATASE 177 IU/L (42-121); ANION GAP 11 (8-16); ASPARTATE AMINO TRANSFERASE 32 IU/L (15-46); BILIRUBIN,INDIRECT 0.4 mg/dl (0-1.1); BILIRUBIN,TOTAL 0.4 mg/dl (0.2-1.3); BLOOD UREA NITROGEN 14 mg/dl (7-20); CALCIUM 8.7 mg/dl (8.4-10.2); CARBON DIOXIDE 37 mmol/L (21-31); CHLORIDE 94 mmol/L (97-110); CREATININE 0.53 mg/dl (0.44-1.00); GLUCOSE 140 mg/dl (70-220); POTASSIUM 4.3 mmol/L (3.5-5.1); SODIUM 138 mmol/L (135-144); TOTAL PROTEIN 6.2 g/dl (6.1-8.1)
[2018-05-04] MEDS: ENOXAPARIN 30 MG/0.3 ML SYG SC (08:46)
[2018-05-04] MEDS: CLOPIDOGREL 75 MG TAB PO (08:52)
[2018-05-04] MEDS: ASCORBIC ACID 500 MG TAB PO (08:52)
[2018-05-04] MEDS: DOCUSATE SODIUM 100 MG CAP PO (08:52)
[2018-05-04] MEDS: FERROUS SULFATE (EC) 325 MG TAB PO (08:52)
[2018-05-04] MEDS: THIAMINE 100 MG TAB PO (08:52)
[2018-05-04] MEDS: ASPIRIN (EC) 81 MG TAB PO (08:52)
[2018-05-04] MEDS: MULTIVITAMINS/MINERALS TAB PO (08:52)
[2018-05-04] MEDS: ZYVOX 600 MG TAB PO ×2 (08:52→20:02)
[2018-05-04] MEDS: GABAPENTIN 100 MG CAP PO (08:53)
[2018-05-04] MEDS: LOSARTAN 25 MG TAB PO (08:53)
[2018-05-04] MEDS: LIDOCAINE 5% PATCH TD (08:54)
[2018-05-04] MEDS: FOLIC ACID 1 MG TAB PO (08:54)
[2018-05-04] MEDS: NYSTATIN 30 GM POWDER BTL TOP (08:54)
[2018-05-04] MEDS: LACTULOSE 30ML CUP NGT (15:51)
== END 2018-05-04 20:30 | disposition home health service (06) | DRG 872 ==
LOC: TEL 03-28 10:01 → PP2 04-15 00:20 → E/R 12:52 → PP2 17:44 → TEL 21:56
DX: A41.50 Gram-negative sepsis, unspecified (principal); N39.0 Urinary tract infection, site not specified; E87.1 Hypo-osmolality and hyponatremia; R18.8 Other ascites; I50.22 Chronic systolic (congestive) heart failure; I83.228 Varicose veins of left lower extremity with both ulcer of other part of lower extremity and inflammation; R65.20 Severe sepsis without septic shock; B96.1 Klebsiella pneumoniae [K. pneumoniae] as the cause of diseases classified elsewhere; I25.5 Ischemic cardiomyopathy; E11.8 Type 2 diabetes mellitus with unspecified complications; Z95.5 Presence of coronary angioplasty implant and graft; E87.5 Hyperkalemia; K74.60 Unspecified cirrhosis of liver; R16.1 Splenomegaly, not elsewhere classified; I10 Essential (primary) hypertension; Z79.4 Long term (current) use of insulin; M81.0 Age-related osteoporosis without current pathological fracture; I27.20 Pulmonary hypertension, unspecified; I11.0 Hypertensive heart disease with heart failure; E16.2 Hypoglycemia, unspecified; B96.89 Other specified bacterial agents as the cause of diseases classified elsewhere
CPT/HCPCS: 36415; 70551; 71045; 74176; 76775; 80048; 80053; 80061; 80076; 81001; 81003; 82140; 82550; 82570; 82947; 82962; 83036; 83605; 83735; 83880; 84100; 84300; 84484; 84560; 85025; 85610; 85730; 87040; 87045; 87075; 87086; 89190; 93005; 93306; 96374; 96375; 97110; 97162; 97530; 99291-25

== ENCOUNTER 2018-05-09 13:58 | Inpatient (IN) | payer MEDICARE, OTHER ==
[2018-05-09] MEDS: FUROSEMIDE 40 MG INJ IV (14:27)
[2018-05-09] MEDS: ASPIRIN 300 MG SUPP PR (14:27)
[2018-05-09 14:49] LABS: ABNORMAL IP MESSAGE 1; HEMATOCRIT 39.5 % (37.0-47.0); HEMOGLOBIN 12.4 g/dl (12.0-16.0); MEAN CORPUSCULAR HEMOGLOBIN 30.4 pg (29.0-33.0); MEAN CORPUSCULAR HGB CONC 31.4 g/dl (32.0-37.0); MEAN CORPUSCULAR VOLUME 96.8 fl (82.0-101.0); MEAN PLATELET VOLUME 10.1 fl (7.4-10.4); NUCLEATED RED BLOOD CELLS% 0.3 /100WBC (0.0-0.0); PLATELET COUNT 142 10^3/UL (140-415); RED BLOOD COUNT 4.08 10^6/ul (4.20-5.40); RED CELL DISTRIBUTION WIDTH 16.7 % (11.5-14.5)
[2018-05-09 14:49] LABS: WHITE BLOOD COUNT 25.9 10^3/ul (4.8-10.8)
[2018-05-09 14:50] LABS: ADD MAN DIFF? YES; POSITIVE DIFF @See below
[2018-05-09 15:09] LABS: ANION GAP 17 (8-16)
[2018-05-09 15:35] LABS: ALANINE AMINOTRANSFERASE 23 IU/L (13-69); ALBUMIN 2.9 g/dl (3.3-4.9); ALBUMIN/GLOBULIN RATIO 0.87; ALKALINE PHOSPHATASE 117 IU/L (42-121); ASPARTATE AMINO TRANSFERASE 50 IU/L (15-46); B-TYPE NATRIURETIC PEPTIDE 16700 PG/ML (0-450); BILIRUBIN,INDIRECT 0.9 mg/dl (0-1.1); BILIRUBIN,TOTAL 0.9 mg/dl (0.2-1.3); BLOOD UREA NITROGEN 43 mg/dl (7-20); CALCIUM 8.7 mg/dl (8.4-10.2); CARBON DIOXIDE 27 mmol/L (21-31); CHLORIDE 94 mmol/L (97-110); CREATININE 1.46 mg/dl (0.44-1.00); GLUCOSE 121 mg/dl (70-220); LIPASE < 10 U/L (23-300); SODIUM 132 mmol/L (135-144); TOTAL PROTEIN 6.2 g/dl (6.1-8.1)
[2018-05-09 15:39] LABS: TROPONIN-I 0.467 ng/ml (0.000-0.120)
[2018-05-09 15:40] LABS: POTASSIUM 5.6 mmol/L (3.5-5.1)
[2018-05-09] MEDS: ENALAPRILAT 1.25 MG INJ IV (15:51)
[2018-05-09 15:53] LABS: BAND NEUTROPHILS #M 1.5 10^3/ul (0.0-0.6); BAND NEUTROPHILS % (M) 6 % (0-4); BURR CELLS 2+ (0-0); GIANT THROMBO% (M) 1 % (0-0); LYMPHOCYTES #M 3.1 10^3/ul (0.8-2.9); LYMPHOCYTES % (M) 12 % (15-51); MONOCYTE #M 1.2 10^3/ul (0.3-0.9); MONOCYTES % (M) 5 % (0-11); PLATELET ESTIMATE NORMAL; POIKILOCYTOSIS 2+ (0-0); REACTIVE LYMPHOCYTES #M 0.5 10^3/ul (0.0-0.0); REACTIVE LYMPHOCYTES% (M) 2 % (0-0); SEG NEUT #M 19.8 10^3/ul (1.6-7.5); SEGMENTED NEUTROPHILS (M) % 75 % (39-77); SMUDGE%M 8 % (0-0)
[2018-05-09] MEDS: SOD CHLORIDE 0.9% 500 ML IV ×2 (15:57→17:32)
[2018-05-09] MEDS: SOD CHLORIDE 0.9% 1,000 ML IV ×2 (15:57→20:29)
[2018-05-09 16:10] LABS: AADO2 Arterial 408.4 mmHg (7.0-24.0); Allen Test ACCEPTAB; Arterial Base Excess 3.4 mmol/L (-3.0-3); Arterial Blood Gas Oxygen Sat 95.3 mmHG (95.0-100.0); Arterial COHb 1.3 % (0.0-3.0); Arterial HCO3 28.7 mmol/L (22.0-26.0); Arterial MetHb 0.1 % (0.0-1.5); Arterial Total Hemglobin 13.2 g/dl (12.0-18.0); Arterial pCO2 46.5 mmhg (35-45); Blood Gas IEPAP 18/5; MODE MASK - BIPAP; Site Right Radial
[2018-05-09] MEDS: CEFTRIAXONE 1 GM/50 ML (PMX) 50 ML IVPB (17:10)
[2018-05-09 17:27] LABS: PHOSPHORUS 5.1 mg/dl (2.5-4.9)
[2018-05-09] MEDS: AZITHROMYCIN 500MG/NS (PMX) 250 ML IVPB (17:39)
[2018-05-09] MEDS ORDERED: ACETAMINOPHEN 325 MG TAB (18:33)
[2018-05-09] MEDS: ACETAMINOPHEN 325 MG TAB PO (18:38)
[2018-05-09 18:50] LABS: TROPONIN-I 0.622 ng/ml (0.000-0.120)
[2018-05-09] MEDS: MEROPENEM 1 GM/50ML(PMX) 50 ML IVPB ×2 (18:58→21:35)
[2018-05-09] MEDS: NA POLYST SULFON 15 GM/60 ML BTL PO (19:00)
[2018-05-09] MEDS ORDERED: ONDANSETRON 4 MG INJ IV (19:00)
[2018-05-09 19:09] LABS: HEMOGLOBIN A1C 6.6 % (0-5.9)
[2018-05-09] MEDS ORDERED: GLUCOSE GEL 15 GRAM TUBE BUCCAL (20:00)
[2018-05-09] MEDS ORDERED: GLUCOSE GEL 15 GRAM TUBE PO ×2 (20:00)
[2018-05-09] MEDS: FUROSEMIDE 20 MG INJ IV (20:00)
[2018-05-09] MEDS ORDERED: GLUCAGON 1 MG INJ IM (20:00)
[2018-05-09] MEDS ORDERED: DEXTROSE 50% 50 ML SYRINGE IV (20:00)
[2018-05-09] MEDS: PANTOPRAZOLE 40 MG INJ IV (20:16)
[2018-05-09 20:24] LABS: POTASSIUM 5.5 mmol/L (3.5-5.1)
[2018-05-09] MEDS: LINEZOLID 600 MG/D5W (PMX) 300 ML IVPB (21:35)
[2018-05-10 01:07] LABS: TROPONIN-I 0.928 ng/ml (0.000-0.120)
[2018-05-10] MEDS: PHENYLephrine 40 MG in DEXTROSE 5% 496 ML IV ×4 (02:45→11:38)
[2018-05-10] MEDS: ACCU-CHEK XX ×4 (02:46→23:30)
[2018-05-10] MEDS: DEXTROSE 50% 50 ML SYRINGE IV ×2 (02:55→09:21)
[2018-05-10 04:45] LABS: AADO2 Arterial 477.9 mmHg (7.0-24.0); Allen Test ACCEPTAB; Arterial Base Excess -11.8 mmol/L (-3.0-3); Arterial Blood Gas Oxygen Sat 99.2 mmHG (95.0-100.0); Arterial COHb 0.6 % (0.0-3.0); Arterial Fraction of Oxyhgb 98.3 % (93.0-99.0); Arterial HCO3 15.6 mmol/L (22.0-26.0); Arterial MetHb 0.3 % (0.0-1.5); Arterial Total Hemglobin 15.2 g/dl (12.0-18.0); Arterial pCO2 40.6 mmhg (35-45); Blood Gas IEPAP 18/5; Blood Gas PS 13; MODE MASK - BIPAP; Site Left Radial
[2018-05-10] MEDS ORDERED: DEXTROSE 5% 1,000 ML IV (06:00)
[2018-05-10] MEDS ORDERED: NA BICARBONATE 8.4% 50 ML SYG (06:01)
[2018-05-10] MEDS: FUROSEMIDE 20 MG INJ IV ×2 (06:02→17:01)
[2018-05-10] MEDS: NA BICARBONATE 8.4% 50 ML SYG IV ×4 (06:05→15:51)
[2018-05-10 06:13] LABS: ABNORMAL IP MESSAGE 1; HEMATOCRIT 47.4 % (37.0-47.0); HEMOGLOBIN 13.9 g/dl (12.0-16.0); MEAN CORPUSCULAR HGB CONC 29.3 g/dl (32.0-37.0); MEAN CORPUSCULAR VOLUME 102.2 fl (82.0-101.0); MEAN PLATELET VOLUME 10.7 fl (7.4-10.4); NUCLEATED RED BLOOD CELLS% 2.8 /100WBC (0.0-0.0); PLATELET COUNT 151 10^3/UL (140-415); RED BLOOD COUNT 4.64 10^6/ul (4.20-5.40); RED CELL DISTRIBUTION WIDTH 16.8 % (11.5-14.5)
[2018-05-10 06:13] LABS: WHITE BLOOD COUNT 33.9 10^3/ul (4.8-10.8)
[2018-05-10 06:32] LABS: CHOLESTEROL 68 mg/dl (100-200)
[2018-05-10 06:32] LABS: CHOL/HDL RATIO 2.6 RATIO; HDL CHOLESTEROL 26 mg/dl (33-92); LDL CHOLESTEROL,CALCULATED 19 mg/dl; TRIGLYCERIDES 114 mg/dl (0-149)
[2018-05-10 06:34] LABS: ADD MAN DIFF? YES; POSITIVE DIFF @See below
[2018-05-10 06:35] LABS: PATH REVIEW? YES
[2018-05-10] MEDS: SODIUM BICARBONATE (IV ADD) 100 MEQ in DEXTROSE 5% 1,000 ML IV ×2 (06:50→21:16)
[2018-05-10] MEDS: INSULIN ASPART [NOVOLOG] 3 ML PEN SC ×4 (07:35→21:00)
[2018-05-10 07:47] LABS: FREE T4 (FREE THYROXINE) 1.56 ng/dl (0.78-2.44)
[2018-05-10 08:10] LABS: CREATINE KINASE 290 IU/L (23-200)
[2018-05-10 08:10] LABS: URIC ACID 8.9 mg/dl (3.1-7.9)
[2018-05-10 08:15] LABS: ALANINE AMINOTRANSFERASE 433 IU/L (13-69); ALBUMIN 2.9 g/dl (3.3-4.9); ALBUMIN/GLOBULIN RATIO 0.93; ALKALINE PHOSPHATASE 116 IU/L (42-121); ANION GAP 32 (8-16); BILIRUBIN,INDIRECT 0.6 mg/dl (0-1.1); BILIRUBIN,TOTAL 1.1 mg/dl (0.2-1.3); BLOOD UREA NITROGEN 41 mg/dl (7-20); CALCIUM 8.1 mg/dl (8.4-10.2); CARBON DIOXIDE 13 mmol/L (21-31); CHLORIDE 93 mmol/L (97-110); CREATININE 1.96 mg/dl (0.44-1.00); GLUCOSE 129 mg/dl (70-220); MAGNESIUM 2.1 mg/dl (1.7-2.5); POTASSIUM 5.6 mmol/L (3.5-5.1); SODIUM 132 mmol/L (135-144)
[2018-05-10 08:34] LABS: ASPARTATE AMINO TRANSFERASE 1999 IU/L (15-46)
[2018-05-10] MEDS: CLOPIDOGREL 75 MG TAB PO ×2 (09:00→09:22)
[2018-05-10 09:13] LABS: LACTIC ACID 19.9 mmol/L (0.5-2.0)
[2018-05-10] MEDS: INSULIN REGULAR, HUMAN 100 UNIT/1 ML 3ML VIAL IV (09:20)
[2018-05-10] MEDS: LINEZOLID 600 MG/D5W (PMX) 300 ML IVPB ×2 (09:21→20:16)
[2018-05-10] MEDS: PANTOPRAZOLE 40 MG INJ IV (09:22)
[2018-05-10 09:36] LABS: ANISOCYTOSIS 1+ (0-0); BAND NEUTROPHILS % (M) 6 % (0-4); BURR CELLS 2+ (0-0); ERYTHROBLAST% (NRBC) (M) 4 % (0-0); GIANT THROMBO% (M) 1 % (0-0); LYMPHOCYTES #M 1.6 10^3/ul (0.8-2.9); LYMPHOCYTES % (M) 5 % (15-51); MONOCYTE #M 0.6 10^3/ul (0.3-0.9); MONOCYTES % (M) 2 % (0-11); PLATELET ESTIMATE NORMAL; POIKILOCYTOSIS 3+ (0-0); REACTIVE LYMPHOCYTES #M 0.3 10^3/ul (0.0-0.0); REACTIVE LYMPHOCYTES% (M) 1 % (0-0); SEG NEUT #M 29.8 10^3/ul (1.6-7.5); SEGMENTED NEUTROPHILS (M) % 86 % (39-77); SMUDGE%M 6 % (0-0)
[2018-05-10] MEDS: VASOPRESSIN 60 UNIT in DEXTROSE 5% 57 ML IV ×2 (10:38→20:16)
[2018-05-10] MEDS: MEROPENEM 1 GM/50ML(PMX) 50 ML IVPB (11:16)
[2018-05-10] MEDS ORDERED: THIAMINE 200 MG INJ IV ×2 (11:53→12:00)
[2018-05-10] MEDS: HEPARIN 5,000 UNIT/0.5 ML VIAL SC ×2 (11:56→22:06)
[2018-05-10] MEDS: HYDROCORTISONE 100 MG INJ IV ×2 (12:00→17:01)
[2018-05-10] MEDS ORDERED: HYDROCORTISONE 100 MG INJ IV (12:00)
[2018-05-10] MEDS: THIAMINE 200 MG in SOD CHLORIDE 0.9% 100 ML IV ×2 (12:46→20:15)
[2018-05-10] MEDS: BUMETANIDE 12 MG in DEXTROSE 5% 72 ML IV (13:39)
[2018-05-10] MEDS: CASPOFUNGIN 70 MG in SOD CHLORIDE 0.9% 250 ML IVPB (13:40)
[2018-05-10 14:15] LABS: AADO2 Arterial 298.6 mmHg (7.0-24.0); Allen Test ACCEPTAB; Arterial Base Excess -11.5 mmol/L (-3.0-3); Arterial Blood Gas Oxygen Sat 95.1 mmHG (95.0-100.0); Arterial COHb 0.6 % (0.0-3.0); Arterial Fraction of Oxyhgb 94.3 % (93.0-99.0); Arterial HCO3 15.6 mmol/L (22.0-26.0); Arterial MetHb 0.2 % (0.0-1.5); Arterial Total Hemglobin 15.6 g/dl (12.0-18.0); Arterial pCO2 39.1 mmhg (35-45); Blood Gas IEPAP 18/5; Blood Gas PS 13; MODE MASK - BIPAP; Site Left Radial
[2018-05-10] MEDS: ASCORBIC ACID IPPB ×2 (14:50→20:14)
[2018-05-10] MEDS: SOD CHLORIDE 0.9% IPPB ×2 (14:50→20:14)
[2018-05-10] MEDS: metroNIDAZOLE 500 MG/NS (PMX) 100 ML IVPB ×2 (15:06→22:05)
[2018-05-10 15:39] LABS: LACTIC ACID 14.7 mmol/L (0.5-2.0)
[2018-05-10] MEDS: ALBUMIN HUMAN 25% 100 ML IV ×2 (15:52→16:44)
[2018-05-10] MEDS: PHENYLephrine 160 MG in DEXTROSE 5% 484 ML IV (16:10)
[2018-05-10 16:38] LABS: POTASSIUM 4.9 mmol/L (3.5-5.1)
[2018-05-10 16:39] LABS: ALBUMIN/GLOBULIN RATIO 0.83; ALKALINE PHOSPHATASE 89 IU/L (42-121); ANION GAP 23 (8-16); BILIRUBIN,INDIRECT 0.4 mg/dl (0-1.1); BILIRUBIN,TOTAL 0.5 mg/dl (0.2-1.3); BLOOD UREA NITROGEN 43 mg/dl (7-20); CALCIUM 6.9 mg/dl (8.4-10.2); CARBON DIOXIDE 25 mmol/L (21-31); CHLORIDE 87 mmol/L (97-110); CREATININE 1.71 mg/dl (0.44-1.00); GLUCOSE 329 mg/dl (70-220); POTASSIUM 4.7 mmol/L (3.5-5.1); SODIUM 130 mmol/L (135-144); TOTAL PROTEIN 4.4 g/dl (6.1-8.1)
[2018-05-10 17:02] LABS: ALANINE AMINOTRANSFERASE 1517 IU/L (13-69)
[2018-05-10 17:17] LABS: ASPARTATE AMINO TRANSFERASE 6844 IU/L (15-46)
[2018-05-10 18:23] LABS: AADO2 Arterial 291.2 mmHg (7.0-24.0); Allen Test ACCEPTAB; Arterial Base Excess -10.4 mmol/L (-3.0-3); Arterial Blood Gas Oxygen Sat 96.3 mmHG (95.0-100.0); Arterial COHb 0.4 % (0.0-3.0); Arterial Fraction of Oxyhgb 95.7 % (93.0-99.0); Arterial HCO3 16.4 mmol/L (22.0-26.0); Arterial MetHb 0.2 % (0.0-1.5); Arterial Total Hemglobin 15.4 g/dl (12.0-18.0); Arterial pCO2 39.3 mmhg (35-45); Blood Gas IEPAP 18/5; Blood Gas PS 13; MODE MASK - BIPAP; Site Left Radial
[2018-05-10] MEDS: SOD CHLORIDE 0.9% 1,000 ML IV (19:00)
[2018-05-10] MEDS: MEROPENEM 500MG/50 ML (PMX) 50 ML IVPB (20:14)
[2018-05-10] MEDS ORDERED: DEXTROSE 50% 50 ML SYRINGE IV ×2 (21:30)
[2018-05-10 23:04] LABS: LACTIC ACID 15.1 mmol/L (0.5-2.0)
[2018-05-11] MEDS: HYDROCORTISONE 100 MG INJ IV ×5 (00:19→23:32)
[2018-05-11] MEDS: INSULIN HUMAN REGULAR 100 UNIT in SOD CHLORIDE 0.9% 99 ML IV ×3 (00:32→12:21)
[2018-05-11] MEDS: ACCU-CHEK XX ×22 (00:32→21:07)
[2018-05-11] MEDS: SOD CHLORIDE 0.9% IPPB ×4 (03:19→20:19)
[2018-05-11] MEDS: ASCORBIC ACID IPPB ×4 (03:19→20:19)
[2018-05-11 04:32] LABS: ABNORMAL IP MESSAGE 1; HEMATOCRIT 39.8 % (37.0-47.0); HEMOGLOBIN 12.8 g/dl (12.0-16.0); MEAN CORPUSCULAR HEMOGLOBIN 30.2 pg (29.0-33.0); MEAN CORPUSCULAR HGB CONC 32.2 g/dl (32.0-37.0); MEAN CORPUSCULAR VOLUME 93.9 fl (82.0-101.0); MEAN PLATELET VOLUME 11.3 fl (7.4-10.4); NUCLEATED RED BLOOD CELLS% 1.6 /100WBC (0.0-0.0); PLATELET COUNT 96 10^3/UL (140-415); RED BLOOD COUNT 4.24 10^6/ul (4.20-5.40); RED CELL DISTRIBUTION WIDTH 16.3 % (11.5-14.5)
[2018-05-11 04:59] LABS: ANION GAP 23 (8-16); BLOOD UREA NITROGEN 45 mg/dl (7-20); CALCIUM 7.1 mg/dl (8.4-10.2); CARBON DIOXIDE 25 mmol/L (21-31); CHLORIDE 85 mmol/L (97-110); CREATININE 1.76 mg/dl (0.44-1.00); GLUCOSE 306 mg/dl (70-220); POTASSIUM 4.2 mmol/L (3.5-5.1); SODIUM 129 mmol/L (135-144)
[2018-05-11 05:04] LABS: POSITIVE DIFF @See below
[2018-05-11 05:05] LABS: ADD MAN DIFF? YES
[2018-05-11 05:12] LABS: LACTIC ACID 11.5 mmol/L (0.5-2.0)
[2018-05-11] MEDS: FUROSEMIDE 20 MG INJ IV (05:44)
[2018-05-11] MEDS: metroNIDAZOLE 500 MG/NS (PMX) 100 ML IVPB ×3 (05:44→21:55)
[2018-05-11] MEDS: SODIUM BICARBONATE (IV ADD) 100 MEQ in DEXTROSE 5% 1,000 ML IV ×2 (06:19→18:00)
[2018-05-11 06:21] LABS: ANISOCYTOSIS 1+ (0-0); BAND NEUTROPHILS % (M) 14 % (0-4); BURR CELLS 3+ (0-0); ERYTHROBLAST% (NRBC) (M) 2 % (0-0); LYMPHOCYTES #M 1.8 10^3/ul (0.8-2.9); LYMPHOCYTES % (M) 5 % (15-51); MONOCYTES % (M) 3 % (0-11); PLATELET ESTIMATE DECREASED; POIKILOCYTOSIS 3+ (0-0); POLYCHROMASIA 1+ (0-0); SEG NEUT #M 29.9 10^3/ul (1.6-7.5); SEGMENTED NEUTROPHILS (M) % 78 % (39-77); SMUDGE%M 4 % (0-0); SPHEROCYTES 1+ (0-0); TEAR DROP CELLS 1+ (0-0)
[2018-05-11 06:27] LABS: GLUCOSE 282 mg/dl (70-220)
[2018-05-11 06:39] LABS: ADD UMIC YES; UR AMORPHOUS CRYSTAL FEW /HPF (NONE SEEN); UR ASCORBIC ACID 40 mg/dL (NEGATIVE); UR BILIRUBIN (Dip) NEGATIVE (NEGATIVE); UR BLOOD (Dip) 2+ mg/dL (NEGATIVE); UR CLARITY CLOUDY (CLEAR); UR COLOR AMBER (YELLOW); UR GLUCOSE (Dip) 2+ mg/dL (NEGATIVE); UR HYALINE CAST FEW /HPF (NONE SEEN); UR KETONES (Dip) NEGATIVE (NEGATIVE); UR LEUKOCYTE ESTERASE (Dip) 3+ Leu/ul (NEGATIVE); UR MUCUS FEW /HPF (NONE SEEN); UR NITRITE (Dip) NEGATIVE (NEGATIVE); UR RBC 37 /HPF (0-5); UR SPECIFIC GRAVITY (Dip) 1.019 (1.003-1.030); UR SQUAMOUS EPITHELIAL CELL MODERATE /HPF (FEW); UR TOTAL PROTEIN (Dip) 2+ mg/dl (NEGATIVE); UR UROBILINOGEN (Dip) NEGATIVE (NEGATIVE); UR WBC > 182 /HPF (0-5)
[2018-05-11 06:39] LABS: SODIUM,URINE RANDOM 26 mmol/L (30-90)
[2018-05-11 06:43] LABS: CREATININE,URINE RANDOM 84.53 mg/dl (20-320); PROTEIN/CREAT RATIO 1.13 RATIO
[2018-05-11 07:40] LABS: GLUCOSE 269 mg/dl (70-220)
[2018-05-11 07:42] LABS: AADO2 Arterial 301.4 mmHg (7.0-24.0); Allen Test ACCEPTAB; Arterial Base Excess -1.7 mmol/L (-3.0-3); Arterial Blood Gas Oxygen Sat 94.6 mmHG (95.0-100.0); Arterial COHb 0.2 % (0.0-3.0); Arterial Fraction of Oxyhgb 94.2 % (93.0-99.0); Arterial HCO3 23.9 mmol/L (22.0-26.0); Arterial MetHb 0.2 % (0.0-1.5); Arterial Total Hemglobin 14.6 g/dl (12.0-18.0); Arterial pCO2 43.4 mmhg (35-45); Blood Gas IEPAP 18/5; Blood Gas PS 13; MODE MASK - BIPAP; Site Left Radial
[2018-05-11] MEDS: PANTOPRAZOLE 40 MG INJ IV (08:01)
[2018-05-11] MEDS: LINEZOLID 600 MG/D5W (PMX) 300 ML IVPB ×2 (08:02→20:20)
[2018-05-11] MEDS: HEPARIN 5,000 UNIT/0.5 ML VIAL SC (08:06)
[2018-05-11] MEDS: VASOPRESSIN 60 UNIT in DEXTROSE 5% 57 ML IV ×2 (09:00→21:00)
[2018-05-11] MEDS: THIAMINE 200 MG in SOD CHLORIDE 0.9% 100 ML IV ×2 (09:16→20:19)
[2018-05-11] MEDS: MEROPENEM 500MG/50 ML (PMX) 50 ML IVPB ×2 (09:16→20:19)
[2018-05-11] MEDS: CASPOFUNGIN 50 MG in SOD CHLORIDE 0.9% 250 ML IVPB (12:21)
[2018-05-11] MEDS: BUMETANIDE 1 MG INJ IV ×2 (14:14→17:34)
[2018-05-11 15:40] LABS: LIPASE 127 U/L (23-300)
[2018-05-11 18:02] LABS: LACTIC ACID 4.7 mmol/L (0.5-2.0)
[2018-05-11 18:33] LABS: MAGNESIUM 1.5 mg/dl (1.7-2.5)
[2018-05-11] MEDS: SOD CHLORIDE 0.9% 1,000 ML IV (19:00)
[2018-05-11 19:41] LABS: AADO2 Arterial 278.2 mmHg (7.0-24.0); Allen Test ACCEPTAB; Arterial Blood Gas Oxygen Sat 97.8 mmHG (95.0-100.0); Arterial COHb 0.5 % (0.0-3.0); Arterial Fraction of Oxyhgb 97.1 % (93.0-99.0); Arterial MetHb 0.2 % (0.0-1.5); Arterial Total Hemglobin 16.1 g/dl (12.0-18.0); Arterial pCO2 45.3 mmhg (35-45); Blood Gas IEPAP 18/5; MODE MASK - BIPAP; Site Right Radial
[2018-05-11] MEDS: MAGNESIUM SULFATE 2 GM/50 ML 50 ML IVPB (20:19)
[2018-05-11 20:33] LABS: BLOOD UREA NITROGEN 49 mg/dl (7-20); CARBON DIOXIDE 31 mmol/L (21-31); CHLORIDE 84 mmol/L (97-110); CREATININE 1.23 mg/dl (0.44-1.00); GLUCOSE 104 mg/dl (70-220); MAGNESIUM 1.5 mg/dl (1.7-2.5); POTASSIUM 3.4 mmol/L (3.5-5.1)
[2018-05-11 20:36] LABS: ANION GAP 17 (8-16); SODIUM 129 mmol/L (135-144)
[2018-05-11] MEDS ORDERED: GLUCOSE GEL 15 GRAM TUBE BUCCAL (21:30)
[2018-05-11] MEDS ORDERED: GLUCAGON 1 MG INJ IM (21:30)
[2018-05-11] MEDS ORDERED: GLUCOSE GEL 15 GRAM TUBE PO ×2 (21:30)
[2018-05-11] MEDS ORDERED: DEXTROSE 50% 50 ML SYRINGE IV ×2 (21:30)
[2018-05-11] MEDS: POTASSIUM CHLORIDE 100 ML IVPB (21:55)
[2018-05-11] MEDS: LACTATED RINGER'S 1,000 ML IV (21:58)
[2018-05-12] MEDS: INSULIN ASPART [NOVOLOG] 3 ML PEN SC ×6 (00:19→22:34)
[2018-05-12 00:56] LABS: LACTIC ACID 3.1 mmol/L (0.5-2.0)
[2018-05-12] MEDS: SOD CHLORIDE 0.9% IPPB ×4 (03:08→20:32)
[2018-05-12] MEDS: ASCORBIC ACID IPPB ×4 (03:08→20:32)
[2018-05-12 05:37] LABS: ADD MAN DIFF? NO
[2018-05-12 05:44] LABS: WHITE BLOOD COUNT 31.1 10^3/ul (4.8-10.8)
[2018-05-12 05:44] LABS: ABNORMAL IP MESSAGE 1; BASOPHIL # 0.1 10^3/ul (0.0-0.1); BASOPHILS % 0.4 % (0.0-2.0); LYMPHOCYTES # 1.6 10^3/ul (0.8-2.9); LYMPHOCYTES % 5.1 % (15.0-51.0); MEAN CORPUSCULAR HEMOGLOBIN 30.1 pg (29.0-33.0); MEAN CORPUSCULAR HGB CONC 33.3 g/dl (32.0-37.0); MEAN CORPUSCULAR VOLUME 90.2 fl (82.0-101.0); MEAN PLATELET VOLUME 11.6 fl (7.4-10.4); MONOCYTE # 0.8 10^3/ul (0.3-0.9); MONOCYTES % 2.7 % (0.0-11.0); NEUTROPHIL # 28.2 10^3/ul (1.6-7.5); NEUTROPHILS % 90.7 % (39.0-77.0); NUCLEATED RED BLOOD CELLS # 0.2 10^3/ul (0.0-0.0); NUCLEATED RED BLOOD CELLS% 0.6 /100WBC (0.0-0.0); PLATELET COUNT 102 10^3/UL (140-415); RED BLOOD COUNT 4.99 10^6/ul (4.20-5.40)
[2018-05-12 05:46] LABS: POSITIVE DIFF @See below
[2018-05-12] MEDS: HYDROCORTISONE 100 MG INJ IV ×4 (05:59→23:35)
[2018-05-12] MEDS: metroNIDAZOLE 500 MG/NS (PMX) 100 ML IVPB ×3 (05:59→22:58)
[2018-05-12] MEDS: BUMETANIDE 1 MG INJ IV (05:59)
[2018-05-12 06:13] LABS: LACTIC ACID 3.7 mmol/L (0.5-2.0)
[2018-05-12 06:24] LABS: ANION GAP 16 (8-16); BLOOD UREA NITROGEN 49 mg/dl (7-20); CARBON DIOXIDE 34 mmol/L (21-31); CHLORIDE 82 mmol/L (97-110); CREATININE 1.24 mg/dl (0.44-1.00); GLUCOSE 159 mg/dl (70-220); MAGNESIUM 1.8 mg/dl (1.7-2.5); PHOSPHORUS 4.6 mg/dl (2.5-4.9); POTASSIUM 4.1 mmol/L (3.5-5.1); SODIUM 128 mmol/L (135-144)
[2018-05-12] MEDS: MEROPENEM 500MG/50 ML (PMX) 50 ML IVPB ×2 (08:12→20:32)
[2018-05-12] MEDS: LINEZOLID 600 MG/D5W (PMX) 300 ML IVPB ×2 (08:12→22:13)
[2018-05-12] MEDS: PANTOPRAZOLE 40 MG INJ IV (08:12)
[2018-05-12] MEDS: THIAMINE 200 MG in SOD CHLORIDE 0.9% 100 ML IV ×2 (08:12→22:13)
[2018-05-12] MEDS: VASOPRESSIN 60 UNIT in DEXTROSE 5% 57 ML IV ×2 (09:00→21:00)
[2018-05-12] MEDS: CASPOFUNGIN 50 MG in SOD CHLORIDE 0.9% 250 ML IVPB (12:16)
[2018-05-12] MEDS: LACTATED RINGER'S 1,000 ML IV (19:15)
[2018-05-12 19:39] LABS: POTASSIUM 3.5 mmol/L (3.5-5.1)
[2018-05-12 19:39] LABS: MAGNESIUM 1.6 mg/dl (1.7-2.5)
[2018-05-12] MEDS: MAGNESIUM SULFATE 2 GM/50 ML 50 ML IVPB (23:35)
[2018-05-12] MEDS: POTASSIUM CHLORIDE 50 ML IVPB (23:35)
[2018-05-13] MEDS: POTASSIUM CHLORIDE 50 ML IVPB (01:52)
[2018-05-13] MEDS: INSULIN ASPART [NOVOLOG] 3 ML PEN SC ×6 (02:04→21:02)
[2018-05-13] MEDS: ASCORBIC ACID IPPB ×2 (02:24→08:08)
[2018-05-13] MEDS: SOD CHLORIDE 0.9% IPPB ×2 (02:24→08:08)
[2018-05-13 05:31] LABS: ADD MAN DIFF? NO
[2018-05-13 05:34] LABS: ABNORMAL IP MESSAGE 1; BASOPHILS % 0.2 % (0.0-2.0); HEMATOCRIT 41.4 % (37.0-47.0); HEMOGLOBIN 13.6 g/dl (12.0-16.0); LYMPHOCYTES # 1.9 10^3/ul (0.8-2.9); LYMPHOCYTES % 9.9 % (15.0-51.0); MEAN CORPUSCULAR HEMOGLOBIN 30.1 pg (29.0-33.0); MEAN CORPUSCULAR HGB CONC 32.9 g/dl (32.0-37.0); MEAN CORPUSCULAR VOLUME 91.6 fl (82.0-101.0); MEAN PLATELET VOLUME 11.6 fl (7.4-10.4); MONOCYTE # 0.6 10^3/ul (0.3-0.9); MONOCYTES % 2.9 % (0.0-11.0); NEUTROPHIL # 16.9 10^3/ul (1.6-7.5); NEUTROPHILS % 86.2 % (39.0-77.0); NUCLEATED RED BLOOD CELLS # 0.1 10^3/ul (0.0-0.0); NUCLEATED RED BLOOD CELLS% 0.4 /100WBC (0.0-0.0); PLATELET COUNT 91 10^3/UL (140-415); RED BLOOD COUNT 4.52 10^6/ul (4.20-5.40); RED CELL DISTRIBUTION WIDTH 16.2 % (11.5-14.5)
[2018-05-13 05:34] LABS: WHITE BLOOD COUNT 19.6 10^3/ul (4.8-10.8)
[2018-05-13] MEDS: HYDROCORTISONE 100 MG INJ IV ×3 (05:42→17:38)
[2018-05-13] MEDS: metroNIDAZOLE 500 MG/NS (PMX) 100 ML IVPB (05:42)
[2018-05-13 06:05] LABS: POSITIVE DIFF @See below
[2018-05-13 06:20] LABS: LACTIC ACID 3.1 mmol/L (0.5-2.0)
[2018-05-13 06:29] LABS: ANION GAP 16 (8-16); BLOOD UREA NITROGEN 49 mg/dl (7-20); CALCIUM 6.8 mg/dl (8.4-10.2); CARBON DIOXIDE 37 mmol/L (21-31); CHLORIDE 84 mmol/L (97-110); GLUCOSE 162 mg/dl (70-220); PHOSPHORUS 4.5 mg/dl (2.5-4.9); POTASSIUM 4.2 mmol/L (3.5-5.1); SODIUM 133 mmol/L (135-144)
[2018-05-13 07:52] LABS: Allen Test ACCEPTAB; Arterial Base Excess 7.3 mmol/L (-3.0-3); Arterial Blood Gas Oxygen Sat 94.1 mmHG (95.0-100.0); Arterial COHb 0.6 % (0.0-3.0); Arterial Fraction of Oxyhgb 93.3 % (93.0-99.0); Arterial HCO3 35.2 mmol/L (22.0-26.0); Arterial MetHb 0.2 % (0.0-1.5); Arterial Total Hemglobin 14.7 g/dl (12.0-18.0); Arterial pCO2 64.1 mmhg (35-45); MODE NASAL CANNULA; Site Left Radial
[2018-05-13] MEDS: THIAMINE 200 MG in SOD CHLORIDE 0.9% 100 ML IV ×2 (08:09→21:00)
[2018-05-13] MEDS: BUMETANIDE 1 MG INJ IV (08:17)
[2018-05-13] MEDS: PANTOPRAZOLE 40 MG INJ IV (08:17)
[2018-05-13] MEDS: CASPOFUNGIN 50 MG in SOD CHLORIDE 0.9% 250 ML IVPB (08:52)
[2018-05-13] MEDS: MEROPENEM 500MG/50 ML (PMX) 50 ML IVPB ×3 (08:52→22:45)
[2018-05-13] MEDS: VASOPRESSIN 60 UNIT in DEXTROSE 5% 57 ML IV ×2 (09:00→21:00)
[2018-05-13] MEDS: LINEZOLID 600 MG/D5W (PMX) 300 ML IVPB (10:48)
[2018-05-13] MEDS ORDERED: VANCOMYCIN IV PER PHARMACY XX (13:00)
[2018-05-13] MEDS: VANCOMYCIN 1 GM 250 ML IVPB ×2 (14:49→17:09)
[2018-05-13] MEDS: LACTATED RINGER'S 1,000 ML IV (14:56)
[2018-05-13] MEDS: COLLAGENASE 5 GM (UD JAR) TOP (15:05)
[2018-05-13] MEDS: ASCORBIC ACID IVPB ×2 (17:22→22:49)
[2018-05-13] MEDS: SOD CHLORIDE 0.9% IVPB ×2 (17:22→22:49)
[2018-05-13] MEDS: NPH, HUMAN INSULIN ISOPHANE 3ML VIAL SC (17:41)
[2018-05-14] MEDS: HYDROCORTISONE 100 MG INJ IV ×3 (00:32→13:06)
[2018-05-14] MEDS: NPH, HUMAN INSULIN ISOPHANE 3ML VIAL SC ×4 (00:33→18:00)
[2018-05-14] MEDS: INSULIN ASPART [NOVOLOG] 3 ML PEN SC ×6 (01:34→21:00)
[2018-05-14] MEDS: ASCORBIC ACID IVPB ×2 (05:07→13:05)
[2018-05-14] MEDS: SOD CHLORIDE 0.9% IVPB ×2 (05:07→13:05)
[2018-05-14 05:50] LABS: ADD MAN DIFF? NO
[2018-05-14 05:54] LABS: ABNORMAL IP MESSAGE 1; BASOPHILS % 0.1 % (0.0-2.0); HEMATOCRIT 42.1 % (37.0-47.0); HEMOGLOBIN 13.3 g/dl (12.0-16.0); LYMPHOCYTES # 1.8 10^3/ul (0.8-2.9); LYMPHOCYTES % 11.8 % (15.0-51.0); MEAN CORPUSCULAR HEMOGLOBIN 29.5 pg (29.0-33.0); MEAN CORPUSCULAR HGB CONC 31.6 g/dl (32.0-37.0); MEAN CORPUSCULAR VOLUME 93.3 fl (82.0-101.0); MEAN PLATELET VOLUME 10.9 fl (7.4-10.4); MONOCYTE # 0.5 10^3/ul (0.3-0.9); MONOCYTES % 3.1 % (0.0-11.0); NEUTROPHIL # 12.6 10^3/ul (1.6-7.5); NEUTROPHILS % 84.2 % (39.0-77.0); NUCLEATED RED BLOOD CELLS # 0.1 10^3/ul (0.0-0.0); NUCLEATED RED BLOOD CELLS% 0.5 /100WBC (0.0-0.0); PLATELET COUNT 81 10^3/UL (140-415); RED BLOOD COUNT 4.51 10^6/ul (4.20-5.40); RED CELL DISTRIBUTION WIDTH 16.3 % (11.5-14.5)
[2018-05-14 06:08] LABS: POSITIVE DIFF @See below
[2018-05-14] MEDS: MEROPENEM 500MG/50 ML (PMX) 50 ML IVPB ×3 (06:24→21:51)
[2018-05-14 06:34] LABS: ANION GAP 14 (8-16); BLOOD UREA NITROGEN 46 mg/dl (7-20); CALCIUM 6.8 mg/dl (8.4-10.2); CARBON DIOXIDE 39 mmol/L (21-31); CHLORIDE 85 mmol/L (97-110); CREATININE 0.93 mg/dl (0.44-1.00); GLUCOSE 91 mg/dl (70-220); SODIUM 135 mmol/L (135-144)
[2018-05-14 06:37] LABS: POTASSIUM 2.9 mmol/L (3.5-5.1)
[2018-05-14] MEDS: POTASSIUM CHLORIDE 100 ML IVPB ×4 (07:30→20:05)
[2018-05-14] MEDS: VASOPRESSIN 60 UNIT in DEXTROSE 5% 57 ML IV ×2 (09:00→21:00)
[2018-05-14] MEDS: BUMETANIDE 1 MG INJ IV (09:53)
[2018-05-14] MEDS: COLLAGENASE 5 GM (UD JAR) TOP (09:53)
[2018-05-14] MEDS: PANTOPRAZOLE 40 MG INJ IV (09:58)
[2018-05-14] MEDS: LACTATED RINGER'S 1,000 ML IV ×2 (09:59→13:00)
[2018-05-14] MEDS: THIAMINE 200 MG in SOD CHLORIDE 0.9% 100 ML IV ×2 (13:05→21:51)
[2018-05-14] MEDS: CASPOFUNGIN 50 MG in SOD CHLORIDE 0.9% 250 ML IVPB (13:08)
[2018-05-14] MEDS ORDERED: VANCOMYCIN 1.25 GM in SOD CHLORIDE 0.9% 250 ML IVPB (14:00)
[2018-05-14 14:24] LABS: VANCOMYCIN,RANDOM 12.5 ug/ml
[2018-05-14 14:26] LABS: HEPARIN INDUCED PLATELET AB NEGATIVE (NEGATIVE)
[2018-05-14 16:24] LABS: ANION GAP 12 (8-16); BLOOD UREA NITROGEN 46 mg/dl (7-20); CALCIUM 6.7 mg/dl (8.4-10.2); CARBON DIOXIDE 40 mmol/L (21-31); CHLORIDE 86 mmol/L (97-110); CREATININE 0.74 mg/dl (0.44-1.00); GLUCOSE 59 mg/dl (70-220); POTASSIUM 3.2 mmol/L (3.5-5.1); SODIUM 135 mmol/L (135-144)
[2018-05-14] MEDS: VANCOMYCIN 1.25 GM in SOD CHLORIDE 0.9% 250 ML IVPB (16:36)
[2018-05-15] MEDS: ACETAMINOPHEN 325 MG TAB PO (00:36)
[2018-05-15 04:34] LABS: ADD MAN DIFF? NO
[2018-05-15 04:41] LABS: WHITE BLOOD COUNT 12.1 10^3/ul (4.8-10.8)
[2018-05-15 04:41] LABS: ABNORMAL IP MESSAGE 1; BASOPHILS % 0.1 % (0.0-2.0); HEMATOCRIT 41.1 % (37.0-47.0); HEMOGLOBIN 13.1 g/dl (12.0-16.0); LYMPHOCYTES # 1.3 10^3/ul (0.8-2.9); LYMPHOCYTES % 10.8 % (15.0-51.0); MEAN CORPUSCULAR HEMOGLOBIN 29.8 pg (29.0-33.0); MEAN CORPUSCULAR HGB CONC 31.9 g/dl (32.0-37.0); MEAN CORPUSCULAR VOLUME 93.6 fl (82.0-101.0); MEAN PLATELET VOLUME 11.4 fl (7.4-10.4); MONOCYTE # 0.4 10^3/ul (0.3-0.9); MONOCYTES % 2.9 % (0.0-11.0); NEUTROPHIL # 10.3 10^3/ul (1.6-7.5); NEUTROPHILS % 85.5 % (39.0-77.0); NUCLEATED RED BLOOD CELLS # 0.1 10^3/ul (0.0-0.0); NUCLEATED RED BLOOD CELLS% 0.5 /100WBC (0.0-0.0); PLATELET COUNT 55 10^3/UL (140-415); RED BLOOD COUNT 4.39 10^6/ul (4.20-5.40); RED CELL DISTRIBUTION WIDTH 16.3 % (11.5-14.5)
[2018-05-15 04:42] LABS: POSITIVE DIFF @See below
[2018-05-15 05:00] LABS: MAGNESIUM 1.5 mg/dl (1.7-2.5)
[2018-05-15 05:00] LABS: ALANINE AMINOTRANSFERASE 450 IU/L (13-69); ALBUMIN 2.5 g/dl (3.3-4.9); ALKALINE PHOSPHATASE 217 IU/L (42-121); ASPARTATE AMINO TRANSFERASE 274 IU/L (15-46); BILIRUBIN,INDIRECT 0.8 mg/dl (0-1.1); BLOOD UREA NITROGEN 46 mg/dl (7-20); CHLORIDE 87 mmol/L (97-110); CREATININE 0.86 mg/dl (0.44-1.00); GLUCOSE 56 mg/dl (70-220); INR 2.48; POTASSIUM 3.4 mmol/L (3.5-5.1); PROTIME 27.5 Sec (11.9-14.9); PT RATIO 2.1; SODIUM 138 mmol/L (135-144); TOTAL PROTEIN 5.6 g/dl (6.1-8.1)
[2018-05-15 05:01] LABS: PHOSPHORUS 3.6 mg/dl (2.5-4.9)
[2018-05-15 05:01] LABS: PARTIAL THROMBOPLASTIN TIME 41.4 Sec (25.0-35.0)
[2018-05-15 05:10] LABS: ANION GAP 13 (8-16)
[2018-05-15 05:13] LABS: CARBON DIOXIDE 41 mmol/L (21-31)
[2018-05-15] MEDS: MEROPENEM 500MG/50 ML (PMX) 50 ML IVPB ×3 (06:24→22:04)
[2018-05-15] MEDS: BUMETANIDE 0.5 MG TAB PO ×2 (06:24→18:22)
[2018-05-15] MEDS: INSULIN ASPART [NOVOLOG] 3 ML PEN SC ×4 (07:35→21:00)
[2018-05-15] MEDS: VASOPRESSIN 60 UNIT in DEXTROSE 5% 57 ML IV ×2 (09:00→21:00)
[2018-05-15] MEDS: THIAMINE 200 MG in SOD CHLORIDE 0.9% 100 ML IV ×2 (09:39→22:00)
[2018-05-15] MEDS: COLLAGENASE 5 GM (UD JAR) TOP (09:39)
[2018-05-15] MEDS: PANTOPRAZOLE 40 MG INJ IV (09:39)
[2018-05-15] MEDS: POTASSIUM CHLORIDE 50 ML IVPB (10:40)
[2018-05-15] MEDS: CASPOFUNGIN 50 MG in SOD CHLORIDE 0.9% 250 ML IVPB (13:24)
[2018-05-15] MEDS: MAGNESIUM SULFATE 1 GM/D5W 100 ML IVPB (15:20)
[2018-05-15] MEDS: DOXYCYCLINE 100 MG in SOD CHLORIDE 0.9% 250 ML IVPB (20:48)
[2018-05-15] MEDS: LACTATED RINGER'S 1,000 ML IV (21:00)
[2018-05-16] MEDS: LACTATED RINGER'S 1,000 ML IV
[2018-05-16 05:17] LABS: ADD MAN DIFF? NO
[2018-05-16 05:18] LABS: ABNORMAL IP MESSAGE 1; BASOPHILS % 0.1 % (0.0-2.0); HEMATOCRIT 40.9 % (37.0-47.0); HEMOGLOBIN 13.2 g/dl (12.0-16.0); LYMPHOCYTES % 12.7 % (15.0-51.0); MEAN CORPUSCULAR HEMOGLOBIN 29.9 pg (29.0-33.0); MEAN CORPUSCULAR HGB CONC 32.3 g/dl (32.0-37.0); MEAN CORPUSCULAR VOLUME 92.7 fl (82.0-101.0); MEAN PLATELET VOLUME 10.9 fl (7.4-10.4); MONOCYTE # 0.7 10^3/ul (0.3-0.9); MONOCYTES % 4.3 % (0.0-11.0); NEUTROPHIL # 13.1 10^3/ul (1.6-7.5); NUCLEATED RED BLOOD CELLS # 0.5 10^3/ul (0.0-0.0); NUCLEATED RED BLOOD CELLS% 3.4 /100WBC (0.0-0.0); PLATELET COUNT 65 10^3/UL (140-415); RED BLOOD COUNT 4.41 10^6/ul (4.20-5.40)
[2018-05-16 05:28] LABS: POSITIVE DIFF @See below
[2018-05-16 05:46] LABS: ANION GAP 20 (8-16); BLOOD UREA NITROGEN 55 mg/dl (7-20); CALCIUM 7.2 mg/dl (8.4-10.2); CARBON DIOXIDE 34 mmol/L (21-31); CHLORIDE 89 mmol/L (97-110); CREATININE 1.02 mg/dl (0.44-1.00); GLUCOSE 129 mg/dl (70-220); MAGNESIUM 1.8 mg/dl (1.7-2.5); PHOSPHORUS 4.1 mg/dl (2.5-4.9); SODIUM 139 mmol/L (135-144)
[2018-05-16] MEDS: MEROPENEM 500MG/50 ML (PMX) 50 ML IVPB ×3 (06:41→21:57)
[2018-05-16] MEDS: BUMETANIDE 0.5 MG TAB PO ×2 (06:41→17:06)
[2018-05-16] MEDS: INSULIN ASPART [NOVOLOG] 3 ML PEN SC ×4 (08:26→21:00)
[2018-05-16] MEDS: THIAMINE 200 MG in SOD CHLORIDE 0.9% 100 ML IV ×2 (09:00→21:56)
[2018-05-16] MEDS: DOXYCYCLINE 100 MG in SOD CHLORIDE 0.9% 250 ML IVPB ×2 (09:00→21:57)
[2018-05-16] MEDS: VASOPRESSIN 60 UNIT in DEXTROSE 5% 57 ML IV ×2 (09:00→21:00)
[2018-05-16] MEDS: COLLAGENASE 5 GM (UD JAR) TOP (09:01)
[2018-05-16] MEDS: PANTOPRAZOLE 40 MG INJ IV (09:01)
[2018-05-16 09:13] LABS: AADO2 Arterial 51.9 mmHg (7.0-24.0); Allen Test ACCEPTAB; Arterial Base Excess 3.8 mmol/L (-3.0-3); Arterial Blood Gas Oxygen Sat 91.9 mmHG (95.0-100.0); Arterial COHb 0.3 % (0.0-3.0); Arterial Fraction of Oxyhgb 91.4 % (93.0-99.0); Arterial HCO3 31.6 mmol/L (22.0-26.0); Arterial MetHb 0.2 % (0.0-1.5); Arterial Total Hemglobin 14.4 g/dl (12.0-18.0); Arterial pCO2 61.4 mmhg (35-45); MODE NASAL CANNULA; Site Left Radial
[2018-05-16] MEDS ORDERED: BUMETANIDE 1 MG INJ IV ×2 (13:00)
[2018-05-16] MEDS: CASPOFUNGIN 50 MG in SOD CHLORIDE 0.9% 250 ML IVPB (13:04)
[2018-05-16] MEDS: FENTAnyl 50 MCG/ML VIAL IV (17:16)
[2018-05-17] MEDS: LACTATED RINGER'S 1,000 ML IV (05:57)
[2018-05-17] MEDS: BUMETANIDE 0.5 MG TAB PO ×2 (06:43→17:04)
[2018-05-17] MEDS: MEROPENEM 500MG/50 ML (PMX) 50 ML IVPB ×3 (06:43→22:15)
[2018-05-17 06:49] LABS: ADD MAN DIFF? NO
[2018-05-17 07:05] LABS: ABNORMAL IP MESSAGE 1; BASOPHILS % 0.1 % (0.0-2.0); EOSINOPHILS # 0.1 10^3/ul (0.0-0.5); EOSINOPHILS % 0.4 % (0.0-7.0); HEMATOCRIT 42.3 % (37.0-47.0); HEMOGLOBIN 13.3 g/dl (12.0-16.0); LYMPHOCYTES # 2.4 10^3/ul (0.8-2.9); LYMPHOCYTES % 16.5 % (15.0-51.0); MEAN CORPUSCULAR HEMOGLOBIN 29.8 pg (29.0-33.0); MEAN CORPUSCULAR HGB CONC 31.4 g/dl (32.0-37.0); MEAN CORPUSCULAR VOLUME 94.8 fl (82.0-101.0); MEAN PLATELET VOLUME 10.3 fl (7.4-10.4); MONOCYTE # 0.9 10^3/ul (0.3-0.9); NEUTROPHIL # 10.8 10^3/ul (1.6-7.5); NEUTROPHILS % 75.9 % (39.0-77.0); NUCLEATED RED BLOOD CELLS # 0.6 10^3/ul (0.0-0.0); NUCLEATED RED BLOOD CELLS% 4.1 /100WBC (0.0-0.0); RED BLOOD COUNT 4.46 10^6/ul (4.20-5.40); RED CELL DISTRIBUTION WIDTH 16.7 % (11.5-14.5)
[2018-05-17 07:05] LABS: WHITE BLOOD COUNT 14.3 10^3/ul (4.8-10.8)
[2018-05-17 07:13] LABS: PLATELET COUNT 53 10^3/UL (140-415); POSITIVE DIFF @See below
[2018-05-17 07:21] LABS: PT RATIO 2.2
[2018-05-17] MEDS: INSULIN ASPART [NOVOLOG] 3 ML PEN SC ×4 (07:35→21:00)
[2018-05-17 07:44] LABS: ANION GAP 17 (8-16); BLOOD UREA NITROGEN 66 mg/dl (7-20); CALCIUM 7.2 mg/dl (8.4-10.2); CARBON DIOXIDE 34 mmol/L (21-31); CHLORIDE 89 mmol/L (97-110); CREATININE 1.37 mg/dl (0.44-1.00); GLUCOSE 136 mg/dl (70-220); MAGNESIUM 1.7 mg/dl (1.7-2.5); PHOSPHORUS 4.6 mg/dl (2.5-4.9); POTASSIUM 3.9 mmol/L (3.5-5.1); SODIUM 136 mmol/L (135-144)
[2018-05-17] MEDS: PANTOPRAZOLE 40 MG INJ IV (07:58)
[2018-05-17] MEDS: DOXYCYCLINE 100 MG in SOD CHLORIDE 0.9% 250 ML IVPB ×2 (08:00→21:03)
[2018-05-17] MEDS: COLLAGENASE 5 GM (UD JAR) TOP (08:01)
[2018-05-17] MEDS: VASOPRESSIN 60 UNIT in DEXTROSE 5% 57 ML IV ×2 (08:01→21:00)
[2018-05-17 08:02] LABS: INR 2.52; PROTIME 27.9 Sec (11.9-14.9)
[2018-05-17] MEDS: THIAMINE 200 MG in SOD CHLORIDE 0.9% 100 ML IV ×2 (09:39→21:02)
[2018-05-17] MEDS: PHYTONADIONE (1 MG/ML PO SYG) GTB (11:13)
[2018-05-17] MEDS: ALBUMIN HUMAN 25% 50 ML INJ IV ×2 (11:43→16:59)
[2018-05-17] MEDS ORDERED: FUROSEMIDE 40 MG INJ IV (12:00)
[2018-05-17] MEDS ORDERED: SOD CHLORIDE 0.9% 500 ML IV (12:00)
[2018-05-17] MEDS: CASPOFUNGIN 50 MG in SOD CHLORIDE 0.9% 250 ML IVPB (12:59)
[2018-05-17] MEDS: ACETAZOLAMIDE 500 MG INJ IV (13:21)
[2018-05-17 14:49] LABS: AADO2 Arterial 47.1 mmHg (7.0-24.0); Allen Test ACCEPTAB; Arterial Base Excess 0.7 mmol/L (-3.0-3); Arterial Blood Gas Oxygen Sat 92.7 mmHG (95.0-100.0); Arterial COHb 0.8 % (0.0-3.0); Arterial Fraction of Oxyhgb 91.7 % (93.0-99.0); Arterial HCO3 32.2 mmol/L (22.0-26.0); Arterial MetHb 0.3 % (0.0-1.5); Arterial Total Hemglobin 14.1 g/dl (12.0-18.0); Arterial pCO2 91.6 mmhg (35-45); MODE NASAL CANNULA; Site Left Radial
[2018-05-17 17:09] LABS: Allen Test ACCEPTAB; Arterial Base Excess 1.5 mmol/L (-3.0-3); Arterial Blood Gas Oxygen Sat 98.5 mmHG (95.0-100.0); Arterial COHb 0.8 % (0.0-3.0); Arterial Fraction of Oxyhgb 97.4 % (93.0-99.0); Arterial HCO3 30.9 mmol/L (22.0-26.0); Arterial MetHb 0.3 % (0.0-1.5); Arterial Total Hemglobin 14.4 g/dl (12.0-18.0); Arterial pCO2 71.8 mmhg (35-45); Blood Gas IEPAP 18/5; MODE MASK - BIPAP; Site Right Radial
[2018-05-17] MEDS: SOD CHLORIDE 0.9% 500 ML IV (18:08)
[2018-05-17] MEDS: FUROSEMIDE 40 MG INJ IV (21:01)
[2018-05-17 22:07] LABS: AADO2 Arterial 274.3 mmHg (7.0-24.0); Allen Test ACCEPTAB; Arterial Base Excess -0.6 mmol/L (-3.0-3); Arterial Blood Gas Oxygen Sat 95.4 mmHG (95.0-100.0); Arterial Fraction of Oxyhgb 94.2 % (93.0-99.0); Arterial HCO3 27.7 mmol/L (22.0-26.0); Arterial MetHb 0.3 % (0.0-1.5); Arterial Total Hemglobin 14.1 g/dl (12.0-18.0); Arterial pCO2 62.2 mmhg (35-45); Blood Gas IEPAP 18/5; Blood Gas PS 13; MODE MASK - BIPAP; Site Right Radial
[2018-05-17] MEDS: BUMETANIDE 12 MG in DEXTROSE 5% 72 ML IV (22:15)
[2018-05-18] MEDS: VASOPRESSIN 60 UNIT in DEXTROSE 5% 57 ML IV ×2 (02:17→10:58)
[2018-05-18 03:09] LABS: ADD MAN DIFF? NO
[2018-05-18 03:19] LABS: ABNORMAL IP MESSAGE 1; BASOPHILS % 0.2 % (0.0-2.0); EOSINOPHILS % 0.1 % (0.0-7.0); HEMATOCRIT 42.3 % (37.0-47.0); HEMOGLOBIN 13.1 g/dl (12.0-16.0); LYMPHOCYTES # 1.7 10^3/ul (0.8-2.9); LYMPHOCYTES % 9.9 % (15.0-51.0); MEAN CORPUSCULAR HEMOGLOBIN 30.3 pg (29.0-33.0); MEAN CORPUSCULAR VOLUME 97.9 fl (82.0-101.0); MEAN PLATELET VOLUME 12.8 fl (7.4-10.4); MONOCYTE # 0.7 10^3/ul (0.3-0.9); MONOCYTES % 3.9 % (0.0-11.0); NEUTROPHIL # 14.2 10^3/ul (1.6-7.5); NEUTROPHILS % 84.7 % (39.0-77.0); NUCLEATED RED BLOOD CELLS # 0.9 10^3/ul (0.0-0.0); NUCLEATED RED BLOOD CELLS% 5.4 /100WBC (0.0-0.0); PLATELET COUNT 50 10^3/UL (140-415); RED BLOOD COUNT 4.32 10^6/ul (4.20-5.40); RED CELL DISTRIBUTION WIDTH 16.7 % (11.5-14.5)
[2018-05-18 03:19] LABS: WHITE BLOOD COUNT 16.7 10^3/ul (4.8-10.8)
[2018-05-18 03:21] LABS: POSITIVE DIFF @See below
[2018-05-18 03:31] LABS: ANION GAP 24 (8-16); BLOOD UREA NITROGEN 67 mg/dl (7-20); CALCIUM 7.4 mg/dl (8.4-10.2); CARBON DIOXIDE 26 mmol/L (21-31); CHLORIDE 91 mmol/L (97-110); CREATININE 1.85 mg/dl (0.44-1.00); GLUCOSE 174 mg/dl (70-220); PHOSPHORUS 5.9 mg/dl (2.5-4.9); POTASSIUM 4.4 mmol/L (3.5-5.1); SODIUM 137 mmol/L (135-144)
[2018-05-18 03:33] LABS: CREATINE KINASE < 20 IU/L (23-200)
[2018-05-18 03:43] LABS: CK-MB 1.36 ng/ml (0.0-2.4)
[2018-05-18 03:47] LABS: TROPONIN-I 0.253 ng/ml (0.000-0.120)
[2018-05-18 04:39] LABS: AADO2 Arterial 494.6 mmHg (7.0-24.0); Allen Test ACCEPTAB; Arterial Blood Gas Oxygen Sat 98.9 mmHG (95.0-100.0); Arterial COHb 0.7 % (0.0-3.0); Arterial Fraction of Oxyhgb 97.9 % (93.0-99.0); Arterial HCO3 22.4 mmol/L (22.0-26.0); Arterial MetHb 0.3 % (0.0-1.5); Arterial pCO2 50.8 mmhg (35-45); Blood Gas Low PEEP Setting 0 cmH2O; MODE VENT - AC; Site Right Radial
[2018-05-18] MEDS: FENTAnyl 50 MCG/ML VIAL IV (04:43)
[2018-05-18] MEDS: FENTAnyl (DRIP) 1000 mcg/100mL 100 ML IV (05:20)
[2018-05-18] MEDS: MEROPENEM 500MG/50 ML (PMX) 50 ML IVPB ×3 (05:37→21:16)
[2018-05-18] MEDS: PHENYLephrine 160 MG in DEXTROSE 5% 484 ML IV ×5 (05:40→21:27)
[2018-05-18] MEDS ORDERED: BUMETANIDE 1 MG INJ IV (06:00)
[2018-05-18 06:16] LABS: INR 3.33; PARTIAL THROMBOPLASTIN TIME 40.9 Sec (23.0-35.0); PROTIME 34.8 Sec (11.9-14.9); PT RATIO 2.7; THROMBIN TIME 23.3 SEC (13.8-19.1)
[2018-05-18 06:26] LABS: PLATELET COUNT 51 10^3/UL (140-415)
[2018-05-18 06:46] LABS: LACTIC ACID 8.7 mmol/L (0.5-2.0)
[2018-05-18] MEDS: DILTIAZEM 25 MG INJ IV (07:08)
[2018-05-18] MEDS: AMIODARONE 900 MG in DEXTROSE 5% 482 ML IV (08:24)
[2018-05-18] MEDS: DILTIAZEM-D5W 125MG/125ML DRIP 125 ML IV (08:34)
[2018-05-18] MEDS: INSULIN ASPART [NOVOLOG] 3 ML PEN SC ×4 (08:51→22:07)
[2018-05-18] MEDS: THIAMINE 200 MG in SOD CHLORIDE 0.9% 100 ML IV ×2 (09:05→20:20)
[2018-05-18] MEDS: PANTOPRAZOLE 40 MG INJ IV (09:05)
[2018-05-18] MEDS: COLLAGENASE 5 GM (UD JAR) TOP (09:05)
[2018-05-18] MEDS: DOXYCYCLINE 100 MG in SOD CHLORIDE 0.9% 250 ML IVPB (09:06)
[2018-05-18] MEDS ORDERED: ATROPINE 1 MG/10 ML SYRINGE (11:12)
[2018-05-18] MEDS ORDERED: VANCOMYCIN IV PER PHARMACY XX (12:30)
[2018-05-18] MEDS: CASPOFUNGIN 50 MG in SOD CHLORIDE 0.9% 250 ML IVPB (14:35)
[2018-05-18] MEDS: VANCOMYCIN 1 GM 250 ML IVPB ×2 (14:35→17:29)
[2018-05-18] MEDS: HYDROCORTISONE 100 MG INJ IV ×3 (14:36→23:32)
[2018-05-18] MEDS: ASCORBIC ACID IPPB ×2 (15:33→21:16)
[2018-05-18] MEDS: SOD CHLORIDE 0.9% IPPB ×2 (15:33→21:16)
[2018-05-19] MEDS: VASOPRESSIN 60 UNIT in DEXTROSE 5% 57 ML IV (01:02)
[2018-05-19] MEDS: PHENYLephrine 160 MG in DEXTROSE 5% 484 ML IV ×2 (04:51→12:51)
[2018-05-19] MEDS: SOD CHLORIDE 0.9% IPPB ×2 (04:53→09:25)
[2018-05-19] MEDS: ASCORBIC ACID IPPB ×2 (04:53→09:25)
[2018-05-19] MEDS: HYDROCORTISONE 100 MG INJ IV ×2 (05:02→12:26)
[2018-05-19] MEDS: MEROPENEM 500MG/50 ML (PMX) 50 ML IVPB (05:02)
[2018-05-19 05:10] LABS: ABNORMAL IP MESSAGE 1; HEMATOCRIT 39.1 % (37.0-47.0); HEMOGLOBIN 11.9 g/dl (12.0-16.0); MEAN CORPUSCULAR HEMOGLOBIN 30.1 pg (29.0-33.0); MEAN CORPUSCULAR HGB CONC 30.4 g/dl (32.0-37.0); RED BLOOD COUNT 3.95 10^6/ul (4.20-5.40)
[2018-05-19 05:10] LABS: WHITE BLOOD COUNT 21.9 10^3/ul (4.8-10.8)
[2018-05-19 05:20] LABS: PLATELET COUNT 22 10^3/UL (140-415)
[2018-05-19 05:21] LABS: ADD MAN DIFF? YES; POSITIVE DIFF @See below
[2018-05-19 05:45] LABS: ANION GAP 36 (8-16); BLOOD UREA NITROGEN 63 mg/dl (7-20); CALCIUM 7.4 mg/dl (8.4-10.2); CARBON DIOXIDE 14 mmol/L (21-31); CHLORIDE 85 mmol/L (97-110); CREATININE 2.09 mg/dl (0.44-1.00); GLUCOSE 266 mg/dl (70-220); POTASSIUM 3.9 mmol/L (3.5-5.1); SODIUM 131 mmol/L (135-144)
[2018-05-19] MEDS: INSULIN ASPART [NOVOLOG] 3 ML PEN SC ×2 (07:34→12:50)
[2018-05-19] MEDS: THIAMINE 200 MG in SOD CHLORIDE 0.9% 100 ML IV (09:25)
[2018-05-19] MEDS: COLLAGENASE 5 GM (UD JAR) TOP (09:25)
[2018-05-19] MEDS: PANTOPRAZOLE 40 MG INJ IV (09:25)
[2018-05-19 11:39] LABS: ANISOCYTOSIS 3+ (0-0); BAND NEUTROPHILS #M 1.3 10^3/ul (0.0-0.6); BAND NEUTROPHILS % (M) 6 % (0-4); BURR CELLS 2+ (0-0); ERYTHROBLAST% (NRBC) (M) 24 % (0-0); GIANT THROMBO% (M) 4 % (0-0); LYMPHOCYTES #M 0.8 10^3/ul (0.8-2.9); LYMPHOCYTES % (M) 4 % (15-51); MONOCYTE #M 0.4 10^3/ul (0.3-0.9); MONOCYTES % (M) 2 % (0-11); PLATELET ESTIMATE SIG DECREASED; POIKILOCYTOSIS 3+ (0-0); PROMYELOCYTES #M 0.2 10^3/ul (0-0); PROMYELOCYTES % (M) 1 % (0-0); SEG NEUT #M 19.3 10^3/ul (1.6-7.5); SEGMENTED NEUTROPHILS (M) % 87 % (39-77); SMUDGE%M 22 % (0-0)
[2018-05-19] MEDS: CASPOFUNGIN 50 MG in SOD CHLORIDE 0.9% 250 ML IVPB (12:26)
[2018-05-19] MEDS ORDERED: DIGOXIN 500 MCG INJ IV (12:30)
[2018-05-19] MEDS ORDERED: LORAZEPAM 2 MG INJ IV (13:00)
[2018-05-19] MEDS ORDERED: AMIODARONE 200 MG TAB PO (13:00)
[2018-05-19] MEDS: SCOPOLAMINE 1.5 MG PATCH TRANSDERM (14:21)
[2018-05-19] MEDS: ATROPINE 1% 5 ML OPH SL (14:22)
[2018-05-19] MEDS: LORAZEPAM 2 MG INJ IV (14:41)
[2018-05-19] MEDS: morphine 10 MG INJ IV (14:42)
[2018-05-19] MEDS: morphine (DRIP) 100 MG/100 ML 100 ML IV (15:17)
[2018-05-20] MEDS ORDERED: VANCOMYCIN 1.25 GM in SOD CHLORIDE 0.9% 250 ML IVPB (04:00)
== END 2018-05-19 15:33 | disposition expired | DRG 871 ==
LOC: ICU 15:54 → E/R 13:58
PROC: 5A09557 Assistance with Respiratory Ventilation, Greater than 96 Consecutive Hours, Continuous Positive Airway Pressure (ICD-10-PCS; principal; 2018-05-09)
PROC: 02HV33Z Insertion of Infusion Device into Superior Vena Cava, Percutaneous Approach (ICD-10-PCS; 2018-05-09)
PROC: 4A133R1 Monitoring of Arterial Saturation, Peripheral, Percutaneous Approach (ICD-10-PCS; 2018-05-09)
PROC: 0BH17EZ Insertion of Endotracheal Airway into Trachea, Via Natural or Artificial Opening (ICD-10-PCS; 2018-05-18)
PROC: 5A1945Z Respiratory Ventilation, 24-96 Consecutive Hours (ICD-10-PCS; 2018-05-18)
DX: A41.9 Sepsis, unspecified organism (principal); R65.21 Severe sepsis with septic shock; J96.01 Acute respiratory failure with hypoxia; N17.0 Acute kidney failure with tubular necrosis; I21.A1 Myocardial infarction type 2; I50.23 Acute on chronic systolic (congestive) heart failure; J96.02 Acute respiratory failure with hypercapnia; G93.41 Metabolic encephalopathy; J18.9 Pneumonia, unspecified organism; D65 Disseminated intravascular coagulation [defibrination syndrome]; Z68.41 Body mass index [BMI] 40.0-44.9, adult; I42.9 Cardiomyopathy, unspecified; B37.0 Candidal stomatitis; I47.1 Supraventricular tachycardia; I13.0 Hypertensive heart and chronic kidney disease with heart failure and stage 1 through stage 4 chronic kidney disease, or unspecified chronic kidney disease; Z66 Do not resuscitate; N18.3 Chronic kidney disease, stage 3 (moderate); E66.01 Morbid (severe) obesity due to excess calories; I25.10 Atherosclerotic heart disease of native coronary artery without angina pectoris; E11.51 Type 2 diabetes mellitus with diabetic peripheral angiopathy without gangrene; M19.90 Unspecified osteoarthritis, unspecified site; M81.0 Age-related osteoporosis without current pathological fracture; Z78.1 Physical restraint status; E86.0 Dehydration; Z87.440 Personal history of urinary (tract) infections; D64.9 Anemia, unspecified; E83.39 Other disorders of phosphorus metabolism; E11.22 Type 2 diabetes mellitus with diabetic chronic kidney disease; E87.5 Hyperkalemia; I87.8 Other specified disorders of veins; E87.6 Hypokalemia; E83.42 Hypomagnesemia; Z95.5 Presence of coronary angioplasty implant and graft; Z79.4 Long term (current) use of insulin
CPT/HCPCS: 31500; 36415; 36600; 71045; 71250; 76775; 80048; 80053; 80061; 80202; 81001; 81003; 82533; 82550; 82553; 82570; 82803; 82947; 82962; 83036; 83605; 83690; 83735; 83880; 84100; 84132; 84145; 84300; 84439; 84484; 84560; 85025; 85049; 85610; 85670; 85730; 86022; 86850; 86900; 86901; 87040; 87070; 87081; 87086; 89190; 89220; 92526; 92610; 93005; 93306; 94002; 94003; 94660; 94770; 96374; 97110; 97163; 97530; 99291-25; J1120